=== PATIENT | female | born 1945 | race Caucasian/White ===

== ENCOUNTER → 2020-09-01 15:29 | Outpatient (BNVA) | payer OTHER, MEDICARE, SELFPAY | PROVIDERS: PCP Internal Medicine; Referring Provider Internal Medicine; Visit Provider Student in an Organized Health Care Education/Training Program | DX: M67.911 Unspecified disorder of synovium and tendon, right shoulder (principal); M19.041 Primary osteoarthritis, right hand; G80.1 Spastic diplegic cerebral palsy; Z79.899 Other long term (current) drug therapy; Z79.82 Long term (current) use of aspirin | CPT/HCPCS: 20610; 99212 ==

== ENCOUNTER 2023-07-25 17:14 | Inpatient (IN) | payer OTHER, MEDICARE, SELFPAY ==
--- NOTE | ~2023-07-25 | XR_ITS ---
EXAMINATION: XR CHEST CLINICAL INFORMATION: Fever. Hypoxia. COMPARISON: Previous chest x-ray March 2007 TECHNIQUE: 2 views of the chest were obtained. FINDINGS: The cardiac and mediastinal contours are stable. The lung volumes are low. There is bibasilar atelectasis or small infiltrates, left greater than right. No pleural effusion or pneumo thorax. There is permeative lucent appearance of the left humerus. Follow-up of left humerus or shoulder x-ray recommended. XR/XR chest 2V IMPRESSION: Low lung volumes and atelectasis or small infiltrates at the lung bases, left greater than right. Abnormal appearing left proximal humerus. Follow-up left shoulder or humerus x-ray recommended.
[2023-07-25 17:21] VITALS: BP 114/72; PULSE 96; O2SAT 92
[2023-07-25 17:34] VITALS: BP 155/87; PULSE 122; RESP 20; TEMP 39.4; O2SAT 89; BMI 37.0
--- NOTE | 2023-07-25 17:39 | ECG_ITS ---
Test Reason : DYSPNEA Blood Pressure : / mmHG Vent. Rate : 123 BPM Atrial Rate : 123 BPM P-R Int : 158 ms QRS Dur : 134 ms QT Int : 312 ms P-R-T Axes : 010 098 -34 degrees QTc Int : 446 ms Possible Atrial flutter with 2 to 1 block Right bundle branch block Inferior infarct , age undetermined Anteroseptal infarct , age undetermined T wave abnormality, consider lateral ischemia Abnormal ECG No previous ECGs available Referred By: Jevon Reyes Electronically Signed By:AZUCENA ADAM MD
--- NOTE | 2023-07-25 17:40 | ED_ITS ---
HPI - General Adult General Chief complaint: Upper Respiratory Symptoms Stated complaint: SOB. Cold symptoms. per ems Time Seen by Provider: 07/25/23 17:19 History of Present Illness HPI narrative: The patient is a 77-year-old woman. She normally lives on her own but since March when she hurt her back she has been staying with her daughter. She is a former smoker. She says that she quit smoking a few years ago but then her recently and she resumed smoking until about a month or 2 ago. Patient says she has had respiratory symptoms for about 3 days including cough and runny nose and feeling more and more short of breath. Eventually she called an ambulance and was brought to the hospital. On arrival here she was found to have a temperature of 103 degrees. No chest pain. No pleuritic pain. No abdominal pain. No vomiting. No pain or swelling in her legs. Related Data Home Medications Medication Instructions Recorded Confirmed acetaminophen 650 mg 650 mg PO Q12H 09/01/20 tablet,extended release (Tylenol Arthritis Pain) aspirin 81 mg tablet,delayed 81 mg PO DAILY 09/01/20 release baclofen 20 mg tablet 20 mg PO TID 09/01/20 ezetimibe 10 mg-simvastatin 10 mg 1 tab PO DAILY 09/01/20 tablet (Vytorin) hydrochlorothiazide 25 mg tablet 25 mg PO DAILY 09/01/20 urltfcmb-kwrisdl-qqtw-lutein tablet 1 tab PO DAILY 09/01/20 naproxen 250 mg tablet 250 mg PO BID PRN 09/01/20 oxybutynin chloride 5 mg tablet 5 mg PO DAILY 09/01/20 oxycodone-acetaminophen 5 mg-325 1 tab PO Q8H PRN 09/01/20 mg tablet (Percocet) verapamil 360 mg 24 hr 360 mg PO DAILY 09/01/20 capsule,extended release Allergies Allergy/AdvReac Type Severity Reaction Status Date / Time penicillin V Allergy Intermediate rash Verified 09/01/20 15:43 nitrofurantoin Allergy Rash Verified 07/25/23 19:44 nickel Allergy Intermediate swelling Uncoded 09/01/20 15:43 Review of Systems 2 Review of Systems: Yes all other systems are reviewed and are negative [facility] Past Medical History Medical History Urine incontinence Hyperlipidemia Sleep apnea Depression Cerebral palsy HTN (hypertension) CVA (cerebral vascular accident) Hypothyroid Surgical History Hx of cholecystectomy Hx of hysterectomy Family History Family History Father CVD (cardiovascular disease) Diabetes Mother CVD (cardiovascular disease) Social History Social History Alcohol intake: never Smoked in Last 30 Days: No Use of substances other than those prescribed or required for medical reasons: No Advance Directives: Yes Advance Directives Information Provided: No Advance Directives on File: No Physical Exam ED Vital Signs: Vital Signs - 24 hr 07/25/23 17:34 07/25/23 19:21 07/25/23 19:48 Temperature 103 F H 101.5 F H Pulse Rate 122 H 128 H 128 H Respiratory Rate 20 25 H 18 Blood Pressure 155/87 H 199/81 H Pulse Oximetry 89 L 88 L Oxygen Delivery Method Nasal Cannula Room Air Nasal Cannula Oxygen Flow Rate 5 BMI result Body Mass Index 37.0 Const Other: The patient is a chronically ill-appearing overweight 77-year-old who was awake and alert on nasal oxygen. She is very pleasant. He does not appear in overt distress. She looks quite chronically ill however. HENMT Other: Face is symmetrical, mucous membranes moist Eyes Other: Pupils are round equal, no scleral icterus Neck Other: No obvious JVD Resp Other: The patient has wheezes and rhonchi bilaterally. Cardio Other: The patient is tachycardic. There is a regular rate and rhythm. No definite murmur. GI Other: Abdomen is soft and nontender. Skin Other: Skin is pale and dry. Neuro Other: The patient is awake, alert, oriented, appropriate. She seems generally weak but otherwise has a nonfocal exam. Extrem Other: No obvious calf swelling, asymmetry, or tenderness. Medications Administered Generic Name Dose Route Start Last Admin Trade Name Freq PRN Reason Stop Dose Admin Enoxaparin Sodium 40 mg 07/25/23 23:00 12 00:26 Enoxaparin Sodium 40 Mg/0.4 Ml Syringe SUBCUT Not Given Q24H NEHA Sodium Chloride 3 ml 07/26/23 00:00 07/26/23 00:26 0.9 % Sodium Chloride Flush 3 Ml Syringe IVFLUSH 3 ml QSHIFT NEHA Administration Discontinued Medications Generic Name Dose Route Start Last Admin Trade Name Saroj PRN Reason Stop Dose Admin Acetaminophen 975 mg 07/25/23 19:25 07/25/23 19:35 Acetaminophen 325 Mg Tablet PO 07/25/23 19:26 975 mg ONCE ONE Administration Albuterol/Ipratropium 3 ml 07/25/23 19:21 07/25/23 19:39 Albuterol/Iprat 2.5/0.5mg 3 Ml Ampul.Neb INHALE 07/25/23 19:22 3 ml ONCE ONE Administration Ceftriaxone Sodium 1 gm/ 50 mls @ 100 mls/hr 07/25/23 19:20 07/25/23 20:07 Sodium Chloride IV 07/25/23 19:49 Infused ONCE ONE Infusion Azithromycin 500 mg/ Sodium 250 mls @ 125 mls/hr 07/25/23 19:21 07/25/23 22:33 Chloride IV 07/25/23 21:20 Infused ONCE ONE Infusion Sodium Chloride 1,000 mls @ 999 mls/hr 07/25/23 19:30 07/25/23 21:00 Ns IV 07/25/23 20:30 Infused .Q1H1M NEHA Infusion Methylprednisolone Sodium Succinate 125 mg 07/25/23 19:45 07/25/23 20:07 Methylprednisolone Sod Succ 125 Mg/2 Ml Vial IV 07/25/23 19:46 125 mg ONCE ONE Administration Medical Decision Making Medical Decision Making [facility] Narrative: The patient is very pleasant 77-year-old with history of COPD who presents with fever, cough, and runny nose. She is hypoxic. She has tested positive for RSV. I think that she has a COPD exacerbation secondary to significant RSV infection. Although she is tachycardic and hypoxic I think these abnormal vital signs are secondary to her viral illness under COPD exacerbation rather than sepsis. Nevertheless she was treated with ceftriaxone and azithromycin in addition to IV steroids and bronchodilators. She will be admitted to the hospitalist service. Lab Data 07/25/23 18:21 07/25/23 18:21 Labs: Lab Results 07/25/23 07/25/23 07/25/23 Range/Units 18:21 18:28 18:30 WBC 8.8 (4.8-10.8) X10*3/uL RBC 4.61 (4.20-5.50) X10*6/uL Hgb 13.2 (12.0-16.0) g/dl Hct 42.8 (37.0-47.0) % MCV 92.8 (80.0-98.0) fL MCH 28.6 (27.0-33.0) pg MCHC 30.8 L (31.0-35.0) g/dl RDW 14.4 (11.0-16.0) % Plt Count 117 L (160-400) X10*3/uL MPV 11.1 (9.4-12.3) fL Immature Gran % (Auto) 0.3 (0.0-0.4) % Neut % (Auto) 84.2 H (45-73) % Lymph % (Auto) 7.3 L (20-40) % [place] % (Auto) 7.4 (2-11) % Eos % (Auto) 0.5 (0-4) % Baso % (Auto) 0.3 (0-2) % Lymph # (Auto) 0.6 L (1.2-4.9) X10*3/uL [place] # (Auto) 0.7 (0.1-1.2) X10*3/uL Eos # (Auto) 0.0 (0.0-0.4) X10*3/uL Baso # (Auto) 0.0 (0.0-0.2) X10*3/uL Abs Immat Gran (auto) 0.03 (0.00-0.03) X10*3/uL Absolute Neuts (auto) 7.4 (2.0-8.3) x10*3/uL Absolute Nucleated RBC 0.000 (0.0-0.012) X10*3/uL Nucleated RBC % (auto) 0.0 (0.0-0.2) /100WBC VBG pH 7.40 (7.32-7.43) VBG pCO2 43 mmHg VBG pO2 39 mmHg VBG HCO3 27 H (22-26) mmol/L VBG O2 Saturation 60.0 % VBG Base Excess 2.7 mmol/L Sodium 145 (135-145) mmol/L Potassium 4.0 (3.3-5.1) mmol/L Chloride 106 (96-108) mmol/L Carbon Dioxide 25 (22-29) mmol/L Anion Gap 18 (12-20) BUN 21 H (9-16) mg/dL Creatinine 1.19 (0.5-1.4) mg/dL Estim Creat Clear Calc 39.1 Estimated GFR 44 Random Glucose 87 (60-115) mg/dL Lactic Acid 1.4 (0.5-2.0) mmol/L Calcium 9.7 (8.4-10.2) mg/dL Magnesium 2.0 (1.6-2.6) mg/dL Total Bilirubin 0.4 (0.0-1.0) mg/dL Direct Bilirubin 0.2 (0.0-0.5) mg/dL AST 27 (5-31) U/L ALT 13 (0-31) U/L Alkaline Phosphatase 64 (39-117) U/L C-Reactive Protein 7.98 H (< or = 0.50) mg/dL B-Natriuretic Peptide 19 (<100) pg/mL Total Protein 7.9 (6.5-8.0) g/dL Albumin 4.4 (3.5-5.0) g/dL Influenza Type A (PCR) NEGATIVE (Negative) Influenza Type B (PCR) NEGATIVE (Negative) RSV RNA Qual (PCR) POSITIVE A (Negative) SARS-CoV-2 RNA (RT-PCR) NEGATIVE (Negative) Independent Interpretation I performed an independent interpretation of an: EKG Interpretation: EKG at 17:59 shows sinus tachycardia at 123 beats per minute. There is a right bundle-branch block. There are nonspecific ST and T-wave changes. There are no old EKGs available for comparison Critical Care Time Critical Care Time Total Critical Care Time: 35 Attestation: The patient was critically ill with a high probability of imminent or life- threatening deterioration. She was significantly tachycardic and hypoxic. I spent greater than 30 minutes of discontinuous time evaluating the patient, delivering critical care at the bedside, discussing evaluating data with consultants. Critical care time does not include time spent performing separately billable procedures or teaching. Time spent performing critical care with 35 minutes. Discharge Plan Discharge Clinical Impression: Acute exacerbation of chronic obstructive pulmonary disease, Respiratory syncytial virus (RSV) Patient Disposition: Admitted As Inpatient
[2023-07-25 18:32] LABS: Venous Blood Gas Refer to POC result
[2023-07-25 18:32] LABS: MANUAL DIFF FLAG NO
[2023-07-25 18:34] LABS: VBG Base Excess 2.7 mmol/L; VBG HCO3 27 mmol/L (22-26); VBG pCO2 43 mmHg; VBG pO2 39 mmHg
[2023-07-25 18:46] LABS: Lactic Acid 1.4 mmol/L (0.5-2.0)
[2023-07-25 18:52] LABS: Alanine Aminotransferase 13 U/L (0-31); Albumin Level 4.4 g/dL (3.5-5.0); Alkaline Phosphatase 64 U/L (39-117); Anion Gap 18 (12-20); Aspartate Amino Transferase 27 U/L (5-31); Bilirubin Direct 0.2 mg/dL (0.0-0.5); Bilirubin Total 0.4 mg/dL (0.0-1.0); Blood Urea Nitrogen 21 mg/dL (9-16); C Reactive Protein 7.98 mg/dL (< or = 0.50); Calcium 9.7 mg/dL (8.4-10.2); Carbon Dioxide 25 mmol/L (22-29); Chloride 106 mmol/L (96-108); Creatinine Clr Calc Pharmacy 39.1; Estimated Glomerular Filt Rate 44; Glucose Random 87 mg/dL (60-115); Sodium 145 mmol/L (135-145); Total Protein 7.9 g/dL (6.5-8.0)
[2023-07-25 18:57] LABS: B Type Natriuretic Peptide 19 pg/mL (<100)
[2023-07-25 19:05] LABS: Basophils Percent Auto 0.3 % (0-2); Eosinophils Percent Auto 0.5 % (0-4); Hematocrit 42.8 % (37.0-47.0); Hemoglobin 13.2 g/dl (12.0-16.0); Imm Gran Abs Auto 0.03 X10*3/uL (0.00-0.03); Imm Gran Pct Auto 0.3 % (0.0-0.4); Lymphocytes Absolute Auto 0.6 X10*3/uL (1.2-4.9); Lymphocytes Percent Auto 7.3 % (20-40); Mean Corpuscular HGB Conc 30.8 g/dl (31.0-35.0); Mean Corpuscular Hemoglobin 28.6 pg (27.0-33.0); Mean Corpuscular Volume 92.8 fL (80.0-98.0); Mean Platelet Volume 11.1 fL (9.4-12.3); Monocytes Absolute Auto 0.7 X10*3/uL (0.1-1.2); Monocytes Percent Auto 7.4 % (2-11); Neutrophils Absolute Auto 7.4 x10*3/uL (2.0-8.3); Neutrophils Percent Auto 84.2 % (45-73); Platelet Count 117 X10*3/uL (160-400); Red Blood Count 4.61 X10*6/uL (4.20-5.50); Red Cell Distribution Width 14.4 % (11.0-16.0); White Blood Count 8.8 X10*3/uL (4.8-10.8)
[2023-07-25 19:14] LABS: Influenza A PCR NEGATIVE (Negative); Influenza B PCR NEGATIVE (Negative); Resp Syncy Virus RNA Qual PCR POSITIVE (Negative); SARS COV2 PCR INHOUSE NEGATIVE (Negative)
[2023-07-25 19:21] VITALS: BP 199/81; PULSE 128; RESP 25; TEMP 38.6; O2SAT 88
[2023-07-25] MEDS: Acetaminophen 325 MG TABLET 975 MG PO (19:35)
[2023-07-25] MEDS: cefTRIAXone sodium 1 GM in 0.9 % Sodium Chloride 50 ML IV (19:35)
[2023-07-25] MEDS: Albuterol/Iprat 2.5/0.5MG 3 ML AMPUL.NEB INHALE (19:39)
[2023-07-25] MEDS: 0.9 % Sodium Chloride 1,000 ML 999 ML IV (19:40)
[2023-07-25 19:48] VITALS: PULSE 128; RESP 18; O2SAT 90
--- NOTE | 2023-07-25 19:51 | PC.NURSE ---
this rn assumed care of pt @ 1900. per dr easley not calling sepsis alert on pt due to LA being WNL and not hypotensive. charge entry specialist made aware. pt medicated according to gladys
[2023-07-25] MEDS: Azithromycin 500 MG in 0.9 % Sodium Chloride 250 ML 125 MG IV (20:07)
[2023-07-25] MEDS: methylPREDNISolone Sod Succ 125 MG/2 ML VIAL IV (20:07)
--- NOTE | 2023-07-25 21:40 | P.HPHOSP_ITS ---
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 Pt has been experiencing a wicked bad cough, runny nose, and shortness of breath for the past three days. Pt was seen at her PCP office earlier today where she was found to be satting at 80% O2. Patient does not carry a diagnosis of COPD, and is not on either home inhalers or supplemental O2. She was thus sent to the ED for further evaluation where she tested positive for RSV. Patient states she also had been experiencing episodes of diarrhea the past 2 days. Some cramping with the diarrhea, but otherwise no abdominal pain. Reports not feeling particularly feverish or experiencing chills. Has had an occasional headache. No chest pain/pressure, palpitations. In the ED pt was febrile up to 103, tachycardic up to 128, tachypneic up to 25, hypertensive up to 199/81, satting as low as 88% on RA. Labs were grossly unremarkable except for C-reactive protein of 7.98. No leukocytosis. Stable H&H. Electrolytes WNL. Renal function baseline. Hepatic function WNL. Patient tested positive for RSV. CXR showed low lung volumes and atelectasis or small infiltrate at the left lung basis with left greater than right. Also found abnormal appearing left proximal humerus, though pt notes her rotator cuff is shot and she has [id number] in her shoulder. EKG demonstrated sinus tachycardia of 123 with right bundle branch block. Pt was treated with ceftriaxone, azithromycin, DuoNebs, IVF, and acetaminophen. Pt will be admitted to the hospital for treatment further evaluation of acute hypoxic respiratory failure in the setting of severe RSV infection. Review of Systems 2 Review of Systems: Cough Rhinorrhea Shortness of breath Crampy diarrhea Headache Denies chest pain/pressure, palpitations Denies fever, chills FORMERLY [facility], [facility]1983 Medical History Urine incontinence Hyperlipidemia Sleep apnea Depression Cerebral palsy HTN (hypertension) CVA (cerebral vascular accident) Hypothyroid Family History Father CVD (cardiovascular disease) Diabetes Mother CVD (cardiovascular disease) Surgical History Hx of cholecystectomy Hx of hysterectomy Social History Alcohol intake: never Advance Directives: Yes Advance Directives Information Provided: No Advance Directives on File: No Meds Allergies Allergy/AdvReac Type Severity Reaction Status Date / Time penicillin V Allergy Intermediate rash Verified 09/01/20 15:43 nitrofurantoin Allergy Rash Verified 07/25/23 19:44 nickel Allergy Intermediate swelling Uncoded 09/01/20 15:43 Home Medications Medication Instructions Recorded Confirmed Last Taken Type acetaminophen 650 mg 650 mg PO Q12H 09/01/20 Unknown History tablet,extended release (Tylenol Arthritis Pain) aspirin 81 mg tablet,delayed 81 mg PO DAILY 09/01/20 Unknown History release baclofen 20 mg tablet 20 mg PO TID 09/01/20 Unknown History ezetimibe 10 mg-simvastatin 10 mg 1 tab PO DAILY 09/01/20 Unknown History tablet (Vytorin) hydrochlorothiazide 25 mg tablet 25 mg PO DAILY 09/01/20 Unknown History vlfuuqhh-yuvultv-gfby-lutein tablet 1 tab PO DAILY 09/01/20 Unknown History naproxen 250 mg tablet 250 mg PO BID PRN 09/01/20 Unknown History oxybutynin chloride 5 mg tablet 5 mg PO DAILY 09/01/20 Unknown History oxycodone-acetaminophen 5 mg-325 1 tab PO Q8H PRN 09/01/20 Unknown History mg tablet (Percocet) verapamil 360 mg 24 hr 360 mg PO DAILY 09/01/20 Unknown History capsule,extended release Physical Exam 2 Vital Signs and Narrative: Vital Signs: Last Vital Signs Temp 101.5 F H 07/25/23 19:21 Pulse 128 H 07/25/23 19:48 Resp 18 07/25/23 19:48 BP 199/81 H 07/25/23 19:21 Pulse Ox 88 L 07/25/23 19:21 O2 Del Method Room Air, Nasal C annula 07/25/23 19:21 O2 Flow Rate 5 07/25/23 19:21 Oxygen Flow Rate 5 07/25/23 17:34 BMI result Body Mass Index 37.0 Constitutional: Alert, in no acute distress. Mental Status: Oriented to person, place and time. Eyes: Pupils are equal, round, and reactive to light. Ear, Nose, and Throat: Oropharynx clear, mucous membranes moist. Ears and nose without deformities. Trachea midline. Respiratory: Diffuse bilateral wheezing and rhonchi. Cardiovascular: S1, S2, tachy. No murmurs, rubs, or gallops. Gastrointestinal: Abdomen soft, non-tender, non-distended. Normal bowel sounds. Neurologic: Cranial nerves II-XII are grossly intact bilaterally. Chronic left- sided hemiparesis, though has same movement in left leg. Right hand chronically contracted. Skin: Warm, dry. Extremities: No pitting edema. Psychiatric: Normal mood and affect. Results Labs 07/25/23 18:21 07/25/23 18:21 Labs: Laboratory Results - last 24 hr 07/25/23 07/25/23 07/25/23 18:21 18:28 18:30 MCV 92.8 MCH 28.6 MCHC 30.8 L RDW 14.4 Plt Count 117 L MPV 11.1 Immature Gran % (Auto) 0.3 Neut % (Auto) 84.2 H Lymph % (Auto) 7.3 L [place] % (Auto) 7.4 Eos % (Auto) 0.5 Baso % (Auto) 0.3 Lymph # (Auto) 0.6 L [place] # (Auto) 0.7 Eos # (Auto) 0.0 Baso # (Auto) 0.0 Abs Immat Gran (auto) 0.03 Absolute Neuts (auto) 7.4 Absolute Nucleated RBC 0.000 Nucleated RBC % (auto) 0.0 VBG pH 7.40 VBG pCO2 43 VBG pO2 39 VBG HCO3 27 H VBG O2 Saturation 60.0 VBG Base Excess 2.7 Anion Gap 18 Estim Creat Clear Calc 39.1 Estimated GFR 44 Random Glucose 87 Lactic Acid 1.4 Calcium 9.7 Magnesium 2.0 Total Bilirubin 0.4 Direct Bilirubin 0.2 AST 27 ALT 13 Alkaline Phosphatase 64 C-Reactive Protein 7.98 H B-Natriuretic Peptide 19 Total Protein 7.9 Albumin 4.4 Influenza Type A (PCR) NEGATIVE Influenza Type B (PCR) NEGATIVE RSV RNA Qual (PCR) POSITIVE A SARS-CoV-2 RNA (RT-PCR) NEGATIVE Imaging Radiologist's Impressions: Impressions Chest X-Ray 07/25/23 18:40 IMPRESSION: Low lung volumes and atelectasis or small infiltrates at the lung bases, left greater than right. Abnormal appearing left proximal humerus. Follow-up left shoulder or humerus x-ray recommended. 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 Pt will be admitted to the hospital for treatment further evaluation of acute hypoxic respiratory failure in the setting of severe RSV infection. Acute hypoxic respiratory failure in the setting of RSV infection Patient satting as low as 80% on RA, not on home O2 Pt with significant SOB, cough, rhinorrhea, tested positive for RSV Will treat with DuoNebs, Solu-Medrol Acetaminophen for fever Will be placed on maintenance IVF Titrate supplemental O2 >92, wean as tolerated Viral sepsis Patient tachycardic, tachypneic, and with fever up to 103 secondary to viral RSV infection No indication for bacterial infection, no indication for continuing antibiotics Patient will be treated symptomatically as above Abnormal appearing left proximal humerus Patient with known rotator cuff injury and ?[id number]? in shoulder Patient with left-sided shailesh paresis, unable to move arm or showed There is no indication for further workup or treatment at this time Hx of CVA Continue Vytorin, aspirin HTN Continue verapamil, hydrochlorothiazide Chronic musculoskeletal pain Continue home analgesics Full Code Attending:? DVT Prophylaxis: Lovenox Med rec still pending Pt will require a hospitalization of at least two nights for treatment of?acute hypoxic respiratory failure in the setting of severe RSV infection. Patient be treated breathing treatments, IV steroids, IVF, supplemental oxygen, and close monitoring. Quality Stroke Does the patient have a stroke diagnosis?: No VTE Prior VTE?: No VTE Risk Level:: Medical - moderate - high VTE Device Contraindication: Treatment Not Indicated VTE Drug Contraindication: N/A - Med Ordered
[2023-07-25 22:21] VITALS: BP 128/85; PULSE 103; RESP 22; TEMP 37.1; O2SAT 92
[2023-07-25 22:33] VITALS: O2SAT 92
[2023-07-26] MEDS: 0.9 % Sodium Chloride Flush 3 ML SYRINGE IVFLUSH ×4 (00:26→21:28)
[2023-07-26 03:22] VITALS: BP 141/74; PULSE 82; RESP 22; TEMP 36.5; O2SAT 93
--- NOTE | 2023-07-26 03:24 | MHC.EDTECH ---
This tech assumed care of patient at 0300AM, hourly rounds and vitals completed,patient was incont. of a moderate amount of urine,patient was cleaned and repositioned in bed
--- NOTE | 2023-07-26 03:40 | MHC.EDTECH ---
Patient urinated 300ML on bedpan,This tech placed a Pure Wick for incontinence ,and to keep patient clean and dry.PHILLIP valdivia
--- NOTE | 2023-07-26 05:59 | MHC.EDTECH ---
Hourly rounds completed,patient repositioned to comfort and call toscano within reach
[2023-07-26] MEDS: methylPREDNISolone Sod Succ 40 MG/ML VIAL IVPUSH ×2 (07:16→21:21)
[2023-07-26 07:25] VITALS: BP 166/74; PULSE 79; RESP 18; TEMP 36.5; O2SAT 94
--- NOTE | 2023-07-26 09:14 | PHA.MEDREC ---
Pharmacy Consult ? Medication Reconciliation Pharmacy has completed the medication reconciliation. Spoke to patient to confirm meds.
--- NOTE | 2023-07-26 11:39 | HO.PM.IMPN ---
Subjective Subjective Date of Service: 07/26/23 Interval History: f/u acute hypoxic respiratory failure due to COPD exacerbation caused by a RSV, she is better but still requiring O2 Physical Exam Vital Signs: Vital Signs: Last Vital Signs Temp 97.7 F 07/26/23 07:25 Pulse 79 07/26/23 07:25 Resp 18 07/26/23 07:25 BP 166/74 H 07/26/23 07:25 Pulse Ox 94 07/26/23 07:25 O2 Del Method Nasal Cannula 07/26/23 07:25 O2 Flow Rate 5 07/26/23 07:25 Oxygen Flow Rate 5 07/25/23 22:33 BMI result Body Mass Index 37.0 Const: Other: General: AO X 3, no acute distress Resp: diminished annamaria, wheezing CVS: S1,S2,RRR GI: +BS, NT, no distention Skin: No rash Neuro: motor grossly intact Psych: appropriate affect Objective Data Active Medications Acetaminophen (Acetaminophen 325 Mg Tablet) 650 mg PO Q6H PRN PRN Reason: Fever Albuterol/Ipratropium (Albuterol/Iprat 2.5/0.5mg 3 Ml Ampul.Neb) 3 ml INHALE RQ4H WHILE AWAKE [facility] Last Admin: 07/26/23 07:44 Dose: Not Given Documented By: VINCE Non-Admin Reason: Patient Asleep Docusate Sodium (Docusate Sodium 100 Mg Capsule) 100 mg PO DAILY PRN PRN Reason: Constipation Enoxaparin Sodium (Enoxaparin Sodium 40 Mg/0.4 Ml Syringe) 40 mg SUBCUT Q24H [facility] Last Admin: 07/26/23 00:26 Dose: Not Given Documented By: KAYLIN Non-Admin Reason: Patient Refused Melatonin (Melatonin 3 Mg Tablet) 6 mg PO BEDTIME PRN PRN Reason: Insomnia Methylprednisolone Sodium Succinate (Methylprednisolone Sod Succ 40 Mg/Ml Vial) 40 mg IVPUSH Q12H [facility] Last Admin: 07/26/23 07:16 Dose: 40 mg Documented By: OUMOU Ondansetron HCl (Ondansetron Hcl 4 Mg/2 Ml Vial) 4 mg IVPUSH Q8H PRN PRN Reason: Nausea and Vomiting Sodium Chloride (0.9 % Sodium Chloride Flush 3 Ml Syringe) 3 ml IVFLUSH QSHIFT [facility] Last Admin: 07/26/23 07:17 Dose: 3 ml Documented By: OUMOU Labs 07/25/23 18:21 07/25/23 18:21 Labs: Laboratory Results - last 24 hr 07/25/23 07/25/23 07/25/23 18:21 18:28 18:30 MCV 92.8 MCH 28.6 MCHC 30.8 L RDW 14.4 Plt Count 117 L MPV 11.1 Immature Gran % (Auto) 0.3 Neut % (Auto) 84.2 H Lymph % (Auto) 7.3 L [place] % (Auto) 7.4 Eos % (Auto) 0.5 Baso % (Auto) 0.3 Lymph # (Auto) 0.6 L [place] # (Auto) 0.7 Eos # (Auto) 0.0 Baso # (Auto) 0.0 Abs Immat Gran (auto) 0.03 Absolute Neuts (auto) 7.4 Absolute Nucleated RBC 0.000 Nucleated RBC % (auto) 0.0 VBG pH 7.40 VBG pCO2 43 VBG pO2 39 VBG HCO3 27 H VBG O2 Saturation 60.0 VBG Base Excess 2.7 Anion Gap 18 Estim Creat Clear Calc 39.1 Estimated GFR 44 Random Glucose 87 Lactic Acid 1.4 Calcium 9.7 Magnesium 2.0 Total Bilirubin 0.4 Direct Bilirubin 0.2 AST 27 ALT 13 Alkaline Phosphatase 64 C-Reactive Protein 7.98 H B-Natriuretic Peptide 19 Total Protein 7.9 Albumin 4.4 Influenza Type A (PCR) NEGATIVE Influenza Type B (PCR) NEGATIVE RSV RNA Qual (PCR) POSITIVE A SARS-CoV-2 RNA (RT-PCR) NEGATIVE Assessment and Plan (1) Acute hypoxic respiratory failure: Status: Acute (2) Respiratory syncytial virus (RSV): Status: Acute (3) Acute exacerbation of chronic obstructive pulmonary disease: Status: Acute Plan Pt is a 77-year-old female with a PMH significant for?HTN, HLD, 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 Pt will be admitted to the hospital for treatment further evaluation of acute hypoxic respiratory failure in the setting of severe RSV infection. Acute hypoxic respiratory failure in the setting of RSV infection causing copd exacerbation Patient satting as low as 80% on RA, not on home O2 continue O2 goal of 92, wean as liz DuoNeteetee, Solu-Medrol for copd exacerbaion Viral sepsis, no indication for Abx Abnormal appearing left proximal humerus Patient with known rotator cuff injury and ?[id number]-[id number]? in shoulder Patient with left-sided shailesh paresis, unable to move arm or showed There is no indication for further workup or treatment at this time Hx of CVA Continue Vytorin, aspirin HTN Continue verapamil, hydrochlorothiazide Chronic musculoskeletal pain Continue home analgesics Full Code DVT Prophylaxis: Lovenox Med rec still completed need for inpatient for treatment of?acute hypoxic respiratory failure in the setting of severe RSV infection, need O2 titration Quality Stroke Does the patient have a stroke diagnosis?: No VTE Prior VTE?: No VTE Risk Level:: Medical - moderate - high VTE Device Contraindication: Treatment Not Indicated VTE Drug Contraindication: N/A - Med Ordered
[2023-07-26 11:44] VITALS: BP 154/79; PULSE 84; RESP 20; O2SAT 95
--- NOTE | 2023-07-26 12:22 | PC.NURSE ---
Pt is alert/oriented. No SOB or pain per pt. Breathing is non labored. Transitioned on Oxymask, sat 95% on 4lpm. Skin pwd. Speaking full sentences. LS diminished anteriorly. Purewick in plce. NSR on monitor.
[2023-07-26] MEDS: cloNIDine HCL 0.1 MG TABLET PO ×2 (12:56→21:21)
[2023-07-26] MEDS: Cholecalciferol (Vitamin D3) 25 MCG TABLET PO (12:56)
[2023-07-26] MEDS: Cyanocobalamin (Vitamin B-12) 1,000 MCG TABLET 1000 MCG PO (12:56)
[2023-07-26] MEDS: Aspirin Enteric Coated 81 MG TABLET.DR PO (12:57)
[2023-07-26] MEDS: VerapamiL HCL SR 240 MG TABLET.ER PO (13:46)
--- NOTE | 2023-07-26 14:00 | MHC.CM.PN ---
Patient is unavailable; CM spoke with Daughter/HCP/Valencia @ [phone]. Patient is presently staying with her Daughter/Valencia, who is a DISTRIBUTION TECH. Home/self care is the goal and CM has initiated and will follow for dc planning. PCP is Dr. Charlene Shaw.Patient does not use home O2;she does have a cane to assist with mobility.
[2023-07-26] MEDS: Baclofen 20 MG TABLET PO ×2 (15:44→21:21)
[2023-07-26 16:04] VITALS: PULSE 89; RESP 18; O2SAT 92
[2023-07-26] MEDS: Albuterol/Iprat 2.5/0.5MG 3 ML AMPUL.NEB INHALE ×2 (16:04→20:06)
--- NOTE | 2023-07-26 16:17 | PC.NURSE ---
Home Anoro inhaler brought in by family and to be picked up by pharmacy
[2023-07-26 18:49] VITALS: BP 134/72; PULSE 75; RESP 16; TEMP 36.2; O2SAT 96
[2023-07-26 19:48] VITALS: BMI 35.3
[2023-07-26 20:04] VITALS: PULSE 75; RESP 16; O2SAT 96
[2023-07-26] MEDS: Enoxaparin Sodium 40 MG/0.4 ML SYRINGE SUBCUT (21:21)
[2023-07-26] MEDS: Atorvastatin Calcium 10 MG TABLET PO (21:21)
--- NOTE | 2023-07-26 22:25 | MHC.PIE ---
p; pt arrived from ed, noted with fugal rash areas to annamaria breasts and groin areas i; dr sanders notified e; will cont to monitor
[2023-07-27] VITALS (7 sets, daily range): BP systolic 118–158; BP diastolic 56–79; PULSE 63–103; RESP 17–22; TEMP 36.3–36.6; O2SAT 84–97
[2023-07-27] MEDS: Acetaminophen 325 MG TABLET 650 MG PO (08:16)
[2023-07-27] MEDS: Albuterol/Iprat 2.5/0.5MG 3 ML AMPUL.NEB INHALE ×4 (08:24→19:37)
[2023-07-27] MEDS: Cyanocobalamin (Vitamin B-12) 1,000 MCG TABLET 1000 MCG PO (08:58)
[2023-07-27] MEDS: Multivitamin TABLET 1 TAB PO (08:58)
[2023-07-27] MEDS: Aspirin Enteric Coated 81 MG TABLET.DR PO (08:58)
[2023-07-27] MEDS: methylPREDNISolone Sod Succ 40 MG/ML VIAL IVPUSH ×2 (08:58→21:26)
[2023-07-27] MEDS: Baclofen 20 MG TABLET PO ×3 (08:58→21:27)
[2023-07-27] MEDS: VerapamiL HCL SR 240 MG TABLET.ER PO (08:58)
[2023-07-27] MEDS: Cholecalciferol (Vitamin D3) 25 MCG TABLET PO (08:59)
[2023-07-27] MEDS: cloNIDine HCL 0.1 MG TABLET PO ×2 (08:59→21:27)
[2023-07-27] MEDS: oxyBUTYnin chloride 5 MG TABLET PO (08:59)
[2023-07-27] MEDS: 0.9 % Sodium Chloride Flush 3 ML SYRINGE IVFLUSH ×3 (08:59→23:34)
[2023-07-27 10:43] LABS: Hematocrit 35.4 % (37.0-47.0); Hemoglobin 10.9 g/dl (12.0-16.0); Mean Corpuscular HGB Conc 30.8 g/dl (31.0-35.0); Mean Corpuscular Hemoglobin 28.5 pg (27.0-33.0); Mean Corpuscular Volume 92.7 fL (80.0-98.0); Mean Platelet Volume 11.1 fL (9.4-12.3); Platelet Count 122 X10*3/uL (160-400); Red Blood Count 3.82 X10*6/uL (4.20-5.50); Red Cell Distribution Width 14.4 % (11.0-16.0); White Blood Count 10.4 X10*3/uL (4.8-10.8)
[2023-07-27] MEDS: Nystatin Powder 15 GM BOTTLE 1 APPL TOPICAL ×2 (12:21→21:27)
--- NOTE | 2023-07-27 14:03 | P.PNIM_ITS ---
Subjective Subjective Date of Service: 07/27/23 Interval History: seen and examined this morning follow up for respiratory failure, RSV feels that breathing is starting to improve but still reporting sob and dry cough, still with hypoxia; has not been ambulating Review of Systems Review of Systems: Yes all other systems are reviewed and are negative Constitutional Constitutional: Denies chills and Denies fever(s) Cardiovascular Cardiovascular: Denies chest pain and Reports dyspnea Respiratory Respiratory: Reports cough and Reports dyspnea Physical Exam 2 Vital Signs: Vital Signs: Last Vital Signs Temp 98 F 07/27/23 06:53 Pulse 63 07/27/23 08:24 Resp 18 07/27/23 08:24 BP 158/79 H 07/27/23 06:53 Pulse Ox 84 L 07/27/23 06:53 O2 Del Method High Flow Nasal C annula 07/27/23 06:53 O2 Flow Rate 2 07/27/23 06:53 Oxygen Flow Rate 5 07/25/23 22:33 BMI result Body Mass Index 35.3 Const: General: cooperative, comfortable, alert and awake Nutritional Appearance: overweight Orientation/consciousness: patient oriented x3 Resp: Other: currently getting breathing treatment Effort & Inspection: normal respiratory effort and able to speak in complete sentences Cardio: Rate: regular rate GI: Inspection: No distended Palpation (GI): Soft to palpation and nontender Neuro: General: patient oriented x3 Extrem: Other: chronic LUE hand deformity, 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 Objective Data Active Medications Acetaminophen (Acetaminophen 325 Mg Tablet) 650 mg PO Q6H PRN PRN Reason: Fever Last Admin: 07/27/23 08:16 Dose: 650 mg Documented By: ASIYA Albuterol/Ipratropium (Albuterol/Iprat 2.5/0.5mg 3 Ml Ampul.Neb) 3 ml INHALE RQ4H WHILE AWAKE [facility] Last Admin: 07/27/23 12:27 Dose: 3 ml Documented By: LEIGHANN Aspirin (Aspirin Enteric Coated 81 Mg Tablet.) 81 mg PO DAILY [facility] Last Admin: 07/27/23 08:58 Dose: 81 mg Documented By: ASIYA Atorvastatin Calcium (Atorvastatin Calcium 10 Mg Tablet) 10 mg PO BEDTIME [facility] Last Admin: 07/26/23 21:21 Dose: 10 mg Documented By: BRITTA Baclofen (Baclofen 20 Mg Tablet) 20 mg PO TID [facility] Last Admin: 07/27/23 08:58 Dose: 20 mg Documented By: ASIYA Clonidine HCl (Clonidine Hcl 0.1 Mg Tablet) 0.1 mg PO BID [facility]; Protocol Last Admin: 07/27/23 08:59 Dose: 0.1 mg Documented By: ASIYA Cyanocobalamin (Cyanocobalamin (Vitamin B-12) 1,000 Mcg Tablet) 1,000 mcg PO DAILY [facility] Last Admin: 07/27/23 08:58 Dose: 1,000 mcg Documented By: ASIYA Docusate Sodium (Docusate Sodium 100 Mg Capsule) 100 mg PO DAILY PRN PRN Reason: Constipation Enoxaparin Sodium (Enoxaparin Sodium 40 Mg/0.4 Ml Syringe) 40 mg SUBCUT Q24H [facility] Last Admin: 07/26/23 21:21 Dose: 40 mg Documented By: BRITTA Fluticasone Propionate (Fluticasone Propionate Nasal 16 Gm [place]) 2 spray NOSTRIL-B DAILY PRN PRN Reason: Allergy Symptoms Melatonin (Melatonin 3 Mg Tablet) 6 mg PO BEDTIME PRN PRN Reason: Insomnia Methylprednisolone Sodium Succinate (Methylprednisolone Sod Succ 40 Mg/Ml Vial) 40 mg IVPUSH Q12H [facility] Last Admin: 07/27/23 08:58 Dose: 40 mg Documented By: ASIYA Multivitamins/Vitamin C (Multivitamin Tablet) 1 tab PO DAILY [facility] Last Admin: 07/27/23 08:58 Dose: 1 tab Documented By: ASIYA Pt Own (Umeclidinium -Vilanterol [Anoro Ellipta] 62.5-25 Mcg /Actuation Bl 1 each INHALE RDAILY [facility] Last Admin: 07/27/23 09:58 Dose: Not Given Documented By: ASIYA Non-Admin Reason: Med Not Available Nystatin (Nystatin Powder 15 Gm Bottle) 1 appl TOPICAL BID [facility]; Protocol Last Admin: 07/27/23 12:21 Dose: 1 appl Documented By: ASIYA Ondansetron HCl (Ondansetron Hcl 4 Mg/2 Ml Vial) 4 mg IVPUSH Q8H PRN PRN Reason: Nausea and Vomiting Oxybutynin Chloride (Oxybutynin Chloride 5 Mg Tablet) 5 mg PO DAILY [facility] Last Admin: 07/27/23 08:59 Dose: 5 mg Documented By: ASIYA Sodium Chloride (0.9 % Sodium Chloride Flush 3 Ml Syringe) 3 ml IVFLUSH QSHIFT [facility] Last Admin: 07/27/23 08:59 Dose: 3 ml Documented By: ASIYA Verapamil HCl (Verapamil Hcl Sr 240 Mg Tablet.Er) 240 mg PO DAILY [facility]; Protocol Last Admin: 07/27/23 08:58 Dose: 240 mg Documented By: ASIYA Vitamin D (Cholecalciferol (Vitamin D3) 25 Mcg Tablet) 25 mcg PO DAILY [facility] Last Admin: 07/27/23 08:59 Dose: 25 mcg Documented By: ASIYA Labs 07/27/23 10:36 07/25/23 18:21 Labs: Laboratory Results - last 24 hr 07/27/23 10:36 MCV 92.7 MCH 28.5 MCHC 30.8 L RDW 14.4 Plt Count 122 L MPV 11.1 Absolute Nucleated RBC 0.000 Nucleated RBC % (auto) 0.0 Microbiology Microbiology Results: Microbiology 07/25/23 18:21 Blood Culture - Preliminary Blood - Venous No growth after 24 hours. 07/25/23 18:21 Blood Culture - Preliminary Blood - Venous No growth after 24 hours. 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 Pt will be admitted to the hospital for treatment further evaluation of acute hypoxic respiratory failure in the setting of severe RSV infection. Acute hypoxic respiratory failure in the setting of RSV infection causing acute copd exacerbation still with hypoxia at rest continue O2 goal of 92, wean as liz DuoNebs, Solu-Medrol for copd exacerbation not on oxygen at baseline Viral sepsis, no indication for Abx thrombocytopenia likely due to acute viral illness platelets stable Abnormal appearing left proximal humerus Patient with known rotator cuff injury and ?[id number]? in shoulder Patient with left-sided shailesh paresis, unable to move arm due to CP per patient There is no indication for further workup or treatment at this time continue baclofen Hx of CVA Continue statin, aspirin HTN Continue verapamil, clonidine Full Code DVT Prophylaxis: Lovenox attending: Dr. Aldana need for inpatient for treatment of?acute hypoxic respiratory failure in the setting of severe RSV infection, need O2 titration Quality Stroke Does the patient have a stroke diagnosis?: No VTE Prior VTE?: No VTE Risk Level:: Medical - moderate - high VTE Device Contraindication: Treatment Not Indicated VTE Drug Contraindication: N/A - Med Ordered
--- NOTE | 2023-07-27 14:48 | PC.NURSE ---
Attempted to switch to nasal canula but O2 sats dropped . Maintained in 2L oxymask
[2023-07-27] MEDS: Enoxaparin Sodium 40 MG/0.4 ML SYRINGE SUBCUT (21:26)
[2023-07-27] MEDS: Atorvastatin Calcium 10 MG TABLET PO (21:27)
--- NOTE | 2023-07-27 21:49 | PC.NURSE ---
Resting in bed,comfortable,denies SOB at present
[2023-07-28] VITALS (8 sets, daily range): BP systolic 113–145; BP diastolic 62–69; PULSE 68–86; RESP 18–20; TEMP 36.2–36.6; O2SAT 88–97
[2023-07-28] MEDS: Acetaminophen 325 MG TABLET 650 MG PO ×2 (03:54→20:08)
[2023-07-28] MEDS: Throat Lozenge, Medicated LOZENGE 1 LOZENGE MUCOUS MEM (04:02)
[2023-07-28] MEDS: Albuterol/Iprat 2.5/0.5MG 3 ML AMPUL.NEB INHALE ×4 (07:39→19:39)
[2023-07-28] MEDS: Baclofen 20 MG TABLET PO ×3 (08:34→20:07)
[2023-07-28] MEDS: VerapamiL HCL SR 240 MG TABLET.ER PO (08:34)
[2023-07-28] MEDS: Cyanocobalamin (Vitamin B-12) 1,000 MCG TABLET 1000 MCG PO (08:34)
[2023-07-28] MEDS: cloNIDine HCL 0.1 MG TABLET PO ×2 (08:34→20:07)
[2023-07-28] MEDS: Cholecalciferol (Vitamin D3) 25 MCG TABLET PO (08:34)
[2023-07-28] MEDS: methylPREDNISolone Sod Succ 40 MG/ML VIAL IVPUSH ×2 (08:34→20:08)
[2023-07-28] MEDS: 0.9 % Sodium Chloride Flush 3 ML SYRINGE IVFLUSH ×3 (08:34→20:09)
[2023-07-28] MEDS: Aspirin Enteric Coated 81 MG TABLET.DR PO (08:34)
[2023-07-28] MEDS: oxyBUTYnin chloride 5 MG TABLET PO (08:34)
[2023-07-28] MEDS: Multivitamin TABLET 1 TAB PO (08:35)
[2023-07-28] MEDS: Nystatin Powder 15 GM BOTTLE 1 APPL TOPICAL ×2 (08:41→20:21)
--- NOTE | 2023-07-28 10:15 | MHC.CM.PN ---
EMR REVIEWED. PER MD ROUNDS PATIENT NOT MEDICALLY CLEARED FOR DC AT THIS TIME, POTENTIAL DC TOMORROW. PLAN REMAINS RETURN HOME WITH DAUGHTER WHO IS A FINISHER HAND. CM WILL CONTINUE TO FOLLOW.
--- NOTE | 2023-07-28 12:43 | HO.PM.IMPN ---
Subjective Subjective Date of Service: 07/28/23 Interval History: follow up for respiratory failure, RSV feels that breathing is starting to improve but still reporting sob and dry cough, still with hypoxia; has not been ambulating Review of Systems Review of Systems: Yes all other systems are reviewed and are negative Constitutional Constitutional: Denies chills and Denies fever(s) Cardiovascular Cardiovascular: Denies chest pain and Reports dyspnea Respiratory Respiratory: Reports cough and Reports dyspnea Physical Exam Vital Signs: Vital Signs: Last Vital Signs Temp 97.6 F 07/28/23 07:50 Pulse 72 07/28/23 11:22 Resp 18 07/28/23 11:22 BP 125/62 07/28/23 07:50 Pulse Ox 92 07/28/23 07:50 O2 Del Method Room Air 07/28/23 07:50 O2 Flow Rate 2 07/28/23 03:33 Oxygen Flow Rate 5 07/25/23 22:33 BMI result Body Mass Index 35.3 Appearing in no acute distress lung sounds are clear to auscultation heart regular rate rhythm, clear S1, S2 positive bowel sounds, abdomen is soft, nontender neuro patient is alert x3, no focal deficits Objective Data Active Medications Acetaminophen (Acetaminophen 325 Mg Tablet) 650 mg PO Q6H PRN PRN Reason: Fever Last Admin: 07/28/23 03:54 Dose: 650 mg Documented By: ERIKA Albuterol Sulfate (Albuterol Sulfate (0.083%) 2.5 Mg/3 Ml Vial.Neb) 2.5 mg INHALE Q4H PRN PRN Reason: Shortness of Breath/Wheezing Albuterol/Ipratropium (Albuterol/Iprat 2.5/0.5mg 3 Ml Ampul.Neb) 3 ml INHALE RQ4H WHILE AWAKE [facility] Last Admin: 07/28/23 11:20 Dose: 3 ml Documented By: JIMMY Aspirin (Aspirin Enteric Coated 81 Mg Tablet.) 81 mg PO DAILY [facility] Last Admin: 07/28/23 08:34 Dose: 81 mg Documented By: ANA Atorvastatin Calcium (Atorvastatin Calcium 10 Mg Tablet) 10 mg PO BEDTIME [facility] Last Admin: 07/27/23 21:27 Dose: 10 mg Documented By: OSCAR Baclofen (Baclofen 20 Mg Tablet) 20 mg PO TID [facility] Last Admin: 07/28/23 08:34 Dose: 20 mg Documented By: ANA Benzocaine (Throat Lozenge, Medicated Lozenge) 1 lozenge MUCOUS MEM Q2H PRN PRN Reason: Sore Throat Last Admin: 07/28/23 04:02 Dose: 1 lozenge Documented By: ERIKA Clonidine HCl (Clonidine Hcl 0.1 Mg Tablet) 0.1 mg PO BID [facility]; Protocol Last Admin: 07/28/23 08:34 Dose: 0.1 mg Documented By: AAN Cyanocobalamin (Cyanocobalamin (Vitamin B-12) 1,000 Mcg Tablet) 1,000 mcg PO DAILY [facility] Last Admin: 07/28/23 08:34 Dose: 1,000 mcg Documented By: ANA Docusate Sodium (Docusate Sodium 100 Mg Capsule) 100 mg PO DAILY PRN PRN Reason: Constipation Enoxaparin Sodium (Enoxaparin Sodium 40 Mg/0.4 Ml Syringe) 40 mg SUBCUT Q24H [facility] Last Admin: 07/27/23 21:26 Dose: 40 mg Documented By: OSCAR Fluticasone Propionate (Fluticasone Propionate Nasal 16 Gm [place]) 2 spray NOSTRIL-B DAILY PRN PRN Reason: Allergy Symptoms Melatonin (Melatonin 3 Mg Tablet) 6 mg PO BEDTIME PRN PRN Reason: Insomnia Methylprednisolone Sodium Succinate (Methylprednisolone Sod Succ 40 Mg/Ml Vial) 40 mg IVPUSH Q12H [facility] Last Admin: 07/28/23 08:34 Dose: 40 mg Documented By: ANA Multivitamins/Vitamin C (Multivitamin Tablet) 1 tab PO DAILY [facility] Last Admin: 07/28/23 08:35 Dose: 1 tab Documented By: ANA Pt Own (Umeclidinium -Vilanterol [Anoro Ellipta] 62.5-25 Mcg /Actuation Bl 1 each INHALE RDAILY [facility] Last Admin: 07/27/23 09:58 Dose: Not Given Documented By: ASIYA Non-Admin Reason: Med Not Available Nystatin (Nystatin Powder 15 Gm Bottle) 1 appl TOPICAL BID [facility]; Protocol Last Admin: 07/28/23 08:41 Dose: 1 appl Documented By: ANA Ondansetron HCl (Ondansetron Hcl 4 Mg/2 Ml Vial) 4 mg IVPUSH Q8H PRN PRN Reason: Nausea and Vomiting Oxybutynin Chloride (Oxybutynin Chloride 5 Mg Tablet) 5 mg PO DAILY [facility] Last Admin: 07/28/23 08:34 Dose: 5 mg Documented By: ANA Sodium Chloride (0.9 % Sodium Chloride Flush 3 Ml Syringe) 3 ml IVFLUSH QSHIFT [facility] Last Admin: 07/28/23 08:34 Dose: 3 ml Documented By: ANA Verapamil HCl (Verapamil Hcl Sr 240 Mg Tablet.Er) 240 mg PO DAILY [facility]; Protocol Last Admin: 07/28/23 08:34 Dose: 240 mg Documented By: ANA Vitamin D (Cholecalciferol (Vitamin D3) 25 Mcg Tablet) 25 mcg PO DAILY [facility] Last Admin: 07/28/23 08:34 Dose: 25 mcg Documented By: ANA Labs 07/27/23 10:36 07/25/23 18:21 Microbiology Microbiology Results: Microbiology 07/25/23 18:21 Blood Culture - Preliminary Blood - Venous No growth after 48 hours. 07/25/23 18:21 Blood Culture - Preliminary Blood - Venous No growth after 48 hours. 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 Pt will be admitted to the hospital for treatment further evaluation of acute hypoxic respiratory failure in the setting of severe RSV infection. Acute hypoxic respiratory failure in the setting of RSV infection causing acute copd exacerbation continue O2 goal of 92, wean as liz DuoNebs, Solu-Medrol for copd exacerbation not on oxygen at baseline Viral sepsis no indication for Abx thrombocytopenia likely due to acute viral illness platelets stable Abnormal appearing left proximal humerus Patient with known rotator cuff injury and ?[id number]? in shoulder Patient with left-sided shailesh paresis, unable to move arm due to CP per patient There is no indication for further workup or treatment at this time continue baclofen Hx of CVA Continue statin, aspirin HTN Continue verapamil, clonidine DISPO PT consult pending Full Code DVT Prophylaxis: Lovenox attending: Dr. Grodon need for inpatient for treatment of?acute hypoxic respiratory failure in the setting of severe RSV infection, need O2 titration Quality Stroke Does the patient have a stroke diagnosis?: No VTE Prior VTE?: No VTE Risk Level:: Medical - moderate - high VTE Device Contraindication: Treatment Not Indicated VTE Drug Contraindication: N/A - Med Ordered
--- NOTE | 2023-07-28 15:55 | HO.WOUND ---
Wound Consult: Initial 77yr old female admitted to [facility] [place] [place] on?07/25/23 22:21 - See progress notes and H&P for detailed history.? Wound consult placed for Skin fold assessment? - arrival to bedside patient is agreeable to assessment of skin folds. Bilateral Breast and Abdominal Skin Folds assessed - noted for mirrored red blanchable pigmentation noted along folds and base of fold intact at breasts. Left Abdominal skin fold has open partial thickness tissue loss at base of skin fold and is extremely tender to pt. Powder is currently being applied per provider orders - that will aid in moisture management I recommend Triad to the open skin fold base to the left abdominal fold to protect from friction and allow for moist wound healing. Recommendations: 1. Abdominal Skin fold and Bilateral Breast Folds - Cleanse with PH balance wipes, pat dry with soft cloth.? Apply antifungal power to assist with moisture management.? Be sure to dust of excess powder to prevent caking on skin and in folds. Apply per provider orders. Apply thin layer of Triad cream to base of left Abdominal skin fold. Apply Daily after cleansing. Re-consult wound care Nurse for wound deterioration
--- NOTE | 2023-07-28 19:59 | PC.NURSE ---
Pt seen on bed alert, mildly anxious but redirectible, EMS came to transport pt to [place], report given to EMT, left on a stretcher at 2002
[2023-07-28] MEDS: Atorvastatin Calcium 10 MG TABLET PO (20:07)
[2023-07-28] MEDS: Enoxaparin Sodium 40 MG/0.4 ML SYRINGE SUBCUT (22:43)
[2023-07-29] VITALS (9 sets, daily range): BP systolic 157–167; BP diastolic 77–82; PULSE 68–89; RESP 18–20; TEMP 36.1–36.9; O2SAT 84–97
[2023-07-29] MEDS: Albuterol/Iprat 2.5/0.5MG 3 ML AMPUL.NEB INHALE ×4 (07:54→20:15)
[2023-07-29] MEDS: cloNIDine HCL 0.1 MG TABLET PO ×2 (08:53→20:48)
[2023-07-29] MEDS: methylPREDNISolone Sod Succ 40 MG/ML VIAL IVPUSH (08:53)
[2023-07-29] MEDS: Multivitamin TABLET 1 TAB PO (08:53)
[2023-07-29] MEDS: 0.9 % Sodium Chloride Flush 3 ML SYRINGE IVFLUSH ×3 (08:53→23:50)
[2023-07-29] MEDS: Aspirin Enteric Coated 81 MG TABLET.DR PO (08:54)
[2023-07-29] MEDS: Cyanocobalamin (Vitamin B-12) 1,000 MCG TABLET 1000 MCG PO (08:54)
[2023-07-29] MEDS: Baclofen 20 MG TABLET PO ×3 (08:54→20:48)
[2023-07-29] MEDS: VerapamiL HCL SR 240 MG TABLET.ER PO (08:54)
[2023-07-29] MEDS: oxyBUTYnin chloride 5 MG TABLET PO (08:54)
[2023-07-29] MEDS: Cholecalciferol (Vitamin D3) 25 MCG TABLET PO (08:54)
[2023-07-29] MEDS: Nystatin Powder 15 GM BOTTLE 1 APPL TOPICAL ×2 (08:56→20:48)
--- NOTE | 2023-07-29 11:55 | P.PNIM_ITS ---
Subjective Subjective Date of Service: 07/29/23 Interval History: follow up for respiratory failure, RSV feels that breathing is starting to improve but still reporting sob and dry cough, still with hypoxia; has not been ambulating Review of Systems Review of Systems: Yes all other systems are reviewed and are negative Constitutional Constitutional: Denies chills and Denies fever(s) Cardiovascular Cardiovascular: Denies chest pain and Reports dyspnea Respiratory Respiratory: Reports cough and Reports dyspnea Physical Exam 2 Vital Signs: Vital Signs: Last Vital Signs Temp 97.4 F 07/29/23 07:58 Pulse 85 07/29/23 09:02 Resp 18 07/29/23 07:58 BP 164/77 H 07/29/23 09:02 Pulse Ox 93 07/29/23 09:02 O2 Del Method Oxymask 07/29/23 07:58 O2 Flow Rate 3.0 07/29/23 07:58 Oxygen Flow Rate 5 07/25/23 22:33 BMI result Body Mass Index 35.3 Appearing in no acute distress lung sounds are clear to auscultation heart regular rate rhythm, clear S1, S2 positive bowel sounds, abdomen is soft, nontender neuro patient is alert x3, no focal deficits Objective Data Active Medications Acetaminophen (Acetaminophen 325 Mg Tablet) 650 mg PO Q6H PRN PRN Reason: Fever Last Admin: 07/28/23 20:08 Dose: 650 mg Documented By: JAIRO Albuterol Sulfate (Albuterol Sulfate (0.083%) 2.5 Mg/3 Ml Vial.Neb) 2.5 mg INHALE Q4H PRN PRN Reason: Shortness of Breath/Wheezing Albuterol/Ipratropium (Albuterol/Iprat 2.5/0.5mg 3 Ml Ampul.Neb) 3 ml INHALE RQ4H WHILE AWAKE [facility] Last Admin: 07/29/23 07:54 Dose: 3 ml Documented By: JIMMY Aspirin (Aspirin Enteric Coated 81 Mg Tablet.) 81 mg PO DAILY [facility] Last Admin: 07/29/23 08:54 Dose: 81 mg Documented By: LAMAR Atorvastatin Calcium (Atorvastatin Calcium 10 Mg Tablet) 10 mg PO BEDTIME [facility] Last Admin: 07/28/23 20:07 Dose: 10 mg Documented By: JAIRO Baclofen (Baclofen 20 Mg Tablet) 20 mg PO TID [facility] Last Admin: 07/29/23 08:54 Dose: 20 mg Documented By: LAMAR Benzocaine (Throat Lozenge, Medicated Lozenge) 1 lozenge MUCOUS MEM Q2H PRN PRN Reason: Sore Throat Last Admin: 07/28/23 04:02 Dose: 1 lozenge Documented By: ERIKA Clonidine HCl (Clonidine Hcl 0.1 Mg Tablet) 0.1 mg PO BID [facility]; Protocol Last Admin: 07/29/23 08:53 Dose: 0.1 mg Documented By: LAMAR Cyanocobalamin (Cyanocobalamin (Vitamin B-12) 1,000 Mcg Tablet) 1,000 mcg PO DAILY [facility] Last Admin: 07/29/23 08:54 Dose: 1,000 mcg Documented By: LAMAR Docusate Sodium (Docusate Sodium 100 Mg Capsule) 100 mg PO DAILY PRN PRN Reason: Constipation Enoxaparin Sodium (Enoxaparin Sodium 40 Mg/0.4 Ml Syringe) 40 mg SUBCUT Q24H [facility] Last Admin: 07/28/23 22:43 Dose: 40 mg Documented By: JAIRO Fluticasone Propionate (Fluticasone Propionate Nasal 16 Gm [place]) 2 spray NOSTRIL-B DAILY PRN PRN Reason: Allergy Symptoms Melatonin (Melatonin 3 Mg Tablet) 6 mg PO BEDTIME PRN PRN Reason: Insomnia Methylprednisolone Sodium Succinate (Methylprednisolone Sod Succ 40 Mg/Ml Vial) 40 mg IVPUSH Q12H [facility] Last Admin: 07/29/23 08:53 Dose: 40 mg Documented By: LAMAR Multivitamins/Vitamin C (Multivitamin Tablet) 1 tab PO DAILY [facility] Last Admin: 07/29/23 08:53 Dose: 1 tab Documented By: LAMAR Pt Own (Umeclidinium -Vilanterol [Anoro Ellipta] 62.5-25 Mcg /Actuation Bl 1 each INHALE RDAILY [facility] Last Admin: 07/27/23 09:58 Dose: Not Given Documented By: ASIYA Non-Admin Reason: Med Not Available Nystatin (Nystatin Powder 15 Gm Bottle) 1 appl TOPICAL BID [facility]; Protocol Last Admin: 07/29/23 08:56 Dose: 1 appl Documented By: LAMAR Ondansetron HCl (Ondansetron Hcl 4 Mg/2 Ml Vial) 4 mg IVPUSH Q8H PRN PRN Reason: Nausea and Vomiting Oxybutynin Chloride (Oxybutynin Chloride 5 Mg Tablet) 5 mg PO DAILY [facility] Last Admin: 07/29/23 08:54 Dose: 5 mg Documented By: LAMAR Sodium Chloride (0.9 % Sodium Chloride Flush 3 Ml Syringe) 3 ml IVFLUSH QSHIFT [facility] Last Admin: 07/29/23 08:53 Dose: 3 ml Documented By: LAMAR Verapamil HCl (Verapamil Hcl Sr 240 Mg Tablet.Er) 240 mg PO DAILY [facility]; Protocol Last Admin: 07/29/23 08:54 Dose: 240 mg Documented By: LAMAR Vitamin D (Cholecalciferol (Vitamin D3) 25 Mcg Tablet) 25 mcg PO DAILY [facility] Last Admin: 07/29/23 08:54 Dose: 25 mcg Documented By: LAMAR Labs 07/27/23 10:36 07/25/23 18:21 Assessment and Plan (1) Acute hypoxic respiratory failure: Status: Acute (2) Respiratory syncytial virus (RSV): Status: Acute (3) Acute exacerbation of chronic obstructive pulmonary disease: Status: Acute Plan Pt is a 77-year-old female with a PMH significant for?HTN, HLD, 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 Pt will be admitted to the hospital for treatment further evaluation of acute hypoxic respiratory failure in the setting of severe RSV infection. Acute hypoxic respiratory failure in the setting of RSV infection causing acute copd exacerbation. Resolved continue O2 goal of 92, wean as liz DuoNeteet[place], Solu-Medrol changed to oral prednisone for copd exacerbation not on oxygen at baseline no precautions needed at this time Viral sepsis no indication for Abx thrombocytopenia likely due to acute viral illness platelets stable Abnormal appearing left proximal humerus Patient with known rotator cuff injury and ?[id number]? in shoulder Patient with left-sided shailesh paresis, unable to move arm due to CP per patient There is no indication for further workup or treatment at this time continue baclofen Hx of CVA Continue statin, aspirin HTN Continue verapamil, clonidine DISPO PT consult pending Full Code DVT Prophylaxis: Lovenox attending: Dr. Gordon DISPO PT rec STR, pending safe disposition need for inpatient for treatment of?acute hypoxic respiratory failure in the setting of severe RSV infection, need O2 titration Quality Stroke Does the patient have a stroke diagnosis?: No VTE Prior VTE?: No VTE Risk Level:: Medical - moderate - high VTE Device Contraindication: Treatment Not Indicated VTE Drug Contraindication: N/A - Med Ordered
[2023-07-29] MEDS: Acetaminophen 325 MG TABLET 650 MG PO (15:09)
[2023-07-29 17:14] LABS: COVID-19 Test Negative (Negative); IDNOW Serial# BCCEAD1C
[2023-07-29] MEDS: Atorvastatin Calcium 10 MG TABLET PO (20:48)
[2023-07-29] MEDS: Enoxaparin Sodium 40 MG/0.4 ML SYRINGE SUBCUT (23:51)
[2023-07-30] VITALS (7 sets, daily range): BP systolic 154–192; BP diastolic 72–86; PULSE 63–77; RESP 18–20; TEMP 36–36.8; O2SAT 92–97
[2023-07-30] MEDS: Albuterol/Iprat 2.5/0.5MG 3 ML AMPUL.NEB INHALE ×3 (07:43→14:59)
[2023-07-30] MEDS: Aspirin Enteric Coated 81 MG TABLET.DR PO (08:50)
[2023-07-30] MEDS: oxyBUTYnin chloride 5 MG TABLET PO (08:50)
[2023-07-30] MEDS: predniSONE 20 MG TABLET 40 MG PO (08:50)
[2023-07-30] MEDS: 0.9 % Sodium Chloride Flush 3 ML SYRINGE IVFLUSH (08:51)
[2023-07-30] MEDS: Cyanocobalamin (Vitamin B-12) 1,000 MCG TABLET 1000 MCG PO (08:51)
[2023-07-30] MEDS: Baclofen 20 MG TABLET PO ×2 (08:51→13:48)
[2023-07-30] MEDS: cloNIDine HCL 0.1 MG TABLET PO (08:51)
[2023-07-30] MEDS: Cholecalciferol (Vitamin D3) 25 MCG TABLET PO (08:51)
[2023-07-30] MEDS: VerapamiL HCL SR 240 MG TABLET.ER PO (08:51)
[2023-07-30] MEDS: Multivitamin TABLET 1 TAB PO (08:51)
[2023-07-30] MEDS: Nystatin Powder 15 GM BOTTLE 1 APPL TOPICAL (09:02)
[2023-07-30] MEDS: Throat Lozenge, Medicated LOZENGE 1 LOZENGE MUCOUS MEM (09:02)
--- NOTE | 2023-07-30 11:35 | MHC.CM.PN ---
PT RECOMMENDING STR. REFERRALS PLACED. BED OFFER FROM [facility], PENDING AUTH, WHICH WAS SUBMITTED FOR 07/29. PATIENT AND GRANDDAUGHTER AWARE. CM WILL FOLLOW.
--- NOTE | 2023-07-30 13:22 | MHC.CM.PN ---
PER ROUNDS PATIENT MEDICALLY CLEARED FOR DC TO [facility] HAS RECEIVED AUTH. S TRANSPORT BOOKED FOR 6PM. PATIENT, HCP, RN AND CARE INFORMATION ASSOCIATE AWARE. PATIENT TO BRING KAYLEY INHALER, RN AWARE.
--- NOTE | 2023-07-30 13:36 | PM.DS ---
DS: Providers Provider Date of Service: 07/30/23 Date of admission: 07/25/23 22:21 Primary care physician: Charlene Shaw MD Consults: 07/26/23 19:47 Consult to Wound Care Routine Reason for consultation: fungal breasts, groin DS: Diagnosis Discharge Diagnosis (1) Acute hypoxic respiratory failure: Status: Acute (2) Respiratory syncytial virus (RSV): Status: Acute (3) Acute exacerbation of chronic obstructive pulmonary disease: Status: Acute DS: Summary Hospital Course Hospital Course: history and physical as per admitting provider. 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 Pt has been experiencing a wicked bad cough, runny nose, and shortness of breath for the past three days. Pt was seen at her PCP office earlier today where she was found to be satting at 80% O2. Patient does not carry a diagnosis of COPD, and is not on either home inhalers or supplemental O2. She was thus sent to the ED for further evaluation where she tested positive for RSV. Patient states she also had been experiencing episodes of diarrhea the past 2 days. Some cramping with the diarrhea, but otherwise no abdominal pain. Reports not feeling particularly feverish or experiencing chills. Has had an occasional headache. No chest pain/pressure, palpitations.In the ED pt was febrile up to 103, tachycardic up to 128, tachypneic up to 25, hypertensive up to 199/81, satting as low as 88% on RA. Labs were grossly unremarkable except for C-reactive protein of 7.98. No leukocytosis. Stable H&H. Electrolytes WNL. Renal function baseline. Hepatic function WNL. Patient tested positive for RSV. CXR showed low lung volumes and atelectasis or small infiltrate at the left lung basis with left greater than right. Also found abnormal appearing left proximal humerus, though pt notes her rotator cuff is shot and she has [id number] in her shoulder. EKG demonstrated sinus tachycardia of 123 with right bundle branch block. Pt was treated with ceftriaxone, azithromycin, DuoNebs, IVF, and acetaminophen. Pt will be admitted to the hospital for treatment further evaluation of acute hypoxic respiratory failure in the setting of severe RSV infection. 77-year-old woman treated for acute hypoxic respiratory failure secondary to RSV leading to COPD exacerbation. She was treated with scheduled DuoNebs, IV steroids and subsequently switched to oral prednisone and oxygen. She did have viral sepsis. At this time no precautions are needed patient is not on a CPAP. She is hemodynamically stable at this time. She will continue 4 more days of oral prednisone. Plan is to transfer her to short-term rehab. History of CVA. Continue aspirin and statin Hypertension. Continue verapamil clonidine Time Attestation Discharge coordination time: Greater than 30 minutes Quality: Safe Use of Opioids Does Pt have an Active Cancer Diagnosis on the Problem List?: No Quality: Stroke Does the patient have a stroke diagnosis?: No Physical Exam Vital Signs: Vital Signs: Last Vital Signs Temp 97.4 F 07/30/23 08:00 Pulse 75 07/30/23 11:31 Resp 20 07/30/23 11:31 BP 159/75 H 07/30/23 08:00 Pulse Ox 92 07/30/23 08:00 O2 Del Method Nasal Cannula 07/30/23 08:00 O2 Flow Rate 2 07/30/23 08:00 Oxygen Flow Rate 5 07/25/23 22:33 BMI result Body Mass Index 35.3 Appearing in no acute distress head is normocephalic atraumatic eyes pupils are PERRLA sclera is anicteric mouth throat mucous membranes are intact and moist neck is supple no lymphadenopathy, no JVD noted lung sounds are clear to auscultation heart regular rate rhythm, clear S1, S2 positive bowel sounds, abdomen is soft, nontender neuro patient is alert x3, no focal deficits DS: Data Data Completed and Pending Labs on day of discharge: Laboratory Results - last 24 hr 07/29/23 16:30 COVID-19 (JOSE MANUEL) Negative COVID-19 Clin Com See Note Preliminary micro results at discharge 07/25/23 18:21 Blood Culture - Preliminary Blood - Venous No growth after 48 hours. 07/25/23 18:21 Blood Culture - Preliminary Blood - Venous No growth after 48 hours. Discharge Plan Discharge Anticipated Discharge Date/Time: 07/30/23 13:23 Patient Disposition: Xfer Inpatient Rehab Fac Discharge Diagnosis: Acute hypoxic respiratory failure RSV COPD exacerbation Viral sepsis Thrombocytopenia [facility] ([facility]) Charlene Shaw MD [Primary Care Provider] - 1 Week Discharge Medications: New prednisone 20 mg Tablet 40 mg PO DAILY Qty: 8 0RF Continued clonidine HCl 0.1 mg tablet 0.1 mg PO BID meloxicam 15 mg tablet 15 mg PO DAILY PRN (Reason: Pain) simvastatin 20 mg tablet 20 mg PO BEDTIME fluticasone propionate 50 mcg/actuation spray,suspension 2 spray intranasal DAILY PRN (Reason: Allergy Symptoms) Rx Instructions: 2 sprays in each nostril verapamil 240 mg capsule,ext rel. pellets 24 hr 240 mg PO DAILY Anoro Ellipta 62.5-25 mcg/actuation blister with device 1 ea inhalation DAILY cyanocobalamin (vitamin B-12) 1,000 mcg Tablet 1,000 mcg PO DAILY cholecalciferol (vitamin D3) [Vitamin D3] 25 mcg (1,000 unit) Tablet 25 mcg PO DAILY acetaminophen [Tylenol Arthritis Pain] 650 mg tablet extended release 650 mg PO Q6H PRN (Reason: Pain) ipjkfgtq-iohvwkz-haut-lutein Tablet 1 tab PO DAILY aspirin 81 mg tablet,delayed release (DR/EC) 81 mg PO DAILY oxybutynin chloride 5 mg tablet 5 mg PO DAILY baclofen 20 mg tablet 20 mg PO TID Discharge Orders: Discharge Order (Routine); Ordered 07/30/23 Ordered By: Alina Mendosa Diet: Advance to usual diet Activity on Discharge: As tolerated Stand Alone Forms: Patient Portal Discharge page Care Plan Goals: Short-term rehab for physical therapy Less than 30 day stay no precautions needed Health Concerns: Acute hypoxic respiratory failure RSV COPD exacerbation Viral sepsis Thrombocytopenia Plan of Treatment: Follow-up with primary care provider as needed Take all medications as prescribed Assessment: see discharge summary
[2023-07-30] MEDS: PT OWN (Umeclidinium-Vilanterol [Anoro Ellipta] 62.5-25 mcg/actuation bl 1 EACH INHALE (13:48)
--- NOTE | 2023-07-30 16:12 | PC.NURSE ---
patient is being discharged via Ambulance,discharge prepared by PHILLIP Avila ,patient has no complaints
--- NOTE | 2023-07-30 16:41 | P.CDIM_ITS ---
PROVIDER RESPONSE TEXT: To clarify, the appropriate diagnosis supported by the clinical indicators: Obesity Due to excess calories QUERY TEXT: PHYSICIAN'S DOCUMENTATION REQUEST Date of Query: 07/29/2023 11:46 AM EST Patient Name: DANICA YADAV Admit Date: 07/26/2023 Dear Alina Mendosa, A review of the medical record indicates additional documentation may be needed. Please review below and update the documentation accordingly. Clinical Indicators: Nursing notes Height and Weight: BMI 35.3 Obese Class II 81.9kg 5ft If possible, please provide an associated diagnosis related to the abnormal BMI, such as: Overweight Obesity Due to excess calories Obesity Drug induced Obesity Due to other cause Specify the other cause Other (explain) Clinically unable to determine (explain) Thank you, Shelly Polanco, CCS, CDIS Use of terms such as suspected, likely, concern for, or probable (associated with a specific diagnosi s that is being evaluated, monitored, or treated as if it exists) are acceptable and can be coded in the inpatient se tting, when documented at the time of discharge. Please use your independent medical judgment in providing your response. THIS QUERY IS PART OF THE PERMANENT MEDICAL RECORD
== END 2023-07-30 16:20 | DRG 190 ==
LOC: HO.ED 21:56 → HO.EDOVER 22:37 → HO.S3 07-26 16:42
PROVIDERS: Physician Assistant Medical; Admitting Provider Student in an Organized Health Care Education/Training Program; Emergency Provider Emergency Medicine; PCP Internal Medicine; Visit Provider Nurse Practitioner Acute Care
DX: J44.1 Chronic obstructive pulmonary disease with (acute) exacerbation (principal); J96.01 Acute respiratory failure with hypoxia; I69.354 Hemiplegia and hemiparesis following cerebral infarction affecting left non-dominant side; E66.09 Other obesity due to excess calories; D69.59 Other secondary thrombocytopenia; G89.29 Other chronic pain; B97.4 Respiratory syncytial virus as the cause of diseases classified elsewhere; I10 Essential (primary) hypertension; G80.9 Cerebral palsy, unspecified; E03.9 Hypothyroidism, unspecified; Z20.822 Contact with and (suspected) exposure to COVID-19; Z68.35 Body mass index [BMI] 35.0-35.9, adult; Z87.891 Personal history of nicotine dependence; Z79.82 Long term (current) use of aspirin; Z79.899 Other long term (current) drug therapy
CPT/HCPCS: 0241U; 36415; 71046; 80048; 80076; 82803; 83605; 83735; 83880; 85025; 85027; 86140; 87040; 87635; 93005; 94640; 97161; 99285; J0456; J0696; J1650; J2920; J2930

== ENCOUNTER → 2023-07-25 17:39 | Outpatient (BNV) | payer OTHER, MEDICARE, SELFPAY | PROVIDERS: Admitting Provider Student in an Organized Health Care Education/Training Program; Emergency Provider Emergency Medicine; PCP Internal Medicine; Visit Provider Internal Medicine Cardiovascular Disease | DX: I44.1 Atrioventricular block, second degree (principal); R94.31 Abnormal electrocardiogram [ECG] [EKG] | CPT/HCPCS: 93010 ==

== ENCOUNTER → 2023-07-25 22:21 | Outpatient (BNV) | payer OTHER, MEDICARE, SELFPAY | PROVIDERS: Admitting Provider Student in an Organized Health Care Education/Training Program; Emergency Provider Emergency Medicine; PCP Internal Medicine; Visit Provider Internal Medicine | DX: J96.01 Acute respiratory failure with hypoxia (principal); J44.1 Chronic obstructive pulmonary disease with (acute) exacerbation; B33.8 Other specified viral diseases | CPT/HCPCS: 99223; 99232; 99233; 99239 ==

== ENCOUNTER 2023-11-08 21:52 | Inpatient (IN) | payer OTHER, MEDICARE, SELFPAY ==
--- NOTE | ~2023-11-08 | XR_ITS ---
EXAMINATION: XR CHEST CLINICAL INFORMATION: COPD, questionable pneumonia COMPARISON: Chest x-ray 07/25/2023 TECHNIQUE: Frontal view of the chest was obtained. FINDINGS: Low lung volumes. Streaky retrocardiac opacity likely represents an area of atelectasis. No focal airspace consolidation. No pneumothorax or pleural effusion. Cardiomediastinal silhouette within normal limits. Soft tissue structures are unremarkable. Bilateral shoulder osteoarthritis. XR/XR chest 1V IMPRESSION: Lung volumes. Likely atelectatic changes at the left base.
[2023-11-08 21:58] VITALS: BP 138/85; PULSE 129; RESP 24; TEMP 37.4; O2SAT 81; BMI 40.4
--- NOTE | 2023-11-08 22:13 | ECG_ITS ---
Test Reason : SOB Blood Pressure : / mmHG Vent. Rate : 122 BPM Atrial Rate : 122 BPM P-R Int : 152 ms QRS Dur : 138 ms QT Int : 326 ms P-R-T Axes : 005 032 -03 degrees QTc Int : 464 ms Sinus tachycardia Right bundle branch block Cannot rule out Inferior infarct (cited on or before 25-JUL-2023) Anterior infarct (cited on or before 25-JUL-2023) T wave abnormality, consider lateral ischemia Abnormal ECG When compared with ECG of 25-JUL-2023 17:59, Previous ECG has undetermined rhythm, needs review Questionable change in initial forces of Septal leads Referred By: Miranda Paredes Electronically Signed By:AZUCENA ADAM MD
--- NOTE | 2023-11-08 22:17 | ED_ITS ---
HPI - SOB/Dyspnea General Chief Complaint: Dyspnea Stated Complaint: sob,cough 02 sat 82, ? uti Time Seen by Provider: 11/08/23 22:05 Source: patient and family Mode of arrival: ambulatory Limitations: no limitations History of Present Illness HPI Narrative: To the emergency room accompanied by her granddaughter. Patient states that she is known to have COPD. Patient does not use O2 at home. Patient has been coughing with sputum and feeling more short of breath than usual for less than 24 hours. Patient denies chest pain. Denies lower extremity swelling. Related Data Home Medications Medication Instructions Recorded Confirmed acetaminophen 650 mg 650 mg PO Q6H PRN Pain 09/01/20 07/26/23 tablet,extended release (Tylenol Arthritis Pain) aspirin 81 mg tablet,delayed 81 mg PO DAILY 09/01/20 07/26/23 release baclofen 20 mg tablet 20 mg PO TID 09/01/20 07/26/23 nosotafe-kewuled-pwoz-lutein tablet 1 tab PO DAILY 09/01/20 07/26/23 oxybutynin chloride 5 mg tablet 5 mg PO DAILY 09/01/20 07/26/23 cholecalciferol (vitamin D3) 25 25 mcg PO DAILY 07/26/23 07/26/23 mcg (1,000 unit) tablet (Vitamin D3) clonidine HCl 0.1 mg tablet 0.1 mg PO BID 07/26/23 07/26/23 cyanocobalamin (vitamin B-12) 1,000 mcg PO DAILY 07/26/23 07/26/23 1,000 mcg tablet fluticasone propionate 50 2 spray intranasal DAILY PRN 07/26/23 07/26/23 mcg/actuation nasal Allergy Symptoms spray,suspension meloxicam 15 mg tablet 15 mg PO DAILY PRN Pain 07/26/23 07/26/23 simvastatin 20 mg tablet 20 mg PO BEDTIME 07/26/23 07/26/23 umeclidinium 62.5 mcg-vilanterol 1 ea inhalation DAILY 07/26/23 07/26/23 25 mcg/actuation powdr for inhalation (Anoro Ellipta) verapamil 240 mg 24 hr 240 mg PO DAILY 07/26/23 07/26/23 capsule,extended release Previous Rx's Medication Instructions Recorded prednisone 20 mg tablet 40 mg (2 x 20 mg) PO DAILY #8 tabs 07/30/23 Allergies Allergy/AdvReac Type Severity Reaction Status Date / Time penicillin V Allergy Intermediate rash Verified 11/08/23 21:58 nitrofurantoin Allergy Rash Verified 11/08/23 21:58 nickel Allergy Intermediate swelling Uncoded 09/01/20 15:43 Review of Systems 2 Review of Systems: Constitutional : No Weight loss, No Fever, No Chills, No Night Sweats, No Fatigue, No Malaise ENT/Mouth : No Hearing loss, No Ear Pain, No Nasal Congestion, No Sinus Pain, No Hoarseness, No sore throat, No Rhinorrhea, No Swallowing Difficulty Eyes: No Eye Pain, No Swelling, No Redness, No Foreign Body, No Discharge, No Vision Changes Cardiovascular : No Chest Pain, No SOB, No Dyspnea on Exertion, No Orthopnea, No Edema, No Palpitations Respiratory : Complaining of productive cough, wheezing, shortness of breath Gastrointestinal : No Nausea, No Vomiting, No Diarrhea, No Constipation, No abdominal Pain, No Hematochezia, No Melena Genitourinary : no irregular bleeding, No Dysuria, No Urinary Frequency, No Hematuria, No Urinary Incontinence, No Urgency, No Flank Pain, No Urinary Flow Changes, No Hesitancy Musculoskeletal : No joint pain, No Myalgias, No Joint Swelling Skin : No Skin Lesions, No rash Neuro : No Weakness, No Numbness, No Paresthesias, No Loss of Consciousness, No Dizziness, No Headache Psych : No Anxiety/Panic, No Depression, No SI/HI/AH/VH, No Social Issues, Heme/Lymph: No Bruising, No Bleeding,No Lymphadenopathy Endocrine : No Polyuria, No Polydipsia, No Temperature Intolerance [facility] Past Medical History Medical History COPD (chronic obstructive pulmonary disease) Urine incontinence Hyperlipidemia Sleep apnea Depression Cerebral palsy HTN (hypertension) CVA (cerebral vascular accident) Hypothyroid Surgical History Hx of cholecystectomy Hx of hysterectomy Family History Family History Father CVD (cardiovascular disease) Diabetes Mother CVD (cardiovascular disease) Social History Social History Household Members: Family Housing: House Alcohol intake: never Patient Tobacco Use Status: Never used Tobacco Smoked in Last 30 Days: No Use of substances other than those prescribed or required for medical reasons: No Advance Directives: Yes Advance Directives on File: Yes Advance Directives Date on File: 07/26/23 service: No Physical Exam 2 Vital Signs: Vital Signs: Last Vital Signs Temp 99.2 F 11/08/23 22:26 Pulse 126 H 11/08/23 22:30 Resp 20 11/08/23 22:30 BP 146/91 H 11/08/23 22:26 Pulse Ox 90 L 11/08/23 22:30 O2 Del Method Oxymask 11/08/23 22:30 O2 Flow Rate 4 11/08/23 22:30 BMI result Body Mass Index 40.4 Const: Other: Appearance: Alert. Oriented X3. No acute distress. Eyes: Pupils equal, round and reactive to light. ENT: Pharynx normal. Neck: Normal inspection. Neck supple. No lymph nodes noted. No crepitus CVS: Normal heart rate and rhythm. Pulses normal. Normal S1 and S2 Respiratory: No respiratory distress. Speaking in full sentences, decreased breath sounds, respiratory rate between 25 and 30. Patient's oxygen saturation on room air 76% Abdomen: Soft and nontender. No rigidity. No distention. Skin: Skin warm and dry. Normal skin color. Normal skin turgor. Extremities: No lower extremity edema. No Lacerations. No Rash Neuro: Oriented X 3. No motor deficit. No sensory deficit. Moving all extremities. No slurred speech. CN 2 through 12 grossly intact Psych: calm, cooperative, normal affect Course Course Course Narrative: -patient's oxygen saturation is 76% on room air, patient was put on an OxyMask, patient is found L, saturating 90%. -patient receiving Solu-Medrol, DuoNebs, IV fluids based on ideal weight of 41 kg, patient is obese, also empirically being treated with antibiotics, ceftriaxone and azithromycin. -patient's blood pressure 138/85, no fever. Patient's heart rate secondary to prior nebulization treatments. Sepsis is not suspected. -all of patient's labs and imaging pending Medications Administered Generic Name Dose Route Start Last Admin Trade Name Freq PRN Reason Stop Dose Admin Azithromycin 500 mg/ Sodium 250 mls @ 125 mls/hr 11/08/23 22:14 11/08/23 22:56 Chloride IV 11/09/23 00:13 125 mls/hr ONCE ONE Administration Sodium Chloride 1,500 mls @ 999 mls/hr 11/08/23 22:17 11/08/23 22:56 Ns IVCONT 11/08/23 23:47 999 mls/hr .[id number] ONE Administration Discontinued Medications Generic Name Dose Route Start Last Admin Trade Name Adrielq PRN Reason Stop Dose Admin Albuterol Sulfate 5 mg/ 7.5 mg 11/08/23 22:21 11/08/23 22:29 Albuterol Sulfate 2.5 mg INHALE 11/08/23 22:22 7.5 mg ONCE ONE Administration Ceftriaxone Sodium 1 gm/ 50 mls @ 100 mls/hr 11/08/23 22:14 11/08/23 23:08 Sodium Chloride IV 11/08/23 22:43 Infused ONCE ONE Infusion Methylprednisolone Sodium Succinate 125 mg 11/08/23 22:14 11/08/23 22:37 Methylprednisolone Sod Succ 125 Mg/2 Ml Vial IVPUSH 11/08/23 22:15 125 mg ONCE ONE Administration Medical Decision Making Medical Decision Making [facility] Narrative: -my interpretation of EKG: Normal sinus rhythm, heart rate 22, tachycardic, right bundle-branch block, no ST segment depression or elevation, previously noted T-wave inversions in V1 through V5, QTC 446, no EKG changes -my interpretation of labs: At baseline hematology and chemistry. Patient's troponin and BNP negative. Serology report positive for influenza -patient also given Tamiflu. -I discussed the patient with Dr. Celestin, patient being admitted Differential Diagnosis Differential Diagnoses: The differential diagnosis associated with the presentation includes (Asthma, COPD, influenza, RSV, COVID, pneumonia) Admission/Observation Consideration of admission/observation: Escalation of care including admission/observation considered (Patient's oxygen saturation is too low, patient needs admission, patient agreeable) Consult Healthcare Provider Management of the patient was discussed with: Hospitalist Lab Data [facility] Lab Attestation statement: I reviewed the patient's lab results. 11/08/23 22:20 11/08/23 22:20 Labs: Lab Results 11/08/23 11/08/23 11/08/23 Range/Units 22:20 22:26 22:35 WBC 4.9 (4.8-10.8) X10*3/uL RBC 4.18 L (4.20-5.50) X10*6/uL Hgb 12.0 (12.0-16.0) g/dl Hct 37.9 (37.0-47.0) % MCV 90.7 (80.0-98.0) fL MCH 28.7 (27.0-33.0) pg MCHC 31.7 (31.0-35.0) g/dl RDW 15.4 (11.0-16.0) % Plt Count 98 L (160-400) X10*3/uL MPV 11.2 (9.4-12.3) fL Immature Gran % (Auto) 0.4 (0.0-0.4) % Neut % (Auto) 79.8 H (45-73) % Lymph % (Auto) 9.7 L (20-40) % [place] % (Auto) 9.7 (2-11) % Eos % (Auto) 0.2 (0-4) % Baso % (Auto) 0.2 (0-2) % Lymph # (Auto) 0.5 L (1.2-4.9) X10*3/uL [place] # (Auto) 0.5 (0.1-1.2) X10*3/uL Eos # (Auto) 0.0 (0.0-0.4) X10*3/uL Baso # (Auto) 0.0 (0.0-0.2) X10*3/uL Abs Immat Gran (auto) 0.02 (0.00-0.03) X10*3/uL Absolute Neuts (auto) 3.9 (2.0-8.3) x10*3/uL Absolute Nucleated RBC 0.000 (0.0-0.012) X10*3/uL Nucleated RBC % (auto) 0.0 (0.0-0.2) /100WBC PT 11.8 (11.1-13.3) SEC INR 1.0 (0.9-1.1) VBG pH 7.36 (7.32-7.43) VBG pCO2 34 mmHg VBG pO2 78 mmHg VBG HCO3 19 L (22-26) mmol/L VBG O2 Saturation 94.0 % VBG Base Excess -4.6 mmol/L Sodium 143 (135-145) mmol/L Potassium 4.0 (3.3-5.1) mmol/L Chloride 112 H (96-108) mmol/L Carbon Dioxide 18 L (22-29) mmol/L Anion Gap 17 (12-20) BUN 19 H (9-16) mg/dL Creatinine 1.27 (0.5-1.4) mg/dL Estim Creat Clear Calc 36.4 Estimated GFR 41 Random Glucose 118 H (60-115) mg/dL Lactic Acid 1.7 (0.5-2.0) mmol/L Calcium 9.0 D (8.4-10.2) mg/dL Total Bilirubin 0.3 (0.0-1.0) mg/dL Direct Bilirubin 0.1 (0.0-0.5) mg/dL AST 50 H (5-31) U/L ALT 18 (0-31) U/L Alkaline Phosphatase 62 (39-117) U/L Troponin I High Sens 3.7 (<3.5-17.0) ng/L B-Natriuretic Peptide 27 (<100) pg/mL Total Protein 7.4 (6.5-8.0) g/dL Albumin 3.9 (3.5-5.0) g/dL Influenza Type A (PCR) POSITIVE A (Negative) Influenza Type B (PCR) NEGATIVE (Negative) RSV RNA Qual (PCR) NEGATIVE (Negative) SARS-CoV-2 RNA (RT-PCR) NEGATIVE (Negative) Independent Interpretation I performed an independent interpretation of an: Plain X-Ray (My interpretation of x-ray, possible bilateral pneumonia. Radiology report pending) Independent Historian Clinical information obtained from an independent historian. History obtained from or confirmed by: Other (Granddaughter) Chronic Conditions Patient?s care impacted by: Other (COPD) Critical Care Time Critical Care Time Critical Care Time: Yes Total Critical Care Time: 75 Attestation: I have personally provided critical care time. Time includes review of lab data, radiology results, discussion with consultants, and monitoring for potential decompensation. Intervention performed as documented. Discharge Plan Discharge Clinical Impression: Influenza A, Respiratory failure, Chronic lung disease Patient Disposition: Admitted As Inpatient Prescriptions: No Action clonidine HCl 0.1 mg tablet 0.1 mg PO BID meloxicam 15 mg tablet 15 mg PO DAILY PRN (Reason: Pain) simvastatin 20 mg tablet 20 mg PO BEDTIME fluticasone propionate 50 mcg/actuation spray,suspension 2 spray intranasal DAILY PRN (Reason: Allergy Symptoms) Rx Instructions: 2 sprays in each nostril verapamil 240 mg capsule,ext rel. pellets 24 hr 240 mg PO DAILY Anoro Ellipta 62.5-25 mcg/actuation blister with device 1 ea inhalation DAILY cyanocobalamin (vitamin B-12) 1,000 mcg Tablet 1,000 mcg PO DAILY cholecalciferol (vitamin D3) [Vitamin D3] 25 mcg (1,000 unit) Tablet 25 mcg PO DAILY prednisone 20 mg Tablet 40 mg PO DAILY Qty: 8 0RF acetaminophen [Tylenol Arthritis Pain] 650 mg tablet extended release 650 mg PO Q6H PRN (Reason: Pain) jxvakobl-srheffr-rage-lutein Tablet 1 tab PO DAILY aspirin 81 mg tablet,delayed release (DR/EC) 81 mg PO DAILY oxybutynin chloride 5 mg tablet 5 mg PO DAILY baclofen 20 mg tablet 20 mg PO TID
[2023-11-08 22:26] VITALS: BP 146/91; PULSE 121; RESP 25; TEMP 37.3; O2SAT 90
--- NOTE | 2023-11-08 22:26 | PC.NURSE ---
pt brought back to room 2 from - found to be 75% on room air, increased work of breathing w/ shallow respirations. HR 120s-130 on monitor, pt placed on 4L oxymask, O2 up to 88-90%. MD Paredes happy with 88-92%, advised to not go over 92% as pt has copd, asthma, cerebral palsy Hx. #20g iv placed in RFA, labs/blood cultures/lactic sent to lab, ekg done, respiratory at bedside. pt speaking sentences, answering questions appropriately. pt has cough exacerbating dyspnea.
[2023-11-08 22:27] LABS: MANUAL DIFF FLAG NO
[2023-11-08] MEDS: Albuterol Sulfate 5 MG, Albuterol Sulfate (0.083%) 2.5 MG 7.5 MG INHALE (22:29)
[2023-11-08 22:30] VITALS: PULSE 124; PULSE 126; RESP 18; RESP 20; O2SAT 90
[2023-11-08 22:33] LABS: VBG Base Excess -4.6 mmol/L; VBG HCO3 19 mmol/L (22-26); VBG pCO2 34 mmHg; VBG pH 7.36 (7.32-7.43); VBG pO2 78 mmHg
[2023-11-08 22:35] LABS: Venous Blood Gas Refer to POC result
[2023-11-08] MEDS: cefTRIAXone sodium 1 GM in 0.9 % Sodium Chloride 50 ML IV (22:37)
[2023-11-08] MEDS: methylPREDNISolone Sod Succ 125 MG/2 ML VIAL IVPUSH (22:37)
[2023-11-08 22:42] LABS: Lactic Acid 1.7 mmol/L (0.5-2.0)
[2023-11-08 22:44] LABS: Basophils Percent Auto 0.2 % (0-2); Eosinophils Percent Auto 0.2 % (0-4); Hematocrit 37.9 % (37.0-47.0); Imm Gran Abs Auto 0.02 X10*3/uL (0.00-0.03); Imm Gran Pct Auto 0.4 % (0.0-0.4); Lymphocytes Absolute Auto 0.5 X10*3/uL (1.2-4.9); Lymphocytes Percent Auto 9.7 % (20-40); Mean Corpuscular HGB Conc 31.7 g/dl (31.0-35.0); Mean Corpuscular Hemoglobin 28.7 pg (27.0-33.0); Mean Corpuscular Volume 90.7 fL (80.0-98.0); Mean Platelet Volume 11.2 fL (9.4-12.3); Monocytes Absolute Auto 0.5 X10*3/uL (0.1-1.2); Monocytes Percent Auto 9.7 % (2-11); Neutrophils Absolute Auto 3.9 x10*3/uL (2.0-8.3); Neutrophils Percent Auto 79.8 % (45-73); Red Blood Count 4.18 X10*6/uL (4.20-5.50); Red Cell Distribution Width 15.4 % (11.0-16.0); White Blood Count 4.9 X10*3/uL (4.8-10.8)
[2023-11-08 22:50] LABS: Alanine Aminotransferase 18 U/L (0-31); Albumin Level 3.9 g/dL (3.5-5.0); Alkaline Phosphatase 62 U/L (39-117); Anion Gap 17 (12-20); Aspartate Amino Transferase 50 U/L (5-31); Bilirubin Direct 0.1 mg/dL (0.0-0.5); Bilirubin Total 0.3 mg/dL (0.0-1.0); Blood Urea Nitrogen 19 mg/dL (9-16); Carbon Dioxide 18 mmol/L (22-29); Chloride 112 mmol/L (96-108); Creatinine Clr Calc Pharmacy 36.4; Estimated Glomerular Filt Rate 41; Glucose Random 118 mg/dL (60-115); Sodium 143 mmol/L (135-145); Total Protein 7.4 g/dL (6.5-8.0)
[2023-11-08 22:53] LABS: Prothrombin Time 11.8 SEC (11.1-13.3); Troponin-I High Sensitivity 3.7 ng/L (<3.5-17.0)
[2023-11-08] MEDS: Azithromycin 500 MG in 0.9 % Sodium Chloride 250 ML 125 MG IV (22:56)
[2023-11-08] MEDS: 0.9 % Sodium Chloride 1,500 ML 999 ML IVCONT (22:56)
[2023-11-08 23:08] LABS: B Type Natriuretic Peptide 27 pg/mL (<100)
[2023-11-08 23:11] LABS: Platelet Count 98 X10*3/uL (160-400)
[2023-11-08 23:20] LABS: Influenza A PCR POSITIVE (Negative); Influenza B PCR NEGATIVE (Negative); Resp Syncy Virus RNA Qual PCR NEGATIVE (Negative); SARS COV2 PCR INHOUSE NEGATIVE (Negative)
--- NOTE | 2023-11-08 23:44 | P.HPHOSP_ITS ---
History of Present Illness Date of Service: 11/08/23 Chief Complaint: Dyspnea This is a 78-year-old female with pertinent history of COPD not on home oxygen, history of CVA, essential hypertension, mood disorder, mixed hyperlipidemia who presents to the emergency department for evaluation of dyspnea. Patient states her symptoms started 1 day prior to presentation. She has been feeling unwell and has generalized malaise and fatigability. Also has been having cough with intermittent sputum production and wheezing. No fever or chills. No sick contacts. No chest discomfort, palpitations, abdominal pain, changes in urinary or bowel habits. In the emergency department, patient was saturating 76% on room air. Placed on supplemental oxygen and given multiple rounds of DuoNeb Review of Systems 2 Constitutional: Constitutional: Reports fatigue, Reports lethargy, Reports malaise and Reports poor appetite Cardiovascular: Cardiovascular: Reports dyspnea on exertion Respiratory: Respiratory: Reports cough, Reports dyspnea on exertion and Reports wheezing Gastrointestinal: Gastrointestinal: Reports no additional gastrointestinal complaints Genitourinary: Genitourinary: Reports no additional female genitourinary complaints Endocrine: Endocrine: Reports fatigue Allergic/Immunologic: Allergic/Immunologic: Reports wheezing [facility] Medical History COPD (chronic obstructive pulmonary disease) Urine incontinence Hyperlipidemia Sleep apnea Depression Cerebral palsy HTN (hypertension) CVA (cerebral vascular accident) Hypothyroid Family History Father CVD (cardiovascular disease) Diabetes Mother CVD (cardiovascular disease) Surgical History Hx of cholecystectomy Hx of hysterectomy Social History Household Members: Family Housing: House Alcohol intake: never Patient Tobacco Use Status: Never used Tobacco Smoked in Last 30 Days: No Use of substances other than those prescribed or required for medical reasons: No Advance Directives: Yes Advance Directives on File: Yes Advance Directives Date on File: 07/26/23 Nutrition Risks: No Nutritional Risk service: No Meds Allergies Allergy/AdvReac Type Severity Reaction Status Date / Time penicillin V Allergy Intermediate rash Verified 11/08/23 21:58 nitrofurantoin Allergy Rash Verified 11/08/23 21:58 nickel Allergy Intermediate swelling Uncoded 09/01/20 15:43 Active Medications: Current Medications Azithromycin 500 mg/ Sodium (Chloride) 250 mls @ 125 mls/hr IV ONCE ONE Stop: 11/09/23 00:13 Last Admin: 11/08/23 22:56 Dose: 125 mls/hr Sodium Chloride (Ns) 1,500 mls @ 999 mls/hr IVCONT .[id number] ONE Stop: 11/08/23 23:47 Last Admin: 11/08/23 22:56 Dose: 999 mls/hr Home Medications Medication Instructions Recorded Confirmed Last Taken Type acetaminophen 650 mg 650 mg PO Q6H PRN Pain 09/01/20 07/26/23 Unknown History tablet,extended release (Tylenol Arthritis Pain) aspirin 81 mg tablet,delayed 81 mg PO DAILY 09/01/20 07/26/23 07/24/23 History release baclofen 20 mg tablet 20 mg PO TID 09/01/20 07/26/23 07/24/23 History cwnkazlv-dzhzupf-jwwl-lutein tablet 1 tab PO DAILY 09/01/20 07/26/23 07/24/23 History oxybutynin chloride 5 mg tablet 5 mg PO DAILY 09/01/20 07/26/23 07/24/23 History cholecalciferol (vitamin D3) 25 25 mcg PO DAILY 07/26/23 07/26/23 07/24/23 History mcg (1,000 unit) tablet (Vitamin D3) clonidine HCl 0.1 mg tablet 0.1 mg PO BID 07/26/23 07/26/23 07/24/23 History cyanocobalamin (vitamin B-12) 1,000 mcg PO DAILY 07/26/23 07/26/23 07/24/23 History 1,000 mcg tablet fluticasone propionate 50 2 spray intranasal DAILY PRN 07/26/23 07/26/23 Unknown History mcg/actuation nasal Allergy Symptoms spray,suspension meloxicam 15 mg tablet 15 mg PO DAILY PRN Pain 07/26/23 07/26/23 Unknown History simvastatin 20 mg tablet 20 mg PO BEDTIME 07/26/23 07/26/23 07/24/23 History umeclidinium 62.5 mcg-vilanterol 1 ea inhalation DAILY 07/26/23 07/26/23 07/24/23 History 25 mcg/actuation powdr for inhalation (Anoro Ellipta) verapamil 240 mg 24 hr 240 mg PO DAILY 07/26/23 07/26/23 07/24/23 History capsule,extended release Physical Exam 2 Vital Signs and Narrative: Vital Signs: Last Vital Signs Temp 99.2 F 11/08/23 22:26 Pulse 126 H 11/08/23 22:30 Resp 20 11/08/23 22:30 BP 146/91 H 11/08/23 22:26 Pulse Ox 90 L 11/08/23 22:30 O2 Del Method Oxymask 11/08/23 22:30 O2 Flow Rate 4 11/08/23 22:30 BMI result Body Mass Index 40.4 Elderly female lying in bed in mild distress on supplemental oxygen Neck supple, no JVD Tachycardic with regular rhythm, S1-S2 heard Bilateral wheezing without crackles Abdomen soft nontender, no guarding, no rigidity Patient is awake, alert and oriented to self, place, time and person ; no focal motor deficit Psych: Normal mood No pedal edema Results Labs 11/08/23 22:20 11/08/23 22:20 Labs: Laboratory Results - last 24 hr 11/08/23 11/08/23 11/08/23 22:20 22:26 22:35 MCV 90.7 MCH 28.7 MCHC 31.7 RDW 15.4 Plt Count 98 L MPV 11.2 Immature Gran % (Auto) 0.4 Neut % (Auto) 79.8 H Lymph % (Auto) 9.7 L [place] % (Auto) 9.7 Eos % (Auto) 0.2 Baso % (Auto) 0.2 Lymph # (Auto) 0.5 L [place] # (Auto) 0.5 Eos # (Auto) 0.0 Baso # (Auto) 0.0 Abs Immat Gran (auto) 0.02 Absolute Neuts (auto) 3.9 Absolute Nucleated RBC 0.000 Nucleated RBC % (auto) 0.0 PT 11.8 INR 1.0 VBG pH 7.36 VBG pCO2 34 VBG pO2 78 VBG HCO3 19 L VBG O2 Saturation 94.0 VBG Base Excess -4.6 Anion Gap 17 Estim Creat Clear Calc 36.4 Estimated GFR 41 Random Glucose 118 H Lactic Acid 1.7 Calcium 9.0 D Total Bilirubin 0.3 Direct Bilirubin 0.1 AST 50 H ALT 18 Alkaline Phosphatase 62 Troponin I High Sens 3.7 B-Natriuretic Peptide 27 Total Protein 7.4 Albumin 3.9 Influenza Type A (PCR) POSITIVE A Influenza Type B (PCR) NEGATIVE RSV RNA Qual (PCR) NEGATIVE SARS-CoV-2 RNA (RT-PCR) NEGATIVE Assessment and Plan (1) Influenza A: Status: Acute (2) Respiratory failure: Status: Acute Plan This is a 78-year-old female with pertinent history of COPD not on home oxygen, history of CVA, essential hypertension, mood disorder, mixed hyperlipidemia who presents to the emergency department for evaluation of dyspnea. #. Acute hypoxemic respiratory failure due to acute exacerbation of COPD in the setting of influenza a infection: Will admit patient with supplemental oxygen. Scheduled and p.r.n. DuoNebs. Continue home inhaler. Initiating systemic steroids, Tamiflu. Azithromycin for pleiotropic effect #. History of CVA: On aspirin and Vytorin #. Essential hypertension: Continue home antihypertensives Med rec pending DVT prophylaxis: Lovenox Full code. Discussed with patient at bedside Admit as inpatient and will require two night minimum hospital stay for supplemental oxygen, IV steroids (as above), which is not possible in a lesser acute setting. Quality Stroke Does the patient have a stroke diagnosis?: No VTE Prior VTE?: No VTE Risk Level:: Medical - moderate - high VTE Device Contraindication: Treatment Not Indicated VTE Drug Contraindication: N/A - Med Ordered
[2023-11-08] MEDS: Oseltamivir Phosphate 75 MG CAPSULE PO (23:59)
[2023-11-09] VITALS (10 sets, daily range): BP systolic 141–164; BP diastolic 72–91; PULSE 63–125; RESP 16–24; TEMP 36.3–37.1; O2SAT 89–96; BMI 39.6
[2023-11-09] MEDS: Morphine Sulfate 2 MG/ML CARTRIDGE IVPUSH (01:06)
[2023-11-09] MEDS: Enoxaparin Sodium 40 MG/0.4 ML SYRINGE SUBCUT ×2 (01:07→21:37)
[2023-11-09] MEDS: methylPREDNISolone Sod Succ 40 MG/ML VIAL IVPUSH ×2 (05:46→17:14)
[2023-11-09 06:47] LABS: MANUAL DIFF FLAG NO
[2023-11-09 07:10] LABS: Anion Gap 15 (12-20); Blood Urea Nitrogen 15 mg/dL (9-16); Carbon Dioxide 21 mmol/L (22-29); Chloride 112 mmol/L (96-108); Creatinine Clr Calc Pharmacy 49.1; Estimated Glomerular Filt Rate 58; Glucose Random 149 mg/dL (60-115); Potassium 3.5 mmol/L (3.3-5.1); Sodium 144 mmol/L (135-145)
[2023-11-09 07:19] LABS: Basophils Percent Auto 0.2 % (0-2); Hemoglobin 11.1 g/dl (12.0-16.0); Imm Gran Abs Auto 0.03 X10*3/uL (0.00-0.03); Imm Gran Pct Auto 0.6 % (0.0-0.4); Lymphocytes Absolute Auto 0.3 X10*3/uL (1.2-4.9); Mean Corpuscular HGB Conc 30.8 g/dl (31.0-35.0); Mean Corpuscular Hemoglobin 28.7 pg (27.0-33.0); Mean Platelet Volume 11.1 fL (9.4-12.3); Monocytes Absolute Auto 0.2 X10*3/uL (0.1-1.2); Neutrophils Absolute Auto 4.3 x10*3/uL (2.0-8.3); Neutrophils Percent Auto 88.2 % (45-73); Red Blood Count 3.87 X10*6/uL (4.20-5.50); Red Cell Distribution Width 15.4 % (11.0-16.0); White Blood Count 4.8 X10*3/uL (4.8-10.8)
[2023-11-09 07:27] LABS: Platelet Count 91 X10*3/uL (160-400)
--- NOTE | 2023-11-09 07:57 | P.PNIM_ITS ---
Subjective Subjective Date of Service: 11/09/23 Interval History: f/u on COPD exacerbation d/t influenza interval history:She is feeling better than yesterday, still on signficant amount of oxygen Physical Exam 2 Vital Signs: Vital Signs: Last Vital Signs Temp 97.6 F 11/09/23 07:14 Pulse 107 H 11/09/23 07:14 Resp 20 11/09/23 07:14 BP 141/81 H 11/09/23 07:14 Pulse Ox 93 11/09/23 07:14 O2 Del Method Oxymask 11/09/23 07:14 O2 Flow Rate 4 11/09/23 07:14 BMI result Body Mass Index 39.6 General: AO X 3, no acute distress Resp: CTA bilateral CVS: S1,S2,RRR GI: +BS, NT, no distention Skin: No rash Neuro: motor grossly intact Psych: appropriate affect Objective Data Active Medications Acetaminophen (Acetaminophen 325 Mg Tablet) 650 mg PO Q6H PRN PRN Reason: Pain, Mild (Pain Scale 1-3) Albuterol/Ipratropium (Albuterol/Iprat 2.5/0.5mg 3 Ml Ampul.Neb) 3 ml INHALE RQ4H WHILE AWAKE NEHA Albuterol/Ipratropium (Albuterol/Iprat 2.5/0.5mg 3 Ml Ampul.Neb) 3 ml INHALE Q4H PRN PRN Reason: Wheezing Enoxaparin Sodium (Enoxaparin Sodium 40 Mg/0.4 Ml Syringe) 40 mg SUBCUT BEDTIME [facility] Last Admin: 11/09/23 01:07 Dose: 40 mg Documented By: MICK Azithromycin 500 mg/ Sodium (Chloride) 250 mls @ 125 mls/hr IV Q24H [facility] Melatonin (Melatonin 3 Mg Tablet) 6 mg PO BEDTIME PRN PRN Reason: Insomnia Methylprednisolone Sodium Succinate (Methylprednisolone Sod Succ 40 Mg/Ml Vial) 40 mg IVPUSH Q12H [facility] Last Admin: 11/09/23 05:46 Dose: 40 mg Documented By: KATERYNA Ondansetron HCl (Ondansetron Hcl 4 Mg/2 Ml Vial) 4 mg IVPUSH Q8H PRN PRN Reason: Nausea and Vomiting Oseltamivir Phosphate (Oseltamivir Phosphate 30 Mg Capsule) 30 mg PO Q12H [facility] Stop: 11/13/23 21:01 Sodium Chloride (0.9 % Sodium Chloride Flush 3 Ml Syringe) 3 ml IVFLUSH QSHIFT [facility] Last Admin: 11/09/23 00:01 Dose: Not Given Documented By: MICK Non-Admin Reason: IV Running Labs 11/09/23 06:17 11/09/23 06:17 Labs: Laboratory Results - last 24 hr 11/08/23 11/08/23 11/08/23 22:20 22:26 22:35 MCV 90.7 MCH 28.7 MCHC 31.7 RDW 15.4 Plt Count 98 L MPV 11.2 Immature Gran % (Auto) 0.4 Neut % (Auto) 79.8 H Lymph % (Auto) 9.7 L [place] % (Auto) 9.7 Eos % (Auto) 0.2 Baso % (Auto) 0.2 Lymph # (Auto) 0.5 L [place] # (Auto) 0.5 Eos # (Auto) 0.0 Baso # (Auto) 0.0 Abs Immat Gran (auto) 0.02 Absolute Neuts (auto) 3.9 Absolute Nucleated RBC 0.000 Nucleated RBC % (auto) 0.0 PT 11.8 INR 1.0 VBG pH 7.36 VBG pCO2 34 VBG pO2 78 VBG HCO3 19 L VBG O2 Saturation 94.0 VBG Base Excess -4.6 Anion Gap 17 Estim Creat Clear Calc 36.4 Estimated GFR 41 Random Glucose 118 H Lactic Acid 1.7 Calcium 9.0 D Total Bilirubin 0.3 Direct Bilirubin 0.1 AST 50 H ALT 18 Alkaline Phosphatase 62 Troponin I High Sens 3.7 B-Natriuretic Peptide 27 Total Protein 7.4 Albumin 3.9 Influenza Type A (PCR) POSITIVE A Influenza Type B (PCR) NEGATIVE RSV RNA Qual (PCR) NEGATIVE SARS-CoV-2 RNA (RT-PCR) NEGATIVE 11/09/23 06:17 MCV 93.0 MCH 28.7 MCHC 30.8 L RDW 15.4 Plt Count 91 L MPV 11.1 Immature Gran % (Auto) 0.6 H Neut % (Auto) 88.2 H Lymph % (Auto) 6.0 L [place] % (Auto) 5.0 Eos % (Auto) 0.0 Baso % (Auto) 0.2 Lymph # (Auto) 0.3 L [place] # (Auto) 0.2 Eos # (Auto) 0.0 Baso # (Auto) 0.0 Abs Immat Gran (auto) 0.03 Absolute Neuts (auto) 4.3 Absolute Nucleated RBC 0.000 Nucleated RBC % (auto) 0.0 PT INR VBG pH VBG pCO2 VBG pO2 VBG HCO3 VBG O2 Saturation VBG Base Excess Anion Gap 15 Estim Creat Clear Calc 49.1 Estimated GFR 58 Random Glucose 149 H Lactic Acid Calcium 8.0 L D Total Bilirubin Direct Bilirubin AST ALT Alkaline Phosphatase Troponin I High Sens B-Natriuretic Peptide Total Protein Albumin Influenza Type A (PCR) Influenza Type B (PCR) RSV RNA Qual (PCR) SARS-CoV-2 RNA (RT-PCR) Assessment and Plan (1) Chronic lung disease: Status: Acute (2) Respiratory failure: Status: Acute (3) Influenza A: Status: Acute Plan 78-year-old female with pertinent history of COPD not on home oxygen, history of CVA, essential hypertension, mood disorder, mixed hyperlipidemia who presents to the emergency department for evaluation of dyspnea. Acute hypoxemic respiratory failure due to acute exacerbation of COPD in the setting of influenza a infection: -Tamiflu x 5 days -Bronchodilators by Neb -IV corticosteroid -O2 as needed goal of 88 to 92 -empiric Azithromycin History of CVA: ASA and statin Essential hypertension: BP high, resume verapamil, and clonidine DVT prophylaxis: Lovenox Full code. Discussed with patient at bedside Admit as inpatient and will require two night minimum hospital stay for supplemental oxygen, IV steroids (as above), which is not possible in a lesser acute setting. Quality Stroke Does the patient have a stroke diagnosis?: No VTE Prior VTE?: No VTE Risk Level:: Medical - moderate - high VTE Device Contraindication: Treatment Not Indicated VTE Drug Contraindication: N/A - Med Ordered
--- NOTE | 2023-11-09 08:55 | PHA.MEDREC ---
Pharmacy Consult ? Medication Reconciliation Pharmacy has completed the medication reconciliation. Spoke to patient and confirmed medication list. She is unsure of the prednisone dose (don't see pharmacy claim for it either).
--- NOTE | 2023-11-09 09:27 | MHC.CM.PN ---
IMM 11/09/23 DELIVERED TO BEDSIDE, PT IS A&O REPORTS SHE IS STAYING AT [facility] SHE HASN'T BEEN DOING WELL [address] [facility], PT REPORTS SHE HAS A SHOWER CHAIR AND 4 PRONGED CANE FOR AMBULATING, PT BELIEVES SHE HAS 40 BLIND CLEANER HRS. GOAL IS HOME W/RESUMP OF SERVICES AND PT OPEN TO [facility] SERVICES IF RECOMMENDED. PT VERIFIES PCP IS CHRISTOS VEE, PT EDUCATED ON AND COMPLETED A HCP NAMING HER DTR LAUREN MOSES HER [facility] AND TR JESSIE MOSES [phone] HER HC
--- NOTE | 2023-11-09 09:38 | MHC.CM.PN ---
IMM 11/09/23 DELIVERED TO BEDSIDE, PT IS A&O REPORTS SHE IS STAYING AT [facility] SHE HASN'T BEEN DOING WELL [address] 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 GOAL IS HOME W/RESUMP OF SERVICES AND PT OPEN TO VNA SERVICES IF RECOMMENDED. PT VERIFIES PCP IS CHRISTOS VEE, COPY OF HCP BROUGHT IN LAST ADMIT AND UPLOADED TO [facility] AND PLACED IN PAPER CHART, [facility] IS [facility] JESSIE MOSES [phone]
[2023-11-09] MEDS: Aspirin Enteric Coated 81 MG TABLET.DR PO (09:41)
[2023-11-09] MEDS: oxyBUTYnin chloride ER 5 MG TAB.ER.24 PO (09:41)
[2023-11-09] MEDS: Cyanocobalamin (Vitamin B-12) 1,000 MCG TABLET 1000 MCG PO (09:41)
[2023-11-09] MEDS: Cholecalciferol (Vitamin D3) 25 MCG TABLET PO (09:42)
[2023-11-09] MEDS: Oseltamivir Phosphate 30 MG CAPSULE PO ×2 (09:42→21:36)
[2023-11-09] MEDS: Atorvastatin Calcium 10 MG TABLET PO (09:42)
[2023-11-09] MEDS: 0.9 % Sodium Chloride Flush 3 ML SYRINGE IVFLUSH ×3 (09:42→21:37)
[2023-11-09] MEDS: cloNIDine HCL 0.1 MG TABLET PO ×2 (09:42→21:36)
[2023-11-09] MEDS: Omeprazole 20 MG CAPSULE.DR PO (09:42)
[2023-11-09] MEDS: Albuterol/Iprat 2.5/0.5MG 3 ML AMPUL.NEB INHALE ×3 (11:12→23:10)
[2023-11-09] MEDS: Acetaminophen 325 MG TABLET 650 MG PO ×3 (12:40→23:08)
[2023-11-09] MEDS: Baclofen 20 MG TABLET PO ×2 (15:21→21:36)
[2023-11-09] MEDS: guaiFENesin 100 MG/5 ML LIQUID PO ×2 (17:12→23:08)
[2023-11-09] MEDS: Azithromycin 500 MG in 0.9 % Sodium Chloride 250 ML 125 MG IV (21:37)
[2023-11-09] MEDS: Nystatin Powder 15 GM BOTTLE 1 APPL TOPICAL (23:07)
[2023-11-09] MEDS: Melatonin 3 MG TABLET 6 MG PO (23:08)
[2023-11-10] VITALS (14 sets, daily range): BP systolic 105–169; BP diastolic 55–81; PULSE 72–120; RESP 18–20; TEMP 36.2–37.1; O2SAT 85–98
--- NOTE | 2023-11-10 | ECG_ITS ---
Test Reason : tachycardia Blood Pressure : / mmHG Vent. Rate : 121 BPM Atrial Rate : 121 BPM P-R Int : 152 ms QRS Dur : 134 ms QT Int : 368 ms P-R-T Axes : -01 036 -19 degrees QTc Int : 522 ms Sinus tachycardia Right bundle branch block T wave abnormality, consider inferolateral ischemia Abnormal ECG When compared with ECG of 08-NOV-2023 22:20, No significant change was found Referred By: Riley Figueroa Electronically Signed By:MONI MELGAR
[2023-11-10] MEDS: Acetaminophen 325 MG TABLET 650 MG PO ×3 (06:35→21:40)
[2023-11-10] MEDS: guaiFENesin 100 MG/5 ML LIQUID PO ×3 (06:35→21:40)
[2023-11-10] MEDS: methylPREDNISolone Sod Succ 40 MG/ML VIAL IVPUSH ×2 (06:37→17:47)
[2023-11-10] MEDS: Albuterol/Iprat 2.5/0.5MG 3 ML AMPUL.NEB INHALE ×4 (08:05→19:37)
[2023-11-10] MEDS: Baclofen 20 MG TABLET PO ×3 (08:54→21:40)
[2023-11-10] MEDS: oxyBUTYnin chloride ER 5 MG TAB.ER.24 PO (08:54)
[2023-11-10] MEDS: Omeprazole 20 MG CAPSULE.DR PO (08:54)
[2023-11-10] MEDS: Oseltamivir Phosphate 30 MG CAPSULE PO ×2 (08:54→21:40)
[2023-11-10] MEDS: Aspirin Enteric Coated 81 MG TABLET.DR PO (08:54)
[2023-11-10] MEDS: Atorvastatin Calcium 10 MG TABLET PO (08:54)
[2023-11-10] MEDS: Cholecalciferol (Vitamin D3) 25 MCG TABLET PO (08:54)
[2023-11-10] MEDS: Cyanocobalamin (Vitamin B-12) 1,000 MCG TABLET 1000 MCG PO (08:54)
[2023-11-10] MEDS: VerapamiL HCL SR 240 MG TABLET.ER PO (08:54)
[2023-11-10] MEDS: 0.9 % Sodium Chloride Flush 3 ML SYRINGE IVFLUSH ×3 (08:55→21:45)
[2023-11-10] MEDS: cloNIDine HCL 0.1 MG TABLET PO ×2 (08:55→21:40)
--- NOTE | 2023-11-10 09:36 | MHC.CM.PN ---
IMM 11/09/23 Patient is discharged today to home. [employer] services will resume. She has arranged for transport home.
[2023-11-10] MEDS: Nystatin Powder 15 GM BOTTLE 1 APPL TOPICAL ×3 (10:25→21:45)
--- NOTE | 2023-11-10 10:32 | P.PNIM_ITS ---
Subjective Subjective Date of Service: 11/10/23 Interval History: f/u on COPD exacerbation d/t influenza interval history:She is feeling better than yesterday, still on signficant amount of oxygen Physical Exam 2 Vital Signs: Vital Signs: Last Vital Signs Temp 98.3 F 11/10/23 07:51 Pulse 86 11/10/23 08:05 Resp 18 11/10/23 08:05 BP 169/81 H 11/10/23 07:51 Pulse Ox 91 L 11/10/23 09:03 O2 Del Method Nasal Cannula 11/10/23 09:03 O2 Flow Rate 3 11/10/23 09:03 BMI result Body Mass Index 39.6 Objective Data Active Medications Acetaminophen (Acetaminophen 325 Mg Tablet) 650 mg PO Q6H PRN PRN Reason: Pain, Mild (Pain Scale 1-3) Last Admin: 11/10/23 06:35 Dose: 650 mg Documented By: KATERYNA Albuterol/Ipratropium (Albuterol/Iprat 2.5/0.5mg 3 Ml Ampul.Neb) 3 ml INHALE RQ4H WHILE AWAKE [facility] Last Admin: 11/10/23 08:05 Dose: 3 ml Documented By: LEOBARDO Albuterol/Ipratropium (Albuterol/Iprat 2.5/0.5mg 3 Ml Ampul.Neb) 3 ml INHALE Q4H PRN PRN Reason: Wheezing Aspirin (Aspirin Enteric Coated 81 Mg Tablet.) 81 mg PO DAILY [facility] Last Admin: 11/10/23 08:54 Dose: 81 mg Documented By: ABDULAZIZ Atorvastatin Calcium (Atorvastatin Calcium 10 Mg Tablet) 10 mg PO DAILY [facility] Last Admin: 11/10/23 08:54 Dose: 10 mg Documented By: ABDULAZIZ Baclofen (Baclofen 20 Mg Tablet) 20 mg PO TID [facility] Last Admin: 11/10/23 08:54 Dose: 20 mg Documented By: ABDULAZIZ Clonidine HCl (Clonidine Hcl 0.1 Mg Tablet) 0.1 mg PO BID [facility]; Protocol Last Admin: 11/10/23 08:55 Dose: 0.1 mg Documented By: ABDULAZIZ Cyanocobalamin (Cyanocobalamin (Vitamin B-12) 1,000 Mcg Tablet) 1,000 mcg PO DAILY [facility] Last Admin: 11/10/23 08:54 Dose: 1,000 mcg Documented By: ABDULAZIZ Enoxaparin Sodium (Enoxaparin Sodium 40 Mg/0.4 Ml Syringe) 40 mg SUBCUT BEDTIME [facility] Last Admin: 11/09/23 21:37 Dose: 40 mg Documented By: KATERYNA Fluticasone Propionate (Fluticasone Propionate Nasal 16 Gm [place]) 2 spray NOSTRIL-B DAILY PRN PRN Reason: Allergy Symptoms Guaifenesin (Guaifenesin 100 Mg/5 Ml Liquid) 5 ml PO Q6H PRN PRN Reason: cough Last Admin: 11/10/23 06:35 Dose: 5 ml Documented By: KATERYNA Comments: pt has nonproductive cough Azithromycin 500 mg/ Sodium (Chloride) 250 mls @ 125 mls/hr IV Q24H [facility] Last Infusion: 11/09/23 23:40 Dose: Infused Documented By: KATERYNA Melatonin (Melatonin 3 Mg Tablet) 6 mg PO BEDTIME PRN PRN Reason: Insomnia Last Admin: 11/09/23 23:08 Dose: 6 mg Documented By: KATERYNA Comments: promote sleep Methylprednisolone Sodium Succinate (Methylprednisolone Sod Succ 40 Mg/Ml Vial) 40 mg IVPUSH Q12H [facility] Last Admin: 11/10/23 06:37 Dose: 40 mg Documented By: KATERYNA Non-Formulary Medication (Umeclidinium-Vilanterol [Anoro Ellipta]) 1 each INHALE DAILY [facility] Nystatin (Nystatin Powder 15 Gm Bottle) 1 appl TOPICAL TID [facility]; Protocol Last Admin: 11/10/23 10:25 Dose: 1 appl Documented By: ABDULAZIZ Omeprazole (Omeprazole 20 Mg Capsule.Dr) 20 mg PO DAILY [facility] Last Admin: 11/10/23 08:54 Dose: 20 mg Documented By: ABDULAZIZ Ondansetron HCl (Ondansetron Hcl 4 Mg/2 Ml Vial) 4 mg IVPUSH Q8H PRN PRN Reason: Nausea and Vomiting Oseltamivir Phosphate (Oseltamivir Phosphate 30 Mg Capsule) 30 mg PO Q12H [facility] Stop: 11/13/23 21:01 Last Admin: 11/10/23 08:54 Dose: 30 mg Documented By: ABDULAZIZ Oxybutynin Chloride (Oxybutynin Chloride Er 5 Mg Tab.Er.24) 5 mg PO DAILY [facility] Last Admin: 11/10/23 08:54 Dose: 5 mg Documented By: ABDULAZIZ Sodium Chloride (0.9 % Sodium Chloride Flush 3 Ml Syringe) 3 ml IVFLUSH QSHIFT [facility] Last Admin: 11/10/23 08:55 Dose: 3 ml Documented By: ABDULAZIZ Verapamil HCl (Verapamil Hcl Sr 240 Mg Tablet.Er) 240 mg PO DAILY [facility]; Protocol Last Admin: 11/10/23 08:54 Dose: 240 mg Documented By: ABDULAZIZ Vitamin D (Cholecalciferol (Vitamin D3) 25 Mcg Tablet) 25 mcg PO DAILY [facility] Last Admin: 11/10/23 08:54 Dose: 25 mcg Documented By: ABDULAZIZ Labs 11/09/23 06:17 11/09/23 06:17 Microbiology Microbiology Results: Microbiology 11/08/23 22:35 Blood Culture - Preliminary Blood - Venous No growth after 24 hours. 11/08/23 22:20 Blood Culture - Preliminary Blood - Venous No growth after 24 hours. Assessment and Plan (1) Chronic lung disease: Status: Acute (2) Respiratory failure: Status: Acute (3) Influenza A: Status: Acute Plan 78-year-old female with pertinent history of COPD not on home oxygen, history of CVA, essential hypertension, mood disorder, mixed hyperlipidemia who presents to the emergency department for evaluation of dyspnea. Acute hypoxemic respiratory failure due to acute exacerbation of COPD in the setting of influenza a infection: Still hpoxic, drops to 85 on room air -Tamiflu x 5 days -Bronchodilators by Neb -IV corticosteroid -O2 as needed goal of 88 to 92 -empiric Azithromycin History of CVA: ASA and statin Essential hypertension: continue clonidine and verapamil if persistently high, add Lisinopril 5 DVT prophylaxis: Lovenox Full code. Discussed with patient at bedside Admit as inpatient and will require two night minimum hospital stay for supplemental oxygen, IV steroids (as above), which is not possible in a lesser acute setting. Quality Stroke Does the patient have a stroke diagnosis?: No VTE Prior VTE?: No VTE Risk Level:: Medical - moderate - high VTE Device Contraindication: Treatment Not Indicated VTE Drug Contraindication: N/A - Med Ordered
[2023-11-10] MEDS: lisinopriL 5 MG TABLET PO (11:52)
--- NOTE | 2023-11-10 12:49 | PC.NURSE ---
HR 120s-130s. Patient OOB in chair. Denies any chest discomfort. MD notified. EKG- sinus tach , right BBB. Continue to monitor at this time.
--- NOTE | 2023-11-10 14:07 | HO.WOUND ---
Wound Consult: Initial 78yr old?F admitted [place] [facility] [place] - See progress notes and H&P for detailed history.? Wound consult placed for Buttock wound POA.? Patient agreeable to assessment and photo documentation.? Arrival to bedside patient was sitting in recliner chair with assist from myself and direct care nurse patient was able to stand for assessment. Preventative foam in place to sacrum - no wound noted - tissue remains intact and blanchable - no pigmentation changes noted. 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 Patient reports wears diaper throughout the day and wear large superabsorbant brief so she has to get up and change less often. Education provided to not use briefs in that way and to minimize tissue damage by changing brief once wet. Patient did not seem to demonstrate understanding at this time. Barrier cream to be applied for preventative measures however there is no skin injury noted at this time aside some scattered pigmentation changes noted. Recommendations: 1. Turn and Reposition every 2 hours and as needed for patient comfort.? Use pillows or wedges to support off loading positions. Waffle cushion when up to chair. 2. Off Load all bony prominences with use of pillows and heel boots if needed.? Apply Preventative foams where needed - Sacral foam in place. 3. Monitor for incontinence and moisture control, use barrier creams when needed for prevention and treatment. 4. Provide adequate and supplemental nutrition.? 5. Order low air loss mattress. Re-consult wound care Nurse for wound deterioration or wound changes.
[2023-11-10] MEDS: Enoxaparin Sodium 40 MG/0.4 ML SYRINGE SUBCUT (21:39)
[2023-11-10] MEDS: Melatonin 3 MG TABLET 6 MG PO (21:40)
[2023-11-10] MEDS: Azithromycin 500 MG in 0.9 % Sodium Chloride 250 ML 125 MG IV (21:40)
[2023-11-11] VITALS (10 sets, daily range): BP systolic 120–148; BP diastolic 58–87; PULSE 66–90; RESP 16–22; TEMP 36.1–36.8; O2SAT 91–96
[2023-11-11] MEDS: methylPREDNISolone Sod Succ 40 MG/ML VIAL IVPUSH (06:23)
[2023-11-11] MEDS: Omeprazole 20 MG CAPSULE.DR PO (06:23)
[2023-11-11] MEDS: Albuterol/Iprat 2.5/0.5MG 3 ML AMPUL.NEB INHALE ×4 (07:41→19:29)
--- NOTE | 2023-11-11 07:59 | PC.RT ---
no 02 orders RN aware will let provider aware
[2023-11-11] MEDS: Baclofen 20 MG TABLET PO ×3 (08:58→20:32)
[2023-11-11] MEDS: cloNIDine HCL 0.1 MG TABLET PO ×2 (08:59→20:32)
[2023-11-11] MEDS: Oseltamivir Phosphate 30 MG CAPSULE PO ×2 (08:59→20:32)
[2023-11-11] MEDS: Aspirin Enteric Coated 81 MG TABLET.DR PO (08:59)
[2023-11-11] MEDS: oxyBUTYnin chloride ER 5 MG TAB.ER.24 PO (08:59)
[2023-11-11] MEDS: Cyanocobalamin (Vitamin B-12) 1,000 MCG TABLET 1000 MCG PO (08:59)
[2023-11-11] MEDS: Atorvastatin Calcium 10 MG TABLET PO (08:59)
[2023-11-11] MEDS: VerapamiL HCL SR 240 MG TABLET.ER PO (08:59)
[2023-11-11] MEDS: lisinopriL 5 MG TABLET PO (08:59)
[2023-11-11] MEDS: Cholecalciferol (Vitamin D3) 25 MCG TABLET PO (09:00)
[2023-11-11] MEDS: 0.9 % Sodium Chloride Flush 3 ML SYRINGE IVFLUSH ×3 (09:01→20:38)
[2023-11-11] MEDS: Nystatin Powder 15 GM BOTTLE 1 APPL TOPICAL ×3 (09:02→20:37)
[2023-11-11] MEDS: guaiFENesin 100 MG/5 ML LIQUID PO ×2 (09:04→20:31)
--- NOTE | 2023-11-11 09:53 | P.PNIM_ITS ---
Subjective Subjective Date of Service: 11/11/23 Interval History: f/u on COPD exacerbation d/t influenza interval history:She feels much better, oxyenation is harrison, lungs sound better and using less O2 Physical Exam 2 Vital Signs: Vital Signs: Last Vital Signs Temp 96.9 F 11/11/23 07:36 Pulse 77 11/11/23 07:42 Resp 16 11/11/23 07:42 BP 139/87 11/11/23 07:36 Pulse Ox 96 11/11/23 07:36 O2 Del Method Nasal Cannula 11/11/23 07:36 O2 Flow Rate 4 11/11/23 07:36 BMI result Body Mass Index 39.6 General: AO X 3, no acute distress Resp: CTA bilateral CVS: S1,S2,RRR GI: +BS, NT, no distention Skin: No rash Neuro: motor grossly intact Psych: appropriate affect Objective Data Active Medications Acetaminophen (Acetaminophen 325 Mg Tablet) 650 mg PO Q6H PRN PRN Reason: Pain, Mild (Pain Scale 1-3) Last Admin: 11/10/23 21:40 Dose: 650 mg Documented By: ZULY Albuterol/Ipratropium (Albuterol/Iprat 2.5/0.5mg 3 Ml Ampul.Neb) 3 ml INHALE RQ4H WHILE AWAKE [facility] Last Admin: 11/11/23 07:41 Dose: 3 ml Documented By: LEOBARDO Albuterol/Ipratropium (Albuterol/Iprat 2.5/0.5mg 3 Ml Ampul.Neb) 3 ml INHALE Q4H PRN PRN Reason: Wheezing Aspirin (Aspirin Enteric Coated 81 Mg Tablet.) 81 mg PO DAILY [facility] Last Admin: 11/11/23 08:59 Dose: 81 mg Documented By: JING Atorvastatin Calcium (Atorvastatin Calcium 10 Mg Tablet) 10 mg PO DAILY [facility] Last Admin: 11/11/23 08:59 Dose: 10 mg Documented By: JING Baclofen (Baclofen 20 Mg Tablet) 20 mg PO TID [facility] Last Admin: 11/11/23 08:58 Dose: 20 mg Documented By: JING Clonidine HCl (Clonidine Hcl 0.1 Mg Tablet) 0.1 mg PO BID [facility]; Protocol Last Admin: 11/11/23 08:59 Dose: 0.1 mg Documented By: JING Cyanocobalamin (Cyanocobalamin (Vitamin B-12) 1,000 Mcg Tablet) 1,000 mcg PO DAILY [facility] Last Admin: 11/11/23 08:59 Dose: 1,000 mcg Documented By: JING Enoxaparin Sodium (Enoxaparin Sodium 40 Mg/0.4 Ml Syringe) 40 mg SUBCUT BEDTIME [facility] Last Admin: 11/10/23 21:39 Dose: 40 mg Documented By: ZULY Fluticasone Propionate (Fluticasone Propionate Nasal 16 Gm [place]) 2 spray NOSTRIL-B DAILY PRN PRN Reason: Allergy Symptoms Guaifenesin (Guaifenesin 100 Mg/5 Ml Liquid) 5 ml PO Q6H PRN PRN Reason: cough Last Admin: 11/11/23 09:04 Dose: 5 ml Documented By: JING Azithromycin 500 mg/ Sodium (Chloride) 250 mls @ 125 mls/hr IV Q24H [facility] Last Infusion: 11/10/23 23:45 Dose: Infused Documented By: ZULY Lisinopril (Lisinopril 5 Mg Tablet) 5 mg PO DAILY [facility]; Protocol Last Admin: 11/11/23 08:59 Dose: 5 mg Documented By: JING Melatonin (Melatonin 3 Mg Tablet) 6 mg PO BEDTIME PRN PRN Reason: Insomnia Last Admin: 11/10/23 21:40 Dose: 6 mg Documented By: ZULY Methylprednisolone Sodium Succinate (Methylprednisolone Sod Succ 40 Mg/Ml Vial) 40 mg IVPUSH Q12H [facility] Last Admin: 11/11/23 06:23 Dose: 40 mg Documented By: ZULY Non-Formulary Medication (Umeclidinium-Vilanterol [Anoro Ellipta]) 1 each INHALE DAILY [facility] Nystatin (Nystatin Powder 15 Gm Bottle) 1 appl TOPICAL TID [facility]; Protocol Last Admin: 11/11/23 09:02 Dose: 1 appl Documented By: JING Omeprazole (Omeprazole 20 Mg Capsule.Dr) 20 mg PO DAILY@0630 [facility] Last Admin: 11/11/23 06:23 Dose: 20 mg Documented By: ZULY Ondansetron HCl (Ondansetron Hcl 4 Mg/2 Ml Vial) 4 mg IVPUSH Q8H PRN PRN Reason: Nausea and Vomiting Oseltamivir Phosphate (Oseltamivir Phosphate 30 Mg Capsule) 30 mg PO Q12H [facility] Stop: 11/13/23 21:01 Last Admin: 11/11/23 08:59 Dose: 30 mg Documented By: JING Oxybutynin Chloride (Oxybutynin Chloride Er 5 Mg Tab.Er.24) 5 mg PO DAILY [facility] Last Admin: 11/11/23 08:59 Dose: 5 mg Documented By: JING Sodium Chloride (0.9 % Sodium Chloride Flush 3 Ml Syringe) 3 ml IVFLUSH QSHIFT [facility] Last Admin: 11/11/23 09:01 Dose: 3 ml Documented By: JING Verapamil HCl (Verapamil Hcl Sr 240 Mg Tablet.Er) 240 mg PO DAILY [facility]; Protocol Last Admin: 11/11/23 08:59 Dose: 240 mg Documented By: JING Vitamin D (Cholecalciferol (Vitamin D3) 25 Mcg Tablet) 25 mcg PO DAILY [facility] Last Admin: 11/11/23 09:00 Dose: 25 mcg Documented By: JING Labs 11/09/23 06:17 11/09/23 06:17 Microbiology Microbiology Results: Microbiology 11/08/23 22:35 Blood Culture - Preliminary Blood - Venous No growth after 48 hours. 11/08/23 22:20 Blood Culture - Preliminary Blood - Venous No growth after 48 hours. Assessment and Plan (1) Chronic lung disease: Status: Acute (2) Respiratory failure: Status: Acute (3) Influenza A: Status: Acute Plan 78-year-old female with pertinent history of COPD not on home oxygen, history of CVA, essential hypertension, mood disorder, mixed hyperlipidemia who presents to the emergency department for evaluation of dyspnea. Acute hypoxemic respiratory failure due to acute exacerbation of COPD in the setting of influenza a infection: Hypoxia is much better -Tamiflu x 5 days -Bronchodilators by Neb -Change to PO prednisone for 3 more day -O2 as needed goal of 88 to 92 -empiric Azithromycin for 5 days, stop on 11/12 History of CVA: ASA and statin Essential hypertension: continue clonidine and verapamil if persistently high, add Lisinopril 5 DVT prophylaxis: Lovenox Full code. Discussed with patient at bedside Admit as inpatient and will require two night minimum hospital stay for supplemental oxygen, IV steroids (as above), which is not possible in a lesser acute setting. PT is recommending STR, can discharge today if bed available Quality Stroke Does the patient have a stroke diagnosis?: No VTE Prior VTE?: No VTE Risk Level:: Medical - moderate - high VTE Device Contraindication: Treatment Not Indicated VTE Drug Contraindication: N/A - Med Ordered
--- NOTE | 2023-11-11 11:55 | MHC.CM.PN ---
Addendum entered by Elvira Ross 11/11/23 15:33: Per [facility] Insurance authorization has not been received. The authorization will be obtained tomorrow. Original Note: Met with patient this am. She stated that she would like to go to [facility] closer to [place]. She requested [facility]. The referrals were sent. [facility] appropriate bed available today. [facility] offered a bed. Patient has accepted the bed at [facility]. The facility has started auth. DP STR @ [facility] via BLS once auth received.
[2023-11-11] MEDS: Acetaminophen 325 MG TABLET 650 MG PO (14:39)
[2023-11-11] MEDS: Melatonin 3 MG TABLET 6 MG PO (20:31)
[2023-11-11] MEDS: Enoxaparin Sodium 40 MG/0.4 ML SYRINGE SUBCUT (20:32)
[2023-11-11] MEDS: Azithromycin 500 MG in 0.9 % Sodium Chloride 250 ML 125 MG IV (20:37)
[2023-11-12] VITALS (10 sets, daily range): BP systolic 125–166; BP diastolic 63–75; PULSE 65–98; RESP 16–20; TEMP 36.5–36.9; O2SAT 90–97
[2023-11-12] MEDS: Omeprazole 20 MG CAPSULE.DR PO (05:14)
[2023-11-12] MEDS: Albuterol/Iprat 2.5/0.5MG 3 ML AMPUL.NEB INHALE ×4 (07:51→20:03)
--- NOTE | 2023-11-12 08:17 | MHC.CM.PN ---
Addendum entered by Elvira Ross 11/12/23 12:30: IMM 11/12/23 [facility] has offered a bed for tomorrow. Insurance authorization has been started. [facility]. Original Note: IMM 11/12/23 A message has been received from [facility]. They are out of Network withthe patients insurance. Auth has not been received for [facility]. [facility] and [facility] have been notified that the patient is interested in STR at [facility]. [facility] is 1st choice. The facility is close to the family. DP STR pending bed offer via BLS.
[2023-11-12] MEDS: Aspirin Enteric Coated 81 MG TABLET.DR PO (09:01)
[2023-11-12] MEDS: VerapamiL HCL SR 240 MG TABLET.ER PO (09:01)
[2023-11-12] MEDS: oxyBUTYnin chloride ER 5 MG TAB.ER.24 PO (09:01)
[2023-11-12] MEDS: predniSONE 20 MG TABLET PO (09:01)
[2023-11-12] MEDS: Atorvastatin Calcium 10 MG TABLET PO (09:02)
[2023-11-12] MEDS: cloNIDine HCL 0.1 MG TABLET PO ×2 (09:02→21:29)
[2023-11-12] MEDS: lisinopriL 5 MG TABLET PO (09:02)
[2023-11-12] MEDS: Oseltamivir Phosphate 30 MG CAPSULE PO ×2 (09:02→21:29)
[2023-11-12] MEDS: Baclofen 20 MG TABLET PO ×3 (09:02→21:29)
[2023-11-12] MEDS: Cholecalciferol (Vitamin D3) 25 MCG TABLET PO (09:02)
[2023-11-12] MEDS: 0.9 % Sodium Chloride Flush 3 ML SYRINGE IVFLUSH ×2 (09:02→21:29)
[2023-11-12] MEDS: Cyanocobalamin (Vitamin B-12) 1,000 MCG TABLET 1000 MCG PO (09:02)
[2023-11-12] MEDS: Nystatin Powder 15 GM BOTTLE 1 APPL TOPICAL ×3 (09:06→21:30)
--- NOTE | 2023-11-12 12:26 | HO.PM.IMPN ---
Subjective Subjective Date of Service: 11/12/23 Interval History: Seen and evaluated this morning feels better overall denies any SOB or cough weaning down O2 Review of Systems Review of Systems: Yes all other systems are reviewed and are negative Physical Exam Vital Signs: Vital Signs: Last Vital Signs Temp 98.5 F 11/12/23 11:18 Pulse 90 11/12/23 11:37 Resp 20 11/12/23 11:37 BP 154/74 H 11/12/23 11:18 Pulse Ox 92 11/12/23 11:18 O2 Del Method Nasal Cannula 11/12/23 11:18 O2 Flow Rate 2 11/12/23 11:18 BMI result Body Mass Index 39.6 Const: Other: Constitutional : Awake, interactive, not in distress Neck : Normal inspection, Supple Cardiovascular : RRR, no JVP, no lower extremity edema Respiratory : good bilateral air entry, no crackles, wheezes or rhonchi Gastrointestinal: soft, lax, Normal bowel sounds, Non tender Skin : Warm, Dry Neurological : Alert & oriented x3, No focal deficit Objective Data Active Medications Acetaminophen (Acetaminophen 325 Mg Tablet) 650 mg PO Q6H PRN PRN Reason: Pain, Mild (Pain Scale 1-3) Last Admin: 11/11/23 14:39 Dose: 650 mg Documented By: JAIME Albuterol/Ipratropium (Albuterol/Iprat 2.5/0.5mg 3 Ml Ampul.Neb) 3 ml INHALE RQ4H WHILE AWAKE [facility] Last Admin: 11/12/23 11:37 Dose: 3 ml Documented By: GREGORIO Albuterol/Ipratropium (Albuterol/Iprat 2.5/0.5mg 3 Ml Ampul.Neb) 3 ml INHALE Q4H PRN PRN Reason: Wheezing Aspirin (Aspirin Enteric Coated 81 Mg Tablet.) 81 mg PO DAILY [facility] Last Admin: 11/12/23 09:01 Dose: 81 mg Documented By: DAWN Atorvastatin Calcium (Atorvastatin Calcium 10 Mg Tablet) 10 mg PO DAILY [facility] Last Admin: 11/12/23 09:02 Dose: 10 mg Documented By: DAWN Baclofen (Baclofen 20 Mg Tablet) 20 mg PO TID [facility] Last Admin: 11/12/23 09:02 Dose: 20 mg Documented By: DAWN Clonidine HCl (Clonidine Hcl 0.1 Mg Tablet) 0.1 mg PO BID [facility]; Protocol Last Admin: 11/12/23 09:02 Dose: 0.1 mg Documented By: DAWN Cyanocobalamin (Cyanocobalamin (Vitamin B-12) 1,000 Mcg Tablet) 1,000 mcg PO DAILY [facility] Last Admin: 11/12/23 09:02 Dose: 1,000 mcg Documented By: DAWN Enoxaparin Sodium (Enoxaparin Sodium 40 Mg/0.4 Ml Syringe) 40 mg SUBCUT BEDTIME [facility] Last Admin: 11/11/23 20:32 Dose: 40 mg Documented By: GINA Fluticasone Propionate (Fluticasone Propionate Nasal 16 Gm [place]) 2 spray NOSTRIL-B DAILY PRN PRN Reason: Allergy Symptoms Guaifenesin (Guaifenesin 100 Mg/5 Ml Liquid) 5 ml PO Q6H PRN PRN Reason: cough Last Admin: 11/11/23 20:31 Dose: 5 ml Documented By: GINA Azithromycin 500 mg/ Sodium (Chloride) 250 mls @ 125 mls/hr IV Q24H [facility] Last Infusion: 11/11/23 22:53 Dose: Infused Documented By: GINA Lisinopril (Lisinopril 5 Mg Tablet) 5 mg PO DAILY [facility]; Protocol Last Admin: 11/12/23 09:02 Dose: 5 mg Documented By: DAWN Melatonin (Melatonin 3 Mg Tablet) 6 mg PO BEDTIME PRN PRN Reason: Insomnia Last Admin: 11/11/23 20:31 Dose: 6 mg Documented By: GINA Nystatin (Nystatin Powder 15 Gm Bottle) 1 appl TOPICAL TID [facility]; Protocol Last Admin: 11/12/23 09:06 Dose: 1 appl Documented By: DAWN Omeprazole (Omeprazole 20 Mg Capsule.) 20 mg PO DAILY@0630 [facility] Last Admin: 11/12/23 05:14 Dose: 20 mg Documented By: GINA Ondansetron HCl (Ondansetron Hcl 4 Mg/2 Ml Vial) 4 mg IVPUSH Q8H PRN PRN Reason: Nausea and Vomiting Oseltamivir Phosphate (Oseltamivir Phosphate 30 Mg Capsule) 30 mg PO Q12H [facility] Stop: 11/13/23 21:01 Last Admin: 11/12/23 09:02 Dose: 30 mg Documented By: DAWN Oxybutynin Chloride (Oxybutynin Chloride Er 5 Mg Tab.Er.24) 5 mg PO DAILY [facility] Last Admin: 11/12/23 09:01 Dose: 5 mg Documented By: DAWN Prednisone (Prednisone 20 Mg Tablet) 20 mg PO DAILY [facility] Stop: 11/14/23 09:01 Last Admin: 11/12/23 09:01 Dose: 20 mg Documented By: DAWN Sodium Chloride (0.9 % Sodium Chloride Flush 3 Ml Syringe) 3 ml IVFLUSH QSHIFT [facility] Last Admin: 11/12/23 09:02 Dose: 3 ml Documented By: DAWN Verapamil HCl (Verapamil Hcl Sr 240 Mg Tablet.Er) 240 mg PO DAILY [facility]; Protocol Last Admin: 11/12/23 09:01 Dose: 240 mg Documented By: DAWN Vitamin D (Cholecalciferol (Vitamin D3) 25 Mcg Tablet) 25 mcg PO DAILY [facility] Last Admin: 11/12/23 09:02 Dose: 25 mcg Documented By: DAWN Labs 11/09/23 06:17 11/09/23 06:17 Assessment and Plan (1) Influenza A: Status: Acute (2) Respiratory failure: Status: Acute (3) Physical deconditioning: Status: Acute Plan 78-year-old female with pertinent history of COPD not on home oxygen, history of CVA, essential hypertension, mood disorder, mixed hyperlipidemia who presents to the emergency department for evaluation of dyspnea. Acute hypoxemic respiratory failure due to acute exacerbation of COPD in the setting of influenza a infection: Hypoxia is much better Tamiflu x 5 days Bronchodilators by Neb Change to PO prednisone for 3 more day O2 as needed goal of 88 to 92 empiric Azithromycin for 5 days, stop on 11/12 Physical deconditioning Pending STR facility History of CVA: ASA and statin Essential hypertension: continue clonidine and verapamil if persistently high, add Lisinopril 5 DVT prophylaxis: Lovenox Full code. Discussed with patient at bedside Admit as inpatient and will require two night minimum hospital stay for supplemental oxygen, IV steroids (as above), which is not possible in a lesser acute setting. Quality Stroke Does the patient have a stroke diagnosis?: No VTE Prior VTE?: No VTE Risk Level:: Medical - moderate - high VTE Device Contraindication: Treatment Not Indicated VTE Drug Contraindication: N/A - Med Ordered
[2023-11-12] MEDS: Azithromycin 500 MG in 0.9 % Sodium Chloride 250 ML 125 MG IV (21:28)
[2023-11-12] MEDS: Enoxaparin Sodium 40 MG/0.4 ML SYRINGE SUBCUT (21:30)
[2023-11-13] MEDS: 0.9 % Sodium Chloride Flush 3 ML SYRINGE IVFLUSH ×2 (01:14→08:15)
[2023-11-13 03:18] VITALS: BP 148/76; PULSE 68; RESP 18; TEMP 36.8; O2SAT 96
[2023-11-13] MEDS: Omeprazole 20 MG CAPSULE.DR PO (05:00)
[2023-11-13 07:40] VITALS: BP 190/90; PULSE 69; RESP 17; TEMP 36.4; O2SAT 94
[2023-11-13 08:09] VITALS: PULSE 76; RESP 20; O2SAT 96
[2023-11-13] MEDS: Oseltamivir Phosphate 30 MG CAPSULE PO (08:09)
[2023-11-13] MEDS: Albuterol/Iprat 2.5/0.5MG 3 ML AMPUL.NEB INHALE ×2 (08:09→11:37)
[2023-11-13] MEDS: Aspirin Enteric Coated 81 MG TABLET.DR PO (08:09)
[2023-11-13] MEDS: VerapamiL HCL SR 240 MG TABLET.ER PO (08:09)
[2023-11-13] MEDS: Atorvastatin Calcium 10 MG TABLET PO (08:09)
[2023-11-13] MEDS: Cholecalciferol (Vitamin D3) 25 MCG TABLET PO (08:10)
[2023-11-13] MEDS: cloNIDine HCL 0.1 MG TABLET PO (08:10)
[2023-11-13] MEDS: Baclofen 20 MG TABLET PO (08:10)
[2023-11-13] MEDS: lisinopriL 5 MG TABLET PO (08:10)
[2023-11-13] MEDS: predniSONE 20 MG TABLET PO (08:10)
[2023-11-13] MEDS: oxyBUTYnin chloride ER 5 MG TAB.ER.24 PO (08:10)
[2023-11-13] MEDS: Cyanocobalamin (Vitamin B-12) 1,000 MCG TABLET 1000 MCG PO (08:10)
[2023-11-13] MEDS: Nystatin Powder 15 GM BOTTLE 1 APPL TOPICAL (08:15)
[2023-11-13 09:03] VITALS: BP 145/70
--- NOTE | 2023-11-13 09:30 | MHC.CM.PN ---
IMM 11/12/23 Discharge today to [facility]. She will go to [facility]. Patient will transport via BLS @ 12pm today.
--- NOTE | 2023-11-13 10:31 | PM.DS ---
DS: Providers Provider Date of Service: 11/13/23 Date of admission: 11/08/23 23:42 Primary care physician: Charlene Shaw MD Consults: 11/09/23 08:58 Consult to Wound Care Routine Reason for consultation: Buttocks possible DTI upon admission to hospital Has provider been notified: Yes DS: Diagnosis Discharge Diagnosis (1) Influenza A: Status: Acute (2) Respiratory failure: Status: Acute (3) Physical deconditioning: Status: Acute DS: Summary Hospital Course Hospital Course: Admission note HPI This is a 78-year-old female with pertinent history of COPD not on home oxygen, history of CVA, essential hypertension, mood disorder, mixed hyperlipidemia who presents to the emergency department for evaluation of dyspnea. Patient states her symptoms started 1 day prior to presentation. She has been feeling unwell and has generalized malaise and fatigability. Also has been having cough with intermittent sputum production and wheezing. No fever or chills. No sick contacts. No chest discomfort, palpitations, abdominal pain, changes in urinary or bowel habits. In the emergency department, patient was saturating 76% on room air. Placed on supplemental oxygen and given multiple rounds of [facility] Hospital course The patient was admitted for treatment of acute hypoxemic respiratory failure due to acute exacerbation of COPD in the setting of influenza a infection which was treated with Tamiflu, nebulizers, prednisone and Azithromycin during hospital stay with good response.she was weaned down O2 supplement to 1-2L [place]. She participated with PT who recommended STR for physical deconditioning. use inhalers as directed take Tamiflu as directed Time Attestation Discharge Coordination Time (in mins): 42 Quality: Safe Use of Opioids Does Pt have an Active Cancer Diagnosis on the Problem List?: No Quality: Stroke Does the patient have a stroke diagnosis?: No Physical Exam Vital Signs: Vital Signs: Last Vital Signs Temp 97.6 F 11/13/23 07:40 Pulse 76 11/13/23 08:09 Resp 20 11/13/23 08:09 BP 145/70 H 11/13/23 09:03 Pulse Ox 94 11/13/23 07:40 O2 Del Method Nasal Cannula 11/13/23 07:40 O2 Flow Rate 2 11/13/23 03:18 BMI result Body Mass Index 39.6 Const: Other: Constitutional : Awake, interactive, not in distress Neck : Normal inspection, Supple Cardiovascular : RRR, no JVP, no lower extremity edema Respiratory : good bilateral air entry, no crackles, wheezes or rhonchi, on O2 NC Gastrointestinal: soft, lax, Normal bowel sounds, Non tender Skin : Warm, Dry Neurological : Alert & oriented x3, No focal deficit DS: Data Data Completed and Pending Labs on day of discharge: Preliminary micro results at discharge 11/08/23 22:35 Blood Culture - Preliminary Blood - Venous No growth after 48 hours. 11/08/23 22:20 Blood Culture - Preliminary Blood - Venous No growth after 48 hours. Imaging Chest x-ray: Radiologist's impression: ITS Impressions Chest X-Ray 11/08/23 22:55 IMPRESSION: Lung volumes. Likely atelectatic changes at the left base. Discharge Plan Discharge Anticipated Discharge Date/Time: 11/11/23 11:56 Patient Disposition: [facility] Discharge Diagnosis: Acute respiratory failure due to Influenza Referrals: [facility] [Outside] - 1 Week Charlene Shaw MD [Primary Care Provider] - 1 Week Discharge Medications: New oseltamivir 30 mg Capsule 30 mg PO Q12H Qty: 2 0RF Continued clonidine HCl 0.1 mg tablet 0.1 mg PO BID meloxicam 15 mg tablet 15 mg PO DAILY PRN (Reason: Pain) simvastatin 20 mg tablet 20 mg PO BEDTIME fluticasone propionate 50 mcg/actuation spray,suspension 2 spray intranasal DAILY PRN (Reason: Allergy Symptoms) Rx Instructions: 2 sprays in each nostril verapamil 240 mg capsule,ext rel. pellets 24 hr 240 mg PO DAILY Anoro Ellipta 62.5-25 mcg/actuation blister with device 1 ea inhalation DAILY cyanocobalamin (vitamin B-12) 1,000 mcg Tablet 1,000 mcg PO DAILY cholecalciferol (vitamin D3) [Vitamin D3] 25 mcg (1,000 unit) Tablet 25 mcg PO DAILY oxybutynin chloride 5 mg Tablet Extended Release 24hr 5 mg PO DAILY omeprazole 20 mg capsule,delayed release(DR/EC) 20 mg PO DAILY prednisone 20 mg Tablet 20 mg PO DAILY Qty: 3 0RF acetaminophen [Tylenol Arthritis Pain] 650 mg tablet extended release 650 mg PO Q6H PRN (Reason: Pain) aspirin 81 mg tablet,delayed release (DR/EC) 81 mg PO DAILY baclofen 20 mg tablet 20 mg PO TID Discharge Orders: Discharge Order (Routine); Ordered 11/13/23 Ordered By: Rita Stokes Diet: Advance to usual diet Activity on Discharge: As tolerated Stand Alone Forms: Patient Portal Discharge page Care Plan Goals: Full recovery from copd exacerbation due to influenza Health Concerns: Influenza copd hypoxia Plan of Treatment: use inhalers as directed take Tamiflu as directed Assessment: see above Discharge Date/Time: 11/13/23 11:53
[2023-11-13 11:37] VITALS: PULSE 76; RESP 20; O2SAT 89
== END 2023-11-13 11:53 | disposition skilled nursing facility (03) | DRG 194 ==
LOC: HO.ED 23:38 → HO.EDOVER 11-09 00:10 → HO.S3 11-09 00:41 → HO.IMC 11-09 01:01
PROVIDERS: Admitting Provider Student in an Organized Health Care Education/Training Program; Emergency Provider Emergency Medicine; PCP Internal Medicine; Visit Provider Student in an Organized Health Care Education/Training Program
DX: J10.1 Influenza due to other identified influenza virus with other respiratory manifestations (principal); J44.1 Chronic obstructive pulmonary disease with (acute) exacerbation; G80.9 Cerebral palsy, unspecified; E03.9 Hypothyroidism, unspecified; E78.2 Mixed hyperlipidemia; I10 Essential (primary) hypertension; Z86.73 Personal history of transient ischemic attack (TIA), and cerebral infarction without residual deficits; Z20.822 Contact with and (suspected) exposure to COVID-19; Z79.82 Long term (current) use of aspirin; Z79.899 Other long term (current) drug therapy
CPT/HCPCS: 0241U; 36415; 71045; 80048; 80076; 82803; 83605; 83880; 84484; 85025; 85610; 87040; 93005; 94640; 97162; 99285; J0456; J0696; J1650; J2270; J2920; J2930

== ENCOUNTER → 2023-11-08 22:13 | Outpatient (BNV) | payer OTHER, MEDICARE, SELFPAY | PROVIDERS: Admitting Provider Student in an Organized Health Care Education/Training Program; Emergency Provider Emergency Medicine; PCP Internal Medicine; Visit Provider Internal Medicine Cardiovascular Disease | DX: R00.0 Tachycardia, unspecified (principal); R06.02 Shortness of breath; I45.10 Unspecified right bundle-branch block | CPT/HCPCS: 93010 ==

== ENCOUNTER 2023-11-08 23:42 | Outpatient (BNV) | payer OTHER, MEDICARE, SELFPAY | END 2023-11-10 12:12 | PROVIDERS: Admitting Provider Student in an Organized Health Care Education/Training Program; Emergency Provider Emergency Medicine; PCP Internal Medicine; Visit Provider Internal Medicine | DX: R00.0 Tachycardia, unspecified (principal); I45.10 Unspecified right bundle-branch block | CPT/HCPCS: 93010 ==

== ENCOUNTER → 2023-11-08 23:42 | Outpatient (BNV) | payer OTHER, MEDICARE, SELFPAY | PROVIDERS: Admitting Provider Student in an Organized Health Care Education/Training Program; Emergency Provider Emergency Medicine; PCP Internal Medicine; Visit Provider Student in an Organized Health Care Education/Training Program | DX: J44.9 Chronic obstructive pulmonary disease, unspecified (principal); J96.01 Acute respiratory failure with hypoxia; J10.1 Influenza due to other identified influenza virus with other respiratory manifestations | CPT/HCPCS: 99222; 99232; 99239 ==

== ENCOUNTER 2025-06-04 14:12 | Inpatient (IN) | payer OTHER, MEDICARE, SELFPAY ==
[2025-06-04] VITALS (7 sets, daily range): BP systolic 131–173; BP diastolic 61–88; PULSE 84–109; RESP 16–26; TEMP 36.3–37.4; O2SAT 90–94; BMI 37.2
--- NOTE | ~2025-06-04 | CT_ITS ---
EXAMINATION: CT guided pelvic abscess drainage with catheter placement. Clinical indications: Anterior pelvis diverticular abscess. COMPARISON: CT abdomen and pelvis 06/04/2025. TECHNIQUE: Following explaining CT fluoroscopy guided cyst drainage procedure, benefits and risk, a written consent was obtained. Patient was placed supine on CT fluoroscopy table and preliminary CT imaging was obtained. An axial slice was selected and markers placed along the left anterior abdomen repeat imaging was performed. An optimal lead marker was selected and marked on the skin. The site marked on the skin was cleaned and draped with 2% chlorhexidine solution. 1% lidocaine was administered at the puncture site. Through a small skin incision a 5 [employer] [employer] BVeh catheter was advanced from the anterior wall into the left para midline abscess collection. After observing foul-smelling fluid return, stylet was withdrawn and 0.035 J-wire was administered through the sheath into the pelvic abscess. The sheath was removed and of 8 [place] APD catheter with stiffener was inserted over the guidewire into the pelvic abscess. The stiffener was released after approximately 20 cm length of the catheter. The stiffener and the wire was removed and repeat CT imaging was performed confirming catheter tip within the abscess. A pigtail was formed and catheter connected to drainage bag wire connecting cannula. The catheter was anchored to the skin with 3 0 nonabsorbable nylon sutures. Sterile dressing applied post procedure. Patient tolerated procedure extremely well. Conscious sedation was utilized during exam and patient monitored by IR nurse and IR physician for at least 28 minutes. FINDINGS/ CT/CT guided drainage IMPRESSION: On preliminary CT imaging there is acute diverticulitis with a 6 small abscess collection anterior to the sigmoid colon. An 8 [place] APD drainage catheter was placed under fluoroscopy with the pigtail within the abscess. Approximately 10 mL of pus was removed and sent to lab for Gm stain, culture and sensitivity. Sedation time: 28 minutes. DLP: 304 mGy. Electronically signed by: Nitin Olea MD 06/17/2025 10:17 AM EDT
--- NOTE | ~2025-06-04 | XR_ITS ---
EXAMINATION: XR CHEST CLINICAL INFORMATION: hypoxia COMPARISON: 11/08/2023 TECHNIQUE: AP view of the chest was obtained. FINDINGS: The heart is top normal in size and likely partially magnified by AP technique. Mediastinal and hilar contours appear normal. Aortic mural calcifications. There are low lung volumes with mild prominence of the background bronchovascular interstitium. This may indicate small airway thickening. No discrete pneumonia. Linear atelectasis in the left base. No pneumothorax or effusion. No focal osseous or soft tissue abnormality. There are degenerative changes in both shoulder joints and throughout the spine. XR/XR chest 1V IMPRESSION: 1. Low lung volumes with mild prominence of the background interstitium, similar to the prior examination. No focal pneumonia. Electronically signed by: Hira Ortiz MD 06/08/2025 12:09 PM EDT
--- NOTE | ~2025-06-04 | CT_ITS ---
CLINICAL HISTORY: Left lower quadrant abdominal pain CT abdomen and pelvis with IV contrast. COMPARISON: None provided. FINDINGS: Small hiatal hernia. Coronary artery calcifications present within the LAD, circumflex and RCA. Minimal atelectasis along the lung bases. No focal hepatic lesion. Likely cholecystectomy. Normal spleen. Normal pancreas. Normal adrenal glands. Symmetric renal enhancement. No hydronephrosis. Inflammatory changes surrounding the proximal sigmoid colon with organizing fluid collection adjacent to the sigmoid colon measuring 4.7 x 4.0 x 4.2 cm with small amount of internal gas. No free intraperitoneal air. There are multiple diverticuli present within this region. Appendix is not identified. No bowel obstruction. No mesenteric or retroperitoneal lymphadenopathy. Moderate aortoiliac atherosclerotic vascular calcifications. Urinary bladder is contracted. There is thickening of the mucosa of the urinary bladder. Advanced multilevel spondylosis. Chronic wedge compression fractures of the T10, T11, L1 and L2 vertebral bodies. These do not appear acute. IMPRESSION: 1. Complicated sigmoid colon diverticulitis with a adjacent abscess measuring up to 4.7 cm. No free intraperitoneal air. 2. Small hiatal hernia. 3. Coronary artery atherosclerosis. This document has been electronically signed by: Davion Ballard MD on 06/04/2025 17:51:00
--- NOTE | 2025-06-04 14:35 | ED.ABDPAIN ---
HPI - Abdominal Pain General Chief Complaint: Abdominal Pain Stated Complaint: pain l side Time Seen by Provider: 06/04/25 15:17 Source: patient, family and old records reviewed Mode of arrival: ambulatory Limitations: no limitations History of Present Illness ED Provider: DR. Jackson HPI narrative: 79-year-old female with pertinent history of COPD not on home supplemental oxygen, history of CVA, HTN, mood disorder, HLD, cerebral palsy presented for evaluation of 1 week of left lower quadrant abdominal pain with frequency of urination, no dysuria, +bowel movement this morning, passing flatus normally, +chills, no fever, no nausea, no vomiting, +normal appetite, no loss of weight, past intra-abdominal surgery significant for hysterectomy. No vaginal bleed, no vaginal discharge, no loss of weight. Related Data Home Medications ?Medication ?Instructions ?Recorded ?Confirmed acetaminophen 650 mg 650 mg PO Q6H PRN Pain 09/01/20 11/09/23 tablet,extended release (Tylenol Arthritis Pain) aspirin 81 mg tablet,delayed 81 mg PO DAILY 09/01/20 11/09/23 release baclofen 20 mg tablet 20 mg PO TID 09/01/20 11/09/23 cholecalciferol (vitamin D3) 25 25 mcg PO DAILY 07/26/23 11/09/23 mcg (1,000 unit) tablet (Vitamin D3) clonidine HCl 0.1 mg tablet 0.1 mg PO BID 07/26/23 11/09/23 cyanocobalamin (vitamin B-12) 1,000 mcg PO DAILY 07/26/23 11/09/23 1,000 mcg tablet fluticasone propionate 50 2 spray intranasal DAILY PRN 07/26/23 11/09/23 mcg/actuation nasal Allergy Symptoms spray,suspension meloxicam 15 mg tablet 15 mg PO DAILY PRN Pain 07/26/23 11/09/23 simvastatin 20 mg tablet 20 mg PO BEDTIME 07/26/23 11/09/23 umeclidinium 62.5 mcg-vilanterol 1 ea inhalation DAILY 07/26/23 11/09/23 25 mcg/actuation powdr for inhalation (Anoro Ellipta) verapamil 240 mg 24 hr 240 mg PO DAILY 07/26/23 11/09/23 capsule,extended release omeprazole 20 mg capsule,delayed 20 mg PO DAILY 11/09/23 11/09/23 release oxybutynin chloride 5 mg 5 mg PO DAILY 11/09/23 11/09/23 tablet,extended release 24 hr Previous Rx's ?Medication ?Instructions ?Recorded prednisone 20 mg tablet 20 mg PO DAILY #3 tabs 11/11/23 oseltamivir 30 mg capsule 30 mg PO Q12H #2 caps 11/13/23 Allergies Allergy/AdvReac Type Severity Reaction Status Date / Time penicillin V Allergy Intermediate rash Verified 06/04/25 14:38 nitrofurantoin Allergy Rash Verified 06/04/25 14:38 nickel Allergy Intermediate swelling Uncoded 06/04/25 14:38 Review of Systems Review of Systems All other systems are reviewed and are negative Constitutional: Reports as per HPI and Reports no additional constitutional complaints Eyes: Reports as per HPI and Reports no additional eye complaints Reports system reviewed and no additional complaints, except as documented Cardiovascular: Reports as per HPI and Reports no additional cardiovascular complaints Respiratory: Reports as per HPI and Reports no additional respiratory complaints Gastrointestinal: Reports as per HPI and Reports no additional gastrointestinal complaints Genitourinary: Reports no additional female genitourinary complaints Musculoskeletal: Reports no additional musculoskeletal complaints Skin/Breast: Reports system reviewed and no additional complaints, except as docu Psychiatric: Reports no additional psychiatric complaints Endocrine: Reports no additional endocrine complaints Hematologic/Lymphatic: Reports no additional hematologic/lymphatic complaints Allergic/Immunologic: Reports no additional allergic/immunologic complaints Reports system reviewed and no additional complaints, except as documented and Reports Abnormal speech present [facility] Past Medical History Medical History Chronic lung disease COPD (chronic obstructive pulmonary disease) Urine incontinence Hyperlipidemia Sleep apnea Depression Cerebral palsy HTN (hypertension) CVA (cerebral vascular accident) Hypothyroid Surgical History Hx of cholecystectomy Hx of hysterectomy Family History Family History Father CVD (cardiovascular disease) Diabetes Mother CVD (cardiovascular disease) Social History Social History Household Members: Children Housing: House Do you presently have visiting nurse or other home services: No (Daughter provides assistance with ADL's) Alcohol intake: never Patient Tobacco Use Status: Never used Tobacco Smoked in Last 30 Days: No Use of substances other than those prescribed or required for medical reasons: No Advance Directives: Yes Advance Directives on File: Yes Advance Directives Date on File: 07/26/23 Do you have a plan to hurt others: No Plan service: No Physical Exam ED Vital Signs: Vital Signs - 24 hr 06/04/25 14:35 06/04/25 16:17 06/04/25 17:27 Temperature 97.3 F 97.9 F Pulse Rate 88 89 84 Respiratory Rate 18 18 18 Blood Pressure 133/68 150/85 H 160/88 H Pulse Oximetry 93 94 93 Oxygen Delivery Method Room Air Room Air Room Air 06/04/25 18:14 06/04/25 18:29 Temperature 98.1 F 98.1 F Pulse Rate 99 94 Respiratory Rate 18 16 Blood Pressure 173/86 H 155/69 H Pulse Oximetry 93 93 Oxygen Delivery Method Room Air Room Air BMI result Body Mass Index 37.2 Vital signs have been reviewed and appear to be correct. Blood pressure elevated. Heart rate normal. Respiratory rate normal. Temperature normal. Oxygen saturation normal. Appearance: Alert. Oriented X3. No acute distress. Head: Normal external exam. Normocephalic. Atraumatic. No Acharya signs noted. No raccoon eyes noted Eyes: PERRLA. EOMI. Conjunctiva and sclera normal. Eyelids normal. ENT: TM's Normal. Pharynx normal. Uvula midline. Moist mucous membranes. No trismus noted. No drooling noted. No muffled voice noted. Neck: Normal inspection. Neck supple. FROM. No adenopathy. Thyroid Normal. No meningeal signs. No neck mass noted. CVS: Normal heart rate and rhythm. Heart sound normal. No murmurs noted. Pulses normal throughout. Respiratory: No respiratory distress. Painless inspiration. Breath sounds normal. No wheezes/rales/rhonchi noted. Chest nontender. No accessory muscle usage noted or decreased air movement noted. Abdomen: Soft, left lower quadrant abdominal tenderness, no guarding, no rebound tenderness, Bowel sounds normal in all 4 quadrants. No distention noted. No organomegaly noted. No visible injury noted. Back: No CVA tenderness. Full range of motion noted. Skin: Skin warm and dry. Normal skin color. Normal skin turgor. No rashes/lesions/lacerations noted. Extremities: No lower extremity edema. Extremities exhibit normal range of motion. Extremities nontender. Neuro: Oriented X 3. Cranial nerve exam: II-XII are grossly intact No motor deficit. No sensory deficit. Reflexes normal. Course Course Course Narrative: This is a Rapid Medical Examination (RME) performed by Juana Li PA-C in triage. Full HPI, ROS, assessment and treatment plan per primary provider in the Main ED. Hx: 79 yo F here for eval of left lower quadrant pain x1 week. normal BMs daily, no diarrhea. no N/V. no known hx diverticulosis/diverticulitis. no urinary sx. surgical hx includes hysterectomy. Plan: labs, UA Reevaluation(s) Reevaluation #1: 79-year-old female came in with left-sided abdominal pain CT is revealing acute diverticulitis with 5 cm adjacent abscess, patient meet criteria for sepsis received ceftriaxone for double coverage of diverticulitis and UTI will add Flagyl for anaerobic coverage, patient will need hospitalization. There is no septic shock or severe sepsis. Case discussed with Dr. Alcaraz surgery on-call. Time: 18:39 Medical Decision Making Differential Diagnosis Differential Diagnoses: The differential diagnosis associated with the presentation includes (Diverticulitis, colitis, sepsis, UTI, pyelonephritis, obstructive kidney stone, acute appendicitis, acute pancreatitis, electrolyte derangement, severe anemia.) Admission/Observation Consideration of admission/observation: Escalation of care including admission/observation considered Consult Healthcare Provider Management of the patient was discussed with: Hospitalist (Dr. Zafar) and Sub Master (Dr. Alcraaz) Lab Data MDM Lab Attestation statement: I reviewed the patient's lab results. 06/04/25 15:17 06/04/25 15:17 Labs: Lab Results 06/04/25 06/04/25 06/04/25 Range/Units 15:17 15:51 17:18 WBC 14.9 H (4.8-10.8) X10*3/uL RBC 3.81 L (4.20-5.50) X10*6/uL Hgb 10.4 L (12.0-16.0) g/dl Hct 34.5 L (37.0-47.0) % MCV 90.6 (80.0-98.0) fL MCH 27.3 (27.0-33.0) pg MCHC 30.1 L (31.0-35.0) g/dl RDW 14.8 (11.0-16.0) % Plt Count 285 D (160-400) X10*3/uL MPV 9.6 (9.4-12.3) fL Immature Gran % (Auto) 0.5 H (0.0-0.4) % Neut % (Auto) 75.8 H (45-73) % Lymph % (Auto) 11.7 L (20-40) % Calloway % (Auto) 9.3 (2-11) % Eos % (Auto) 2.2 (0-4) % Baso % (Auto) 0.5 (0-2) % Lymph # (Auto) 1.7 (1.2-4.9) X10*3/uL Calloway # (Auto) 1.4 H (0.1-1.2) X10*3/uL Eos # (Auto) 0.3 (0.0-0.4) X10*3/uL Baso # (Auto) 0.1 (0.0-0.2) X10*3/uL Abs Immat Gran (auto) 0.08 H (0.00-0.03) X10*3/uL Absolute Neuts (auto) 11.3 H (2.0-8.3) x10*3/uL Absolute Nucleated RBC 0.000 (0.0-0.012) X10*3/uL Nucleated RBC % (auto) 0.0 (0.0-0.2) /100WBC Sodium 142 (135-145) mmol/L Potassium 3.8 (3.3-5.1) mmol/L Chloride 106 (96-108) mmol/L Carbon Dioxide 24 (22-29) mmol/L Anion Gap 16 (12-20) BUN 20 H (9-16) mg/dL Creatinine 1.15 (0.5-1.4) mg/dL Estim Creat Clear Calc 39.4 Estimated GFR 46 Random Glucose 110 (60-115) mg/dL Lactic Acid 1.5 (0.5-2.0) mmol/L Calcium 9.1 D (8.4-10.2) mg/dL Magnesium 2.0 (1.6-2.6) mg/dL Total Bilirubin 0.3 (0.0-1.0) mg/dL AST 17 (5-31) U/L ALT < 6 (0-31) U/L Alkaline Phosphatase 52 (39-117) U/L Total Protein 7.3 (6.5-8.0) g/dL Albumin 3.8 (3.5-5.0) g/dL Lipase 14 (8-78) U/L Urine Color Dark Yellow Urine Appearance Cloudy Urine pH 5.0 (5.0-9.0) Ur Specific Plessis >= 1.030 H (1.005-1.025) Urine Protein 30 (1+) H (Neg-Trace) mg/dL Urine Glucose (UA) Negative (Negative) mg/dL Urine Ketones Trace (Negative) mg/dL Urine Blood Large (3+) H (Negative) Urine Nitrite Negative (Negative) Ur Leukocyte Esterase Moderate (2+) H (Negative) Urine RBC >20 H (0-2) /HPF Urine WBC >50 H (0-5) /HPF Ur Squamous Epith Cells 6-10 (0-2) /HPF Ur Transition Epith Cell Present Ur Renal Epithelial Cell Present Urine Bacteria 2+ (None Seen) Hyaline Casts >20 (0-2) /LPF Independent Interpretation I performed an independent interpretation of an: CT Scan (Abdomen pelvis:1. Complicated sigmoid colon diverticulitis with a adjacent abscess measuring up to 4.7 cm. No free intraperitoneal air. 2. Small hiatal hernia. 3. Coronary artery atherosclerosis.) Radiology Impression Discussion of test interpretation with radiology: I have reviewed the radiologist's reading. (Abdomen and pelvis CT:1. Complicated sigmoid colon diverticulitis with a adjacent abscess measuring up to 4.7 cm. No free intraperitoneal air. 2. Small hiatal hernia. 3. Coronary artery atherosclerosis.) Medications Administered Generic Name Dose Route Start Last Admin Trade Name Freq PRN Reason Stop Dose Admin Lactated Ringer's 1,000 mls @ 500 mls/hr 06/04/25 16:51 06/04/25 18:10 Lr IV 06/04/25 18:50 0 mls/hr .Q2H ONE Infusion Discontinued Medications Generic Name Dose Route Start Last Admin Trade Name Freq PRN Reason Stop Dose Admin Ceftriaxone Sodium 1 gm 06/04/25 16:49 06/04/25 17:18 Ceftriaxone Sodium 1 Gm Vial IVPUSH 06/04/25 16:50 1 gm ONCE ONE Administration Iohexol 100 ml 06/04/25 16:41 06/04/25 16:41 Iohexol 350 Mg/Ml 100 Ml Infus..Btl IV 06/04/25 16:42 85 ml ONCE ONE Administration Discharge Plan Discharge Clinical Impression: Diverticulitis, Acute UTI, Sepsis Patient Disposition: Admitted As Inpatient Print Language: Divehi
[2025-06-04 15:27] LABS: MANUAL DIFF FLAG NO
[2025-06-04 15:31] LABS: Hematocrit 34.5 % (37.0-47.0); Hemoglobin 10.4 g/dl (12.0-16.0); Imm Gran Abs Auto 0.08 X10*3/uL (0.00-0.03); Imm Gran Pct Auto 0.5 % (0.0-0.4); Lymphocytes Absolute Auto 1.7 X10*3/uL (1.2-4.9); Mean Corpuscular HGB Conc 30.1 g/dl (31.0-35.0); Mean Corpuscular Hemoglobin 27.3 pg (27.0-33.0); Mean Corpuscular Volume 90.6 fL (80.0-98.0); NRBC Abs Auto 0.000 X10*3/uL (0.0-0.012); NRBC Pct Auto 0.0 /100WBC (0.0-0.2); Platelet Count 285 X10*3/uL (160-400); Red Blood Count 3.81 X10*6/uL (4.20-5.50); White Blood Count 14.9 X10*3/uL (4.8-10.8)
--- OUTSIDE RECORDS SUMMARY | 2025-06-04 15:35 | XMS_ITS | Clinical Summary ---
Author Organization [facility] Address [address] [address] Phone Care Team Providers Care Roofing Apprentice Name Role Phone Charlene Shaw MD Primary Care Provider [phone] Allergies Active Allergy Reactions Criticality Noted Date Comments Nickel Swelling 12/06/2023 Nitrofurantoin 12/06/2023 Penicillin 12/06/2023 Medications aspirin 81 MG EC tablet Take 81 mg by mouth daily. 4 Active baclofen (LIORESAL) 20 MG tablet Take 20 mg by mouth 3 (three) times a day. 4 Active cloNIDine HCL (CATAPRES) 0.1 MG tablet Take 0.1 mg by mouth every 12 (twelve) hours. 4 Active ipratropium-alb uteroL (DUONEB) 0.5-3 mg (2.5 mg base)/3 mL nebulizer solution Take 3 mL by nebulization every 6 (six) hours as needed for shortness of breath/dyspnea or wheezing. 4 Active meloxicam (MOBIC) 15 MG tablet Take 15 mg by mouth daily as needed for pain (specific location in comments). 4 Active omeprazole (PRILOSEC) 20 MG capsule Take 20 mg by mouth daily. 4 Active oxyBUTYnin (DITROPAN) 5 MG tablet Take 5 mg by mouth daily. 4 Active simvastatin (ZOCOR) 20 MG tablet Take 20 mg by mouth nightly at bedtime. 4 Active verapamiL (CALAN-SR) 240 MG CR tablet Take 240 mg by mouth nightly at bedtime. Active cyanocobalamin, vitamin B-12, (VITAMIN B-12) 1000 MCG tablet Take 1,000 mcg by mouth daily. Active cholecalciferol 25 MCG (1,000 unit) tablet Take 1,000 Units by mouth daily. Active fluticasone-ume clidin-vilanter (TRELEGY ELLIPTA) 100-62.5-25 mcg inhalation powder Inhale 1 puff into the lungs daily. Active OXYGEN-AIR DELIVERY SYSTEMS MISC 2 L by Nasal route as needed (shortness of breath and dyspnea). Active Social History Tobacco Use Types Packs/Day Years Used Date Smoking Tobacco: Never Assessed Home Health Assessment: Transportation Answer Date Recorded Lack of Transportation (Medical) No 01/28/2024 Lack of Transportation (Non-Medical) No 01/28/2024 Patient Unable or Declines to Respond No 01/28/2024 Education Answer Date Recorded Are you interested in more education? Not on jose e 11/28/2023 Are you concerned about learning? Not on file 11/28/2023 No 11/28/2023 No 11/28/2023 Digital Access Answer Date Recorded No 11/28/2023 No 11/28/2023 Reliable internet access at home? Not on file 11/28/2023 Device with a working camera? Not on file Comments Unknown Sex and Gender Information Value Date Recorded Sex Assigned at Not on file Legal Sex Female 7:09 PM EST Gender Identity Not on file Sexual Orientation Not on file Last Filed Vital Signs Vital Sign Reading Time Taken Comments Blood Pressure 120/64 01/28/2024 10:57 AM EDT Pulse 80 01/28/2024 10:57 AM EDT Temperature 36.4 C (97.5 F) 01/28/2024 10:57 AM EDT Respiratory Rate 18 01/28/2024 10:57 AM EDT Oxygen Saturation 94% 01/28/2024 10:57 AM EDT Inhaled Oxygen Concentration - - Weight - - Height - - Body Mass Index - - Plan of Treatment Health Maintenance Due Date Last Done Comments LIPID PANEL 1945 DEPRESSION SCREENING 1958 SMOKING Hx and SMOKELESS TOBACCO SCREENING 1959 HEPATITIS C SCREENING 1964 OSTEOPOROSIS SCREENING INITIAL (ONE-TIME) 2011 ZOSTER VACCINES (2 of 3) 01/11/2014 11/16/2013 Adult Td,Tdap Booster 09/14/2017 09/14/2007 RSV VACCINE (1 - 1-dose 75+ series) 2021 INFLUENZA VACCINE (#1) 2025 , 05/22/2019, 06/21/2018, Additional history exists COVID-19 VACCINE (3 - 2024- season) 2025 12/27/2020, 12/06/2020 PNEUMOCOCCAL VACCINES (50+ years) Completed 07/31/2017, 09/06/2015, 07/11/2011 HEPATITIS A VACCINES Aged Out No long er eligible based on patient's age to complete this topic HIB VACCINES Aged Out No longer eligi ble based on patient's age to complete this topic MENINGOCOCCAL VACCINES (ACWY) Aged Out No longer eligible based on patient's age to complete this topic MENINGOCOCCAL VACCINES (B) Aged Out N o longer eligible based on patient's age to complete this topic Medical Devices Not on file Insurance [facility] PLAN [facility] PLAN [facility] PLAN [facility] PLAN [facility]AN [facility] PLAN Care Teams Roofing Apprentice Relationship Specialty Start Date End Date Charlene Shaw MD [address] [place] [address] PCP - General 11/17/23 Additional Source Comments The information contained in this document represents components of the legal health record. It is not the complete legal health record.[facility]
--- OUTSIDE RECORDS SUMMARY | 2025-06-04 15:35 | XMS_ITS ---
Author Organization [facility] on Care Team Providers Care Flue Tile Press Operator Name Role Phone Margarita Collazo Unavailable Unavailable Ladan Almeida Unavailable Unavailable Mary Mckeon Unavailable Unavailable Valencia Maurice Unavailable Unavailable Andrew Wiggins Unavailable Unavailable Allison Tobin Unavailable Unavailable Allergies and adverse reactions Code CodeSystem Substance Reaction Severity StartDate Concern Status PENICILLIN V Unknown 11/13/2023 active 7454 RXNORM Nitrofurantoin Unknown 11/13/2023 active nickel Unknown 11/13/2023 active Care Team Name Role Address Phone Organization Dates Ladan Almeida PCP [address] [place] [address], [phone], [place] (Office): : [facility] 11/13/2023 - 12/02/2023 Margarita Collazo [address] [place] [address], [phone], [place] (Office): [facility] 11/13/2023 - 12/02/2023 Mary Mckeon [address] [place] [address], [phone], [place] (Office): [facility] 11/13/2023 - 12/02/2023 Valencia Josafat [address] [place], [address], [place] (Office): [facility] 11/13/2023 - 12/02/2023 Andrew Wiggins [address] [place], [address], [place] (Office): [facility] 11/13/2023 - 12/02/2023 Allison Tobin [address] [place] [address], [place], [address], [place] (Office): : [facility] 11/13/2023 - 12/02/2023 Immunizations Immunization Status Vaccine Details Vaccine Code CodeSystem Date Notes Influenza completed Influenza, split virus, trivalent, injectable, contains preservative 141 CVX created date: 11/13/2023 administer ed date: 06/04/2023 Verified in MIIS. Tetanus completed tetanus and diphtheria toxoids, adsorbed, preservative free, for adult use (5 Lf of tetanus toxoid and 2 Lf of diphtheria toxoid) 113 CVX created date: 11/13/2023 administer ed date: 09/14/2007 Verified in MIIS. Zostavax(Shingles ) completed zoster vaccine, live 121 CVX created date: 11/13/2023 administer ed date: 11/16/2013 Verified in MIIS. Pneumococcal Conjugate Vaccine (PCV13) completed pneumococcal conjugate vaccine, 13 valent 133 CVX created date: 11/13/2023 administer ed date: 09/06/2015 Verified in MIIS. Pneumococcal Polysaccharide Vaccine (PPSV23) completed pneumococcal polysaccharide vaccine, 23 valent 33 CVX created date: 11/13/2023 administer ed date: 07/31/2017 Verified in MIIS. Pneumococcal Polysaccharide Vaccine (PPSV23) completed pneumococcal polysaccharide vaccine, 23 valent 33 CVX created date: 11/13/2023 administer ed date: 07/11/2011 Verified in MIIS. SARS-COV-2 (COVID-19) completed SARS-COV-2 (COVID-19) vaccine, mRNA, spike protein, LNP, preservative free, 30 mcg/0.3mL dose Mfg: [employer] Step 2 of Multi-step with next step required 208 CVX created date: 11/13/2023 administer ed date: 12/27/2020 Verified in MIIS. SARS-COV-2 (COVID-19) completed SARS-COV-2 (COVID-19) vaccine, mRNA, spike protein, LNP, preservative free, 30 mcg/0.3mL dose Mfg: [employer] Step 1 of Multi-step with next step required 208 CVX created date: 11/13/2023 administer ed date: 12/06/2020 Verified in MIIS. Shingrix completed zoster vaccine recombinant 187 CVX created date: 11/13/2023 administer ed date: 02/14/2022 Verified in MIIS. Prevnar 20 Pneumococcal conjugate (PCV20) cancelled Pneumococcal conjugate vaccine 20-valent (PCV20), polysaccharide [id number] conjugate, adjuvant, preservative free 216 CVX created date: 11/17/2023 consent date: 11/17/2023 SARS-COV-2 (COVID-19 BOOSTER) cancelled SARS-COV-2 (COVID-19) vaccine, mRNA, spike protein, LNP, preservative free, 50 mcg/0.5 mL dose 312 CVX created date: 11/17/2023 consent date: 11/17/2023 SARS-COV-2 (COVID-19 BOOSTER) completed SARS-COV-2 (COVID-19) vaccine, mRNA, spike protein, LNP, preservative free, 30 mcg/0.3mL dose Mfg: [employer] Booster # 1 208 CVX created date: 11/13/2023 administer ed date: 08/16/2021 Verified in MIIS. RSV, bivalent, protein subunit RSVpreF, diluent rec cancelled Respiratory syncytial virus (RSV), vaccine, bivalent, protein subunit RSV prefusion F, diluent reconstituted, 0.5 mL, preservative free 305 CVX created date: 11/17/2023 consent date: 11/17/2023 Mental Status Section Date Assessment Total Score Description 12/02/2023 CAM 0 No delirium ind icated 11/19/2023 BIMS 15 cognitively int act CAM 0 No delirium ind icated PHQ-9 12 moderate depres velvet Insurance Providers Problems Problem # Description Date of onset Resolved Date Code CodeSystem Concern Status 1 OTHER PNEUMONIA, UNSPECIFIED ORGANISM [address] active 2 ACUTE RESPIRATORY FAILURE WITH HYPOXIA [address] active 3 CHRONIC OBSTRUCTIVE PULMONARY DISEASE WITH (ACUTE) EXACERBATION [address] active 4 ESSENTIAL (PRIMARY) HYPERTENSION [address] active 5 HYPERLIPIDEMIA, UNSPECIFIED [address] active 6 [address]KALEMIA [address] active 7 INFLUENZA DUE TO IDENTIFIED NOVEL INFLUENZA A VIRUS WITH OTHER RESPIRATORY MANIFESTATIONS [address] active 8 MOOD DISORDER DUE TO KNOWN PHYSIOLOGICAL CONDITION, UNSPECIFIED [address] active 9 SLEEP APNEA, UNSPECIFIED [address] active 10 SPASTIC HEMIPLEGIC CEREBRAL PALSY [address] active Reason for Referral No Reasons for Referral Entered Social History Social History Observation Description Start Date End Date Code Code System Current Smoking Status Tobacco smoking consumption unknown 287454178 SNOMED CT Sex Assigned At Female 1945 [address]842-9 [facility] Gender Identity Sexual Orientation Vital Signs Code Code System Vitals Name Values and Units Timing Information 8310-5 [facility] Body Temperature Value=97.8 Units= F 12/03/2023 9279-1 INC Respiratory Rate Value=18.0 Units=/m in 12/02/2023 8867-4 INC Heart rate Value=67.0 Units=/min 04/2024 8462-4 LO[facility] Blood Pressure-Diastolic Value=76 Un its=mmHg 12/02/2023 8480-6 LOINC Blood Pressure-Systolic Lhhik=197 Un its=mmHg 12/02/2023 83235-2 INC Pain Level Value=0.0 12/02/2023 41031-1 [facility] O2 % BldC Oximetry Value=98.0 Units= % 12/02/2023 8302-2 LOINC Height Value=61.0 Units=Inches 11/13/2023 08263-5 [facility]INC Weight Jwnrg=624.4 Units=Lbs
--- OUTSIDE RECORDS SUMMARY | 2025-06-04 15:35 | XMS_ITS | Clinical Summary ---
Author Organization [facility] Address [address] [place] [address] Care Team Providers Care Speech And Language Clinician Name Role Phone ClementLenard Anju Primary Care Provid er Allergies Active Allergy Reactions Criticality Noted Date Comments Nickel Angioedema High 06/14/2013 Penicillins Unknown 09/14/2007 unknown Medications aspirin 81 mg EC tablet Take 81 mg by mouth. Active baclofen (LIORESAL) 20 mg tablet 8 Active verapamil ER (VERELAN) 360 mg capsule Take 360 mg by mouth. 8 Active naproxen (NAPROSYN) 250 mg tablet Take 250 mg by mouth. 8 Active FA/MV,CA,IRON,ID N/LYCOPENE/LUT (MULTIVITAL ORAL) Take by mouth. Activ e menthol (BIOFREEZE, MENTHOL,) 4 % gel Apply 1 g topically to the affected area. 5 Active mupirocin (BACTROBAN) 2% cream To affected area TID 6 Active ammonium lactate (AMLACTIN) 12 % cream Apply to bottom of feet daily and cover with socks 5 Active ezetimibe 10 mg tablet 10 mg, simvastatin 20 mg tablet 20 mg 8 Active docusate calcium (SURFAK) 240 mg capsule Take 2 capsules by mouth. Active DULoxetine DR (CYMBALTA) 60 mg capsule Take 60 mg by mouth. 7 Active fluticasone (FLONASE) 50 mcg/actuation nasal spray 2 sprays in each nostril daily 5 Active hydroCHLOROthiaz charlotte (HYDRODIURIL) 25 mg tablet 02/01/201 8 Active GREEN TEA LEAF XT/GREEN TEA LF (GREEN TEA LEAF EXT-GREEN TEA ORAL) Take by mouth. 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 Social History Tobacco Use Types Packs/Day Years Used Date Smoking Tobacco: Former Smokeless Tobacco: Never Comments Unknown Sex and Gender Information Value Date Recorded Sex Assigned at Not on file Legal Sex Female 11:11 AM EST Gender Identity Not on file Sexual Orientation Not on file Last Filed Vital Signs Vital Sign Reading Time Taken Comments Blood Pressure 121/76 10/21/2017 1:55 PM EST Pulse 76 10/21/2017 1:55 PM EST Temperature 37.4 C (99.3 F) 10/21/2017 1:55 PM EST Respiratory Rate - - Oxygen Saturation 94% 10/21/2017 1:55 PM EST RA Inhaled Oxygen Concentration - - Weight 75.5 kg (166 lb 6.4 oz) 10/21/2017 1:55 P M EST Height 149.9 cm (4' 11 ) 10/07/2017 11:01 AM EST Body Mass Index 33.61 10/07/2017 11:01 AM EST Plan of Treatment Health Maintenance Due Date Last Done Comments CT Lung Cancer Screening (Baseline) 1996 DTaP,Tdap,and Td Vaccines (1 - Tdap) 09/15/2007 09/14/2007 RSV Vaccine (60+ years old and patients) (1 - 1-dose 75+ series) 2021 Zoster Vaccines (3 of 3) 04/11/2022 02/14/2022, 10/24 Alcohol/Substance Use Screening 08/25/2024 Health Care Proxy Review 08/25/2024 COVID-19 Vaccine ( season) 2025 08/16/2021, 12/27/2020, 12/06/2020 Influenza Vaccine (#1) 2025 , 04/25/2021, 05/02/2020, Additional history exists Pneumococcal Vaccine: 50+ Years Completed 07/31/2017, 09/06/2015, 07/11/2011 Colon Cancer Screening Discontinued FOBT / Fit Test Discontinued 07/09/2021 Mammogram Discontinued 03/12/2022 Osteoporosis Screening Completed 03/12/2022 Cologuard Discontinued Colonoscopy Discontinued Hepatitis B Vaccines Aged Out No long er eligible based on patient's age to complete this topic Sigmoidoscopy Discontinued Insurance [facility] Care Teams Speech And Language Clinician Relationship Specialty Start Date End Date Anju Sotelo PCP - General Internal Medicine 05/23/20
--- OUTSIDE RECORDS SUMMARY | 2025-06-04 15:35 | XMS_ITS | Clinical Summary ---
Author Organization [facility] Address [address] [place] [address] Phone Care Team Providers Care Insole Reinforcer Name Role Phone Charlene Shaw MD Primary Care Provider [phone] Allergies Active Allergy Reactions Criticality Noted Date Comments Nickel 06/14/2013 Nitrofurantoin Monohyd/M-Cryst 11/21 hives Penicillins 09/14/2007 unknown Medications multivit-min/fo lic acid/lutein (CENTRUM SILVER ORAL) Take by mouth. Active aspirin 81 mg EC tablet Take 81 mg by mouth daily. Active fluticasone propionate (FLONASE) 50 mcg/actuation nasal spray USE 2 SPRAYS IN EACH NOSTRIL TWICE A DAY NEEDED FOR ALLERGIC RHINITS 06/04/2023 Active verapamil ER (VERELAN) 240 mg 24 hr capsule Take 1 capsule (240 mg total) by mouth at bedtime. at bedtime 90 capsule 1 12/07/2024 Active simvastatin (ZOCOR) 20 mg tablet Take 1 tablet (20 mg total) by mouth at bedtime. at bedtime. 90 each 1 12/07/2024 Active oxyBUTYnin XL (DITROPAN-XL) 5 mg 24 hr tablet Take 1 tablet (5 mg total) by mouth 1 (one) time each day. 90 tablet 1 02/28/2025 Active omeprazole (PriLOSEC) [address] capsule Take 1 capsule (20 mg total) by mouth 1 (one) time each day. Do not crush or chew. 90 capsule 1 02/28/2025 Active cloNIDine (CATAPRES) 0.1 mg tablet Take 1 tablet (0.1 mg total) by mouth 2 (two) times a day. 180 tablet 1 02/28/2025 Active baclofen (LIORESAL) 20 mg tablet Take 1 tablet (20 mg total) by mouth 3 (three) times a day. 270 tablet 1 02/28/2025 Active albuterol HFA (PROAIR HFA ; PROVENTIL HFA ; VENTOLIN HFA) 90 mcg/actuation inhaler Inhale 2 puffs by mouth every 6 (six) hours if needed for wheezing. 18 g 1 02/28/2025 Active Active Problems Problem Noted Date Diagnosed Date Microalbuminuria 11/22/2024 Cerebral palsy ([facility] V24, [facility] V28) 2023 Overview (08/12/2024): Left-sided spasticity and weakness Essential hypertension, benign 08/12/2024 High cholesterol 08/12/2024 Prediabetes 11/02/2021 Complete tear of left rotator cuff 08/14/2020 Glenohumeral arthritis, left 08/14/2020 Kidney stones 12/24/2018 Anemia 11/02/2018 Spastic hemiparesis ([facility] V24, [facility] V28) 0 11/09/2014 Overview (08/12/2024): Used to see Dr. Peña, Dr. Gonzalez Urinary incontinence in female 11/09/2014 Depression, major, recurrent , in partial remission ([facility] V24) 08/05/2013 FAHAD (obstructive sleep apnea) 02/14/2011 Overview (08/12/2024): UNTREATED (October 2021) RLS (restless legs syndrome) 01/24/2011 Severe obesity (BMI 35.0-39. 9) with comorbidity ([facility] V24, [facility] V28) 12/10/2010 Lumbar spinal stenosis 08/24/2009 Lumbosacral radiculitis 08/24/2009 Osteoporosis, post-traumatic 11/21/2008 Overview (08/12/2024): history of fragility fractures; normal DEXA 10/31 Subclinical hypothyroidism 10/31/2008 Resolved Problems Problem Noted Date Diagnosed Date Resolved Date Chronic bronchitis ([facility] V24, [facility] V28) 07/25/20 23 12/03/2024 Encounters Date Type Department Care Team Description 03/15/2025 Telephone Adult Medicine [address] [phone] [place] 03/15/2025 Telephone Adult Medicine [address] [phone] Charlene Shaw MD from Last 3 Months Immunizations Immunization Administration Dates Next Due H1N1 Inj Preservative Free 07/27/2009 Influenza trivalent, 0.5mL ( Fluad) 65yo and older 06/04/2023,05/27/2022,06/07/2021,06/21,05/25/2017 Influenza trivalent, 0.5mL, preservative free (Fluarix; FluLaval; Fluzone) ages 6mo and older (Afluria) 3 years and older 04/25/2021,08/04/2015,06/12/2014,05/17,07/01/2012,06/20/2011,05/18/2010 ,05/20/2009,05/09/2008,06/03/2007,11/2004,07/10/2001,07/11/2000, 8 Influenza trivalent, with pr eservative (Fluzone; Afluria) 6mo and older 05/02/2020,05/22/2019,05/07/2016 Pneumococcal conjugate 13 va lent (Prevnar 13, PCV13) 2mo and older 09/06/2015 Pneumococcal polysaccharide 23 valent (Pneumovax 23) 2yo and older 07/31/2017,07/11/2011 Td Tetanus diptheria (Tdvax) 7yo and older 09/14/2007,09/14/2007 Zoster Live 11/16/2013 Zoster recombinant (Shingrix ) 19yo and older 02/14/2022 Surgical History Surgery Date Site/Laterality Comments CHOLECYSTECTOMY 1975 HYSTERECTOMY 1992 APPENDECTOMY 1992 COLONOSCOPY 05/10/2008 diverticulosis; poor bowel prep ESOPHAGOGASTRODUODENOSCOPY 05/10/2008 mild reactive gastropathy without H. pylori. OTHER SURGICAL HISTORY Left TRANSVESICAL URETROLITHOTOMY; COMMENT: 06/2018 and 08/2018 COLONOSCOPY 04/15/2019 diverticulosis UPPER GASTROINTESTINAL ENDOSCOPY 04/15/2019 gastritis with bleeding BACK SURGERY 03/2021 TONSILLECTOMY Medical History Medical History Date Comments Cerebral palsy ([facility] V24, [facility] V28) b[facility] injections [facility] [place] High cholesterol Depression 09/14/2007 Essential hypertension, benign Displacement of lumbar inter vertebral disc without myelopathy 05/02/2010 Osteoporosis, post-traumatic 11/21/2008 DX: Osteoporosis, post-traumatic Subclinical hypothyroidism 10/31/2008 CVA (cerebral infarction) 11/09/2014 follow ed by neurologist FAHAD (obstructive sleep apnea) 02/14/2011 no n compliant on CPAP Kidney stones 12/24/2018 Prediabetes 11/02/2021 RLS (restless legs syndrome) 01/24/2011 Spastic hemiparesis ([facility] V24, [facility] V28) 11/09/[address] Peña, Dr. Gonzalez Family History Medical History Relation Name Comments Diabetes Brother x 2 Heart attack Father diabetes, HTN Diabetes Maternal Grandmother Heart attack Mother diabetes, HTN Heart attack Paternal Grandmother Stroke Sister 1 x 1 diabetes, HTN Breast cancer Neg Hx Relation Name Status Comments Brother x 2 Alive Father Maternal Grandfather Maternal Grandmother Mother Paternal Grandfather Paternal Grandmother Sister 1 x 1 Sister 2 x 1 Alive Social History Tobacco Use Types Packs/Day Years Used Date Smoking Tobacco: Former Cigarettes Q uit: 06/18/2023 Smokeless Tobacco: Never Tobacco Cessation:Counseling Given: Not Answered Alcohol Use Standard Drinks/Week Comments Yes 0 (1 standard drink = 0.6 oz pur e alcohol) Comments Unknown Sex and Gender Information Value Date Recorded Sex Assigned at Not on file Legal Sex Female 1:38 PM EST Gender Identity Not on file Sexual Orientation Not on file Obstetrics History Last Filed Vital Signs Vital Sign Reading Time Taken Comments Blood Pressure 126/80 02/28/2025 3:16 PM EDT Pulse 85 02/28/2025 3:16 PM EDT Temperature 36.1 C (96.9 F) 02/28/2025 3:16 PM EDT Respiratory Rate 16 02/28/2025 3:16 PM EDT Oxygen Saturation 91% 02/28/2025 3:16 PM EDT Inhaled Oxygen Concentration - - Weight 89.9 kg (198 lb 1.6 oz) 12/07/2024 10:05 AM EDT Height 149.9 cm (4' 11 ) 02/28/2025 3:16 PM EDT Body Mass Index 40.01 12/07/2024 10:05 AM EDT Plan of Treatment Upcoming Encounters Date Type Department Care Team (Late st Contact Info) Description 06/09/2025 9:40 AM EDT Appointment Radiology Department - [address] [phone] 07/01/2025 1:00 PM EST Office Visit Adult Medicine [facility] - [address] [phone] Chinyere Shay PA [address] [place] [address] Health Maintenance Due Date Last Done Comments DTaP,Tdap,and Td Vaccines (3 - Td or Tdap) 09/14/2017 09/14/2007, 09/14/2007 RSV Immunization Adult Patients (1 - 1-dose 75+ series) 2021 Zoster Vaccines (3 of 3) 04/11/2022 02/14/2022, 10/24 Social Influencers of Health Screening 08/03/2022 COVID-19 Vaccine ( - season) 2025 08/16/2021, 12/27/2020, 12/06/2020 Influenza Vaccine (#1) 2025 , 05/27/2022, 06/07/2021, Additional history exists Falls Risk Assessment 09/09/2025 09/09/2024 Medicare Annual Wellness Visit 09/09/2025 09/09/2024 Hypertension/CHF/CAD Annual BMP Blood Test 10/22/2025 10/22/2024, 12/01/2023, 11/24/2023, Additional history exists Colorectal Cancer Screening: Colonoscopy 04/15/2029 04/15/2019 Cholesterol Screening (Lipid Panel) 10/22/2029 10/22/2024, 12/13/2022 Osteoporosis Screening (Bone Density Screening) 03/12/2032 03/12/2022, 05/18/2019 Hepatitis C Screening Completed 05/17/2013 Pneumococcal Vaccine: 50+ Years Completed 07/31/2017, 09/06/2015, 07/11/2011 Depression Screening Completed 09/09/2024 HIB Vaccines Aged Out No longer eligi ble based on patient's age to complete this topic HPV Vaccines Aged Out No longer eligi ble based on patient's age to complete this topic Hepatitis A Vaccines Aged Out No long er eligible based on patient's age to complete this topic Hepatitis B Vaccines Aged Out No long er eligible based on patient's age to complete this topic IPV Vaccines Aged Out No longer eligi ble based on patient's age to complete this topic MMR Vaccines Aged Out No longer eligi ble based on patient's age to complete this topic Meningococcal ACWY Vaccine Aged Out N o longer eligible based on patient's age to complete this topic Meningococcal B Vaccine Aged Out No l onger eligible based on patient's age to complete this topic RSV Immunization Patients Under 20 months Aged Out No longer eligible based on patient's age to complete this topic Varicella Vaccines Aged Out No longer eligible based on patient's age to complete this topic Procedures Procedure Name Priority Date/Time Associated Diagnosis Comments COMPREHENSIVE METABOLIC PANEL Routine 10/22/2024 10:22 AM EST Osteoporosis, post-traumatic Essential hypertension, benign Cerebral palsy, unspecified type (CMS/HCC V24, CMS/HCC V28) High cholesterol FAHAD (obstructive sleep apnea) Prediabetes Severe obesity (BMI 35.0-39.9) with comorbidity (CMS/HCC V24, CMS/HCC V28) Subclinical hypothyroidism Urinary incontinence in female LIPID PANEL WITH REFLEX TO DIRECT LDL Routine 10/22/2024 10:22 AM EST High cholesterol DXA BONE DENSITY STUDY 1+ SITS AXIAL SKEL Routine 03/12/2022 2:27 PM EDT Other osteoporosis without current pathological fracture HM HEPATITIS C SCREENING Routine 05/17/2013 from Last 3 Months or Most Recently Relevant to Health Maintenance Results * (ABNORMAL) Lipid panel with reflex to direct LDL (10/22/2024 10:22 AM EST) Cholesterol 170 0 - 200 mg/dL LAB CHEMISTRY METHOD 10/22/2024 1:59 PM EST [facility] Triglycerides 247(H) 0 - 150 mg/dL LAB CHEMISTRY METHOD 10/22/2024 1:59 PM EST [facility] HDL 47 >=40 mg/dL LAB CHEMISTRY METHOD 10/22/2024 1:59 PM EST [facility] LDL Calculated 74 0 - 100 mg/dL LAB CHEMISTRY METHOD 10/22/2024 1:59 PM EST [facility] VLDL Cholesterol Srini 49.4 mg/dL LAB CHEMISTRY METHOD 10/22/2024 1:59 PM EST [facility] Non HDL Chol. (LDL+VLDL) 123 <145 mg/dL LAB CHEMISTRY METHOD 10/22/2024 1:59 PM EST [facility] Chol/HDL Ratio 3.6 0.0 - 4.4 LAB CHEMISTRY METHOD 10/22/2024 1:59 PM EST [facility] Blood Venous blood specimen / Unknown Venipuncture / Unknown 10/22/2024 10:22 AM EST 10/22/2024 10:22 AM EST us Chinyere DOVE LAB BLOOD ORDERABLES Final Re sult [facility] [address] [place] [address], * (ABNORMAL) Comprehensive metabolic panel (10/22/2024 10:22 AM EST) Sodium 142 133 - 145 mmol/L LAB CHEMISTRY METHOD 10/22/2024 1:59 PM EST [facility] Potassium 4.5 3.5 - 5.5 mmol/L LAB CHEMISTRY METHOD 10/22/2024 1:59 PM [facility] Chloride 108 96 - 110 mmol/L LAB CHEMISTRY METHOD 10/22/2024 1:59 PM [facility] CO2 27 21 - 32 mmol/L LAB CHEMISTRY METHOD 10/22/2024 1:59 PM [facility] Anion Gap 7 3 - 11 LAB CHEMISTRY METHOD 10/22/2024 1:59 PM [facility] Glucose 91 70 - 100 mg/dL LAB CHEMISTRY METHOD 10/22/2024 1:59 PM [facility] BUN 17 5 - 25 mg/dL LAB CHEMISTRY METHOD 10/22/2024 1:59 PM [facility] Creatinine 1.15(H) 0.50 - 1.10 mg/dL LAB CHEMISTRY METHOD 10/22/2024 1:59 PM [facility] eGFR 49(L) >=60 mL/min/1. 73m2 LAB CHEMISTRY METHOD 10/22/2024 1:59 PM [facility] Comment:Calculation based on the Chronic Kidney Disease Epidemiology Collaboration (CKD-EPI) equation refit without adjustment for race. BUN/Creatinine Ratio 14.8 LAB CHEMISTRY METHOD 10/22/2024 1:59 PM [facility] Calcium 9.3 8.5 - 10.5 mg/dL LAB CHEMISTRY METHOD 10/22/2024 1:59 PM [facility] AST (SGOT) 19 10 - 42 unit/L LAB CHEMISTRY METHOD 10/22/2024 1:59 PM [facility] ALT (SGPT) 17 10 - 60 unit/L LAB CHEMISTRY METHOD 10/22/2024 1:59 PM [facility] Alkaline Phosphatase 67 42 - 121 unit/L LAB CHEMISTRY METHOD 10/22/2024 1:59 PM [facility] Total Protein 6.8 6.0 - 8.0 g/dL LAB CHEMISTRY METHOD 10/22/2024 1:59 PM EST [facility] Albumin 3.4 3.2 - 5.0 g/dL LAB CHEMISTRY METHOD 10/22/2024 1:59 PM EST [facility] Total Bilirubin 0.4 0.0 - 1.4 mg/dL LAB CHEMISTRY METHOD 10/22/2024 1:59 PM EST [facility] Blood Venous blood specimen / Unknown Venipuncture / Unknown 10/22/2024 10:22 AM EST 10/22/2024 10:22 AM EST us Chinyere DOVE LAB BLOOD ORDERABLES Final Re sult [facility] [address] [place] [address], [place] [phone] * DXA BONE DENSITY STUDY 1+ SITS AXIAL SKEL (03/12/2022 2:27 PM EDT) Anatomical Region Laterality Modality Bone Densitometr y 10/31/2021 9:21 AM EST Narrative 03/13/2022 4:26 PM EDT Clinical history: other osteoporosis Scans of the lumbar spine and hips were performed on a [employer] fan beam bone densitometer. Bone mineral density measurements and associated T and Z scores respectively are as follows: Lumbar Spine: L3-L4 BMD: 1.366 g/cm2 T-Score: 2.4 Z-Score: 5.0 Compared with the prior study dated 05/18/2019, the BMD reading has decreased which is not statistically significant Left Proximal Femur: Neck BMD: 0.658 g/cm2 T-Score: -1.7 Z-Score: 0.4 Total BMD: 0.852 g/cm2 T-Score: -0.7 Z-Score: 1.1 Compared with the prior study the mean BMD reading in the total left hip has decreased which is statistically significant Compared with standards for the young adult, lowest measured bone density places the patient in the W.H.O. osteopenic range. IMPRESSION: IMPRESSION: Osteopenia. The NOF guidelines recommend that FDA approved medical therapies be considered in postmenopausal women and men age >50 years with a: i. Hip or vertebral (clinical or morphometric) fracture ii. T score of < -2.5 at the spine or hip iii. 10 year fracture probability by FRAX of >3% for hip fracture, or >20% for major osteoporotic fracture PLEASE NOTE: W.H.O. classification is based on lowest measured density at the spine, femoral neck, or total hip.This classification has prognostic significance when applied to post menopausal women and older men. 1) The World Health Organization defines low BMD as follows: T-score Normal at or > -1 Osteopenia < -1 and > -2.5 Osteoporosis at or < -2.5 without fractures Established osteoporosis < -2.5 with fractures Procedure Note Franco Lagunas MD - 08/13/2022 Clinical history: other osteoporosis Scans of the lumbar spine and hips were performed on a [employer] beam bone densitometer. Bone mineral density measurements and associated T and Z scoresrespectively are as follows: Lumbar Spine: L3-L4 BMD: 1.366 g/cm2 T-Score: 2.4 Z-Score: 5.0 Compared with the prior study dated 05/18/2019, the BMD reading hasdecreased which is not statistically significant Left Proximal Femur: Neck BMD: 0.658 g/cm2 T-Score: -1.7 Z-Score: 0.4 Total BMD: 0.852 g/cm2 T-Score: -0.7 Z-Score: 1.1 Compared with the prior study the mean BMD reading in the total left hiphas decreased which is statistically significant Compared with standards for the young adult, lowest measured bone densityplaces the patient in the W.H.O. osteopenic range. IMPRESSION: IMPRESSION: Osteopenia. The NOF guidelines recommend that FDA approved medical therapies beconsidered in postmenopausal women and men age >50 years with a: i. Hip or vertebral (clinical or morphometric) fracture ii. T score of < -2.5 at the spine or hip iii. 10 year fracture probability by FRAX of >3% for hip fracture, or >20%for major osteoporotic fracture PLEASE NOTE: W.H.O. classification is based on lowest measured density at the spine,femoral neck, or total hip.This classification has prognostic significance when applied to postmenopausal women and older men. 1) The World Health Organization defines low BMD as follows: T-score Normal at or > -1 Osteopenia < -1 and > -2.5 Osteoporosis at or < -2.5 withoutfractures Established osteoporosis < -2.5 with fractures Chinyere DOVE IMG DXA PROCEDURES Final Resu lt * Hepatitis C Screening (05/17/2013) [facility] Hepatitis C Screening Abstracted Historical Provider HEALTH MAINTENANCE Final Result from Last 3 Months or Most Recently Relevant to Health Maintenance Insurance MED[employer]ILY [employer]AN [facility] [employer] Care Teams Insole Reinforcer Relationship Specialty Start Date End Date Charlene Shaw MD [address] [place] [address] PCP - General Internal Medicine 06/07/21
--- OUTSIDE RECORDS SUMMARY | 2025-06-04 15:35 | XMS_ITS | Patient Health Record ---
Author Organization [facility] Jennif[facility]ell Olmos Address [address] [place] [address] Care Team Providers Care Water Pollution Scientist Name Role Phone Charlene Shaw Primary Care Provider Obed Gerardo Unavailable [phone] Allergies Allergen (clinical drug ingredient) Drug/Non Drug Allergy documented on EMR Reaction Allergy Type Onset Date Status amoxicillin Amoxicillin Unknown Drug Allergy Act jim nitrofurantoin Nitrofurantoin blotches, itchy Drug Allergy Active nickel Nickel Unknown Allergy Active Reason For Referral No Information Medications Medication SIG (Take, Route, Frequency, Duration) Notes Start Date End Date Status Verapamil HCl ER 240 MG 1 tablet Orally Once a day; Duration: 30 day(s) Active Simvastatin 20 MG 1 tablet in the even ing Orally Once a day; Duration: 30 day(s) Active Voltaren 1 % as directed External ly bid to great toe; Duration: 30 days Active tiZANidine HCl 2 MG 1 tablet as needed O rally Three times a day Active Baclofen 20 MG 1 tablet Administer without regards to meals as needed Orally Twice a day Active Mika Aspirin EC Low Dose 81 MG 1 tablet Orally Once a day; Duration: 30 day(s) Active Stool Softener Activ e Vicodin PRN Active vitamin Active Vitamin B 12 500 MCG 1 tablet Orally Onc e a day; Duration: 30 day(s) Active Immunizations Vaccine Route Administration Date Status Comme nts Influenza Unknown 04/25/2021 Administered COVID-19 Pfizer BioNTech Vaccine Unknown 12/07/2020 Adm inistered COVID-19 Pfizer BioNTech Vaccine Unknown 01/04/2021 Adm inistered Social History Tobacco Use: Social History Observation Description Date Details (start date - stop date) Former Smoker NA - NA Tobacco Use/Smoking Question Answer Notes Are you a: former smoker Additional Findings: Tobacco Non-User Current no n-smoker Alcohol Screen Question Answer Notes Did you have a drink containing alcohol in the p ast year? No Points 0 Interpretation Negative Tobacco use other than smoking: Question Answer Notes Are you an other tobacco user? No Problems Problem Type SNOMED Code ICD Code Onset Dates Problem Status W/U Status Risk Notes Problem Acquired hallux valgus (31671715) Hallux valgus (acquired), left foot (M20.12) Active confirmed Problem Spastic hemiplegic cerebral palsy (52860633) 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 Problem Acquired hammer toe of right foot (38058329249029 05) Other hammer toe(s) (acquired), right foot (M20.41) Active confirmed Problem Acquired hammer toe of left foot (17710816907700 03) Other hammer toe(s) (acquired), left foot (M20.42) Active confirmed Plan Of Treatment Pending Test Test Name Order Date X ray : Foot, left 3V 01/16/2021 X ray : Foot, left 3V 04/24/2021 X ray : Foot, right 3V 06/27/2020 Insurance Providers Payer Name Payer Address Payer Phone Subscriber Number Group Number Insured Name Patient Relationship to Insured Coverage Start Date Coverage End Date [facility] [address] [place] [address] [id number] Britta Glover Self - patient is the insured Medical (General) History Medical History History ICD Code Gall bladder problems Headaches/Migraines High blood pressure Stroke Measles Chicken pox Mumps Cerebral palsy Surgical History Surgery Date(Month/Year) hysterectomy 1991 Hospitalization History Reason Date(Month/Year) Pinched Nerve [facility] 04/05/21
[2025-06-04 15:52] LABS: Alanine Aminotransferase < 6 U/L (0-31); Albumin Level 3.8 g/dL (3.5-5.0); Anion Gap 16 (12-20); Aspartate Amino Transferase 17 U/L (5-31); Blood Urea Nitrogen 20 mg/dL (9-16); Calcium 9.1 mg/dL (8.4-10.2); Carbon Dioxide 24 mmol/L (22-29); Chloride 106 mmol/L (96-108); Creatinine Clr Calc Pharmacy 39.4; Estimated Glomerular Filt Rate 46; Lipase 14 U/L (8-78); Magnesium 2.0 mg/dL (1.6-2.6); Potassium 3.8 mmol/L (3.3-5.1); Sodium 142 mmol/L (135-145); Total Protein 7.3 g/dL (6.5-8.0)
[2025-06-04 16:05] LABS: Appearance Urine Cloudy; Glucose Urine UA Negative (Negative); PH 5.0 (5.0-9.0); Specific Gravity - Urine >= 1.030 (1.005-1.025); UMIC TRIGGER UACC YES
[2025-06-04 16:13] LABS: Alkaline Phosphatase 52 U/L (39-117)
[2025-06-04 16:30] LABS: UACC Culture Trigger YES
--- NOTE | 2025-06-04 16:32 | MHC.EDTECH ---
patient is a 1 assist on the bedpan. She has what looks like a fungal infection in the folds of her left side. Protective cream and a abd pad applied
[2025-06-04] MEDS: iohexoL 350 MG/ML 100 ML INFUS..BTL IV (16:41)
[2025-06-04] MEDS: Lactated Ringers 1,000 ML 500 ML IV (16:58)
--- NOTE | 2025-06-04 17:21 | PC.NURSE ---
mult attempts by pct nima then Ana with getting blood draw, pt alert, speech clear, skin wpd, nad, aware of care plan, antibiotic infusing
--- NOTE | 2025-06-04 18:09 | PC.NURSE ---
Dr Jackson intended to order only 500ml of lr, this has been infused, aware
[2025-06-04] MEDS: metroNIDAZOLE/NS 500 MG/100 ML PIGGYBACK 100 MG IV (18:42)
--- NOTE | 2025-06-04 19:38 | PC.NURSE ---
Pt reporting 10/10 abdominal pain, medicated as charted. Pt breathing normally, unlabored. Skin p/w/d. Pt placed in hospital gown. Purewick in place. Family at bedside.
--- NOTE | 2025-06-04 21:16 | PM.IMHP ---
History of Present Illness Date of Service: 06/04/25 Chief Complaint: Abd pain 79-year-old female with a past medical history of history, HLD, FAHAD, CVA, hypothyroidism, COPD, chronic lung disease; presented to the hospital today with a chief complaint of left lower quadrant abdominal pain for 2 weeks. Patient reports having sharp pain in the left lower quadrant nonradiating no associated nausea vomiting and diarrhea for about 2 weeks. Denies any fevers. Denies any chest pain or palpitations. Denies any urinary symptoms. Review of all other systems is negative except mentioned above ER course: Per ER team, patient noted to have left lower quadrant tenderness; no guarding or rigidity; CT abdomen pelvis showed findings concerning for diverticulitis with about 4 cm abscess. Discussed with general surgery Dr. Alcaraz who mentioned no acute surgical intervention needed currently recommended admission to medicine service for IV antibiotics and he will contact the ER in the morning for possible drainage-also mentioned that patient can be admitted to the [facility] even though IR is available on Friday. [facility] Medical History (Updated 06/05/25 @ 12:16 by Riley Figueroa MD) Morbid obesity Colonic diverticular abscess Chronic lung disease COPD (chronic obstructive pulmonary disease) Urine incontinence Hyperlipidemia Sleep apnea Depression Cerebral palsy HTN (hypertension) CVA (cerebral vascular accident) Hypothyroid Family History Father CVD (cardiovascular disease) Diabetes Mother CVD (cardiovascular disease) Surgical History Hx of cholecystectomy Hx of hysterectomy Social History Household Members: Children Housing: Assisted Living Facility Do you presently have visiting nurse or other home services: No Alcohol intake: never Patient Tobacco Use Status: Never used Tobacco Smoked in Last 30 Days: No Use of substances other than those prescribed or required for medical reasons: No Have you been hit, kicked, punched, or otherwise hurt by someone within the past year? If so, by whom?: No Do you feel safe in your current relationship?: No Current Relationship Is there a partner from a previous relationship who is making you feel unsafe now?: No Are you made to feel afraid or neglected: No Advance Directives: Yes Advance Directives on File: Yes Advance Directives Date on File: 07/26/23 Do you have a plan to hurt others: No Plan Recently lost weight without trying: No Eating poorly because of decreased appetite: No Nutrition Risks: No Nutritional Risk Patient : No : No Poor oral hygiene: No service: No Meds Allergies Allergy/AdvReac Type Severity Reaction Status Date / Time penicillin V Allergy Intermediate rash Verified 06/04/25 14:38 nitrofurantoin Allergy Rash Verified 06/04/25 14:38 nickel Allergy Intermediate swelling Uncoded 06/04/25 14:38 Active Medications: Current Medications Acetaminophen (Acetaminophen 325 Mg Tablet) 650 mg PO Q6H PRN PRN Reason: Pain, Mild 1-3,fever,headache Baclofen (Baclofen 20 Mg Tablet) 20 mg PO TID NEHA Calcium Carbonate (Calcium Carbonate 750 Mg Tab.Chew) 750 mg PO Q4H PRN PRN Reason: Heartburn Ceftriaxone Sodium (Ceftriaxone Sodium 1 Gm Vial) 1 gm IVPUSH Q24H [facility] Clonidine HCl (Clonidine Hcl 0.1 Mg Tablet) 0.1 mg PO BID NEHA; Protocol Enoxaparin Sodium (Enoxaparin Sodium 40 Mg/0.4 Ml Syringe) 40 mg SUBCUT Q24H [facility] Hydromorphone HCl (Hydromorphone Hcl 0.5 Mg/0.5 Ml Syringe) 0.5 mg IVPUSH Q4H PRN; Protocol PRN Reason: Pain, Severe (Pain Scale 7-10) Dextrose/Sodium Chloride (D51/2ns) 1,000 mls @ 100 mls/hr IVCONT .Q10H [facility] Metronidazole (Flagyl) 500 mg in 100 mls @ 100 mls/hr IV Q8H [facility] Magnesium Hydroxide (Milk Of Magnesia 30 Ml Oral.Susp) 30 ml PO DAILY PRN PRN Reason: Constipation Melatonin (Melatonin 3 Mg Tablet) 6 mg PO BEDTIME PRN PRN Reason: Insomnia Pantoprazole Sodium (Pantoprazole Sodium 40 Mg/10 Ml Vial) 40 mg IVPUSH DAILY@0630 [facility] Sodium Chloride (0.9 % Sodium Chloride Flush 3 Ml Syringe) 3 ml IVFLUSH QSHIFT [facility] Home Medications ?Medication ?Instructions ?Recorded ?Confirmed ?Last Taken ?Type acetaminophen 650 mg 650 mg PO Q6H PRN Pain 09/01/20 06/05/25 Unknown History tablet,extended release (Tylenol Arthritis Pain) aspirin 81 mg tablet,delayed 81 mg PO DAILY 09/01/20 06/05/25 06/04/25 History release baclofen 20 mg tablet 20 mg PO TID 09/01/20 06/05/25 06/05/25 History clonidine HCl 0.1 mg tablet 0.1 mg PO BID 07/26/23 06/05/25 06/05/25 History fluticasone propionate 50 2 spray intranasal DAILY PRN 07/26/23 06/05/25 Unknown History mcg/actuation nasal Allergy Symptoms spray,suspension simvastatin 20 mg tablet 20 mg PO BEDTIME 07/26/23 06/05/25 06/04/25 History verapamil 240 mg 24 hr 240 mg PO DAILY 07/26/23 06/05/25 06/04/25 History capsule,extended release omeprazole 20 mg capsule,delayed 20 mg PO DAILY 11/09/23 06/05/25 06/04/25 History release oxybutynin chloride 5 mg 5 mg PO DAILY 11/09/23 06/05/25 06/04/25 History tablet,extended release 24 hr albuterol sulfate 90 mcg/actuation 2 puff inhalation Q6H PRN Wheezing 06/05/25 06/05/25 Unknown History aerosol inhaler zfbuyi-jul-BJ-lycopene-lutein 1.25 1 tab PO DAILY 06/05/25 06/05/25 06/04/25 History mg-2.5 mg-7 mg tablet Physical Exam Vital Signs and Narrative: Vital Signs: Last Vital Signs Temp 99.3 F 06/04/25 19:35 Pulse 106 H 06/04/25 19:35 Resp 18 06/04/25 19:35 BP 146/76 H 06/04/25 19:35 Pulse Ox 91 L 06/04/25 19:35 O2 Del Method Room Air 06/04/25 19:35 BMI result Body Mass Index 37.2 Gen: Appears be in no acute distress HEENT: NCAT, Moist mucosa. Pulmonary: Vesicular breath sounds, fair air entry CVS: Normal S1-S2 Abdomen: BS+, Soft, tender in the left lower quadrant Extremities: Warm well perfused Neuro: Alert and awake. Results Labs 06/05/25 05:32 06/05/25 05:32 Labs: Laboratory Results - last 24 hr 06/04/25 06/04/25 06/04/25 15:17 15:51 17:18 MCV 90.6 MCH 27.3 MCHC 30.1 L RDW 14.8 Plt Count 285 D MPV 9.6 Immature Gran % (Auto) 0.5 H Neut % (Auto) 75.8 H Lymph % (Auto) 11.7 L [place] % (Auto) 9.3 Eos % (Auto) 2.2 Baso % (Auto) 0.5 Lymph # (Auto) 1.7 [place] # (Auto) 1.4 H Eos # (Auto) 0.3 Baso # (Auto) 0.1 Abs Immat Gran (auto) 0.08 H Absolute Neuts (auto) 11.3 H Absolute Nucleated RBC 0.000 Nucleated RBC % (auto) 0.0 Anion Gap 16 Estim Creat Clear Calc 39.4 Estimated GFR 46 Random Glucose 110 Lactic Acid 1.5 Calcium 9.1 D Magnesium 2.0 Total Bilirubin 0.3 AST 17 ALT < 6 Alkaline Phosphatase 52 Total Protein 7.3 Albumin 3.8 Lipase 14 Urine Color Dark Yellow Urine Appearance Cloudy Urine pH 5.0 Ur Specific [place] >= 1.030 H Urine Protein 30 (1+) H Urine Glucose (UA) Negative Urine Ketones Trace Urine Blood Large (3+) H Urine Nitrite Negative Ur Leukocyte Esterase Moderate (2+) H Urine RBC >20 H Urine WBC >50 H Ur Squamous Epith Cells 6-10 Ur Transition Epith Cell Present Ur Renal Epithelial Cell Present Urine Bacteria 2+ Hyaline Casts >20 Assessment and Plan (1) Diverticulitis: Status: Acute Plan 79-year-old female with a past medical history of history, HLD, FAHAD, CVA, hypothyroidism, COPD, chronic lung disease; presented to the hospital today with a chief complaint of left lower quadrant abdominal pain for 2 weeks. Admitted for following Acute sigmoid diverticulitis/abscess: CT showed acute sigmoid diverticulitis with an abscess measuring 4.7 X4.0 X4.2 cm No perforation/no free intraperitoneal air on CT scan. General surgery was notified-recommended conservative management for now Continue IV ceftriaxone and Flagyl Pain control NPO Gentle IV fluids Hypertension: Continue home medications pending med rec. COPD: Stable For all other chronic conditions, patient's home medications will be continued including baclofen and clonidine. DVT prophylaxis: Lovenox Code status: Full code Quality Stroke Does the patient have a stroke diagnosis?: No VTE Prior VTE?: No VTE Risk Level:: Medical - moderate - high VTE Device Contraindication: Treatment Not Indicated VTE Drug Contraindication: N/A - Med Ordered
[2025-06-04] MEDS: Dextrose 5 % and 0.45 % NaCl 1,000 ML 100 ML IVCONT (21:22)
--- NOTE | 2025-06-04 23:21 | PC.NURSE ---
Pt spO2 noted to drop to 86-87% on room air while sleeping. Pt placed on 2L oxygen via NC per protocol, spO2 maintaining >94%. pt states her baseline is 90-91%, she has a hx of COPD. She denies shortness of breath. Respirations are even and unlabored.
[2025-06-05] VITALS (7 sets, daily range): BP systolic 110–149; BP diastolic 66–96; PULSE 100–109; RESP 16–18; TEMP 36.6–38.6; O2SAT 89–95; BMI 38.3
[2025-06-05] MEDS: metroNIDAZOLE/NS 500 MG/100 ML PIGGYBACK 100 MG IV ×3 (03:58→20:06)
[2025-06-05 05:51] LABS: MANUAL DIFF FLAG NO
[2025-06-05 05:57] LABS: Hematocrit 33.3 % (37.0-47.0); Hemoglobin 10.2 g/dl (12.0-16.0); Imm Gran Abs Auto 0.06 X10*3/uL (0.00-0.03); Imm Gran Pct Auto 0.5 % (0.0-0.4); Lymphocytes Absolute Auto 1.6 X10*3/uL (1.2-4.9); Mean Corpuscular HGB Conc 30.6 g/dl (31.0-35.0); Mean Corpuscular Hemoglobin 27.6 pg (27.0-33.0); Mean Corpuscular Volume 90.2 fL (80.0-98.0); NRBC Abs Auto 0.000 X10*3/uL (0.0-0.012); NRBC Pct Auto 0.0 /100WBC (0.0-0.2); Platelet Count 268 X10*3/uL (160-400); Red Blood Count 3.69 X10*6/uL (4.20-5.50); White Blood Count 13.1 X10*3/uL (4.8-10.8)
[2025-06-05] MEDS: Dextrose 5 % and 0.45 % NaCl 1,000 ML 100 ML IVCONT ×2 (06:07→15:30)
[2025-06-05 06:24] LABS: Alanine Aminotransferase < 6 U/L (0-31); Albumin Level 3.5 g/dL (3.5-5.0); Alkaline Phosphatase 50 U/L (39-117); Anion Gap 14 (12-20); Aspartate Amino Transferase 19 U/L (5-31); Blood Urea Nitrogen 12 mg/dL (9-16); Calcium 8.6 mg/dL (8.4-10.2); Carbon Dioxide 24 mmol/L (22-29); Chloride 105 mmol/L (96-108); Creatinine Clr Calc Pharmacy 56.8; Estimated Glomerular Filt Rate > 60; Potassium 3.9 mmol/L (3.3-5.1); Sodium 139 mmol/L (135-145); Total Protein 6.7 g/dL (6.5-8.0)
[2025-06-05] MEDS: 0.9 % Sodium Chloride Flush 3 ML SYRINGE IVFLUSH ×2 (08:13→20:07)
--- NOTE | 2025-06-05 09:55 | PM.CNGS ---
History of Present Illness Consult details Consult date: 06/05/25 Narrative: [age] year old female with a history of COPD, osteoarthritis, mild cerebral palsy, hypertension, admitted last night via the ER because of abdominal pain. She says that she has been having lower abdominal pain for about almost 2 weeks now. She denies any nausea or vomiting. She denies any fever or chills She also stated that she has mild cerebral palsy. She used to be able to ambulate with difficulty but now she says she usually gets around on a wheelchair. She also has a remote history of CVA Review of Systems Constitutional: Constitutional: Denies chills and Denies fever(s) Cardiovascular: Cardiovascular: Denies chest pain, Reports chest pain with activity and Reports dyspnea on exertion Respiratory: Respiratory: Reports dyspnea on exertion Gastrointestinal: Gastrointestinal: Reports abdominal pain and Denies vomiting Genitourinary: Genitourinary: Denies difficulty voiding Musculoskeletal: Musculoskeletal: Reports back pain, Reports myalgias and Reports arthralgias PMFSH Past Medical History Medical History Morbid obesity Colonic diverticular abscess Chronic lung disease COPD (chronic obstructive pulmonary disease) Urine incontinence Hyperlipidemia Sleep apnea Depression Cerebral palsy HTN (hypertension) CVA (cerebral vascular accident) Hypothyroid Family History Family History Father CVD (cardiovascular disease) Diabetes Mother CVD (cardiovascular disease) Surgical History Surgical History Hx of cholecystectomy Hx of hysterectomy Social History Social History Household Members: Children Housing: Assisted Living Facility Do you presently have visiting nurse or other home services: No Alcohol intake: never Patient Tobacco Use Status: Never used Tobacco Advance Directives Date on File: 07/26/23 service: No Meds Allergies Allergy/AdvReac Type Severity Reaction Status Date / Time penicillin V Allergy Intermediate rash Verified 06/04/25 14:38 nitrofurantoin Allergy Rash Verified 06/04/25 14:38 nickel Allergy Intermediate swelling Uncoded 06/04/25 14:38 Active Medications: Current Medications Acetaminophen (Acetaminophen 325 Mg Tablet) 650 mg PO Q6H PRN PRN Reason: Pain, Mild 1-3,fever,headache Baclofen (Baclofen 20 Mg Tablet) 20 mg PO TID [facility] Last Admin: 06/05/25 08:13 Dose: 20 mg Calcium Carbonate (Calcium Carbonate 750 Mg Tab.Chew) 750 mg PO Q4H PRN PRN Reason: Heartburn Ceftriaxone Sodium (Ceftriaxone Sodium 1 Gm Vial) 1 gm IVPUSH Q24H [facility] Clonidine HCl (Clonidine Hcl 0.1 Mg Tablet) 0.1 mg PO BID [facility]; Protocol Last Admin: 06/05/25 08:13 Dose: 0.1 mg Enoxaparin Sodium (Enoxaparin Sodium 40 Mg/0.4 Ml Syringe) 40 mg SUBCUT Q24H [facility] Last Admin: 06/04/25 21:21 Dose: 40 mg Hydromorphone HCl (Hydromorphone Hcl 0.5 Mg/0.5 Ml Syringe) 0.5 mg IVPUSH Q4H PRN; Protocol PRN Reason: Pain, Severe (Pain Scale 7-10) Last Admin: 06/05/25 02:34 Dose: 0.5 mg Dextrose/Sodium Chloride (D51/2ns) 1,000 mls @ 100 mls/hr IVCONT .Q10H [facility] Last Admin: 06/05/25 06:07 Dose: 100 mls/hr Metronidazole (Flagyl) 500 mg in 100 mls @ 100 mls/hr IV Q8H [facility] Last Infusion: 06/05/25 05:17 Dose: Infused Magnesium Hydroxide (Milk Of Magnesia 30 Ml Oral.Susp) 30 ml PO DAILY PRN PRN Reason: Constipation Melatonin (Melatonin 3 Mg Tablet) 6 mg PO BEDTIME PRN PRN Reason: Insomnia Pantoprazole Sodium (Pantoprazole Sodium 40 Mg/10 Ml Vial) 40 mg IVPUSH DAILY@0630 [facility] Last Admin: 06/05/25 06:07 Dose: 40 mg Sodium Chloride (0.9 % Sodium Chloride Flush 3 Ml Syringe) 3 ml IVFLUSH QSHIFT [facility] Last Admin: 06/05/25 08:13 Dose: 3 ml Home Medications ?Medication ?Instructions ?Recorded ?Confirmed ?Last Taken ?Type acetaminophen 650 mg 650 mg PO Q6H PRN Pain 09/01/20 06/05/25 Unknown History tablet,extended release (Tylenol Arthritis Pain) aspirin 81 mg tablet,delayed 81 mg PO DAILY 09/01/20 06/05/25 06/04/25 History release baclofen 20 mg tablet 20 mg PO TID 09/01/20 06/05/25 06/05/25 History clonidine HCl 0.1 mg tablet 0.1 mg PO BID 07/26/23 06/05/25 06/05/25 History fluticasone propionate 50 2 spray intranasal DAILY PRN 07/26/23 06/05/25 Unknown History mcg/actuation nasal Allergy Symptoms spray,suspension simvastatin 20 mg tablet 20 mg PO BEDTIME 07/26/23 06/05/25 06/04/25 History verapamil 240 mg 24 hr 240 mg PO DAILY 07/26/23 06/05/25 06/04/25 History capsule,extended release omeprazole 20 mg capsule,delayed 20 mg PO DAILY 11/09/23 06/05/25 06/04/25 History release oxybutynin chloride 5 mg 5 mg PO DAILY 11/09/23 06/05/25 06/04/25 History tablet,extended release 24 hr albuterol sulfate 90 mcg/actuation 2 puff inhalation Q6H PRN Wheezing 06/05/25 06/05/25 Unknown History aerosol inhaler [id number]-rnh-FF-lycopene-lutein 1.25 1 tab PO DAILY 06/05/25 06/05/25 06/04/25 History mg-2.5 mg-7 mg tablet Physical Exam Vital Signs: Vital Signs: Last Vital Signs Temp 98.3 F 06/05/25 07:04 Pulse 102 H 06/05/25 07:04 Resp 18 06/05/25 07:04 BP 135/66 06/05/25 07:04 Pulse Ox 93 06/05/25 07:04 O2 Del Method Nasal Cannula 06/05/25 07:04 O2 Flow Rate 1 06/05/25 07:04 BMI result Body Mass Index 38.3 Const: Other: Frail looking, answers questions well General: comfortable and no acute distress Nutritional Appearance: obese Resp: Effort & Inspection: normal respiratory effort Cardio: Rate: regular rate GI: Other: Some tenderness on lower abdomen Palpation (GI): Soft to palpation, not firm and no guarding Results Labs 06/09/25 06:48 06/09/25 06:48 Labs: Abnormal lab results 06/04/25 06/04/25 06/05/25 Range/Units 15:17 15:51 05:32 WBC 14.9 H 13.1 H (4.8-10.8) X10*3/uL RBC 3.81 L 3.69 L (4.20-5.50) X10*6/uL Hgb 10.4 L 10.2 L (12.0-16.0) g/dl Hct 34.5 L 33.3 L (37.0-47.0) % MCHC 30.1 L 30.6 L (31.0-35.0) g/dl Immature Gran % (Auto) 0.5 H 0.5 H (0.0-0.4) % Neut % (Auto) 75.8 H 75.6 H (45-73) % Lymph % (Auto) 11.7 L 12.1 L (20-40) % [place] # (Auto) 1.4 H (0.1-1.2) X10*3/uL Abs Immat Gran (auto) 0.08 H 0.06 H (0.00-0.03) X10*3/uL Absolute Neuts (auto) 11.3 H 9.9 H (2.0-8.3) x10*3/uL BUN 20 H (9-16) mg/dL Ur Specific [place] >= 1.030 H (1.005-1.025) Urine Protein 30 (1+) H (Neg-Trace) mg/dL Urine Blood Large (3+) H (Negative) Ur Leukocyte Esterase Moderate (2+) H (Negative) Urine RBC >20 H (0-2) /HPF Urine WBC >50 H (0-5) /HPF Short CBC 06/04/25 06/05/25 Range/Units 15:17 05:32 WBC 14.9 H 13.1 H (4.8-10.8) X10*3/uL Hgb 10.4 L 10.2 L (12.0-16.0) g/dl Hct 34.5 L 33.3 L (37.0-47.0) % Plt Count 285 D 268 (160-400) X10*3/uL BMP 06/04/25 06/05/25 15:17 05:32 Sodium 142 139 Potassium 3.8 3.9 Chloride 106 105 Carbon Dioxide 24 24 BUN 20 H 12 Creatinine 1.15 0.81 Calcium 9.1 D 8.6 Liver Function 10/11/25 10/12/25 Range/Units 15:17 05:32 Total Bilirubin 0.3 0.4 (0.0-1.0) mg/dL AST 17 19 (5-31) U/L ALT < 6 < 6 (0-31) U/L Alkaline Phosphatase 52 50 (39-117) U/L Albumin 3.8 3.5 (3.5-5.0) g/dL Urine 06/04/25 Range/Units 15:51 Urine Color Dark Yellow Urine Appearance Cloudy Urine pH 5.0 (5.0-9.0) Ur Specific [place] >= 1.030 H (1.005-1.025) Urine Protein 30 (1+) H (Neg-Trace) mg/dL Urine Glucose (UA) Negative (Negative) mg/dL All other labs normal. Inflammatory changes surrounding the proximal sigmoid colon with organizing fluid collection adjacent to the sigmoid colon measuring 4.7 x 4.0 x 4.2 cm with small amount of internal gas. No free intraperitoneal air. There are multiple diverticuli present within this region. Appendix is not identified. No bowel obstruction. No mesenteric or retroperitoneal lymphadenopathy. Moderate aortoiliac atherosclerotic vascular calcifications. Urinary bladder is contracted. There is thickening of the mucosa of the urinary bladder. Advanced multilevel spondylosis. Chronic wedge compression fractures of the T10, T11, L1 and L2 vertebral bodies. These do not appear acute. IMPRESSION: 1. Complicated sigmoid colon diverticulitis with a adjacent abscess measuring up to 4.7 cm. No free intraperitoneal air. 2. Small hiatal hernia. 3. Coronary artery atherosclerosis. This document has been electronically signed by: Davion Ballard MD on 06/04/2025 17:51:[address] scan report/results: report reviewed and image reviewed CT scan - pelvis: report reviewed and image reviewed Assessment and Plan (1) Colonic diverticular abscess: Status: Acute [age] year old female old through medical problems as described above, admitted for lower abdominal pain. I have reviewed her CAT scan and this does show a diverticular abscess up to 4.7 cm in dimension with changes in the distal sigmoid consistent with the acute diverticulitis. She has a benign exam currently. She actually states that she feels much better compared to yesterday. She apparently was ruled in for sepsis in the ER but looks non septic this morning I will set her up for CT drainage although I am uncertain as to when the radiologist and staff will be available to do this In the meantime, she can continue with IV antibiotics to achieve some control of the infection. We will follow along while she is in the hospital. She can have clear liquids for now. Also, please note that I was informed by the ED last night that the patient was already admitted to internal medicine before I knew about this patient. Procedures Date of Service Date of Service: 06/10/25
--- NOTE | 2025-06-05 10:37 | PHA.MEDREC ---
Addendum entered by Singh Lui, Rell 06/05/25 10:57: MED REC CHECKED BY [facility] Original Note: Pharmacy Consult ? Medication Reconciliation Pharmacy has completed the medication reconciliation. Confirmed medication list with patient and a medication list from another facility. Patient was given Clonidine and Baclofen this morning by nursing staff.
--- NOTE | 2025-06-05 11:52 | HO.PM.IMPN ---
Subjective Subjective Date of Service: 06/05/25 Physical Exam Vital Signs: Vital Signs: Last Vital Signs Temp 98.3 F 06/05/25 07:04 Pulse 102 H 06/05/25 07:04 Resp 18 06/05/25 07:04 BP 135/66 06/05/25 07:04 Pulse Ox 93 06/05/25 07:04 O2 Del Method Nasal Cannula 06/05/25 07:04 O2 Flow Rate 1 06/05/25 07:04 BMI result Body Mass Index 38.3 Const: Other: General: AO X 3, no acute distress Resp: CTA bilateral CVS: S1,S2,RRR GI: +BS, NT, no distention Skin: No rash Neuro: motor grossly intact Psych: appropriate affect Objective Data Active Medications Acetaminophen (Acetaminophen 325 Mg Tablet) 650 mg PO Q6H PRN PRN Reason: Pain, Mild 1-3,fever,headache Baclofen (Baclofen 20 Mg Tablet) 20 mg PO TID [facility] Last Admin: 06/05/25 08:13 Dose: 20 mg Documented By: LUIS Calcium Carbonate (Calcium Carbonate 750 Mg Tab.Chew) 750 mg PO Q4H PRN PRN Reason: Heartburn Ceftriaxone Sodium (Ceftriaxone Sodium 1 Gm Vial) 1 gm IVPUSH Q24H [facility] Clonidine HCl (Clonidine Hcl 0.1 Mg Tablet) 0.1 mg PO BID [facility]; Protocol Last Admin: 06/05/25 08:13 Dose: 0.1 mg Documented By: LUIS Enoxaparin Sodium (Enoxaparin Sodium 40 Mg/0.4 Ml Syringe) 40 mg SUBCUT Q24H [facility] Last Admin: 06/04/25 21:21 Dose: 40 mg Documented By: ION Hydromorphone HCl (Hydromorphone Hcl 0.5 Mg/0.5 Ml Syringe) 0.5 mg IVPUSH Q4H PRN; Protocol PRN Reason: Pain, Severe (Pain Scale 7-10) Last Admin: 06/05/25 02:34 Dose: 0.5 mg Documented By: [place] Dextrose/Sodium Chloride (D51/2ns) 1,000 mls @ 100 mls/hr IVCONT .Q10H [facility] Last Admin: 06/05/25 06:07 Dose: 100 mls/hr Documented By: [place] Metronidazole (Flagyl) 500 mg in 100 mls @ 100 mls/hr IV Q8H [facility] Last Infusion: 06/05/25 05:17 Dose: Infused Documented By: [place] Magnesium Hydroxide (Milk Of Magnesia 30 Ml Oral.Susp) 30 ml PO DAILY PRN PRN Reason: Constipation Melatonin (Melatonin 3 Mg Tablet) 6 mg PO BEDTIME PRN PRN Reason: Insomnia Pantoprazole Sodium (Pantoprazole Sodium 40 Mg/10 Ml Vial) 40 mg IVPUSH DAILY@0630 [facility] Last Admin: 06/05/25 06:07 Dose: 40 mg Documented By: [place] Sodium Chloride (0.9 % Sodium Chloride Flush 3 Ml Syringe) 3 ml IVFLUSH QSHIFT [facility] Last Admin: 06/05/25 08:13 Dose: 3 ml Documented By: LUIS Labs 06/05/25 05:32 06/05/25 05:32 Labs: Laboratory Results - last 24 hr 06/04/25 06/04/25 06/04/25 15:17 15:51 17:18 MCV 90.6 MCH 27.3 MCHC 30.1 L RDW 14.8 Plt Count 285 D MPV 9.6 Immature Gran % (Auto) 0.5 H Neut % (Auto) 75.8 H Lymph % (Auto) 11.7 L [place] % (Auto) 9.3 Eos % (Auto) 2.2 Baso % (Auto) 0.5 Lymph # (Auto) 1.7 [place] # (Auto) 1.4 H Eos # (Auto) 0.3 Baso # (Auto) 0.1 Abs Immat Gran (auto) 0.08 H Absolute Neuts (auto) 11.3 H Absolute Nucleated RBC 0.000 Nucleated RBC % (auto) 0.0 Anion Gap 16 Estim Creat Clear Calc 39.4 Estimated GFR 46 Random Glucose 110 Lactic Acid 1.5 Calcium 9.1 D Magnesium 2.0 Total Bilirubin 0.3 AST 17 ALT < 6 Alkaline Phosphatase 52 Total Protein 7.3 Albumin 3.8 Lipase 14 Urine Color Dark Yellow Urine Appearance Cloudy Urine pH 5.0 Ur Specific [place] >= 1.030 H Urine Protein 30 (1+) H Urine Glucose (UA) Negative Urine Ketones Trace Urine Blood Large (3+) H Urine Nitrite Negative Ur Leukocyte Esterase Moderate (2+) H Urine RBC >20 H Urine WBC >50 H Ur Squamous Epith Cells 6-10 Ur Transition Epith Cell Present Ur Renal Epithelial Cell Present Urine Bacteria 2+ Hyaline Casts >20 06/05/25 05:32 MCV 90.2 MCH 27.6 MCHC 30.6 L RDW 14.7 Plt Count 268 MPV 9.8 Immature Gran % (Auto) 0.5 H Neut % (Auto) 75.6 H Lymph % (Auto) 12.1 L [place] % (Auto) 9.0 Eos % (Auto) 2.1 Baso % (Auto) 0.7 Lymph # (Auto) 1.6 [place] # (Auto) 1.2 Eos # (Auto) 0.3 Baso # (Auto) 0.1 Abs Immat Gran (auto) 0.06 H Absolute Neuts (auto) 9.9 H Absolute Nucleated RBC 0.000 Nucleated RBC % (auto) 0.0 Anion Gap 14 Estim Creat Clear Calc 56.8 Estimated GFR > 60 Random Glucose 107 Lactic Acid Calcium 8.6 Magnesium Total Bilirubin 0.4 AST 19 ALT < 6 Alkaline Phosphatase 50 Total Protein 6.7 Albumin 3.5 Lipase Urine Color Urine Appearance Urine pH Ur Specific [place] Urine Protein Urine Glucose (UA) Urine Ketones Urine Blood Urine Nitrite Ur Leukocyte Esterase Urine RBC Urine WBC Ur Squamous Epith Cells Ur Transition Epith Cell Ur Renal Epithelial Cell Urine Bacteria Hyaline Casts Assessment and Plan (1) Diverticulitis of intestine with abscess: Status: Acute Plan 79-year-old female with a past medical history of history, HLD, FAHAD, CVA, hypothyroidism, COPD, chronic lung disease; presented to the hospital today with a chief complaint of left lower quadrant abdominal pain for 2 weeks and found to have diverticulitis with abscess Acute sigmoid diverticulitis/abscess: CT showed acute sigmoid diverticulitis with an abscess measuring 4.7 X4.0 X4.2 cm No perforation/no free intraperitoneal air on CT scan. Seen by surgery and recommend IR drainage Continue IV ceftriaxone and Flagyl Pain control start liquis diet Gentle IV fluids Hypertension clonidine COPD: Stable For all other chronic conditions, patient's home medications will be continued including baclofen and clonidine. DVT prophylaxis: Lovenox Code status: Full code Quality Stroke Does the patient have a stroke diagnosis?: No VTE Prior VTE?: No VTE Risk Level:: Medical - moderate - high VTE Device Contraindication: Treatment Not Indicated VTE Drug Contraindication: N/A - Med Ordered
[2025-06-06] VITALS (7 sets, daily range): BP systolic 108–160; BP diastolic 55–84; PULSE 64–100; RESP 16–18; TEMP 36.4–37.2; O2SAT 93–95
[2025-06-06] MEDS: Dextrose 5 % and 0.45 % NaCl 1,000 ML 100 ML IVCONT ×2 (03:06→16:16)
[2025-06-06] MEDS: metroNIDAZOLE/NS 500 MG/100 ML PIGGYBACK 100 MG IV ×3 (04:15→20:27)
[2025-06-06 08:06] LABS: INTERNATIONAL NORM RATIO 1.3 (0.9-1.1); Prothrombin Time 14.4 SEC (10.9-12.4)
--- NOTE | 2025-06-06 08:34 | PM.PNGS ---
Subjective Subjective Date of Service: 06/06/25 Interval history: Abdominal pain is improved today, down to 5/10 in severity. She reports passing flatus but no bowel movement. She is tolerating clear liquids without nausea but still does not have much of an appetite. Physical Exam Vital Signs: Vital Signs: Last Vital Signs Temp 98.5 F 06/06/25 07:20 Pulse 87 06/06/25 07:20 Resp 18 06/06/25 07:20 BP 123/59 L 06/06/25 07:20 Pulse Ox 93 06/06/25 07:20 O2 Del Method Room Air 06/06/25 07:20 O2 Flow Rate 1 06/05/25 07:04 BMI result Body Mass Index 38.3 Const: General: no acute distress Nutritional Appearance: obese Orientation/consciousness: patient oriented x3 Resp: Effort & Inspection: normal respiratory effort, no audible wheezes, no cough and no respiratory distress GI: Palpation (GI): Soft to palpation, Tenderness to palpation present (GI) in the LLQ and in the RLQ; with no rebound tenderness, no guarding and not rigid Percussion: Yes normal to percussion Rectal Exam - Female: deferred Skin: Other: Warm, dry, no rash Neuro: General: patient oriented x3 Objective Data Active Medications Acetaminophen (Acetaminophen 325 Mg Tablet) 650 mg PO Q6H PRN PRN Reason: Pain, Mild 1-3,fever,headache Last Admin: 06/06/25 05:55 Dose: 650 mg Documented By: [place] Albuterol Sulfate (Albuterol Sulfate 90 Mcg 8 Gm Inhaler) 2 puff INHALE Q6H PRN PRN Reason: Wheezing Atorvastatin Calcium (Atorvastatin Calcium 10 Mg Tablet) 10 mg PO BEDTIME COUNTS INCLUDE 234 BEDS AT THE [facility] Last Admin: 06/05/25 20:06 Dose: 10 mg Documented By: [place] Baclofen (Baclofen 20 Mg Tablet) 20 mg PO TID COUNTS INCLUDE 234 BEDS AT THE [facility] Last Admin: 06/05/25 20:06 Dose: 20 mg Documented By: [place] Calcium Carbonate (Calcium Carbonate 750 Mg Tab.Chew) 750 mg PO Q4H PRN PRN Reason: Heartburn Ceftriaxone Sodium (Ceftriaxone Sodium 2 Gm Vial) 2 gm IVPUSH Q24H COUNTS INCLUDE 234 BEDS AT THE [facility] Last Admin: 06/05/25 16:23 Dose: 2 gm Documented By: LUIS Clonidine HCl (Clonidine Hcl 0.1 Mg Tablet) 0.1 mg PO BID COUNTS INCLUDE 234 BEDS AT THE [facility]; Protocol Last Admin: 06/05/25 20:06 Dose: 0.1 mg Documented By: [place] Enoxaparin Sodium (Enoxaparin Sodium 40 Mg/0.4 Ml Syringe) 40 mg SUBCUT Q24H COUNTS INCLUDE 234 BEDS AT THE [facility] Last Admin: 06/05/25 20:06 Dose: 40 mg Documented By: [place] Fluticasone Propionate (Fluticasone Propionate Nasal 16 Gm [place]) 2 spray NOSTRIL-B DAILY PRN PRN Reason: Allergy Symptoms Hydromorphone HCl (Hydromorphone Hcl 0.5 Mg/0.5 Ml Syringe) 0.5 mg IVPUSH Q4H PRN; Protocol PRN Reason: Pain, Severe (Pain Scale 7-10) Last Admin: 06/06/25 03:14 Dose: 0.5 mg Documented By: [place] Dextrose/Sodium Chloride (D51/2ns) 1,000 mls @ 100 mls/hr IVCONT .Q10H COUNTS INCLUDE 234 BEDS AT THE [facility] Last Admin: 06/06/25 03:06 Dose: 100 mls/hr Documented By: [place] Metronidazole (Flagyl) 500 mg in 100 mls @ 100 mls/hr IV Q8H COUNTS INCLUDE 234 BEDS AT THE [facility] Last Infusion: 06/06/25 05:34 Dose: Infused Documented By: [place] Magnesium Hydroxide (Milk Of Magnesia 30 Ml Oral.Susp) 30 ml PO DAILY PRN PRN Reason: Constipation Melatonin (Melatonin 3 Mg Tablet) 6 mg PO BEDTIME PRN PRN Reason: Insomnia Multivitamins/Vitamin C (Multivitamin Tablet) 1 tab PO DAILY COUNTS INCLUDE 234 BEDS AT THE [facility] Omeprazole (Omeprazole 20 Mg Capsule.Dr) 20 mg PO DAILY@0630 COUNTS INCLUDE 234 BEDS AT THE [facility] Last Admin: 06/06/25 05:55 Dose: 20 mg Documented By: [place] Oxybutynin Chloride (Oxybutynin Chloride Er 5 Mg Tab.Er.24) 5 mg PO DAILY COUNTS INCLUDE 234 BEDS AT THE [facility] Sodium Chloride (0.9 % Sodium Chloride Flush 3 Ml Syringe) 3 ml IVFLUSH QSHIFT COUNTS INCLUDE 234 BEDS AT THE [facility] Last Admin: 06/05/25 20:07 Dose: 3 ml Documented By: [place] Verapamil HCl (Verapamil Hcl Sr 240 Mg Tablet.Er) 240 mg PO DAILY COUNTS INCLUDE 234 BEDS AT THE [facility]; Protocol Labs 10/12/25 05:32 06/05/25 05:32 Labs: Laboratory Results - last 24 hr 06/06/25 05:56 Hold Purple Top SEE NOTE PT 14.4 H INR 1.3 H Microbiology Microbiology Results: Microbiology 06/04/25 17:18 Blood Culture - Preliminary Blood - Venous No growth after 24 hours. 06/04/25 17:18 Blood Culture - Preliminary Blood - Venous No growth after 24 hours. 06/04/25 16:59 Urine Culture - Preliminary Urine Catheterized - Straight Catheter Culture in progress. Procedures Date of Service Date of Service: 06/06/25 Progress Note: A&P Assessment and plan (1) Colonic diverticular abscess: Status: Acute Plan 79-year-old female patient presenting with complaints of lower abdominal pain found to have sigmoid diverticulitis with adjacent abscess. Patient is admitted to the hospitalist service on IV antibiotics (ceftriaxone and metronidazole). She is awaiting IR drainage of the diverticular abscess. Overall the patient is improved with decreased abdominal pain. We will continue to follow during this hospitalization. Time Spent With Patient Time: Total time managing care of this patient today ____ minutes. Quality Stroke Does the patient have a stroke diagnosis?: No VTE Prior VTE?: No VTE Risk Level:: Medical - moderate - high VTE Device Contraindication: Treatment Not Indicated VTE Drug Contraindication: N/A - Med Ordered
[2025-06-06] MEDS: VerapamiL HCL SR 240 MG TABLET.ER PO (09:14)
[2025-06-06] MEDS: oxyBUTYnin chloride ER 5 MG TAB.ER.24 PO (09:15)
--- NOTE | 2025-06-06 11:59 | P.PNIM_ITS ---
Subjective Subjective Date of Service: 06/06/25 Interval History: Patient is in great spirits today. Abdominal pain settled. No fevers chills or shakes. Pending IR guided drainage of abscess Review of Systems Review of Systems: Yes all other systems are reviewed and are negative Physical Exam 2 Exam: Exam: General: A&O x3, oriented to time place person and situation, comfortable, no pain Cardiac: S1, S2 auscultated with no S3/4, no MRG. Well perfused. Respiratory: Normal breath sounds auscultated throughout all lung zones, without wheezing, rales. Normal rate. GI/ : No abdominal pain on palpation, no masses or distentions. MSK: Normal ambulation without pain at bony prominences or musculature Neurological: Normal neurological examination on overview, without obvious CN II-XII abnormalities. Vital Signs: Vital Signs: Last Vital Signs Temp 98.5 F 06/06/25 07:20 Pulse 100 06/06/25 09:14 Resp 18 06/06/25 07:20 BP 123/59 L 06/06/25 09:15 Pulse Ox 93 06/06/25 07:20 O2 Del Method Room Air 06/06/25 07:20 O2 Flow Rate 1 06/05/25 07:04 BMI result Body Mass Index 38.3 Objective Data Active Medications Acetaminophen (Acetaminophen 325 Mg Tablet) 650 mg PO Q6H PRN PRN Reason: Pain, Mild 1-3,fever,headache Last Admin: 06/06/25 05:55 Dose: 650 mg Documented By: VIRGINIA Albuterol Sulfate (Albuterol Sulfate 90 Mcg 8 Gm Inhaler) 2 puff INHALE Q6H PRN PRN Reason: Wheezing Atorvastatin Calcium (Atorvastatin Calcium 10 Mg Tablet) 10 mg PO BEDTIME [facility] Last Admin: 06/05/25 20:06 Dose: 10 mg Documented By: VIRGINIA Baclofen (Baclofen 20 Mg Tablet) 20 mg PO TID [facility] Last Admin: 06/06/25 09:15 Dose: 20 mg Documented By: ABDULLAHI Calcium Carbonate (Calcium Carbonate 750 Mg Tab.Chew) 750 mg PO Q4H PRN PRN Reason: Heartburn Ceftriaxone Sodium (Ceftriaxone Sodium 2 Gm Vial) 2 gm IVPUSH Q24H [facility] Last Admin: 06/05/25 16:23 Dose: 2 gm Documented By: LUIS Clonidine HCl (Clonidine Hcl 0.1 Mg Tablet) 0.1 mg PO BID [facility]; Protocol Last Admin: 06/06/25 09:15 Dose: 0.1 mg Documented By: ABDULLAHI Enoxaparin Sodium (Enoxaparin Sodium 40 Mg/0.4 Ml Syringe) 40 mg SUBCUT Q24H [facility] Last Admin: 06/05/25 20:06 Dose: 40 mg Documented By: VIRGINIA Fluticasone Propionate (Fluticasone Propionate Nasal 16 Gm [place]) 2 spray NOSTRIL-B DAILY PRN PRN Reason: Allergy Symptoms Hydromorphone HCl (Hydromorphone Hcl 0.5 Mg/0.5 Ml Syringe) 0.5 mg IVPUSH Q4H PRN; Protocol PRN Reason: Pain, Severe (Pain Scale 7-10) Last Admin: 06/06/25 09:50 Dose: 0.5 mg Documented By: ABDULLAHI Dextrose/Sodium Chloride (D51/2ns) 1,000 mls @ 100 mls/hr IVCONT .Q10H [facility] Last Admin: 06/06/25 03:06 Dose: 100 mls/hr Documented By: VIRGINIA Metronidazole (Flagyl) 500 mg in 100 mls @ 100 mls/hr IV Q8H [facility] Last Infusion: 06/06/25 05:34 Dose: Infused Documented By: VIRGINIA Magnesium Hydroxide (Milk Of Magnesia 30 Ml Oral.Susp) 30 ml PO DAILY PRN PRN Reason: Constipation Melatonin (Melatonin 3 Mg Tablet) 6 mg PO BEDTIME PRN PRN Reason: Insomnia Multivitamins/Vitamin C (Multivitamin Tablet) 1 tab PO DAILY [facility] Last Admin: 06/06/25 09:15 Dose: 1 tab Documented By: ABDULLAHI Omeprazole (Omeprazole 20 Mg Capsule.Dr) 20 mg PO DAILY@0630 [facility] Last Admin: 06/06/25 05:55 Dose: 20 mg Documented By: VIRGINIA Oxybutynin Chloride (Oxybutynin Chloride Er 5 Mg Tab.Er.24) 5 mg PO DAILY [facility] Last Admin: 06/06/25 09:15 Dose: 5 mg Documented By: ABDULLAHI Sodium Chloride (0.9 % Sodium Chloride Flush 3 Ml Syringe) 3 ml IVFLUSH QSHIFT [facility] Last Admin: 06/06/25 09:13 Dose: Not Given Documented By: ABDULLAHI Non-Admin Reason: IV Running Verapamil HCl (Verapamil Hcl Sr 240 Mg Tablet.Er) 240 mg PO DAILY [facility]; Protocol Last Admin: 06/06/25 09:14 Dose: 240 mg Documented By: ABDULLAHI Labs 06/05/25 05:32 06/05/25 05:32 Labs: Laboratory Results - last 24 hr 06/06/25 05:56 Hold Purple Top SEE NOTE PT 14.4 H INR 1.3 H Microbiology Microbiology Results: Microbiology 06/04/25 16:59 Urine Culture - Preliminary Urine Catheterized - Straight Catheter Gram negative kajal 06/04/25 17:18 Blood Culture - Preliminary Blood - Venous No growth after 24 hours. 06/04/25 17:18 Blood Culture - Preliminary Blood - Venous No growth after 24 hours. Assessment and Plan (1) Morbid obesity: Status: Acute (2) Diverticulitis: Status: Acute (3) Colonic diverticular abscess: Status: Acute (4) Diverticulitis of intestine with abscess: Status: Acute (5) Acute UTI: Status: Acute (6) Sepsis: Status: Acute Plan 79-year-old female, with a history HTN, CVA, FAHAD, hypothyroidism, COPD/chronic lung disease, presents with left lower quadrant pain, admitted with sepsis 2/2 acute sigmoid diverticulitis with abscess. Sepsis Acute sigmoid diverticulitis/abscess Presents with abdominal pain, pyrexia CT abdomen and pelvis revealed acute sigmoid diverticulitis with abscess measuring 4.7 x 4 x 4.2 cm No evidence of perforation or intraperitoneal air Started on ceftriaxone and Flagyl - tolerating well without complaint PLAN - continue IV ceftriaxone - continue IV Flagyl - analgesia - liquid diet - IR consultation for planned drainage of abscess - monitor VS CHRONIC MEDICAL CONDITION - HTN: Continue clonidine - COPD: No new issues, stable QUAL[employer] - VTE: Enoxaparin - CODE STATUS: Full code - DIET: Clear liquid diet Total time managing care of this patient today: 35 minutes. Quality Stroke Does the patient have a stroke diagnosis?: No VTE Prior VTE?: No VTE Risk Level:: Medical - moderate - high VTE Device Contraindication: Treatment Not Indicated VTE Drug Contraindication: N/A - Med Ordered
--- NOTE | 2025-06-06 16:54 | MHC.CM.PN ---
PT REPORTS SHE NOW LIVES AT [facility] SHE HAS A WALKER AND W/C FOR DME PT STATES SHE USED TO HAVE HOME O2, BUT HAS NOT USED IT AND HAD IT RETURNED WHEN SHE MOVED TO [facility] HCP ON FILE PCP: CHRISTOS VEE IMM DELIVERED DCP: RETURN TO [facility] VIA FAMILY TRANSPORT
[2025-06-07] VITALS (10 sets, daily range): BP systolic 105–152; BP diastolic 55–72; PULSE 69–93; RESP 10–18; TEMP 36.2–37.5; O2SAT 88–93
[2025-06-07] MEDS: metroNIDAZOLE/NS 500 MG/100 ML PIGGYBACK 100 MG IV ×2 (03:58→12:50)
[2025-06-07] MEDS: 0.9 % Sodium Chloride Flush 3 ML SYRINGE IVFLUSH ×4 (04:06→20:02)
--- NOTE | 2025-06-07 08:41 | P.PNGS_ITS ---
Subjective Subjective Date of Service: 06/07/25 <Allen Dinh PA-C - Last Filed: 06/07/25 09:03> 06/07/25 <Dennis Alcaraz MD - Last Filed: 06/07/25 09:38> Interval history: Doing okay today, somewhat improved. Pain now 5/10, remains in the lower left quadrant. Denies nausea or vomiting. Denies recent bowel movement, is passing gas. States that her spasticity from cerebral palsy has been worse over the last day. <Allen Dinh PA-C - Last Filed: 06/07/25 09:03> Physical Exam 2 Vital Signs: Vital Signs: Last Vital Signs Temp 99.5 F 06/07/25 07:45 Pulse 92 06/07/25 07:45 Resp 18 06/07/25 07:45 BP 134/63 06/07/25 07:45 Pulse Ox 92 06/07/25 07:45 O2 Del Method Nasal Cannula 06/07/25 07:45 O2 Flow Rate 2 06/07/25 07:45 BMI result Body Mass Index 38.3 <Allen Dinh PA-C - Last Filed: 06/07/25 09:03> Const: General: comfortable and no acute distress <Allen Dinh PA-C - Last Filed: 06/07/25 09:03> Orientation/consciousness: patient oriented x3 <Allen Dinh PA-C - Last Filed: 06/07/25 09:03> GI: Inspection: No distended <Allen Dinh PA-C - Last Filed: 06/07/25 09:03> Palpation (GI): Soft to palpation, Tenderness to palpation present (GI) in the LLQ and suprapubicly and Guarding due to palpation present (GI) (LLQ voluntary) <Allen Dinh PA-C - Last Filed: 06/07/25 09:03> Neuro: General: patient oriented x3 <ROSE Gill Last Filed: 06/07/25 09:03> Objective Data Active Medications Acetaminophen (Acetaminophen 325 Mg Tablet) 650 mg PO Q6H PRN PRN Reason: Pain, Mild 1-3,fever,headache Last Admin: 06/06/25 14:46 Dose: 650 mg Documented By: ABDULLAHI Albuterol Sulfate (Albuterol Sulfate 90 Mcg 8 Gm Inhaler) 2 puff INHALE Q6H PRN PRN Reason: Wheezing Atorvastatin Calcium (Atorvastatin Calcium 10 Mg Tablet) 10 mg PO BEDTIME [facility] Last Admin: 06/06/25 20:39 Dose: 10 mg Documented By: GLENN Baclofen (Baclofen 20 Mg Tablet) 20 mg PO TID [facility] Last Admin: 06/06/25 20:39 Dose: 20 mg Documented By: GLENN Calcium Carbonate (Calcium Carbonate 750 Mg Tab.Chew) 750 mg PO Q4H PRN PRN Reason: Heartburn Ceftriaxone Sodium (Ceftriaxone Sodium 2 Gm Vial) 2 gm IVPUSH Q24H [facility] Last Admin: 06/06/25 17:00 Dose: 2 gm Documented By: ABDULLAHI Clonidine HCl (Clonidine Hcl 0.1 Mg Tablet) 0.1 mg PO BID [facility]; Protocol Last Admin: 06/06/25 20:39 Dose: 0.1 mg Documented By: GLENN Enoxaparin Sodium (Enoxaparin Sodium 40 Mg/0.4 Ml Syringe) 40 mg SUBCUT Q24H [facility] Last Admin: 06/06/25 20:39 Dose: 40 mg Documented By: GLENN Fluticasone Propionate (Fluticasone Propionate Nasal 16 Gm [place]) 2 spray NOSTRIL-B DAILY PRN PRN Reason: Allergy Symptoms Hydromorphone HCl (Hydromorphone Hcl 0.5 Mg/0.5 Ml Syringe) 0.5 mg IVPUSH Q4H PRN; Protocol PRN Reason: Pain, Severe (Pain Scale 7-10) Last Admin: 06/07/25 03:58 Dose: 0.5 mg Documented By: GLENN Metronidazole (Flagyl) 500 mg in 100 mls @ 100 mls/hr IV Q8H [facility] Last Infusion: 06/07/25 05:05 Dose: Infused Documented By: GLENN Magnesium Hydroxide (Milk Of Magnesia 30 Ml Oral.Susp) 30 ml PO DAILY PRN PRN Reason: Constipation Melatonin (Melatonin 3 Mg Tablet) 6 mg PO BEDTIME PRN PRN Reason: Insomnia Multivitamins/Vitamin C (Multivitamin Tablet) 1 tab PO DAILY [facility] Last Admin: 06/06/25 09:15 Dose: 1 tab Documented By: ABDULLAHI Omeprazole (Omeprazole 20 Mg Capsule.Dr) 20 mg PO DAILY@0630 [facility] Last Admin: 06/07/25 06:03 Dose: 20 mg Documented By: GLENN Oxybutynin Chloride (Oxybutynin Chloride Er 5 Mg Tab.Er.24) 5 mg PO DAILY [facility] Last Admin: 06/06/25 09:15 Dose: 5 mg Documented By: ABDULLAHI Sodium Chloride (0.9 % Sodium Chloride Flush 3 Ml Syringe) 3 ml IVFLUSH QSHIFT [facility] Last Admin: 06/07/25 04:06 Dose: 3 ml Documented By: GLENN Verapamil HCl (Verapamil Hcl Sr 240 Mg Tablet.Er) 240 mg PO DAILY [facility]; Protocol Last Admin: 06/06/25 09:14 Dose: 240 mg Documented By: ABDULLAHI <Allen Dinh PA-C - Last Filed: 06/07/25 09:03> Labs CBC & Chem 7: 06/05/25 05:32 06/05/25 05:32 <Allen Dinh PA-C - Last Filed: 06/07/25 09:03> Microbiology Microbiology Results: Microbiology 06/04/25 16:59 Urine Culture - Final Urine Catheterized - Straight Catheter Escherichia coli 06/04/25 17:18 Blood Culture - Preliminary Blood - Venous No growth after 48 hours. 06/04/25 17:18 Blood Culture - Preliminary Blood - Venous No growth after 48 hours. <Allen Dinh PA-C - Last Filed: 06/07/25 09:03> Procedures Date of Service Date of Service: 06/07/25 <Allen Dinh PA-C - Last Filed: 06/07/25 09:03> 06/07/25 <Dennis Alcaraz MD - Last Filed: 06/07/25 09:38> Progress Note: A&P Assessment and plan (1) Colonic diverticular abscess: Status: Acute <Allen Dinh PA-C - Last Filed: 06/07/25 09:03> Assessment and Plan: No new complaints Some abdominal pain but much improved Appears comfortable Abdomen is soft and benign Mild tenderness on lower abdomen She does complain of spasms from her cerebral palsy For CT drain today We will continue to follow up Seen and examined independently <Dennis Alcaraz MD - Last Filed: 06/07/25 09:38> Assessment and Plan: 79 year old female with history of CP, obesity, admitted for acute diverticulitis with abscess. Patient doing well this morning, pain overall improving, she looks comfortable today. Pain now 5/10 in the LLQ. Denies nausea, vomiting. Passing gas but has not passed bowel movements. Tolerating CLD, now NPO for procedure today. Patient is scheduled for IR drain placement for this abscess, likely will happen today. Okay to resume CLD after drain. continue IV abx IR drain of abscess today CLD after procedure <Allen Dinh PA-C - Last Filed: 06/07/25 09:03> Time Spent With Patient Time: Total time managing care of this patient today ____ minutes. <Allen Dinh PA-C - Last Filed: 06/07/25 09:03> Quality Stroke Does the patient have a stroke diagnosis?: No <Allen Dinh PA-C - Last Filed: 06/07/25 09:03> VTE Prior VTE?: No <Allen Dinh PA-C - Last Filed: 06/07/25 09:03> VTE Risk Level:: Medical - moderate - high <Allen Dinh PA-C - Last Filed: 06/07/25 09:03> VTE Device Contraindication: Treatment Not Indicated <Allen Dinh PA-C - Last Filed: 06/07/25 09:03> VTE Drug Contraindication: N/A - Med Ordered <Allen Dinh PA-C - Last Filed: 06/07/25 09:03>
[2025-06-07] MEDS: oxyBUTYnin chloride ER 5 MG TAB.ER.24 PO (08:45)
[2025-06-07] MEDS: VerapamiL HCL SR 240 MG TABLET.ER PO (08:46)
--- NOTE | 2025-06-07 13:49 | MHC.CM.PN ---
BERRY MCMAHON 06/07 DELIVERED, SIGNED, AND COPY PLACED IN CHART
--- NOTE | 2025-06-07 14:50 | PM.EVENT ---
Event Note Date of Service: 06/07/25 Event Note: Seen on afternoon rounds CT drain was done with 20 cc of purulent fluid aspirated Drain in place Patient says she is ?comfortable? Abdomen is soft and benign Continue IV antibiotics Okay to have clear liquids We will follow up Looks well overall Time Spent With Patient Time: Total time managing care of this patient today ____ minutes.
--- NOTE | 2025-06-07 17:59 | P.PNIM_ITS ---
Subjective Subjective Date of Service: 06/07/25 Interval History: Feels well today. s/p IR guided drainage of abscess. Uncomplicated. No acute issues Review of Systems Review of Systems: Yes all other systems are reviewed and are negative Physical Exam 2 Exam: Exam: General: A&O x3, oriented to time place person and situation, comfortable, no pain Cardiac: S1, S2 auscultated with no S3/4, no MRG. Well perfused. Respiratory: Normal breath sounds auscultated throughout all lung zones, without wheezing, rales. Normal rate. GI/ : No abdominal pain on palpation, no masses or distentions. 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 Vital Signs: Vital Signs: Last Vital Signs Temp 98.8 F 06/07/25 15:45 Pulse 93 06/07/25 15:45 Resp 18 06/07/25 15:45 BP 152/57 H 06/07/25 15:45 Pulse Ox 92 06/07/25 15:45 O2 Del Method Nasal Cannula 06/07/25 15:45 O2 Flow Rate 2 06/07/25 15:45 BMI result Body Mass Index 38.3 Objective Data Active Medications Acetaminophen (Acetaminophen 325 Mg Tablet) 650 mg PO Q6H PRN PRN Reason: Pain, Mild 1-3,fever,headache Last Admin: 06/06/25 14:46 Dose: 650 mg Documented By: ABDULLAHI Albuterol Sulfate (Albuterol Sulfate 90 Mcg 8 Gm Inhaler) 2 puff INHALE Q6H PRN PRN Reason: Wheezing Atorvastatin Calcium (Atorvastatin Calcium 10 Mg Tablet) 10 mg PO BEDTIME [facility] Last Admin: 06/06/25 20:39 Dose: 10 mg Documented By: GLENN Baclofen (Baclofen 20 Mg Tablet) 20 mg PO TID [facility] Last Admin: 06/07/25 14:05 Dose: 20 mg Documented By: DAWN Calcium Carbonate (Calcium Carbonate 750 Mg Tab.Chew) 750 mg PO Q4H PRN PRN Reason: Heartburn Ceftriaxone Sodium (Ceftriaxone Sodium 2 Gm Vial) 2 gm IVPUSH Q24H [facility] Last Admin: 06/07/25 17:24 Dose: 2 gm Documented By: KYLE Clonidine HCl (Clonidine Hcl 0.1 Mg Tablet) 0.1 mg PO BID [facility]; Protocol Last Admin: 06/07/25 08:45 Dose: 0.1 mg Documented By: DAWN Enoxaparin Sodium (Enoxaparin Sodium 40 Mg/0.4 Ml Syringe) 40 mg SUBCUT Q24H [facility] Last Admin: 06/06/25 20:39 Dose: 40 mg Documented By: GLENN Fluticasone Propionate (Fluticasone Propionate Nasal 16 Gm [place]) 2 spray NOSTRIL-B DAILY PRN PRN Reason: Allergy Symptoms Hydromorphone HCl (Hydromorphone Hcl 0.5 Mg/0.5 Ml Syringe) 0.5 mg IVPUSH Q4H PRN; Protocol PRN Reason: Pain, Severe (Pain Scale 7-10) Last Admin: 06/07/25 14:06 Dose: 0.5 mg Documented By: DAWN Metronidazole (Flagyl) 500 mg in 100 mls @ 100 mls/hr IV Q8H [facility] Last Infusion: 06/07/25 14:01 Dose: Infused Documented By: DAWN Magnesium Hydroxide (Milk Of Magnesia 30 Ml Oral.Susp) 30 ml PO DAILY PRN PRN Reason: Constipation Melatonin (Melatonin 3 Mg Tablet) 6 mg PO BEDTIME PRN PRN Reason: Insomnia Multivitamins/Vitamin C (Multivitamin Tablet) 1 tab PO DAILY [facility] Last Admin: 06/07/25 08:45 Dose: 1 tab Documented By: DAWN Omeprazole (Omeprazole 20 Mg Capsule.Dr) 20 mg PO DAILY@0630 [facility] Last Admin: 06/07/25 06:03 Dose: 20 mg Documented By: GLENN Oxybutynin Chloride (Oxybutynin Chloride Er 5 Mg Tab.Er.24) 5 mg PO DAILY [facility] Last Admin: 06/07/25 08:45 Dose: 5 mg Documented By: DAWN Sodium Chloride (0.9 % Sodium Chloride Flush 3 Ml Syringe) 3 ml IVFLUSH QSHIFT [facility] Last Admin: 06/07/25 17:24 Dose: 3 ml Documented By: KYLE Verapamil HCl (Verapamil Hcl Sr 240 Mg Tablet.Er) 240 mg PO DAILY [facility]; Protocol Last Admin: 06/07/25 08:46 Dose: 240 mg Documented By: DAWN Labs 06/05/25 05:32 06/05/25 05:32 Microbiology Microbiology Results: Microbiology 06/07/25 10:15 Gram Stain - Final Abscess Intra-abdominal 06/04/25 16:59 Urine Culture - Final Urine Catheterized - Straight Catheter Escherichia coli 06/04/25 17:18 Blood Culture - Preliminary Blood - Venous No growth after 48 hours. 06/04/25 17:18 Blood Culture - Preliminary Blood - Venous No growth after 48 hours. Assessment and Plan (1) Morbid obesity: Status: Acute (2) Diverticulitis: Status: Acute (3) Colonic diverticular abscess: Status: Acute (4) Diverticulitis of intestine with abscess: Status: Acute (5) Acute UTI: Status: Acute (6) Sepsis: Status: Acute Plan 79-year-old female, with a history HTN, CVA, FAHAD, hypothyroidism, COPD/chronic lung disease, presents with left lower quadrant pain, admitted with sepsis 2/2 acute sigmoid diverticulitis with abscess. Sepsis Acute sigmoid diverticulitis/abscess Presents with abdominal pain, pyrexia CT abdomen and pelvis revealed acute sigmoid diverticulitis with abscess measuring 4.7 x 4 x 4.2 cm No evidence of perforation or intraperitoneal air Started on ceftriaxone and Flagyl - tolerating well without complaint PLAN - continue IV ceftriaxone - continue IV Flagyl - analgesia - liquid diet - IR consultation for planned drainage of abscess - monitor VS CHRONIC MEDICAL CONDITION - HTN: Continue clonidine - COPD: No new issues, stable QU[employer] - VTE: Enoxaparin - CODE STATUS: Full code - DIET: Full liquid diet Total time managing care of this patient today: 35 minutes. Quality Stroke Does the patient have a stroke diagnosis?: No VTE Prior VTE?: No VTE Risk Level:: Medical - moderate - high VTE Device Contraindication: Treatment Not Indicated VTE Drug Contraindication: N/A - Med Ordered
[2025-06-08] MEDS: metroNIDAZOLE/NS 500 MG/100 ML PIGGYBACK 100 MG IV ×3 (01:06→18:15)
[2025-06-08 03:12] VITALS: BP 118/56; PULSE 69; RESP 18; TEMP 36.4; O2SAT 93
--- NOTE | 2025-06-08 06:24 | P.PNGS_ITS ---
Subjective Subjective Date of Service: 06/08/25 <danny [place] - Last Filed: 06/08/25 06:53> 06/08/25 <Allen Dinh PA-C - Last Filed: 06/08/25 07:54> 06/08/25 <Dennis Alcaraz MD - Last Filed: 06/08/25 08:33> Interval history: S/p IR guided abscess drain yesterday. Slept well overnight. Pain is about the same, soreness confined to LLQ, 01/01, though intermittently feels better than previous days. Tolerating clear liquid diet. No BM, has been passing flatus. Has not been OOB yet, at baseline transfers from bed to wheelchair by herself, has not done this yet due to increased cerebral palsy spasms and LLQ soreness. Denies fevers, chills, nausea, vomiting or any other symptoms. <[facility] Last Filed: 06/08/25 06:53> Physical Exam 2 Vital Signs: Vital Signs: Last Vital Signs Temp 97.6 F 06/08/25 03:12 Pulse 69 06/08/25 03:12 Resp 18 06/08/25 03:12 BP 118/56 L 06/08/25 03:12 Pulse Ox 93 06/08/25 03:12 O2 Del Method Nasal Cannula 06/08/25 03:12 O2 Flow Rate 3 06/08/25 03:12 BMI result Body Mass Index 38.3 <[facility] Last Filed: 06/08/25 06:53> Const: General: comfortable and no acute distress <[facility] Last Filed: 06/08/25 06:53> Orientation/consciousness: patient oriented x3 <[facility] Last Filed: 06/08/25 06:53> Resp: Effort & Inspection: normal respiratory effort and able to speak in complete sentences <[facility] Last Filed: 06/08/25 06:53> GI: Other: Drain intact in LLQ with serosanguinous drainage. <[facility] Last Filed: 06/08/25 06:53> Other: Drain intact in LLQ with serosanguinous drainage. some clots in the tubing. <Allen Dinh PA-C - Last Filed: 06/08/25 07:54> Palpation (GI): Soft to palpation, not firm, Tenderness to palpation present (GI) in the LLQ, no guarding and not rigid <Jazz [facility] Last Filed: 06/08/25 06:53> Skin: General skin exam: no rashes or lesions noted <Jazz [facility] Last Filed: 06/08/25 06:53> Neuro: General: patient oriented x3 <danny [facility] Last Filed: 06/08/25 06:53> Objective Data Active Medications Acetaminophen (Acetaminophen 325 Mg Tablet) 650 mg PO Q6H PRN PRN Reason: Pain, Mild 1-3,fever,headache Last Admin: 06/08/25 01:08 Dose: 650 mg Documented By: KYLE Albuterol Sulfate (Albuterol Sulfate 90 Mcg 8 Gm Inhaler) 2 puff INHALE Q6H PRN PRN Reason: Wheezing Atorvastatin Calcium (Atorvastatin Calcium 10 Mg Tablet) 10 mg PO BEDTIME [facility] Last Admin: 06/07/25 20:02 Dose: 10 mg Documented By: KYLE Baclofen (Baclofen 20 Mg Tablet) 20 mg PO TID [facility] Last Admin: 06/07/25 20:02 Dose: 20 mg Documented By: KYLE Calcium Carbonate (Calcium Carbonate 750 Mg Tab.Chew) 750 mg PO Q4H PRN PRN Reason: Heartburn Ceftriaxone Sodium (Ceftriaxone Sodium 2 Gm Vial) 2 gm IVPUSH Q24H [facility] Last Admin: 06/07/25 17:24 Dose: 2 gm Documented By: KYLE Clonidine HCl (Clonidine Hcl 0.1 Mg Tablet) 0.1 mg PO BID [facility]; Protocol Last Admin: 06/07/25 20:02 Dose: 0.1 mg Documented By: KYLE Enoxaparin Sodium (Enoxaparin Sodium 40 Mg/0.4 Ml Syringe) 40 mg SUBCUT Q24H [facility] Last Admin: 06/07/25 20:00 Dose: 40 mg Documented By: KYLE Fluticasone Propionate (Fluticasone Propionate Nasal 16 Gm [place]) 2 spray NOSTRIL-B DAILY PRN PRN Reason: Allergy Symptoms Hydromorphone HCl (Hydromorphone Hcl 0.5 Mg/0.5 Ml Syringe) 0.5 mg IVPUSH Q4H PRN; Protocol PRN Reason: Pain, Severe (Pain Scale 7-10) Last Admin: 06/07/25 20:01 Dose: 0.5 mg Documented By: KYLE Metronidazole (Flagyl) 500 mg in 100 mls @ 100 mls/hr IV Q8H [facility] Last Admin: 06/08/25 01:17 Dose: Not Given Documented By: KYLE Non-Admin Reason: Previously Administered Magnesium Hydroxide (Milk Of Magnesia 30 Ml Oral.Susp) 30 ml PO DAILY PRN PRN Reason: Constipation Melatonin (Melatonin 3 Mg Tablet) 6 mg PO BEDTIME PRN PRN Reason: Insomnia Multivitamins/Vitamin C (Multivitamin Tablet) 1 tab PO DAILY [facility] Last Admin: 06/07/25 08:45 Dose: 1 tab Documented By: DAWN Omeprazole (Omeprazole 20 Mg Capsule.Dr) 20 mg PO DAILY@0630 [facility] Last Admin: 06/07/25 06:03 Dose: 20 mg Documented By: GLENN Oxybutynin Chloride (Oxybutynin Chloride Er 5 Mg Tab.Er.24) 5 mg PO DAILY [facility] Last Admin: 06/07/25 08:45 Dose: 5 mg Documented By: DAWN Sodium Chloride (0.9 % Sodium Chloride Flush 3 Ml Syringe) 3 ml IVFLUSH QSHIFT [facility] Last Admin: 06/07/25 20:02 Dose: 3 ml Documented By: KYLE Verapamil HCl (Verapamil Hcl Sr 240 Mg Tablet.Er) 240 mg PO DAILY [facility]; Protocol Last Admin: 06/07/25 08:46 Dose: 240 mg Documented By: DAWN <Jazz Rendon - Last Filed: 06/08/25 06:53> Labs CBC & Chem 7: 06/05/25 05:32 06/05/25 05:32 <Jazz Rendon - Last Filed: 06/08/25 06:53> Microbiology Microbiology Results: Microbiology 06/07/25 10:15 Gram Stain - Final Abscess Intra-abdominal 06/04/25 16:59 Urine Culture - Final Urine Catheterized - Straight Catheter Escherichia coli <Jazz Rendon - Last Filed: 06/08/25 06:53> Procedures Date of Service Date of Service: 06/08/25 <Jazz Rendon - Last Filed: 06/08/25 06:53> 06/08/25 <Allen Dinh PA-C - Last Filed: 06/08/25 07:54> 06/08/25 <Dennis Alcaraz MD - Last Filed: 06/08/25 08:33> Progress Note: A&P Assessment and plan (1) Diverticulitis of intestine with abscess: Status: Acute <Jazz Rendon - Last Filed: 06/08/25 06:53> Assessment and Plan: Feels well Minimal abdominal pain Drain with scanty bloody output Tolerating clear liquids Abdomen is soft and benign Okay to advance diet Follow up on cultures Drain care Seen and examined independently <Dennis Alcaraz MD - Last Filed: 06/08/25 08:33> Assessment and Plan: 79 year old female with PMHx of mild cerebral palsy, obesity. Patient is s/p IR guided drain placement in LLQ yesterday for diverticulitis with abscess. Drain with serosanguinous output this AM. Abdomen continues to be benign. Tolerating CLD since drain placement without nausea or vomiting. Seems to be doing well clinically. Pain continues to improve. Consider advancing diet today. Encourage OOB as tolerated. <Jazz Urena Last Filed: 06/08/25 06:53> 79 year old female with PMHx of mild cerebral palsy, obesity. Patient is s/p IR guided drain placement in LLQ yesterday for diverticulitis with abscess. Drain with serosanguinous output this AM. Abdomen continues to be benign. Tolerating CLD since drain placement without nausea or vomiting. Seems to be doing well clinically. Pain continues to improve. Consider advancing diet today. Encourage OOB as tolerated. Patient seen and examined independently. I agree with the above assessment and plan. Patient appears to be doing well this morning. Pain improving, denies nausea, vomiting. IR drain placed yesterday, initially purulent drainage 20 cc. Today is serosanguenious some clotting in the tubing, requiring frequent flushing to remain patent. About 30 cc this morning. Will advance diet to regular diet. regular diet drain maintenance continue IV abx <Allen Dinh PA-C - Last Filed: 06/08/25 07:54> Time Spent With Patient Time: Total time managing care of this patient today ____ minutes. <Jazz Rendon - Last Filed: 06/08/25 06:53> Quality Stroke Does the patient have a stroke diagnosis?: No <Jazz Urena Last Filed: 06/08/25 06:53> VTE Prior VTE?: No <Jazz Rendon Filed: 06/08/25 06:53> VTE Risk Level:: Medical - moderate - high <Jazz Rendon Filed: 06/08/25 06:53> VTE Device Contraindication: Treatment Not Indicated <Jazz Rendon Filed: 06/08/25 06:53> VTE Drug Contraindication: N/A - Med Ordered <Jazz Rendon Filed: 06/08/25 06:53>
[2025-06-08 07:29] VITALS: BP 138/83; PULSE 73
[2025-06-08] MEDS: VerapamiL HCL SR 240 MG TABLET.ER PO (07:30)
[2025-06-08] MEDS: oxyBUTYnin chloride ER 5 MG TAB.ER.24 PO (07:30)
[2025-06-08] MEDS: 0.9 % Sodium Chloride Flush 3 ML SYRINGE IVFLUSH ×2 (07:31→19:58)
[2025-06-08 07:44] VITALS: BP 138/83; PULSE 73; RESP 18; TEMP 36.6; O2SAT 90
--- NOTE | 2025-06-08 10:09 | PC.NURSE ---
attempted to ween the pt off 2 L NC. pt's sat dropped to 86% on RA. made aware. pt placed back on 2L NC.
--- NOTE | 2025-06-08 14:21 | MHC.CM.PN ---
PER PULSE ROUNDING, NO PLAN FOR DC TODAY. PATIENT REMAINS HYPOXIC AND THERE IS AN ORDER FOR P.T. PATIENT IS A SELF-TRANSFER TO [facility] AT [facility].
--- NOTE | 2025-06-08 14:38 | MHC.CM.PN ---
CALL TO PATIENT'S SULEMAN, TRACEY DURAN AT [phone]. [facility] DOES NOT SUPPLY VNA SERVICES OR P.T. SO PATIENT CAN CHOOSE HER OWN SERVICES IF NEEDED UPON DC. CM FOLLOWING PLAN IS HOME WITH SERVICES VERSUS STR
[2025-06-08 16:00] VITALS: BP 124/66; PULSE 76; RESP 18; TEMP 36.6; O2SAT 97
--- NOTE | 2025-06-08 19:25 | HO.PM.IMPN ---
Subjective Subjective Date of Service: 06/11/25 Interval History: POD 1 currently post I&D of abscess; abdominal drain in place - clotting blood, with some serosanguinous drainage from it. Plan fo rremoval in 2 weeks with outpatient surgery patient has no new complaints, dyspnea tachypnea, coughing, productive sputum. Patient has been on 1 L of oxygen. trial of removal of oxygen Physical Exam Exam: Exam: General: A&O x3, oriented to time place person and situation, comfortable, no pain Cardiac: S1, S2 auscultated with no S3/4, no MRG. Well perfused. Respiratory: Normal breath sounds auscultated throughout all lung zones, without wheezing, rales. Normal rate. GI/ : No abdominal pain on palpation, no masses or distentions. 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 Vital Signs: Vital Signs: Last Vital Signs Temp 97.8 F 06/08/25 16:00 Pulse 76 06/08/25 16:00 Resp 18 06/08/25 16:00 BP 124/66 06/08/25 16:00 Pulse Ox 97 06/08/25 16:00 O2 Del Method Nasal Cannula 06/08/25 16:00 O2 Flow Rate 3 06/08/25 16:00 BMI result Body Mass Index 38.3 Objective Data Active Medications Acetaminophen (Acetaminophen 325 Mg Tablet) 650 mg PO Q6H PRN PRN Reason: Pain, Mild 1-3,fever,headache Last Admin: 06/08/25 14:09 Dose: 650 mg Documented By: MARIBELL Albuterol Sulfate (Albuterol Sulfate 90 Mcg 8 Gm Inhaler) 2 puff INHALE Q6H PRN PRN Reason: Wheezing Atorvastatin Calcium (Atorvastatin Calcium 10 Mg Tablet) 10 mg PO BEDTIME [facility] Last Admin: 06/07/25 20:02 Dose: 10 mg Documented By: KYLE Baclofen (Baclofen 20 Mg Tablet) 20 mg PO TID [facility] Last Admin: 06/08/25 14:00 Dose: 20 mg Documented By: MARIBELL Calcium Carbonate (Calcium Carbonate 750 Mg Tab.Chew) 750 mg PO Q4H PRN PRN Reason: Heartburn Ceftriaxone Sodium (Ceftriaxone Sodium 2 Gm Vial) 2 gm IVPUSH Q24H [facility] Last Admin: 06/08/25 17:47 Dose: 2 gm Documented By: MARIBELL Clonidine HCl (Clonidine Hcl 0.1 Mg Tablet) 0.1 mg PO BID [facility]; Protocol Last Admin: 06/08/25 07:30 Dose: 0.1 mg Documented By: MARIBELL Enoxaparin Sodium (Enoxaparin Sodium 40 Mg/0.4 Ml Syringe) 40 mg SUBCUT Q24H [facility] Last Admin: 06/07/25 20:00 Dose: 40 mg Documented By: KYLE Fluticasone Propionate (Fluticasone Propionate Nasal 16 Gm [place]) 2 spray NOSTRIL-B DAILY PRN PRN Reason: Allergy Symptoms Hydromorphone HCl (Hydromorphone Hcl 0.5 Mg/0.5 Ml Syringe) 0.5 mg IVPUSH Q4H PRN; Protocol PRN Reason: Pain, Severe (Pain Scale 7-10) Last Admin: 06/07/25 20:01 Dose: 0.5 mg Documented By: KYLE Metronidazole (Flagyl) 500 mg in 100 mls @ 100 mls/hr IV Q8H [facility] Last Infusion: 06/08/25 19:22 Dose: Infused Documented By: VIR[place] Magnesium Hydroxide (Milk Of Magnesia 30 Ml Oral.Susp) 30 ml PO DAILY PRN PRN Reason: Constipation Melatonin (Melatonin 3 Mg Tablet) 6 mg PO BEDTIME PRN PRN Reason: Insomnia Multivitamins/Vitamin C (Multivitamin Tablet) 1 tab PO DAILY [facility] Last Admin: 06/08/25 07:30 Dose: 1 tab Documented By: MARIBELL Omeprazole (Omeprazole 20 Mg Capsule.Dr) 20 mg PO DAILY@0630 [facility] Last Admin: 06/08/25 06:38 Dose: 20 mg Documented By: KYLE Oxybutynin Chloride (Oxybutynin Chloride Er 5 Mg Tab.Er.24) 5 mg PO DAILY [facility] Last Admin: 06/08/25 07:30 Dose: 5 mg Documented By: MARIBELL Sodium Chloride (0.9 % Sodium Chloride Flush 3 Ml Syringe) 3 ml IVFLUSH QSHIFT [facility] Last Admin: 06/08/25 15:36 Dose: Not Given Documented By: MARIBELL Non-Admin Reason: Patient Refused Verapamil HCl (Verapamil Hcl Sr 240 Mg Tablet.Er) 240 mg PO DAILY [facility]; Protocol Last Admin: 06/08/25 07:30 Dose: 240 mg Documented By: MARIBELL Labs 06/09/25 06:48 06/09/25 06:48 Microbiology Microbiology Results: Microbiology 06/07/25 10:15 Gram Stain - Final Abscess Intra-abdominal Routine Culture - Preliminary Culture in progress. Anaerobic Culture - Preliminary Culture in progress. Assessment and Plan (1) Morbid obesity: Status: Acute (2) Diverticulitis: Status: Acute (3) Colonic diverticular abscess: Status: Acute (4) Diverticulitis of intestine with abscess: Status: Acute (5) Sepsis: Status: Acute (6) Tendinopathy of right rotator cuff: Status: Acute Plan 79-year-old female, with a history HTN, CVA, FAHAD, hypothyroidism, COPD/chronic lung disease, presents with left lower quadrant pain, admitted with sepsis 2/2 acute sigmoid diverticulitis with abscess. Sepsis Acute sigmoid diverticulitis/abscess Presents with abdominal pain, pyrexia CT abdomen and pelvis revealed acute sigmoid diverticulitis with abscess measuring 4.7 x 4 x 4.2 cm No evidence of perforation or intraperitoneal air Started on ceftriaxone and Flagyl - tolerating well without complaint S/p IR drainage of abscess No complication Abdominal drain in place PLAN - continue IV ceftriaxone - continue IV Flagyl - analgesia - liquid diet - monitor VS CHRONIC MEDICAL CONDITION - HTN: Continue clonidine - COPD: No new issues, stable QU[employer] - VTE: Enoxaparin - CODE STATUS: Full code - DIET: Full liquid diet Total time managing care of this patient today: 35 minutes. Quality Stroke Does the patient have a stroke diagnosis?: No VTE Prior VTE?: No VTE Risk Level:: Medical - moderate - high VTE Device Contraindication: Treatment Not Indicated VTE Drug Contraindication: N/A - Med Ordered
[2025-06-08 19:57] VITALS: BP 140/75
[2025-06-08 20:00] VITALS: BP 140/75; PULSE 72; RESP 20; TEMP 37.1; O2SAT 92
[2025-06-09] MEDS: metroNIDAZOLE/NS 500 MG/100 ML PIGGYBACK 100 MG IV ×2 (00:55→09:32)
[2025-06-09 03:25] VITALS: BP 125/72; PULSE 65; RESP 18; TEMP 36.1; O2SAT 92
--- NOTE | 2025-06-09 06:35 | P.PNGS_ITS ---
Subjective Subjective Date of Service: 06/09/25 <[facility] - Last Filed: 06/09/25 09:01> 06/09/25 <Allen Dinh PA-C - Last Filed: 06/09/25 08:51> 06/09/25 <Dennis Alcaraz MD - Last Filed: 06/09/25 07:53> Interval history: No acute events overnight. Slept well. Pain has been 3/10 since yesterday which is an improvement, confined to LLQ. Tolerating solid diet without nausea or vomiting. No BM but passing flatus. Has not been OOB. Using incentive spirometry. <[facility] Last Filed: 06/09/25 09:01> Physical Exam 2 Vital Signs: Vital Signs: Last Vital Signs Temp 96.9 F 06/09/25 03:25 Pulse 65 06/09/25 03:25 Resp 18 06/09/25 03:25 BP 125/72 06/09/25 03:25 Pulse Ox 92 06/09/25 03:25 O2 Del Method Nasal Cannula 06/09/25 03:25 O2 Flow Rate 2 06/09/25 03:25 BMI result Body Mass Index 38.3 <[facility] Last Filed: 06/09/25 09:01> Const: General: comfortable and no acute distress <[facility] Last Filed: 06/09/25 09:01> Orientation/consciousness: patient oriented x3 <[facility] Last Filed: 06/09/25 09:01> Resp: Effort & Inspection: normal respiratory effort and able to speak in complete sentences <[facility] Last Filed: 06/09/25 09:01> GI: Other: Drain with serosanguinous drainage, 30 cc overnight, dressing dry and intact in LLQ. <[facility] Last Filed: 06/09/25 09:01> Palpation (GI): Soft to palpation, nontender, no guarding and not rigid <[facility] Last Filed: 06/09/25 09:01> Skin: General skin exam: no rashes or lesions noted <[facility] Last Filed: 06/09/25 09:01> Neuro: General: patient oriented x3 <[facility] [place] [place] Filed: 06/09/25 09:01> Objective Data Active Medications Acetaminophen (Acetaminophen 325 Mg Tablet) 650 mg PO Q6H PRN PRN Reason: Pain, Mild 1-3,fever,headache Last Admin: 06/08/25 23:24 Dose: 650 mg Documented By: VIRGINIA Albuterol Sulfate (Albuterol Sulfate 90 Mcg 8 Gm Inhaler) 2 puff INHALE Q6H PRN PRN Reason: Wheezing Atorvastatin Calcium (Atorvastatin Calcium 10 Mg Tablet) 10 mg PO BEDTIME [facility] Last Admin: 06/08/25 19:57 Dose: 10 mg Documented By: VIRGINIA Baclofen (Baclofen 20 Mg Tablet) 20 mg PO TID [facility] Last Admin: 06/08/25 19:57 Dose: 20 mg Documented By: VIRGINIA Calcium Carbonate (Calcium Carbonate 750 Mg Tab.Chew) 750 mg PO Q4H PRN PRN Reason: Heartburn Ceftriaxone Sodium (Ceftriaxone Sodium 2 Gm Vial) 2 gm IVPUSH Q24H [facility] Last Admin: 06/08/25 17:47 Dose: 2 gm Documented By: MARIBELL Clonidine HCl (Clonidine Hcl 0.1 Mg Tablet) 0.1 mg PO BID [facility]; Protocol Last Admin: 06/08/25 19:57 Dose: 0.1 mg Documented By: VIR[place]IA Enoxaparin Sodium (Enoxaparin Sodium 40 Mg/0.4 Ml Syringe) 40 mg SUBCUT Q24H [facility] Last Admin: 06/08/25 19:57 Dose: 40 mg Documented By: VIRGINIA Fluticasone Propionate (Fluticasone Propionate Nasal 16 Gm [place]) 2 spray NOSTRIL-B DAILY PRN PRN Reason: Allergy Symptoms Hydromorphone HCl (Hydromorphone Hcl 0.5 Mg/0.5 Ml Syringe) 0.5 mg IVPUSH Q4H PRN; Protocol PRN Reason: Pain, Severe (Pain Scale 7-10) Last Admin: 06/09/25 00:55 Dose: 0.5 mg Documented By: VIRGINIA Metronidazole (Flagyl) 500 mg in 100 mls @ 100 mls/hr IV Q8H [facility] Last Infusion: 06/09/25 01:56 Dose: Infused Documented By: VIR[place] Magnesium Hydroxide (Milk Of Magnesia 30 Ml Oral.Susp) 30 ml PO DAILY PRN PRN Reason: Constipation Melatonin (Melatonin 3 Mg Tablet) 6 mg PO BEDTIME PRN PRN Reason: Insomnia Multivitamins/Vitamin C (Multivitamin Tablet) 1 tab PO DAILY [facility] Last Admin: 06/08/25 07:30 Dose: 1 tab Documented By: MARIBELL Omeprazole (Omeprazole 20 Mg Capsule.Dr) 20 mg PO DAILY@0630 [facility] Last Admin: 06/09/25 05:41 Dose: 20 mg Documented By: VIRGINIA Oxybutynin Chloride (Oxybutynin Chloride Er 5 Mg Tab.Er.24) 5 mg PO DAILY [facility] Last Admin: 06/08/25 07:30 Dose: 5 mg Documented By: MARIBELL Sodium Chloride (0.9 % Sodium Chloride Flush 3 Ml Syringe) 3 ml IVFLUSH QSHIFT [facility] Last Admin: 06/08/25 19:58 Dose: 3 ml Documented By: VIRGINIA Verapamil HCl (Verapamil Hcl Sr 240 Mg Tablet.Er) 240 mg PO DAILY [facility]; Protocol Last Admin: 06/08/25 07:30 Dose: 240 mg Documented By: MARIBELL <Jazz Rendon - Last Filed: 06/09/25 09:01> Labs CBC & Chem 7: 06/09/25 06:48 06/09/25 06:48 <Jazz Rendon - Last Filed: 06/09/25 09:01> Microbiology Microbiology Results: Microbiology 06/07/25 10:15 Gram Stain - Final Abscess Intra-abdominal Routine Culture - Preliminary Culture in progress. Anaerobic Culture - Preliminary Culture in progress. <Jazz Rendon - Last Filed: 06/09/25 09:01> Procedures Date of Service Date of Service: 06/09/25 <Jazz Rendon - Last Filed: 06/09/25 09:01> 06/09/25 <Allen Dinh PA-C - Last Filed: 06/09/25 08:51> 06/09/25 <Dennis Alcaraz MD - Last Filed: 06/09/25 07:53> Progress Note: A&P Assessment and plan (1) Diverticulitis of intestine with abscess: Status: Acute <Jazz Rendon - Last Filed: 06/09/25 09:01> Assessment and Plan: Feels well this morning Tolerating diet Minimal pain AMI drain very scanty serosanguineous output Abdomen is soft and benign No fever Continue current care Discharge planning with nurse outreach case manager Plan to remove AMI drain prior to discharge Seen and examined independently Discussed the above with her sister <Dennis Alcaraz MD - Last Filed: 06/09/25 07:53> Assessment and Plan: 79 year old female with PMHx of mild cerebral palsy, obesity. Patient is s/p IR guided drain placement in LLQ on 06/07 for diverticulitis with abscess. AMI drain with serosanguinous output, 30 cc overnight, with some clotting requiring saline flush. Abdomen continues to be benign. Tolerating solid diet without nausea or vomiting. Clinically is improving. Pain is diminished to 3/10. Encourage OOB as tolerated. Continue IV ceftriaxone and metronidazole. <Jazz Rendon - Last Filed: 06/09/25 09:01> 79 year old female with PMHx of mild cerebral palsy, obesity. Patient is s/p IR guided drain placement in LLQ on 06/07 for diverticulitis with abscess. AMI drain with serosanguinous output, 30 cc overnight, with some clotting requiring saline flush. Abdomen continues to be benign. Tolerating solid diet without nausea or vomiting. Clinically is improving. Pain is diminished to 3/10. Encourage OOB as tolerated. Continue IV ceftriaxone and metronidazole. Patient seen and examined independently, I agree with the above assesment and plan. Drain output slowly decreasing output 30 cc in last 24, remains serosanguenious. She is tolerating diet. Clinically improving, she can continue diet as tolerated. Care as per hospitalist team, we will plan to remove the drain prior to DC. <Allen Dinh PA-C - Last Filed: 06/09/25 08:51> Time Spent With Patient Time: Total time managing care of this patient today ____ minutes. <Jazz Rendon - Last Filed: 06/09/25 09:01> Quality Stroke Does the patient have a stroke diagnosis?: No <Jazz Urena Last Filed: 06/09/25 09:01> VTE Prior VTE?: No <Jazz Urena Last Filed: 06/09/25 09:01> VTE Risk Level:: Medical - moderate - high <Jazz Rendon - Last Filed: 06/09/25 09:01> VTE Device Contraindication: Treatment Not Indicated <Jazz Rendon - Last Filed: 06/09/25 09:01> VTE Drug Contraindication: N/A - Med Ordered <Jazz Rendon - Last Filed: 06/09/25 09:01>
[2025-06-09 07:00] VITALS: BP 168/88; PULSE 78; RESP 19; TEMP 36.5; O2SAT 92
[2025-06-09 07:25] LABS: MANUAL DIFF FLAG NO
[2025-06-09 07:27] LABS: Hematocrit 29.3 % (37.0-47.0); Hemoglobin 8.8 g/dl (12.0-16.0); Imm Gran Abs Auto 0.04 X10*3/uL (0.00-0.03); Imm Gran Pct Auto 0.6 % (0.0-0.4); Lymphocytes Absolute Auto 1.3 X10*3/uL (1.2-4.9); Mean Corpuscular HGB Conc 30.0 g/dl (31.0-35.0); Mean Corpuscular Hemoglobin 27.1 pg (27.0-33.0); Mean Corpuscular Volume 90.2 fL (80.0-98.0); NRBC Abs Auto 0.000 X10*3/uL (0.0-0.012); NRBC Pct Auto 0.0 /100WBC (0.0-0.2); Platelet Count 298 X10*3/uL (160-400); Red Blood Count 3.25 X10*6/uL (4.20-5.50); White Blood Count 6.9 X10*3/uL (4.8-10.8)
[2025-06-09 07:42] LABS: Anion Gap 14 (12-20); Blood Urea Nitrogen 13 mg/dL (9-16); Calcium 8.8 mg/dL (8.4-10.2); Carbon Dioxide 28 mmol/L (22-29); Chloride 108 mmol/L (96-108); Creatinine Clr Calc Pharmacy 63.0; Estimated Glomerular Filt Rate > 60; Potassium 3.8 mmol/L (3.3-5.1); Sodium 146 mmol/L (135-145)
[2025-06-09] MEDS: oxyBUTYnin chloride ER 5 MG TAB.ER.24 PO (09:31)
[2025-06-09 09:32] VITALS: BP 168/88; PULSE 78
[2025-06-09] MEDS: 0.9 % Sodium Chloride Flush 3 ML SYRINGE IVFLUSH ×3 (09:32→23:35)
[2025-06-09] MEDS: VerapamiL HCL SR 240 MG TABLET.ER PO (09:32)
--- NOTE | 2025-06-09 09:32 | MHC.CM.PN ---
PT EVALUATED PATIENT AND RECOMMENDS STR. THIS CM MET WITH PATIENT AND HER SISTER CHRISTOS VIA TELEPHONE, TO DISCUSS DISCHARGE PLAN/STR OPTIONS. STR LIST PRINTED FROM [facility] AND GIVEN TO PATIENT TO REVIEW. PATIENT IS IN AGREEMENT WITH GOING TO STR. REFERRALS PLACED IN [place], AWAITING BED OFFERS, WILL THEN REVIEW WITH PATIENT.
[2025-06-09] MEDS: Milk of Magnesia 30 ML ORAL.SUSP PO (12:01)
--- NOTE | 2025-06-09 14:03 | MHC.CM.PN ---
THIS CM MET WITH PATIENT AND HER SISTER CHRISTOS PRESENT AT BEDSIDE TO REVIEW STR BED OPTIONS. CURRENTLY ONLY ONE FACILITY, [facility] [place] IS OFFERING THE PATIENT A BED. THE PATIENT AND HER SISTER DON'T WANT TO GO TO [facility] [place] DUE TO PATIENTS SISTER HAVING VISITED SOMEONE THERE 3 YEARS AGO AND DIDN'T LIKE IT THERE. THE PATIENT AND HER SISTER WANTED TO GO TO [facility], WHO HAVE DECLINED THE PATIENT. PATIENTS SISTER HAS REQUESTED THIS CM EXPAND THE REFERRAL, BUT SAID IT CAN'T BE TOO FAR. PATIENT SISTER CHRISTOS THEN ASKED IF PATIENT CAN GO BACK TO [facility] WITH [facility]/PT SERVICES. THE PATIENT AND HER SISTER ARE UNSURE OF WHAT TO DO, AND UNSURE IF THEY WANT STR OR TO GO HOME WITH VNA. [facility] OFF[facility]. [facility] REFERRAL PLACED, AWAITING AGENCY ACCEPTANCE. HOSPITALIST UPDATED.
--- NOTE | 2025-06-09 15:15 | MHC.CM.PN ---
THIS CM MET WITH PATIENT AND HER SISTER TO REVIEW STR BED OFFERS. PATIENT HAS ACCEPTED A BED OFFER FROM [facility], THIS CM HAS REQUESTED THEY PURSUE INSURANCE AUTH.
[2025-06-09 15:30] VITALS: BP 130/70; PULSE 68; RESP 18; TEMP 36.5; O2SAT 92
[2025-06-09 19:24] VITALS: BP 122/62; PULSE 57; RESP 18; TEMP 37.1; O2SAT 94
[2025-06-09 22:19] VITALS: BP 128/68; PULSE 66; RESP 18; TEMP 36.3; O2SAT 95
[2025-06-10 03:34] VITALS: BP 141/80; PULSE 66; RESP 18; TEMP 36.4; O2SAT 93
[2025-06-10 07:42] VITALS: BP 135/64; PULSE 75; RESP 20; TEMP 36.1; O2SAT 90
[2025-06-10] MEDS: 0.9 % Sodium Chloride Flush 3 ML SYRINGE IVFLUSH ×3 (08:00→20:35)
[2025-06-10] MEDS: VerapamiL HCL SR 240 MG TABLET.ER PO (08:01)
[2025-06-10] MEDS: oxyBUTYnin chloride ER 5 MG TAB.ER.24 PO (08:01)
--- NOTE | 2025-06-10 11:53 | MHC.CM.PN ---
Addendum entered by Elvira Ross 06/10/25 14:21: Patient was given prune juice and hot tea. She accepted the drinks hoping to promote a BM. Original Note: Per MD rounds pending a BM patient is ready to discharge. She has accepted a bed offer from [facility]. They have received authorization to admit. They have been notified DC is contingent on BM. JENNIFER Hart via BLS.
[2025-06-10] MEDS: Milk of Magnesia 30 ML ORAL.SUSP PO (14:11)
[2025-06-10 15:58] VITALS: BP 148/67; PULSE 58; RESP 18; TEMP 36.1; O2SAT 90
[2025-06-10 20:00] VITALS: BP 124/65; PULSE 66; RESP 18; TEMP 36; O2SAT 92
[2025-06-10 21:28] VITALS: RESP 18
[2025-06-11 03:11] VITALS: BP 127/87; PULSE 61; RESP 18; TEMP 36.4; O2SAT 92
[2025-06-11 07:58] VITALS: BP 133/75; PULSE 67; RESP 18; TEMP 36.1; O2SAT 93
[2025-06-11] MEDS: oxyBUTYnin chloride ER 5 MG TAB.ER.24 PO (09:17)
[2025-06-11] MEDS: 0.9 % Sodium Chloride Flush 3 ML SYRINGE IVFLUSH (09:17)
[2025-06-11] MEDS: VerapamiL HCL SR 240 MG TABLET.ER PO (09:17)
--- NOTE | 2025-06-11 12:12 | P.PNIM_ITS ---
Subjective Subjective Date of Service: 06/09/25 Interval History: No new complaints. Abdominal drain 25 cc serosanguineous fluid. Remains on oxygen Remains constipated Review of Systems Review of Systems: Yes all other systems are reviewed and are negative Physical Exam 2 Exam: Exam: General: A&O x3, oriented to time place person and situation, comfortable, no pain Cardiac: S1, S2 auscultated with no S3/4, no MRG. Well perfused. Respiratory: Normal breath sounds auscultated throughout all lung zones, without wheezing, rales. Normal rate. 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 Vital Signs: Vital Signs: Last Vital Signs Temp 96.9 F 06/11/25 07:58 Pulse 67 06/11/25 07:58 Resp 18 06/11/25 07:58 BP 133/75 06/11/25 07:58 Pulse Ox 93 06/11/25 07:58 O2 Del Method Nasal Cannula 06/11/25 07:58 O2 Flow Rate 1 06/11/25 07:58 BMI result Body Mass Index 38.3 Objective Data Active Medications Acetaminophen (Acetaminophen 325 Mg Tablet) 650 mg PO Q6H PRN PRN Reason: Pain, Mild 1-3,fever,headache Last Admin: 06/10/25 20:28 Dose: 650 mg Documented By: RUFINO Albuterol Sulfate (Albuterol Sulfate 90 Mcg 8 Gm Inhaler) 2 puff INHALE Q6H PRN PRN Reason: Wheezing Atorvastatin Calcium (Atorvastatin Calcium 10 Mg Tablet) 10 mg PO BEDTIME [facility] Last Admin: 06/10/25 20:29 Dose: 10 mg Documented By: RUFINO Baclofen (Baclofen 20 Mg Tablet) 20 mg PO TID [facility] Last Admin: 06/11/25 09:17 Dose: 20 mg Documented By: GHULAM Calcium Carbonate (Calcium Carbonate 750 Mg Tab.Chew) 750 mg PO Q4H PRN PRN Reason: Heartburn Cephalexin HCl (Cephalexin 500 Mg Capsule) 500 mg PO Q12H [facility] Last Admin: 06/11/25 11:58 Dose: 500 mg Documented By: GHULAM Clonidine HCl (Clonidine Hcl 0.1 Mg Tablet) 0.1 mg PO BID [facility]; Protocol Last Admin: 06/11/25 09:17 Dose: 0.1 mg Documented By: GHULAM Enoxaparin Sodium (Enoxaparin Sodium 40 Mg/0.4 Ml Syringe) 40 mg SUBCUT Q24H [facility] Last Admin: 06/10/25 20:30 Dose: 40 mg Documented By: RUFINO Fluticasone Propionate (Fluticasone Propionate Nasal 16 Gm [place]) 2 spray NOSTRIL-B DAILY PRN PRN Reason: Allergy Symptoms Ibuprofen (Ibuprofen 200 Mg Tablet) 200 mg PO Q6H PRN PRN Reason: Pain, Mild (Pain Scale 1-3) Last Admin: 06/10/25 14:11 Dose: 200 mg Documented By: VIRGINIE Magnesium Hydroxide (Milk Of Magnesia 30 Ml Oral.Susp) 30 ml PO DAILY PRN PRN Reason: Constipation Last Admin: 06/10/25 14:11 Dose: 30 ml Documented By: VIRGINIE Melatonin (Melatonin 3 Mg Tablet) 6 mg PO BEDTIME PRN PRN Reason: Insomnia Metronidazole (Metronidazole 500 Mg Tablet) 500 mg PO Q12H [facility] Last Admin: 06/11/25 11:58 Dose: 500 mg Documented By: GHULAM Multivitamins/Vitamin C (Multivitamin Tablet) 1 tab PO DAILY [facility] Last Admin: 06/11/25 09:17 Dose: 1 tab Documented By: GHULAM Omeprazole (Omeprazole 20 Mg Capsule.Dr) 20 mg PO DAILY@0630 [facility] Last Admin: 06/11/25 05:45 Dose: 20 mg Documented By: RUFINO Oxybutynin Chloride (Oxybutynin Chloride Er 5 Mg Tab.Er.24) 5 mg PO DAILY [facility] Last Admin: 06/11/25 09:17 Dose: 5 mg Documented By: GHULAM Sodium Chloride (0.9 % Sodium Chloride Flush 3 Ml Syringe) 3 ml IVFLUSH QSHIFT [facility] Last Admin: 06/11/25 09:17 Dose: 3 ml Documented By: GHULAM Verapamil HCl (Verapamil Hcl Sr 240 Mg Tablet.Er) 240 mg PO DAILY [facility]; Protocol Last Admin: 06/11/25 09:17 Dose: 240 mg Documented By: GHULAM Labs 06/09/25 06:48 06/09/25 06:48 Microbiology Microbiology Results: Microbiology 06/07/25 10:15 Gram Stain - Final Abscess Intra-abdominal Routine Culture - Final Gram negative kajal Viridans streptococcus group Anaerobic Culture - Preliminary Bacteroides fragilis group Assessment and Plan (1) Morbid obesity: Status: Acute (2) Diverticulitis: Status: Acute (3) Colonic diverticular abscess: Status: Acute (4) Tendinopathy of right rotator cuff: Status: Acute (5) Functional constipation: Status: Acute Plan 79-year-old female, with a history HTN, CVA, FAHAD, hypothyroidism, COPD/chronic lung disease, presents with left lower quadrant pain, admitted with sepsis 2/2 acute sigmoid diverticulitis with abscess. Sepsis Acute sigmoid diverticulitis/abscess Presents with abdominal pain, pyrexia CT abdomen and pelvis revealed acute sigmoid diverticulitis with abscess measuring 4.7 x 4 x 4.2 cm No evidence of perforation or intraperitoneal air Started on ceftriaxone and Flagyl - tolerating well without complaint S/p IR drainage of abscess 06/08/2025 No complication Abdominal drain in place - to be removed prior to DC PLAN - continue IV ceftriaxone - continue IV Flagyl - analgesia - liquid diet - monitor VS Constipation Patient has constipated Administer medications, encourage hydration CHRONIC MEDICAL CONDITION - HTN: Continue clonidine - COPD: No new issues, stable - on O2 QUALITY [employer]RICS - VTE: Enoxaparin - CODE STATUS: Full code - DIET: Full liquid diet Total time managing care of this patient today: 35 minutes. Quality Stroke Does the patient have a stroke diagnosis?: No VTE Prior VTE?: No VTE Risk Level:: Medical - moderate - high VTE Device Contraindication: Treatment Not Indicated VTE Drug Contraindication: N/A - Med Ordered
--- NOTE | 2025-06-11 12:15 | HO.PM.IMPN ---
Subjective Subjective Date of Service: 06/10/25 Interval History: Removed abdominal drain without complications. Patient yet to have BM. Laxatives adjusted accordingly. PAtient has no new complaints Eager to be discharged to [facility]. Review of Systems Review of Systems: Yes all other systems are reviewed and are negative Physical Exam Exam: Exam: General: A&O x3, oriented to time place person and situation, comfortable, no pain Cardiac: S1, S2 auscultated with no S3/4, no MRG. Well perfused. Respiratory: Normal breath sounds auscultated throughout all lung zones, without wheezing, rales. Normal rate. 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 Vital Signs: Vital Signs: Last Vital Signs Temp 96.9 F 06/11/25 07:58 Pulse 67 06/11/25 07:58 Resp 18 06/11/25 07:58 BP 133/75 06/11/25 07:58 Pulse Ox 93 06/11/25 07:58 O2 Del Method Nasal Cannula 06/11/25 07:58 O2 Flow Rate 1 06/11/25 07:58 BMI result Body Mass Index 38.3 Objective Data Active Medications Acetaminophen (Acetaminophen 325 Mg Tablet) 650 mg PO Q6H PRN PRN Reason: Pain, Mild 1-3,fever,headache Last Admin: 06/10/25 20:28 Dose: 650 mg Documented By: RUFINO Albuterol Sulfate (Albuterol Sulfate 90 Mcg 8 Gm Inhaler) 2 puff INHALE Q6H PRN PRN Reason: Wheezing Atorvastatin Calcium (Atorvastatin Calcium 10 Mg Tablet) 10 mg PO BEDTIME [facility] Last Admin: 06/10/25 20:29 Dose: 10 mg Documented By: RUFINO Baclofen (Baclofen 20 Mg Tablet) 20 mg PO TID [facility] Last Admin: 06/11/25 09:17 Dose: 20 mg Documented By: GHULAM Calcium Carbonate (Calcium Carbonate 750 Mg Tab.Chew) 750 mg PO Q4H PRN PRN Reason: Heartburn Cephalexin HCl (Cephalexin 500 Mg Capsule) 500 mg PO Q12H [facility] Last Admin: 06/11/25 11:58 Dose: 500 mg Documented By: GHULAM Clonidine HCl (Clonidine Hcl 0.1 Mg Tablet) 0.1 mg PO BID [facility]; Protocol Last Admin: 06/11/25 09:17 Dose: 0.1 mg Documented By: GHULAM Enoxaparin Sodium (Enoxaparin Sodium 40 Mg/0.4 Ml Syringe) 40 mg SUBCUT Q24H [facility] Last Admin: 06/10/25 20:30 Dose: 40 mg Documented By: RUFINO Fluticasone Propionate (Fluticasone Propionate Nasal 16 Gm [place]) 2 spray NOSTRIL-B DAILY PRN PRN Reason: Allergy Symptoms Ibuprofen (Ibuprofen 200 Mg Tablet) 200 mg PO Q6H PRN PRN Reason: Pain, Mild (Pain Scale 1-3) Last Admin: 06/10/25 14:11 Dose: 200 mg Documented By: VIRGINIE Magnesium Hydroxide (Milk Of Magnesia 30 Ml Oral.Susp) 30 ml PO DAILY PRN PRN Reason: Constipation Last Admin: 06/10/25 14:11 Dose: 30 ml Documented By: VIRGINIE Melatonin (Melatonin 3 Mg Tablet) 6 mg PO BEDTIME PRN PRN Reason: Insomnia Metronidazole (Metronidazole 500 Mg Tablet) 500 mg PO Q12H [facility] Last Admin: 06/11/25 11:58 Dose: 500 mg Documented By: GHULAM Multivitamins/Vitamin C (Multivitamin Tablet) 1 tab PO DAILY [facility] Last Admin: 06/11/25 09:17 Dose: 1 tab Documented By: GHULAM Omeprazole (Omeprazole 20 Mg Capsule.Dr) 20 mg PO DAILY@0630 [facility] Last Admin: 06/11/25 05:45 Dose: 20 mg Documented By: RUFINO Oxybutynin Chloride (Oxybutynin Chloride Er 5 Mg Tab.Er.24) 5 mg PO DAILY [facility] Last Admin: 06/11/25 09:17 Dose: 5 mg Documented By: GHULAM Sodium Chloride (0.9 % Sodium Chloride Flush 3 Ml Syringe) 3 ml IVFLUSH QSHIFT [facility] Last Admin: 06/11/25 09:17 Dose: 3 ml Documented By: GHULAM Verapamil HCl (Verapamil Hcl Sr 240 Mg Tablet.Er) 240 mg PO DAILY [facility]; Protocol Last Admin: 06/11/25 09:17 Dose: 240 mg Documented By: GHULAM Labs 06/09/25 06:48 06/09/25 06:48 Microbiology Microbiology Results: Microbiology 06/07/25 10:15 Gram Stain - Final Abscess Intra-abdominal Routine Culture - Final Gram negative kajal Viridans streptococcus group Anaerobic Culture - Preliminary Bacteroides fragilis group Assessment and Plan (1) Morbid obesity: Status: Acute (2) Diverticulitis: Status: Acute (3) Colonic diverticular abscess: Status: Acute (4) Diverticulitis of intestine with abscess: Status: Acute (5) Functional constipation: Status: Acute (6) Sepsis: Status: Acute (7) Tendinopathy of right rotator cuff: Status: Acute Plan 79-year-old female, with a history HTN, CVA, FAHAD, hypothyroidism, COPD/chronic lung disease, presents with left lower quadrant pain, admitted with sepsis 2/2 acute sigmoid diverticulitis with abscess. Sepsis Acute sigmoid diverticulitis/abscess Presents with abdominal pain, pyrexia CT abdomen and pelvis revealed acute sigmoid diverticulitis with abscess measuring 4.7 x 4 x 4.2 cm No evidence of perforation or intraperitoneal air Started on ceftriaxone and Flagyl - tolerating well without complaint S/p IR drainage of abscess 06/08/2025 No complication Abdominal drain removed without complications. PLAN - continue IV ceftriaxone - transition to Cephalexin PO - continue IV Flagyl - transition to PO metronidazole 500mg BID PO - analgesia - Regular diet - monitor VS Constipation Patient has constipated Administer medications, encourage hydration CHRONIC MEDICAL CONDITION - HTN: Continue clonidine - COPD: No new issues, stable - on O2 QUALITY [place] - VTE: Enoxaparin - CODE STATUS: Full code - DIET: regular diet Quality Stroke Does the patient have a stroke diagnosis?: No VTE Prior VTE?: No VTE Risk Level:: Medical - moderate - high VTE Device Contraindication: Treatment Not Indicated VTE Drug Contraindication: N/A - Med Ordered
--- NOTE | 2025-06-11 12:20 | MHC.CM.PN ---
maik pts hcp notofed of pts dc today to [facility]
--- NOTE | 2025-06-11 12:40 | P.DS_ITS ---
DS: Providers Provider Date of Service: 06/11/25 Date of admission: 06/04/25 18:46 Date of discharge: 06/11/25 Primary care physician: Charlene Shaw MD Consults: 06/04/25 21:11 Consult to General Surgery Routine Consulting Provider[place] [facility] Reason for consultation: Diverticulitis with abscess DS: Diagnosis Discharge Diagnosis (1) Morbid obesity: Status: Acute (2) Diverticulitis: Status: Acute (3) Colonic diverticular abscess: Status: Acute (4) Diverticulitis of intestine with abscess: Status: Acute (5) Functional constipation: Status: Acute (6) Sepsis: Status: Acute (7) Tendinopathy of right rotator cuff: Status: Acute DS: Summary Hospital Course Hospital Course: Reason for Admission 79-year-old female with a history of morbid obesity, hypertension, CVA, FAHAD, hypothyroidism, COPD/chronic lung disease, and other comorbidities, admitted for evaluation and management of left lower quadrant abdominal pain. Imaging revealed acute sigmoid diverticulitis with a colonic abscess. Hospital Course * Initial Presentation: Presented with 2 weeks of sharp, non-radiating left lower quadrant abdominal pain. No associated nausea, vomiting, or diarrhea. No fevers reported. On exam: LLQ tenderness, no guarding or rigidity. CT abdomen/pelvis: Acute sigmoid diverticulitis with 4.7 x 4.0 x 4.2 cm abscess, no perforation or free air. * Management: * Admitted to medicine service for IV antibiotics (ceftriaxone and metronidazole). * Interventional radiology-guided drainage of abscess performed on ; 20 cc purulent fluid aspirated, drain left in place. * Monitored for sepsis; responded well to therapy. * Transitioned to oral antibiotics (cephalexin and metronidazole) as clinically improved. * Abdominal drain removed without complication prior to discharge. * Constipation managed with laxatives and hydration; no bowel movement prior to discharge, but patient is stable and comfortable. * Chronic conditions (HTN, COPD, hypothyroidism, etc.) managed with home medications. * VTE prophylaxis with enoxaparin during admission. * Clinical Status at Discharge: * Alert and oriented x3, comfortable, no pain. * Vitals stable: afebrile, normotensive, O2 sat 93% on 1L nasal cannula. * Abdominal exam benign, no tenderness or distention. * No new complaints. * Eager for discharge to [facility]. Pertinent Laboratory and Imaging * CT Abdomen/Pelvis:?Sigmoid diverticulitis with 4.7 x 4.0 x 4.2 cm abscess, no perforation. * Microbiology:?Abscess fluid grew gram-negative rods, Viridans streptococcus, and Bacteroides fragilis group. * Labs: * WBC elevated on admission, improved with therapy. * Renal function stable. * No significant electrolyte abnormalities. Procedures * 06/08/2025:?IR-guided percutaneous drainage of colonic abscess (20 cc purulent fluid aspirated, drain placed, later removed without complication). Status at Discharge Cognitive/behavioral status at discharge: A&O to person place time and situation Functional status at discharge: wheelchair bound Overall status at discharge: patient is back to baseline Time Attestation Total time managing care of this patient today: 35 mintues. Discharge Coordination Time (in mins): 30 Quality: Safe Use of Opioids Does Pt have an Active Cancer Diagnosis on the Problem List?: No Quality: Stroke Does the patient have a stroke diagnosis?: No Physical Exam Exam: Exam: * General:?Alert and oriented to person, place, time, and situation. Appears comfortable, in no acute distress. * HEENT:?Normocephalic, atraumatic. Mucous membranes moist. * Cardiac:?Regular rate and rhythm. S1 and S2 present, no murmurs, rubs, or gallops. Well perfused. * Respiratory:?Normal breath sounds throughout all lung martinez. No wheezes, rales, or rhonchi. No increased work of breathing. * Gastrointestinal:?Abdomen soft, non-tender, non-distended. No palpable masses. No pain on palpation. No drain in place. * Genitourinary:?No suprapubic or costovertebral angle tenderness. * Musculoskeletal:?Normal ambulation. No pain at bony prominences or musculature. Chronic contractures of left upper extremity noted. * Neurological:?Alert and oriented x3. Cranial nerves II-XII grossly intact. No focal deficits. * Skin:?No rashes, ulcers, or signs of infection at former drain site. * Extremities:?Warm, well perfused. No edema. Vital Signs: Vital Signs: Last Vital Signs Temp 96.9 F 06/11/25 07:58 Pulse 67 06/11/25 07:58 Resp 18 06/11/25 07:58 BP 133/75 06/11/25 07:58 Pulse Ox 93 06/11/25 07:58 O2 Del Method Nasal Cannula 06/11/25 07:58 O2 Flow Rate 1 06/11/25 07:58 BMI result Body Mass Index 38.3 DS: Data Data Completed and Pending Labs on day of discharge: Preliminary micro results at discharge 06/07/25 10:15 Anaerobic Culture - Preliminary Abscess Intra-abdominal Bacteroides fragilis group Discharge Plan Discharge Anticipated Discharge Date/Time: 06/11/25 12:44 Patient Disposition: Xfer Inpatient Rehab Fac Discharge Diagnosis: Acute sigmoid diverticulitis with colonic abscess, status post percutaneous drainage Referrals: [facility] [Other] - 1 Week Charlene Shaw MD [Primary Care Provider, Internal Medicine] - 1 Week Discharge Medications: New metronidazole 500 mg Tablet 500 mg PO Q12H 7 Days Qty: 14 0RF cephalexin 500 mg Capsule 500 mg PO Q12H 7 Days Qty: 14 0RF Continued clonidine HCl 0.1 mg tablet 0.1 mg PO BID simvastatin 20 mg tablet 20 mg PO BEDTIME fluticasone propionate 50 mcg/actuation spray,suspension 2 spray intranasal DAILY PRN (Reason: Allergy Symptoms) Rx Instructions: 2 sprays in each nostril verapamil 240 mg capsule,ext rel. pellets 24 hr 240 mg PO DAILY oxybutynin chloride 5 mg Tablet Extended Release 24hr 5 mg PO DAILY omeprazole 20 mg capsule,delayed release(DR/EC) 20 mg PO DAILY albuterol sulfate 90 mcg/actuation HFA aerosol inhaler 2 puff inhalation Q6H PRN (Reason: Wheezing) [id number]-lycopene-lutein 1.25-2.5-7 mg Tablet 1 tab PO DAILY acetaminophen [Tylenol Arthritis Pain] 650 mg tablet extended release 650 mg PO Q6H PRN (Reason: Pain) aspirin 81 mg tablet,delayed release (DR/EC) 81 mg PO DAILY baclofen 20 mg tablet 20 mg PO TID Discharge Orders: Discharge Order (Routine); Ordered 06/11/25 Ordered By: Janna Brady Diet: Advance to usual diet Activity on Discharge: As tolerated Stand Alone Forms: Patient Portal Discharge page Print Language: Macedonian Care Plan Goals: * Complete prescribed course of oral antibiotics for diverticulitis/abscess * Monitor for signs and symptoms of infection or recurrence (fever, abdominal pain, drainage site changes) * Maintain adequate bowel function; continue bowel regimen and monitor for bowel movements * Optimize management of chronic conditions (HTN, COPD, hypothyroidism, FAHAD, etc.) * Continue supplemental oxygen as needed for COPD * Promote safe ambulation and prevent falls; physical therapy to address mobility and chronic contractures * Monitor nutritional status and encourage a regular, balanced diet * Provide pain management as needed * Prevent venous thromboembolism (VTE) with appropriate prophylaxis * Monitor for and address any medication side effects or interactions * Support psychosocial well-being and address depression as needed * Coordinate follow-up with primary care and relevant specialists (GI, surgery) * Educate patient and rehabilitation staff on warning signs requiring urgent evaluation Health Concerns: * Recent acute sigmoid diverticulitis with colonic abscess, status post percutaneous drainage * Risk of recurrent intra-abdominal infection or abscess * Functional constipation and risk of bowel obstruction * Morbid obesity (BMI >38) and associated complications * Chronic obstructive pulmonary disease (COPD) and need for supplemental oxygen * Hypertension * Obstructive sleep apnea (FAHAD) * Hypothyroidism * History of cerebrovascular accident (CVA) * Urinary incontinence * Hyperlipidemia * Depression * 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 * Right rotator cuff tendinopathy * Polypharmacy and risk of medication side effects/interactions * Fall risk due to age, comorbidities, and mobility limitations * Nutritional status and risk of malnutrition * Risk of venous thromboembolism (VTE) * Need for ongoing monitoring and follow-up for chronic and acute conditions Plan of Treatment: * Continue oral antibiotics (cephalexin and metronidazole) to complete prescribed course for diverticulitis/abscess * Monitor for signs of infection or recurrence (fever, abdominal pain, changes at former drain site) * Maintain bowel regimen with scheduled and PRN laxatives; monitor for bowel movements * Continue supplemental oxygen as needed for COPD; monitor respiratory status * Continue chronic medications for hypertension, hypothyroidism, FAHAD, depression, and other comorbidities * Provide pain management with acetaminophen and ibuprofen as needed * Encourage ambulation and participation in physical therapy to improve mobility and address contractures * Monitor nutritional intake; provide regular, balanced diet * Monitor vital signs and laboratory parameters as indicated * Prevent VTE with appropriate prophylaxis if still indicated * Monitor for and manage potential medication side effects or interactions * Provide psychosocial support and monitor for depressive symptoms * Educate patient and staff on warning signs that require urgent evaluation * Arrange follow-up with primary care provider and relevant specialists (GI, surgery) as needed Assessment: 79-year-old female with a complex medical history including morbid obesity, COPD, hypertension, FAHAD, hypothyroidism, CVA, and cerebral palsy, admitted with acute sigmoid diverticulitis complicated by a colonic abscess and sepsis. She underwent successful percutaneous drainage of the abscess and completed a transition from IV to oral antibiotics. Her hospital course was notable for functional constipation, which is improving with bowel regimen adjustments. At discharge, she is clinically stable, afebrile, hemodynamically stable, and eager for transfer to short-term rehabilitation for continued recovery, physical therapy, and monitoring of her chronic conditions.
--- NOTE | 2025-06-11 12:40 | PM.DS ---
DS: Providers Provider Date of Service: 06/11/25 Date of admission: 06/04/25 18:46 Date of discharge: 06/11/25 Primary care physician: Charlene Shaw MD Consults: 06/04/25 21:11 Consult to General Surgery Routine Consulting Provider: [facility] Reason for consultation: Diverticulitis with abscess DS: Diagnosis Discharge Diagnosis (1) Morbid obesity: Status: Acute (2) Diverticulitis: Status: Acute (3) Colonic diverticular abscess: Status: Acute (4) Diverticulitis of intestine with abscess: Status: Acute (5) Functional constipation: Status: Acute (6) Sepsis: Status: Acute (7) Tendinopathy of right rotator cuff: Status: Acute DS: Summary Hospital Course Hospital Course: Reason for Admission 79-year-old female with a history of morbid obesity, hypertension, CVA, FAHAD, hypothyroidism, COPD/chronic lung disease, and other comorbidities, admitted for evaluation and management of left lower quadrant abdominal pain. Imaging revealed acute sigmoid diverticulitis with a colonic abscess. Hospital Course Initial Presentation: Presented with 2 weeks of sharp, non-radiating left lower quadrant abdominal pain. No associated nausea, vomiting, or diarrhea. No fevers reported. On exam: LLQ tenderness, no guarding or rigidity. CT abdomen/pelvis: Acute sigmoid diverticulitis with 4.7 x 4.0 x 4.2 cm abscess, no perforation or free air. Management: Admitted to medicine service for IV antibiotics (ceftriaxone and metronidazole). Interventional radiology-guided drainage of abscess performed on 06/08/2025; 20 cc purulent fluid aspirated, drain left in place. Monitored for sepsis; responded well to therapy. Transitioned to oral antibiotics (cephalexin and metronidazole) as clinically improved. Abdominal drain removed without complication prior to discharge. Constipation managed with laxatives and hydration; no bowel movement prior to discharge, but patient is stable and comfortable. Chronic conditions (HTN, COPD, hypothyroidism, etc.) managed with home medications. VTE prophylaxis with enoxaparin during admission. Clinical Status at Discharge: Alert and oriented x3, comfortable, no pain. Vitals stable: afebrile, normotensive, O2 sat 93% on 1L nasal cannula. Abdominal exam benign, no tenderness or distention. No new complaints. [facility]. Pertinent Laboratory and Imaging CT Abdomen/Pelvis:?Sigmoid diverticulitis with 4.7 x 4.0 x 4.2 cm abscess, no perforation. Microbiology:?Abscess fluid grew gram-negative rods, Viridans streptococcus, and Bacteroides fragilis group. Labs: WBC elevated on admission, improved with therapy. Renal function stable. No significant electrolyte abnormalities. Procedures 06/08/2025:?IR-guided percutaneous drainage of colonic abscess (20 cc purulent fluid aspirated, drain placed, later removed without complication). Status at Discharge Cognitive/behavioral status at discharge: A&O to person place time and situation Functional status at discharge: wheelchair bound Overall status at discharge: patient is back to baseline Time Attestation Total time managing care of this patient today: 35 mintues. Discharge Coordination Time (in mins): 30 Quality: Safe Use of Opioids Does Pt have an Active Cancer Diagnosis on the Problem List?: No Quality: Stroke Does the patient have a stroke diagnosis?: No Physical Exam Exam: Exam: General:?Alert and oriented to person, place, time, and situation. Appears comfortable, in no acute distress. HEENT:?Normocephalic, atraumatic. Mucous membranes moist. Cardiac:?Regular rate and rhythm. S1 and S2 present, no murmurs, rubs, or gallops. Well perfused. Respiratory:?Normal breath sounds throughout all lung martinez. No wheezes, rales, or rhonchi. No increased work of breathing. Gastrointestinal:?Abdomen soft, non-tender, non-distended. No palpable masses. No pain on palpation. No drain in place. Genitourinary:?No suprapubic or costovertebral angle tenderness. Musculoskeletal:?Normal ambulation. No pain at bony prominences or musculature. Chronic contractures of left upper extremity noted. Neurological:?Alert and oriented x3. Cranial nerves II-XII grossly intact. No focal deficits. Skin:?No rashes, ulcers, or signs of infection at former drain site. Extremities:?Warm, well perfused. No edema. Vital Signs: Vital Signs: Last Vital Signs Temp 96.9 F 06/11/25 07:58 Pulse 67 06/11/25 07:58 Resp 18 06/11/25 07:58 BP 133/75 06/11/25 07:58 Pulse Ox 93 06/11/25 07:58 O2 Del Method Nasal Cannula 06/11/25 07:58 O2 Flow Rate 1 06/11/25 07:58 BMI result Body Mass Index 38.3 DS: Data Data Completed and Pending Labs on day of discharge: Preliminary micro results at discharge 06/07/25 10:15 Anaerobic Culture - Preliminary Abscess Intra-abdominal Bacteroides fragilis group Discharge Plan Discharge Anticipated Discharge Date/Time: 06/11/25 12:44 Patient Disposition: Xfer Inpatient Rehab Fac Discharge Diagnosis: Acute sigmoid diverticulitis with colonic abscess, status post percutaneous drainage Referrals: [facility] [Other] - 1 Week Charlene Shaw MD [Primary Care Provider, Internal Medicine] - 1 Week Discharge Medications: New metronidazole 500 mg Tablet 500 mg PO Q12H 7 Days Qty: 14 0RF cephalexin 500 mg Capsule 500 mg PO Q12H 7 Days Qty: 14 0RF Continued clonidine HCl 0.1 mg tablet 0.1 mg PO BID simvastatin 20 mg tablet 20 mg PO BEDTIME fluticasone propionate 50 mcg/actuation spray,suspension 2 spray intranasal DAILY PRN (Reason: Allergy Symptoms) Rx Instructions: 2 sprays in each nostril verapamil 240 mg capsule,ext rel. pellets 24 hr 240 mg PO DAILY oxybutynin chloride 5 mg Tablet Extended Release 24hr 5 mg PO DAILY omeprazole 20 mg capsule,delayed release(DR/EC) 20 mg PO DAILY albuterol sulfate 90 mcg/actuation HFA aerosol inhaler 2 puff inhalation Q6H PRN (Reason: Wheezing) vhrcbn-dgf-YL-lycopene-lutein 1.25-2.5-7 mg Tablet 1 tab PO DAILY acetaminophen [Tylenol Arthritis Pain] 650 mg tablet extended release 650 mg PO Q6H PRN (Reason: Pain) aspirin 81 mg tablet,delayed release (DR/EC) 81 mg PO DAILY baclofen 20 mg tablet 20 mg PO TID Discharge Orders: Discharge Order (Routine); Ordered 06/11/25 Ordered By: Janna Brady Diet: Advance to usual diet Activity on Discharge: As tolerated Stand Alone Forms: Patient Portal Discharge page Print Language: Yi Care Plan Goals: Complete prescribed course of oral antibiotics for diverticulitis/abscess Monitor for signs and symptoms of infection or recurrence (fever, abdominal pain, drainage site changes) Maintain adequate bowel function; continue bowel regimen and monitor for bowel movements Optimize management of chronic conditions (HTN, COPD, hypothyroidism, FAHAD, etc.) Continue supplemental oxygen as needed for COPD Promote safe ambulation and prevent falls; physical therapy to address mobility and chronic contractures Monitor nutritional status and encourage a regular, balanced diet Provide pain management as needed Prevent venous thromboembolism (VTE) with appropriate prophylaxis Monitor for and address any medication side effects or interactions Support psychosocial well-being and address depression as needed Coordinate follow-up with primary care and relevant specialists (GI, surgery) Educate patient and rehabilitation staff on warning signs requiring urgent evaluation Health Concerns: Recent acute sigmoid diverticulitis with colonic abscess, status post percutaneous drainage Risk of recurrent intra-abdominal infection or abscess Functional constipation and risk of bowel obstruction Morbid obesity (BMI >38) and associated complications Chronic obstructive pulmonary disease (COPD) and need for supplemental oxygen Hypertension Obstructive sleep apnea (FAHAD) Hypothyroidism History of cerebrovascular accident (CVA) Urinary incontinence Hyperlipidemia Depression 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 Right rotator cuff tendinopathy Polypharmacy and risk of medication side effects/interactions Fall risk due to age, comorbidities, and mobility limitations Nutritional status and risk of malnutrition Risk of venous thromboembolism (VTE) Need for ongoing monitoring and follow-up for chronic and acute conditions Plan of Treatment: Continue oral antibiotics (cephalexin and metronidazole) to complete prescribed course for diverticulitis/abscess Monitor for signs of infection or recurrence (fever, abdominal pain, changes at former drain site) Maintain bowel regimen with scheduled and PRN laxatives; monitor for bowel movements Continue supplemental oxygen as needed for COPD; monitor respiratory status Continue chronic medications for hypertension, hypothyroidism, FAHAD, depression, and other comorbidities Provide pain management with acetaminophen and ibuprofen as needed Encourage ambulation and participation in physical therapy to improve mobility and address contractures Monitor nutritional intake; provide regular, balanced diet Monitor vital signs and laboratory parameters as indicated Prevent VTE with appropriate prophylaxis if still indicated Monitor for and manage potential medication side effects or interactions Provide psychosocial support and monitor for depressive symptoms Educate patient and staff on warning signs that require urgent evaluation Arrange follow-up with primary care provider and relevant specialists (GI, surgery) as needed Assessment: 79-year-old female with a complex medical history including morbid obesity, COPD, hypertension, FAHAD, hypothyroidism, CVA, and cerebral palsy, admitted with acute sigmoid diverticulitis complicated by a colonic abscess and sepsis. She underwent successful percutaneous drainage of the abscess and completed a transition from IV to oral antibiotics. Her hospital course was notable for functional constipation, which is improving with bowel regimen adjustments. At discharge, she is clinically stable, afebrile, hemodynamically stable, and eager for transfer to short-term rehabilitation for continued recovery, physical therapy, and monitoring of her chronic conditions.
== END 2025-06-11 14:00 | DRG 392 ==
LOC: HO.ED 18:38 → HO.EDOVER 18:51 → HO.IMC 06-05 00:55 → HO.S3 06-09 19:46
PROVIDERS: Hospitalist; Physician Assistant Medical; Radiology Diagnostic Radiology; Surgery; Admitting Provider Family Medicine; Emergency Provider Emergency Medicine; PCP Internal Medicine; Visit Provider Hospitalist
PROC: 0W9J30Z Drainage of Pelvic Cavity with Drainage Device, Percutaneous Approach (ICD-10-PCS; principal; 2025-06-07 09:30)
DX: K57.20 Diverticulitis of large intestine with perforation and abscess without bleeding (principal); K59.00 Constipation, unspecified; G80.9 Cerebral palsy, unspecified; I10 Essential (primary) hypertension; J44.9 Chronic obstructive pulmonary disease, unspecified; Z79.82 Long term (current) use of aspirin; Z79.899 Other long term (current) drug therapy
CPT/HCPCS: 36415; 71045; 74177; 75989; 80048; 80053; 81001; 81003; 83605; 83690; 83735; 85025; 85610; 87040; 87070; 87073; 87086; 87088; 87186; 87205; 97110; 97112; 97162; 97530; 99152; 99285; C1729; C1769; J0696; J1171; J1650; J1836; J2250; J2270; J2470; J3010; J7120; Q9967

== ENCOUNTER → 2025-06-04 15:23 | Outpatient (BNV) | payer OTHER, MEDICARE, SELFPAY | PROVIDERS: Emergency Provider Emergency Medicine; PCP Internal Medicine; Visit Provider Radiology Diagnostic Radiology | DX: R91.8 Other nonspecific abnormal finding of lung field (principal) | CPT/HCPCS: 74177 ==

== ENCOUNTER 2025-06-04 18:46 | Outpatient (BNV) | payer OTHER, MEDICARE, SELFPAY | END 2025-06-08 11:39 | PROVIDERS: Admitting Provider Family Medicine; Emergency Provider Emergency Medicine; PCP Internal Medicine; Visit Provider Radiology Diagnostic Radiology | DX: J98.4 Other disorders of lung (principal) | CPT/HCPCS: 71045 ==

== ENCOUNTER 2025-06-04 18:46 | Outpatient (BNV) | payer OTHER, MEDICARE, SELFPAY | END 2025-06-07 09:45 | PROVIDERS: Admitting Provider Family Medicine; Emergency Provider Emergency Medicine; PCP Internal Medicine; Visit Provider Radiology Diagnostic Radiology | DX: K57.20 Diverticulitis of large intestine with perforation and abscess without bleeding (principal) | CPT/HCPCS: 49406; 99152 ==

== ENCOUNTER → 2025-06-04 18:46 | Outpatient (BNV) | payer OTHER, MEDICARE, SELFPAY | PROVIDERS: Admitting Provider Family Medicine; Emergency Provider Emergency Medicine; PCP Internal Medicine; Visit Provider Surgery | DX: K57.20 Diverticulitis of large intestine with perforation and abscess without bleeding (principal) | CPT/HCPCS: 99232; 99499 ==

== ENCOUNTER → 2025-06-04 18:46 | Outpatient (BNV) | payer OTHER, MEDICARE, SELFPAY | PROVIDERS: Admitting Provider Family Medicine; Emergency Provider Emergency Medicine; PCP Internal Medicine; Visit Provider Internal Medicine | DX: K57.80 Diverticulitis of intestine, part unspecified, with perforation and abscess without bleeding (principal); K57.92 Diverticulitis of intestine, part unspecified, without perforation or abscess without bleeding | CPT/HCPCS: 99223; 99232 ==

== ENCOUNTER 2025-07-24 09:57 | Emergency (ER) | payer OTHER, MEDICARE, SELFPAY ==
--- NOTE | ~2025-07-24 | XR_ITS ---
CLINICAL HISTORY: Fall, left shoulder pain R O fracture 3 view left shoulder Comparison: None provided Findings: There are moderately severe degenerative changes present. There is no convincing evidence of fracture or dislocation No erosions. No radiopaque foreign body. IMPRESSION: Moderately severe degenerative changes. No convincing evidence of fracture. This document has been electronically signed by: Florian Khan MD on 07/24/2025 13:41:14
--- NOTE | ~2025-07-24 | XR_ITS ---
CLINICAL HISTORY: Fall, tender from shoulder to elbow R O fracture 3 view left humerus Comparison: None provided Findings: Limited evaluation due to positioning, technique, artifact and soft tissue attenuation. No definite fracture or dislocation. Impression: Significantly limited study. No definite fracture or dislocation. This document has been electronically signed by: Florian Khan MD on 07/24/2025 13:41:33
--- NOTE | ~2025-07-24 | XR_ITS ---
CLINICAL HISTORY: Fall, tender proximal tibia, distal fibula with --- Additional Notes or Special Instructions: Soft tissue swelling rule out fracture 2 view left tibia-fibula Comparison: None provided Findings The distal fibula is not well evaluated due to positioning. No definite tibial fracture. There is demineralization and degenerative change of the left knee and left ankle. Impression: The distal fibula is not well evaluated due to positioning. No definite fracture or dislocation. This document has been electronically signed by: Florian Khan MD on 07/24/2025 13:40:55
[2025-07-24 10:07] VITALS: BP 121/58; PULSE 62; RESP 16; TEMP 36.6; O2SAT 92; BMI 39.8
[2025-07-24 10:17] VITALS: BP 121/58; PULSE 62; RESP 16; TEMP 36.6; O2SAT 92
--- OUTSIDE RECORDS SUMMARY | 2025-07-24 10:35 | XMS_ITS | Encounter Summary ---
Author Organization [facility] Address [address] [place] [address] Care Team Providers Care Room Service Associate Name Role Phone Penelope Lezama MD Primary Care Provider Rubi Weinberg, Anju DO Primary Care Pro vider Unavailable Penelope Lezama MD Primary Care Provider Rubi Castrejono, Anju DO Primary Care Pro vider Unavailable Penelope Lezama MD Primary Care Provider Rubi Weinberg, Anju DO Primary Care Pro vider Unavailable Dariela Ojeda MD Primary Care Provider Unavailab Charlene Cisneros MD Primary Care Provider [phone] Encounter Details Date Type Department Care Team Description 10/11/2016 Release of Information Medical Records [address] [place] [id number] Abstract, Provider Social History Tobacco Use Types Packs/Day Years Used Date Smoking Tobacco: Former Cigarettes Q uit: 02/16/2014 Smokeless Tobacco: Never Comments:5 cigs a week (usua lly only smokes while @ [employer]) Alcohol Use Standard Drinks/Week Comments Yes 0 (1 standard drink = 0.6 oz pur e alcohol) occasional Sex Assigned at Date Recorded Not on file Job Start Date Occupation Industry Not on file Not on file Not on file documented as of this encounter Plan of Treatment Not on file documented as of this encounter Visit Diagnoses Not on filedocumented in this encounter Care Teams Room Service Associate Relationship Specialty Start Date End Date Penelope Lezama MD PCP - General Internal Medicine 1/29/15 2/27/20 Anju Suggs DO PCP - General Internal Medicine 10/22/19 11/17/19 Penelope Lezama MD PCP - General Internal Medicine 11/18/19 04/10/20 Anju Suggs DO PCP - General Internal Medicine 04/11/20 05/09/20 Penelope Lezama MD PCP - General Internal Medicine 05/10/20 05/15/20 Anju Suggs DO PCP - General Internal Medicine 05/16/20 01/16/21 Dariela Ojeda MD PCP - General Internal Medicine 01/17/21 06/06/21 Charlene Shaw MD [address] [place] [id number] PCP - General Internal Medicine 06/07/21 documented as of this encounter
--- OUTSIDE RECORDS SUMMARY | 2025-07-24 10:35 | XMS_ITS | Encounter Summary ---
Author Organization [facility] Address [address] [place] [address] Care Team Providers Care Air Intercept Controller Supervisor Name Role Phone Penelope Lezama MD Primary Care Provider Rubi Weinberg, Anju DO Primary Care Pro vider Unavailable Penelope Lezama MD Primary Care Provider Rubi Castrejono, Anju DO Primary Care Pro vider Unavailable Penelope Lezama MD Primary Care Provider Unarolando Weinberg, Anju DO Primary Care Pro vider Unavailable Dariela Ojeda MD Primary Care Provider Unavailab Charlene Cisneros MD Primary Care Provider [phone] Encounter Details Date Type Department Care Team Description 07/01/2019 Grooming Assistant Report Medical Records [address] [place] [id number] Jolie Suggs Social History Tobacco Use Types Packs/Day Years Used Date Smoking Tobacco: Former Cigarettes 0.3 20 Q uit: 02/16/2014 Smokeless Tobacco: Never Comments:5 [...] on filedocumented in this encounter Care Teams Air Intercept Controller Supervisor Relationship Specialty Start Date End Date Penelope Lezama MD PCP - General Internal Medicine 09/22/14 10/21/19 Anju Suggs DO PCP - General Internal Medicine 10/22/19 11/17/19 Penelope Lezama MD PCP - General Internal Medicine 11/18/19 04/10/20 Anju Suggs DO PCP - General Internal Medicine 04/11/20 05/09/20 Penelope Lezama MD PCP - General Internal Medicine 05/10/20 05/15/20 Anju Suggs DO PCP - General Internal Medicine 05/16/20 01/16/21 Dariela Ojeda MD PCP - General Internal Medicine 01/17/21 06/06/21 Charlene Shaw MD [address] [place] [id number] PCP - General Internal Medicine 06/07/21 documented as of this encounter
--- OUTSIDE RECORDS SUMMARY | 2025-07-24 10:35 | XMS_ITS | Encounter Summary ---
Author Organization [facility] Address [address] [place] [address] Care Team Providers Care Work Order Sorting Clerk Name Role Phone Penelope Lezama MD Primary Care Provider Rubi Weinberg, Anju DO Primary Care Pro vider Unavailable Penelope Lezama MD Primary Care Provider Rubi Weinberg, Anju DO Primary Care Pro vider Unavailable Penelope Lezama MD Primary Care Provider Rubi Weinberg, Anju DO Primary Care Pro vider Unavailable Dariela Ojeda MD Primary Care Provider Unavailab Charlene Cisneros MD Primary Care Provider [phone] Encounter Details Date Type Department Care Team Description 08/07/2015 Release of Information Medical Records [address] [place] [id number] Abstract, Provider Social History Tobacco Use Types Packs/Day Years Used Date Smoking Tobacco: Every Day Cigarettes Last attempted to quit: 02/16/2014 Smokeless Tobacco: Never Comments:5 cigs a [...] on filedocumented in this encounter Care Teams Work Order Sorting Clerk Relationship Specialty Start Date End Date Penelope [...] Internal Medicine 01/17/21 06/06/21 Charlene Shaw MD [address] [place] [id number] PCP - General Internal Medicine 06/07/21 documented as of this encounter
--- OUTSIDE RECORDS SUMMARY | 2025-07-24 10:35 | XMS_ITS | Encounter Summary ---
Author Organization [facility] Address [address] [place] [address] Care Team Providers Care Polisher Sand Name Role Phone Agustín Hudson MD Primary Care Provider Unavail able Penelope Lezama MD Primary Care Provider Unarolando Castrejono, Anju DO Primary Care Pro vider Unavailable Penelope Lezama MD Primary Care Provider Unavamarkus labisabel Youngkochico Colasacco, Anju DO Primary Care Pro vider Unavailable Penelope Lezama MD Primary Care Provider Unavai lable Krakochico Colasacco, Anju DO Primary Care Pro vider Unavailable Dariela Ojeda MD Primary Care Provider Unavailab Chalrene Cisneros MD Primary Care Provider [phone] Encounter Details Date Type Department Care Team Description 03/26/2011 Telephone Adult Medicine [address] [address] Agustín Hudson MD Social History Tobacco Use Types Packs/Day Years Used Date Smoking Tobacco: Some Days Cigarettes Smokeless Tobacco: Never Comments:5 cigs a week (usua lly only smokes while @ [employer]) Alcohol Use Standard Drinks/Week Comments No 0 (1 standard drink = 0.6 oz pur e alcohol) occasional Sex Assigned at Date Recorded Not on file Job Start Date Occupation Industry Not on file Not on file Not on file documented as of this encounter Miscellaneous Notes * Telephone Encounter - Agustín Hudson MD - 03/26/2011 7:18 PM EDT EKG is abnormal, patient will need preoperative clearance. documented in this encounter Plan of Treatment Not on file documented as of this encounter Visit Diagnoses Not on filedocumented in this encounter Care Teams Polisher Sand Relationship Specialty Start Date End Date Agustín Hudson MD PCP - General 08/24/07 09/21/14 Penelope Lezama MD PCP - General Internal [...] Internal Medicine 01/17/21 06/06/21 Charlene Shaw MD [address] [place] [id number] PCP - General Internal Medicine 06/07/21 documented as of this encounter
--- OUTSIDE RECORDS SUMMARY | 2025-07-24 10:35 | XMS_ITS | Encounter Summary ---
Author Organization [facility] Address [address] [place] [address] Care Team Providers Care Health Information Specialist Name Role Phone Anju Suggs DO Primary Care Pro vider Unavailable Dariela Ojeda MD Primary Care Provider Unavailab Charlene Cisneros MD Primary Care Provider [phone] Encounter Details Date Type Department Care Team Description 06/08/2020 Superintendent Overhead Distribution Report Medical Records [address] [place] [id number] Michelle Calvo MD Social History Tobacco Use Types Packs/Day [...] file Not on file Not on file COVID-19 Exposure Response Date Recorded In the last month, have you been in contact with someone who was confirmed or suspected to have Coronavirus / COVID-19? No / Unsure 05/10/2020 11:29 AM EDT documented as of this encounter Plan of Treatment Not on file documented as of this encounter Visit Diagnoses Not on filedocumented in this encounter Care Teams Health Information Specialist Relationship Specialty Start Date End Date Anju Suggs DO PCP - General Internal Medicine 05/16/20 01/16/21 Dariela Ojeda MD PCP - General Internal Medicine 01/17/21 06/06/21 Charlene Shaw MD [address] [place] [id number] PCP - General Internal Medicine 06/07/21 documented as of this encounter
--- OUTSIDE RECORDS SUMMARY | 2025-07-24 10:35 | XMS_ITS | Encounter Summary ---
Author Organization [facility] Address [address] [facility] [address] [place] [id number] Phone Care Team Providers Care Knitting Machine Fixer Name Role Phone Charlene Shaw MD Primary Care Provider [phone] Encounter Details Date Type Department Care Team (Late st Contact Info) Description 06/28/2025 Lab Requisition [facility] Main [address] [place] [address] Ladan Almeida MD [address] [place] [id number] [email or web address] Abscess of intestine; Other specified sepsis; Chronic obstructive pulmonary disease, unspecified Social History Tobacco Use Types Packs/Day Years [...] on file Sexual Orientation Not on file documented as of this encounter Plan of Treatment Not on file documented as of this encounter Procedures Procedure Name Priority Date/Time Associated Diagnosis Comments COMPREHENSIVE METABOLIC PANEL (CMP) Today 06/28/2025 6:50 AM EST Abscess of intestine Other specified sepsis Chronic obstructive pulmonary disease, unspecified CBC Today 06/28/2025 6:50 AM EST Abscess of intestine Other specified sepsis Chronic obstructive pulmonary disease, unspecified documented in this encounter Results * (ABNORMAL) Comprehensive Metabolic Panel (CMP) (06/28/2025 6:50 AM EST) Sodium 145 136 - 145 mmol/L 06/28/2025 12:03 PM [facility] Potassium 4.7 3.4 - 5.1 mmol/L 06/28/2025 12:03 PM [facility] Chloride 108(H) 98 - 107 mmol/L 06/28/2025 12:03 PM [facility] CO2 25 20 - 31 mmol/L 06/28/2025 12:03 PM [facility] Anion Gap 12 3 - 17 mmol/L 06/28/2025 12:03 PM [facility] BUN 18 6 - 23 mg/dL 06/28/2025 12:03 PM [facility] Creatinine 0.80 0.50 - 1.00 mg/dL 06/28/2025 12:03 PM [facility] eGFR 75 >59 mL/min/1.7 3m2 06/28/2025 12:03 PM [facility] Comment:Estimated glomerular filtration rate calculated using the CKD-EPI refit equation. Glucose 85 70 - 99 mg/dL 06/28/2025 12:03 PM [facility] Calcium 8.8 8.5 - 10.5 mg/dL 06/28/2025 12:03 PM [facility] AST 13 <33 U/L 06/28/2025 12:03 PM [facility] ALT 7 <34 U/L 06/28/2025 12:03 PM [facility] Alkaline Phosphatase 48 40 - 130 U/L 06/28/2025 12:03 PM [facility] Bilirubin, Total 0.4 0.0 - 1.2 mg/dL 06/28/2025 12:03 PM [facility] Total Protein 5.9(L) 6.4 - 8.3 g/dL 06/28/2025 12:03 PM [facility] Albumin 3.8 3.5 - 5.2 g/dL 06/28/2025 12:03 PM [facility] Globulin 2.1 1.9 - 4.1 g/dL 06/28/2025 12:03 PM [facility] Blood (Blood) 06/28/2025 6:5 0 AM EST 06/28/2025 11:21 AM EST us Ladan Almeida MD LAB BLOOD BKR ORDERABLES Final Result Performing Organization Address City/State/[facility] Co de Phone Number [facility] [address] [place] [address] * (ABNORMAL) CBC (06/28/2025 6:50 AM EST) WBC 5.00 4.00 - 11.00 K/uL 06/28/2025 11:45 AM [facility] RBC 3.53(L) 4.00 - 5.20 M/uL 06/28/2025 11:45 AM [facility] Hemoglobin 9.7(L) 12.0 - 16.0 g/dL 06/28/2025 11:45 AM [facility] Hematocrit 32.7(L) 36.0 - 46.0 % 06/28/2025 11:45 AM [facility] MCV 92.6 80.0 - 100.0 fL 06/28/2025 11:45 AM [facility] MCH 27.5 27.0 - 31.0 pg 06/28/2025 11:45 AM [facility] MCHC 29.7(L) 32.0 - 36.0 g/dL 06/28/2025 11:45 AM [facility] PLT 132(L) 150 - 450 K/uL 06/28/2025 11:45 AM [facility] MPV 11.6 8.4 - 12.0 fL 06/28/2025 11:45 AM [facility] RDW-CV 17.2(H) 11.5 - 14.5 % 06/28/2025 11:45 AM EST [facility] Absolute NRBC 0.00 <=0.00 K cells/uL 06/28/2025 11:45 AM EST [facility] NRBC 0.0 <=0.0 /100 WBCs 06/28/2025 11:45 AM EST [facility] Blood (Blood) 06/28/2025 6:5 0 AM EST 06/28/2025 11:21 AM EST us Ladan Almeida MD LAB BLOOD BKR ORDERABLES Final Result [address] [address] documented in this encounter Visit Diagnoses Diagnosis Abscess of intestine Other specified sepsis Chronic obstructive pulmonary disease, unspecified documented in this encounter Care Teams Knitting Machine Fixer Relationship Specialty Start Date End Date Charlene Shaw MD [address] [place] [id number] PCP - General 11/17/23 documented as of this encounter Additional Source Comments The information contained in this document represents components of the legal health record. It is not the complete legal health record.[facility]
--- OUTSIDE RECORDS SUMMARY | 2025-07-24 10:35 | XMS_ITS | Encounter Summary ---
Author Organization [facility] Address [address] [place] [address] Care Team Providers Care Sample Steamer Name Role Phone Penelope Lezama MD Primary Care Provider Rubi Weinberg, Anju DO Primary Care Pro vider Unavailable Penelope Lezama MD Primary Care Provider Rubi Weinberg, Anju DO Primary Care Pro vider Unavailable Pneelope Lezama MD Primary Care Provider Ruib Weinberg, Anju DO Primary Care Pro vider Unavailable Dariela Ojeda MD Primary Care Provider Unavailab Charlene Cisneros MD Primary Care Provider [phone] Reason for Visit * Reason Comments E-prescribe Rx Request Encounter Details Date Type Department Care Team Description 08/17/2019 Refill Pulmonology - [place] [address] [facility] [address] [place] [address] Shanice Isbell MD [address] [place] [phone] E-prescribe Rx Request Social History Tobacco Use Types Packs/Day Years [...] encounter Miscellaneous Notes * Telephone Encounter - Rizwana Stephenson - 08/17/2019 12:40 PM EST Patient would like script to be: E-PRESCRIBED/FAXED TO PHARMACY WHEN WAS THE PATIENT'S LAST APPOINTMENT IN ADULT MEDICINE? 07/20/[address] Isbell WHEN WAS THE LAST TIME THE PATIENT SAW THEIR PCP? Unknown Does patient have an upcoming appointment? Yes 11/18/[address] Isbell (THE MEDICATION REQUESTED IS ON THE MED LIST ABOVE) All of the medications requested were on the CURRENT MEDS list Did you check the Pharmacy information above?: YES Patient wants: 90 -day supply Is this a mail order prescription request ? NO If the refill is from a FAXED refill request what is the RX # listed on the fax? N/A Patients current insurance carrier is: Payor: [employer] / [id number] /Product Type: POS [id number] documented in this encounter Plan of Treatment Not on file documented as of this encounter Visit Diagnoses Diagnosis Cough documented in this encounter Care Teams Sample Steamer Relationship Specialty Start Date End Date Penelope [...] Internal Medicine 01/17/21 06/06/21 Charlene Shaw MD [address] [place] [address] PCP - General Internal Medicine 06/07/21 documented as of this encounter
--- OUTSIDE RECORDS SUMMARY | 2025-07-24 10:35 | XMS_ITS | Encounter Summary ---
Author Organization [facility] Address [address] [place] [address] Care Team Providers Care Minister Assistant Name Role Phone Anju Suggs DO Primary Care Pro vider Unavailable Dariela Ojeda MD Primary Care Provider Unavailab Charlene Cisneros MD Primary Care Provider [phone] Reason for Visit * Reason Onset Date Comments refill request 10/30/2020 Encounter Details Date Type Department Care Team Description 10/30/2020 Refill Adult Medicine [address] [id number] Anju Suggs DO refill request Social History Tobacco Use Types Packs/Day Years [...] encounter Miscellaneous Notes * Telephone Encounter - Adelina Greer M.A. - 10/30/2020 2:54 PM EST Lab Results Component Value Date NA 141 05/11/2020 K 4.1 05/11/2020 CO2 26 05/11/2020 CL 106 05/11/2020 BUN 23 05/11/2020 CREAT 1.00 05/11/2020 GLU 86 05/11/2020 CA 9.5 05/11/2020 GFR 54 05/11/2020 Pending appt with pcp 11/06/20 * Telephone Encounter - Jocelinjunior Carlin - 10/30/2020 2:33 PM EST Patient would like script to be: E-PRESCRIBED/FAXED TO PHARMACY WHEN WAS THE PATIENT'S LAST APPOINTMENT IN ADULT MEDICINE? [id number] WHEN WAS THE LAST TIME THE PATIENT SAW THEIR PCP? Same as above Does patient have an upcoming appointment? Yes [id number] (THE MEDICATION REQUESTED IS ON THE MED LIST ABOVE) All of the medications requested were on the CURRENT MEDS list Did you check the Pharmacy information above?: YES Patient wants: 90 -day supply Is this a mail order prescription request ? YES If the refill is from a FAXED refill request what is the RX # listed on the fax? N/A Patients current insurance carrier is: Payor: [facility] [employer] PLAN / Plan: POS $0 [facility] [id number] /Product Type: POS [id number] documented in this encounter Plan of Treatment Not on file documented as of this encounter Visit Diagnoses Not on filedocumented in this encounter Care Teams Minister Assistant Relationship Specialty Start Date End Date Anju Suggs DO PCP - General Internal Medicine 05/16/20 01/16/21 Dariela Ojeda MD PCP - General Internal Medicine 01/17/21 06/06/21 Charlene Shaw MD [address] [place] [address] PCP - General Internal Medicine 06/07/21 documented as of this encounter
--- OUTSIDE RECORDS SUMMARY | 2025-07-24 10:35 | XMS_ITS | Encounter Summary ---
Author Organization [facility] Address [address] [place] [address] Care Team Providers Care Cash Register Repairer Name Role Phone Penelope Lezama MD Primary Care Provider Rubi Weinberg, Anju DO Primary Care Pro vider Unavailable Penelope Lezama MD Primary Care Provider Rubi Weinberg, Anju DO Primary Care Pro vider Unavailable Penelope Lezama MD Primary Care Provider Rubi Weinberg, Anju DO Primary Care Pro vider Unavailable Dariela Ojeda MD Primary Care Provider Unavailab Charlene Cisneros MD Primary Care Provider [phone] Encounter Details Date Type Department Care Team Description 09/09/2016 Logging Equipment Mechanic Report Medical Records [address] [place] [address] Trae Schuler DO Social History Tobacco Use Types Packs/Day Years [...] on filedocumented in this encounter Care Teams Cash Register Repairer Relationship Specialty Start Date End Date Penelope [...] Internal Medicine 01/17/21 06/06/21 Charlene Shaw MD [address] [place] [address] PCP - General Internal Medicine 06/07/21 documented as of this encounter
--- OUTSIDE RECORDS SUMMARY | 2025-07-24 10:35 | XMS_ITS | Encounter Summary ---
Author Organization [facility] Address [address] [place] [address] Care Team Providers Care Zanjero Name Role Phone Charlene Shaw MD Primary Care Provider [phone] Reason for Visit * Reason Onset Date Comments Pre Op Visit 09/17/2023 Encounter Details Date Type Department Care Team Description 09/17/2023 Telephone Adult Medicine [facility] [address] [place] [address] [phone] Charlene Shaw MD [address] [place] [address] [phone] Pre Op Visit Social History Tobacco Use Types Packs/Day Years Used Date Smoking Tobacco: Former Cigarettes 0.5 Q uit: 06/18/2023 Passive Smoke Exposure: Past Smokeless Tobacco: Never Comments:started age 22; max 1/4 PPD; quit age 71 Alcohol Use Standard Drinks/Week Comments Yes 0 (1 standard drink = 0.6 oz pur e alcohol) once per year Education Answer Date Recorded What is the highest level of school you have completed or the highest degree you have received? Some college, no degree 10/31/2021 Sex Assigned at Date Recorded Not on file Job Start Date Occupation Industry Not on file Not on file Not on file documented as of this encounter Miscellaneous Notes * Telephone Encounter - Gabriela Yu - 09/17/2023 2:17 PM EST Date of surgery:12/13/23 and 12/30/23 What surgery is patient having (gall bladder, cataract, appendix, etc...)?: cataracts Surgeon's name: Dr. Sage Office phone number of surgeon: Fax # for surgeons office: (Required) Where is surgery being performed? Diagnosis/problem for surgery: catarcts Is an EKG required for the pre-op workup? YES PCP: Charlene Shaw Did you verify that the insurance below is correct? YES Patients insurance: Payor: [employer] / Plan[facility] POS [id number] / Product Type: POS [id number] documented in this encounter Plan of Treatment Not on file documented as of this encounter Visit Diagnoses Not on filedocumented in this encounter Care Teams Zanjero Relationship Specialty Start Date End Date Charlene Shaw MD [address] [place] [address] PCP - General Internal Medicine 06/07/21 documented as of this encounter
--- OUTSIDE RECORDS SUMMARY | 2025-07-24 10:35 | XMS_ITS | Encounter Summary ---
Author Organization [facility] Address [address] [place] [address] Care Team Providers Care Certified Master Safecracker Name Role Phone Penelope Lezama MD Primary Care Provider Rubi Weinberg, Anju DO Primary Care Pro vider Unavailable Penelope Lezama MD Primary Care Provider Rubi Castrejono, Anju DO Primary Care Pro vider Unavailable Penelope Lezama MD Primary Care Provider Unarolando Weinberg, Anju DO Primary Care Pro vider Unavailable Dariela Ojeda MD Primary Care Provider Unavailab Charlene Cisneros MD Primary Care Provider [phone] Encounter Details Date Type Department Care Team Description 12/05/2015 Track Repair Supervisor Report Medical Records [address] [place] [address] Jose Peña MD Social History Tobacco Use Types Packs/Day [...] on filedocumented in this encounter Care Teams Certified Master Safecracker Relationship Specialty Start Date End Date Penelope [...] Medicine 01/17/21 06/06/21 Charlene Shaw MD [address] [place] [address] PCP - General Internal Medicine 06/07/21 documented as of this encounter
--- OUTSIDE RECORDS SUMMARY | 2025-07-24 10:35 | XMS_ITS | Encounter Summary ---
Author Organization [facility] Address [address] [place] [address] Care Team Providers Care Word Processing Supervisor Name Role Phone Penelope Lezama MD Primary Care Provider Rubi Weinberg, Anju DO Primary Care Pro vider Unavailable Penelope Lezama MD Primary Care Provider Rubi Weinberg, Anju DO Primary Care Pro vider Unavailable Penelope Lezama MD Primary Care Provider Rubi Weinberg, Anju DO Primary Care Pro vider Unavailable Dariela Ojeda MD Primary Care Provider Unavailab Charlene Cisneros MD Primary Care Provider [phone] Encounter Details Date Type Department Care Team Description 07/26/2016 Telegraph Operator Report Medical Records [address] [place] [address] [facility] [address] [place] [address] Social History Tobacco Use Types Packs/Day Years [...] on filedocumented in this encounter Care Teams Word Processing Supervisor Relationship Specialty Start Date End Date [...] Medicine 01/17/21 06/06/21 Charlene Shaw MD [address] [place] [address] PCP - General Internal Medicine 06/07/21 documented as of this encounter
--- OUTSIDE RECORDS SUMMARY | 2025-07-24 10:35 | XMS_ITS | Encounter Summary ---
Author Organization [facility] Address [address] [place] [address] Care Team Providers Care Unix System Administrator Name Role Phone Anju Suggs DO Primary Care Pro vider Unavailable Dariela Ojeda MD Primary Care Provider Unavailab Charlene Cisneros MD Primary Care Provider [phone] Encounter Details Date Type Department Care Team Description 08/31/2020 Quality Assurance Nurse Report Medical Records [address] [place] [address] Michelle Calvo MD Social History Tobacco Use [...] have Coronavirus / COVID-19? No / Unsure 08/09/2020 12:54 PM EST documented as of this encounter Plan of Treatment Not on file documented as of this encounter Visit Diagnoses Not on filedocumented in this encounter Care Teams Unix System Administrator Relationship Specialty Start Date End Date Anju Suggs DO PCP - General Internal Medicine 05/16/20 01/16/21 Dariela Ojeda MD PCP - General Internal Medicine 01/17/21 06/06/21 Charlene Shaw MD [address] [place] [address] PCP - General Internal Medicine 06/07/21 documented as of this encounter
--- OUTSIDE RECORDS SUMMARY | 2025-07-24 10:35 | XMS_ITS | Encounter Summary ---
Author Organization [facility] [place] [address] Care Team Providers Care Optical Laboratory Mechanic Name Role Phone Charlene Shaw MD Primary Care Provider [phone] Reason for Visit * Reason Onset Date Comments faxed order 07/15/2025 [facility] order [id number] Encounter Details Date Type Department Care Team (Late st Contact Info) Description 07/15/2025 Telephone Adult Medicine [address] [phone] Charlene Shaw MD [address] [place] [phone] Social History Tobacco Use Types Packs/Day Years Used Date Smoking Tobacco: Former Cigarettes 0.5 Q uit: 06/18/2023 Smokeless Tobacco: Never Alcohol Use Standard Drinks/Week Comments Yes 0 (1 standard drink = 0.6 oz pur e alcohol) Comments Unknown Sex and Gender Information Value Date Recorded Sex Assigned at Female 07/05/2025 1:58 PM EST Legal Sex Female 1:38 PM EST Gender Identity Not on file Sexual Orientation Not on file documented as of this encounter Progress Notes * Janet Sultana - 07/15/2025 1:44 PM EST [facility] order [id number] received please sign and fax to [phone] documented in this encounter Plan of Treatment Upcoming Encounters Date Type Department Care Team (Late st Contact Info) Description 08/04/2025 9:15 AM EST Appointment [facility] Scan [address] [place] [address] 11/02/2025 12:45 PM EDT Office Visit Adult Medicine [facility] [address] [place], [place] [phone] Charlene Shaw MD [address] [place], [place] documented as of this encounter Visit Diagnoses Not on filedocumented in this encounter Additional Health Concerns Assessment Noted Time PHQ-9 Depression Total Score: 17 025 12:08 PM EST A fall risk assessment has been complete d for the patient 09/09/2024 12:07 PM EST documented as of this encounter Care Teams Optical Laboratory Mechanic Relationship Specialty Start Date End Date Charlene Shaw MD [address] [place], [place] PCP - General Internal Medicine 06/07/21 documented as of this encounter
--- OUTSIDE RECORDS SUMMARY | 2025-07-24 10:35 | XMS_ITS | Encounter Summary ---
Author Organization [facility] Address [address] [place] [address] Care Team Providers Care Au Pair Name Role Phone Penelope Lezama MD Primary Care Provider Rubi Weinberg, Anju DO Primary Care Pro vider Unavailable Penelope Lezama MD Primary Care Provider Rubi Weinberg, Anju DO Primary Care Pro vider Unavailable Penelope Lezama MD Primary Care Provider Rubi Weinberg, Anju DO Primary Care Pro vider Unavailable Dariela Ojeda MD Primary Care Provider Unavailab Charlene Cisneros MD Primary Care Provider [phone] Encounter Details Date Type Department Care Team Description 08/30/2015 LADLE PATCHER/MassPat Report Medical Records [address] [place] [address] Abstract, Provider Social History Tobacco Use Types [...] on filedocumented in this encounter Care Teams Au Pair Relationship Specialty Start Date End Date Penelope [...] Internal Medicine 01/17/21 06/06/21 Charlene Shaw MD [address] [place] [address] PCP - General Internal Medicine 06/07/21 documented as of this encounter
--- OUTSIDE RECORDS SUMMARY | 2025-07-24 10:35 | XMS_ITS | Encounter Summary ---
Author Organization [facility] Address [address] [place] [address] Care Team Providers Care Janitor Name Role Phone Penelope Lezama MD Primary Care Provider Rubi Weinberg, Anju DO Primary Care Pro vider Unavailable Penelope Lezama MD Primary Care Provider Rubi Castrejono, Anju DO Primary Care Pro vider Unavailable Penelope Lezama MD Primary Care Provider Rubi Weinberg, Anju DO Primary Care Pro vider Unavailable Dariela Ojeda MD Primary Care Provider Unavailab Charlene Cisneros MD Primary Care Provider [phone] Encounter Details Date Type Department Care Team Description 07/17/2016 Perennial House Manager Report Medical Records [address] [place] [address] Trae Schuler DO Social History Tobacco Use [...] on filedocumented in this encounter Care Teams Janitor Relationship Specialty Start Date End Date Penelope [...] Internal Medicine 01/17/21 06/06/21 Charlene Shaw MD [address] [place] [address] PCP - General Internal Medicine 06/07/21 documented as of this encounter
--- OUTSIDE RECORDS SUMMARY | 2025-07-24 10:35 | XMS_ITS | Encounter Summary ---
Author Organization [facility] Address [address] [place] [address] Care Team Providers Care Benefits Analyst Name Role Phone Penelope Lezama MD Primary Care Provider Rubi Weinberg, Anju DO Primary Care Pro vider Unavailable Penelope Lezama MD Primary Care Provider Rubi Castrejono, Anju DO Primary Care Pro vider Unavailable Penelope Lezama MD Primary Care Provider Unarolando Weinberg, Anju DO Primary Care Pro vider Unavailable Dariela Ojeda MD Primary Care Provider Unavailab Charlene Cisneros MD Primary Care Provider [phone] Encounter Details Date Type Department Care Team Description 05/14/2016 Freight Router Report Medical Records [address] [place] [address] Jose Peña MD Social History Tobacco Use [...] on filedocumented in this encounter Care Teams Benefits Analyst Relationship Specialty Start Date End Date Penelope [...] Internal Medicine 01/17/21 06/06/21 Charlene Shaw MD [address] [place] [address] PCP - General Internal Medicine 06/07/21 documented as of this encounter
--- OUTSIDE RECORDS SUMMARY | 2025-07-24 10:35 | XMS_ITS | Encounter Summary ---
Author Organization [facility] Address [address] [place] [address] Care Team Providers Care Roustabout Head Name Role Phone Agustín Hudson MD Primary Care Provider Unavail able Penelope Lezama MD Primary Care Provider Unarolando Braxton Colkusho, Anju DO Primary Care Pro vider Unavailable Penelope Lezama MD Primary Care Provider Unavamarkus labisabel [place] Colasacco, Anju DO Primary Care Pro vider Unavailable Penelope Lezama MD Primary Care Provider Unavai labisabel [place] Colasacco, Anju DO Primary Care Pro vider Unavailable Dariela Ojeda MD Primary Care Provider Unavailab Charlene Cisneros MD Primary Care Provider [phone] Reason for Visit * Reason Onset Date Comments preop exam 04/12/2011 Addendum Encounter Details Date Type Department Care Team Description 04/12/2011 Telephone Adult Medicine [address] [address] Cristian Arevalo MD [address] [place] [phone] preop exam (Addendum) Social History Tobacco Use Types Packs/Day Years [...] encounter Miscellaneous Notes * Telephone Encounter - Cristian Arevalo MD - 04/12/2011 6:03 PM EDT Pt to be cleared for surgery addendum has been added * Telephone Encounter - Lulú Kelly - 04/12/2011 10:27 AM EDT Please review stress test report and echo report and determine if patient can be cleared for surgery.If so,please addend previous dictation. Thanks documented in this encounter Plan of Treatment Not on file documented as of this encounter Visit Diagnoses Not on filedocumented in this encounter Care Teams Roustabout Head Relationship Specialty Start Date End Date Agustín [...] Internal Medicine 01/17/21 06/06/21 Charlene Shaw MD [address] [place] [address] PCP - General Internal Medicine 06/07/21 documented as of this encounter
--- OUTSIDE RECORDS SUMMARY | 2025-07-24 10:35 | XMS_ITS | Encounter Summary ---
Author Organization [facility] Address [address] [place] [address] Care Team Providers Care Technical Support Analyst Name Role Phone Anju Suggs DO Primary Care Pro vider Unavailable Dariela Ojeda MD Primary Care Provider Unavailab Charlene Cisneros MD Primary Care Provider [phone] Encounter Details Date Type Department Care Team Description 07/28/2020 [facility] Medical Records [address] [place] [address] Abstract, Provider Social History Tobacco Use Types Packs/Day Years Used Date Smoking Tobacco: Former Cigarettes 0.3 20 Q uit: 02/16/2014 Smokeless Tobacco: Never Comments:5 cigs a week (laurence warren only smokes while @ [employer]) Alcohol Use [...] on filedocumented in this encounter Care Teams Technical Support Analyst Relationship Specialty Start Date End Date Anju Suggs DO PCP - General Internal Medicine 05/16/20 01/16/21 Dariela Ojeda MD PCP - General Internal Medicine 01/17/21 06/06/21 Charlene Shaw MD [address] [place] [address] PCP - General Internal Medicine 06/07/21 documented as of this encounter
--- OUTSIDE RECORDS SUMMARY | 2025-07-24 10:35 | XMS_ITS | Encounter Summary ---
Author Organization [facility] Address [address] [place] [address] Care Team Providers Care Senior Accountant Cpa Name Role Phone Agustín Hudson MD Primary Care Provider Unavail able Penelope Lezama MD Primary Care Provider Rubi Weinberg, Anju DO Primary Care Pro vider Unavailable Penelope Lezama MD Primary Care Provider Unarolando labisabel [place] Colasacco, Anju DO Primary Care Pro vider Unavailable Penelope Lezama MD Primary Care Provider Unavai labisabel [place] Colasaccnora, Anju DO Primary Care Pro vider Unavailable Dariela Ojeda MD Primary Care Provider Unavailab Charlene Cisneros MD Primary Care Provider [phone] Encounter Details Date Type Department Care Team Description 05/13/2012 Sanitation Director Report Medical Records [address] [place] [address] Trae Guzman MD Social History Tobacco Use Types Packs/Day [...] on filedocumented in this encounter Care Teams Senior Accountant Cpa Relationship Specialty Start Date End Date Agustín [...] Internal Medicine 01/17/21 06/06/21 Charlene Shaw MD [address] [place] [address] PCP - General Internal Medicine 06/07/21 documented as of this encounter
--- OUTSIDE RECORDS SUMMARY | 2025-07-24 10:35 | XMS_ITS | Encounter Summary ---
Author Organization [facility] Address [address] [place] [address] Care Team Providers Care Rv Servicer Name Role Phone Penelope Lezama MD Primary Care Provider Rubi Weinberg, Anju DO Primary Care Pro vider Unavailable Penelope Lezama MD Primary Care Provider Rubi Weinberg, Anju DO Primary Care Pro vider Unavailable Penelope Lezama MD Primary Care Provider Rubi Weinberg, Anju DO Primary Care Pro vider Unavailable Dariela Ojeda MD Primary Care Provider Unavailab Charlene Cisneros MD Primary Care Provider [phone] Reason for Visit * Reason Comments E-prescribe Rx Request Encounter Details Date Type Department Care Team Description 08/17/2019 Refill Pulmonology - [place] [address] [facility] [address] [place] [address] Shanice Isbell MD [address] [place] [phone] E-prescribe Rx Request Social History Tobacco Use [...] Telephone Encounter - Rizwana Stephenson - 08/17/2019 9:06 AM EST Patient would like script to be: E-PRESCRIBED/FAXED TO PHARMACY WHEN WAS THE PATIENT'S LAST APPOINTMENT IN ADULT MEDICINE? 07/20/[address] Isbell WHEN WAS THE LAST TIME THE PATIENT SAW THEIR PCP? Unknown Does patient have an upcoming appointment? Yes 11/18/19 with (THE MEDICATION REQUESTED IS ON THE MED [...] N/A Patients current insurance carrier is: Payor: [employer] / [id number] /Product Type: POS [id number] documented in this encounter Plan of Treatment Not on file documented as of this encounter Visit Diagnoses Diagnosis PND (post-nasal drip) Postnasal drip documented in this encounter Care Teams Rv Servicer Relationship Specialty Start Date End Date Penelope [...] Internal Medicine 01/17/21 06/06/21 Charlene Shaw MD [address] [place] [address] PCP - General Internal Medicine 06/07/21 documented as of this encounter
--- OUTSIDE RECORDS SUMMARY | 2025-07-24 10:35 | XMS_ITS | Encounter Summary ---
Author Organization [facility] Address [address] [place] [address] Care Team Providers Care Product Planner Name Role Phone Penelope Lezama MD Primary Care Provider Rubi Weinberg, Anju DO Primary Care Pro vider Unavailable Penelope Lezama MD Primary Care Provider Rubi Castrejono, Anju DO Primary Care Pro vider Unavailable Penelope Lezama MD Primary Care Provider Unarolando Weinberg, Anju DO Primary Care Pro vider Unavailable Dariela Ojeda MD Primary Care Provider Unavailab Charlene Cisneros MD Primary Care Provider [phone] Encounter Details Date Type Department Care Team Description 10/29/2016 Solution Sales Senior Executive Report Medical Records [address] [place] [id number] Archie Scott MD Social History Tobacco Use Types Packs/Day [...] on filedocumented in this encounter Care Teams Product Planner Relationship Specialty Start Date End Date Penelope [...] Internal Medicine 01/17/21 06/06/21 Charlene Shaw MD [address] [place] [id number] PCP - General Internal Medicine 06/07/21 documented as of this encounter
--- OUTSIDE RECORDS SUMMARY | 2025-07-24 10:35 | XMS_ITS | Encounter Summary ---
Author Organization [facility] Address [address] [place] [address] Care Team Providers Care Heel Splitter Name Role Phone Penelope Lezama MD Primary Care Provider Rubi Weinberg, Anju DO Primary Care Pro vider Unavailable Penelope Lezama MD Primary Care Provider Rubi Weinberg, Anju DO Primary Care Pro vider Unavailable Penelope Lezama MD Primary Care Provider Rubi Weinberg, Anju DO Primary Care Pro vider Unavailable Dariela Ojeda MD Primary Care Provider Unavailab Charlene Cisneros MD Primary Care Provider [phone] Reason for Visit * Reason Onset Date Comments refill request 06/16/2015 Encounter Details Date Type Department Care Team Description 06/16/2015 Refill Adult Medicine [address] [address] Penelope Lezama MD refill request Social History Tobacco Use Types [...] encounter Miscellaneous Notes * Telephone Encounter - Nata Crystal M.A. - 06/16/2015 3:56 PM EDT Rx in pod, pt informed to complete uds before p/u * Telephone Encounter - Penelope Lezama - 06/16/2015 1:55 PM EDT She needs uds today * Telephone Encounter - Nata Crystal M.A. - 06/16/2015 1:47 PM EDT Controlled substance contract and last issue date of medication reviewed. Patient is due for medication. Component Value Date URINEOXYCOD NEGATIVE 04/28/2014 URBENZO NEGATIVE 04/28/2014 URAMPHETAMIN NEGATIVE 04/28/2014 URMARIJUANA NEGATIVE 04/28/2014 UROPIATES NEGATIVE 04/28/2014 URBARBITUATE NEGATIVE 04/28/2014 URCOCAINE NEGATIVE 04/28/2014 HYDROCODONE Negative 04/28/2014 Pt on uds list * Telephone Encounter - Elidia Pereira - 06/16/2015 1:30 PM EDT WHEN WAS THE PATIENT'S LAST APPOINTMENT IN ADULT MEDICINE? 06/02/15 WHEN WAS THE LAST TIME THE PATIENT SAW THEIR PCP? Same as above Does patient have an upcoming appointment? Yes 07/17/15 (THE MEDICATION REQUESTED IS ON THE MED LIST ABOVE) All of the medications requested were on the CURRENT MEDS list Did you check the Pharmacy information above?:no Patient wants: 30 -day supply Is this a mail order prescription request ? NO Patients current insurance carrier is: Payor: [employer] / Plan: POS $0 [place] [id number] /Product Type: POS [id number] documented in this encounter Plan of Treatment Not on file documented as of this encounter Results * ASSAY, DIHYDROCODEINONE (06/17/2015 8:48 AM EDT) HYDROCODONE UR GCMS Negative . ng/mL 06/22/2015 3:12 PM EDT [facility] HYDROMORPHONE UR GCMS Negative . ng/mL 06/22/2015 3:12 PM EDT [facility] Comment: Performed at: [facility] [address] [place] [address] [id number] Cosmetic Sales Assistant: Ankit Jones MD, Phone: [phone] 06/17/2015 8:48 AM EDT 06/17/2015 8:49 AM EDT Penelope Lezama MD LAB Performing Organization Address City/[facility]/ZIP Co de Phone Number [email or web address] * OXYCODONE, URINE (06/17/2015 8:48 AM EDT) URINE OXYCODONE LEVEL NEGATIVE NEGATIVE 06/17/2015 11:[address] [facility] 06/17/2015 8:48 AM EDT 06/17/2015 8:49 AM EDT Penelope Lezama MD LAB [facility] * DRUG OF ABUSE SCREEN (06/17/2015 8:48 AM EDT) AMPHETAMINE, URINE NEGATIVE NEGATIVE 06/17/2015 11:[address] [facility] BARBITURATES, URINE NEGATIVE NEGATIVE 06/17/2015 11:[address] [facility] BENZODIAZEPINE , URINE NEGATIVE NEGATIVE 06/17/2015 11:[address] [facility] COCAINE, URINE NEGATIVE NEGATIVE 06/17/2015 11:[address] [facility] OPIATES, URINE NEGATIVE NEGATIVE 06/17/2015 11:[address] [facility] MARIJUANA(THC) , URINE NEGATIVE NEGATIVE 06/17/2015 11:[address] [facility] 06/17/2015 8:48 AM EDT 06/17/2015 8:49 AM EDT Penelope Lezama MD LAB [facility] 4 [facility] documented in this encounter Visit Diagnoses Diagnosis Encounter for long-term (current) use of other high-risk medications- Primary Encounter for long-term (current) use of other medications documented in this encounter Care Teams Heel Splitter Relationship Specialty Start Date End Date Penelope [...] Medicine 01/17/21 06/06/21 Charlene Shaw MD [address] [place] [address] [id number] PCP - General Internal Medicine 06/07/21 documented as of this encounter
--- OUTSIDE RECORDS SUMMARY | 2025-07-24 10:35 | XMS_ITS | Clinical Summary ---
Author Organization [facility] Address [address] [place] [address] Care Team Providers Care Top Polisher Name Role Phone Charlene Shaw MD Primary Care Provider [phone] Allergies Active Allergy Reactions Severity Noted Date Comments Macrobid 11/21/2020 hives Nickel 06/14/2013 Penicillins 09/14/2007 unknown Medications Medication Sig Dispensed Refills Start Date End Date Status aspirin (SB LOW DOSE ASA EC) 81 MG EC tablet Take 81 mg by mouth daily. 0 Active Multiple Vitamins-Minerals (CENTRUM SILVER OR) Take by mouth. 0 A ctive fluticasone 50 MCG/ACT nasal spray USE 2 SPRAYS IN EACH NOSTRIL TWICE A DAY NEEDED FOR ALLERGIC RHINITS 47.4 mL 1 06/04/2023 Active ALBUTEROL SULFATE (ProAir HFA) 108 (90 Base) MCG/ACT Aero SolnIndications:Fabric Lay Out Worker mariam obstructive pulmonary disease, unspecified COPD type (HCC) Inhale 2 Puffs into the lungs every 6 hours as needed for Cough, Wheezing or Shortness of Breath for up to 30 days. 1 g 11 06/17/2023 Active oxybutynin (DITROPAN-XL) 5 MG 24 hr tablet Take 1 Tablet by mouth daily. 90 Tablet 1 12/30/2023 Active omeprazole (PRILOSEC) 20 MG capsule Take 1 Capsule by mouth every morning (before breakfast). 90 Capsule 1 01/27/2024 Active meloxicam (MOBIC) 15 MG tablet Take 1 Tablet by mouth daily. 90 Tablet 1 01/27/2024 Active Sodium Hyaluronate, Viscosup, (Euflexxa) 20 MG/2ML Solution Prefilled Syringe Inject 2 mL into the articular space once a week for 3 doses. Left Knee once a week x 3 weeks. [id number] 6 mL 0 02/03/2024 Active baclofen (LIORESAL) 20 MG tablet Take 1 Tablet by mouth 3 times daily. 270 Tablet 1 03/30/2024 Active verapamil (VERELAN PM) 240 MG 24 hr capsule Take 1 Capsule by mouth at bedtime. 90 Capsule 1 03/30/2024 Active simvastatin (ZOCOR) 20 MG tablet Take 1 Tablet by mouth at bedtime. 90 Tablet 1 03/30/2024 Active clonidine (CATAPRES) 0.1 MG tablet Take 1 Tablet by mouth 2 times daily. 180 Tablet 1 03/30/2024 Active Active Problems Problem Noted Date Chronic bronchitis 07/25/2023 Prediabetes 11/02/2021 History of CVA in adulthood 08/14/2020 Glenohumeral arthritis, left 08/14/2020 Complete tear of left rotator cuff 08/14 Kidney stones 12/24/2018 Anemia 11/02/2018 Spastic hemiparesis 11/09/2014 Overview: Used to see Dr. Peña, Dr. Gonzalez Urinary incontinence in female 5 Depression, major, recurrent, in partial remission 08/05/2013 FAHAD (obstructive sleep apnea) 02/14/2011 Overview: UNTREATED (October 2021) RLS (restless legs syndrome) 01/24/2011 Severe obesity (BMI 35.0-39.9) with daylin rbidity 12/10/2010 Lumbosacral radiculitis 08/24/2009 Lumbar spinal stenosis 08/24/2009 Osteoporosis, post-traumatic 11/21/2008 Overview: history of fragility fractures; normal DEXA 10/31 Subclinical hypothyroidism 10/31/2008 Cerebral palsy Overview: Left-sided spasticity and weakness High cholesterol Essential hypertension, benign Resolved Problems Problem Noted Date Resolved Date Chronic left shoulder pain 08/14/202010/04 Decreased creatinine clearance 11/02/2018 0 10/04/2021 CVA (cerebral infarction) 11/09/20142020 Overview: Per MRI 12/2013. 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 05/02/2010 10/04/2021 Immunizations Name Administration Dates Next Due COVID-19 (Pfizer) 08/16/2021,12/27/2020,12/07/19 21 Flu (Generic) 05/02/2020,,06/21/2018,05/25,05/07/2016 Influenza (> 6 Months) 04/25/2021,2014,06/12/2014,05/17,07/01/2012,06/20/2011,05/18/2010 ,05/20/2009,05/09/2008,06/03/2007,11/2004,07/10/2001,07/11/2000, 8 Influenza H1N1 Pandemic Flu Vaccine 07/27/2009 Influenza vaccine high dose age 65 and over 06/04/2023,05/27/2022,06/07/2021,05/02,05/22/2019,06/21/2018,05/25/2017 ,05/07/2016 Pneumoccoccal(Adult) Polysac charide PPSV23 07/31/2017,07/11/2011 Pneumococcal Conjugate PCV-13 09/06/2015 Shingrix (Recombinant zoster vaccine) 02/14/2022 TD (STATE SUPPLIED FOR ADULT S AND CHILDREN) 09/14/2007,09/14/2007 Zostavax 11/16/2013 Family History Medical History Relation Name Comments Diabetes Brother x 2 HI Father diabetes, HTN Diabetes Maternal Grandmother HI Mother diabetes, HTN HI Paternal Grandmother Stroke Sister 1 x 1 diabetes, HTN CA Breast Negative Hx Relation Name Status Comments Brother x 2 Alive Father Maternal Grandfather Maternal Grandmother Mother Paternal Grandfather Paternal Grandmother Sister 1 x 1 Sister 2 x 1 Alive Social History Tobacco Use Types Packs/Day Years Used Date Smoking Tobacco: Former Cigarettes 0.5 Q uit: 06/18/2023 Passive Smoke Exposure: Past Smokeless Tobacco: Never Tobacco Cessation:Counseling Given: Not Answered Comments:started age 22; max 1/4 PPD; quit [...] file Not on file Not on file Last Filed Vital Signs Vital Sign Reading Time Taken Comments Blood Pressure 166/80 03/17/2024 3:44 PM EDT Pulse 62 03/10/2024 3:18 PM EDT Temperature 36.7 C (98 F) 10/09/2023 9:54 AM EST Respiratory Rate 16 03/24/2024 3:54 PM EDT Oxygen Saturation 95% 09/17/2023 1:53 PM EST Inhaled Oxygen Concentration - - Weight 88 kg (194 lb) 03/24/2024 3:54 PM EDT Height 149.9 cm (4' 11 ) 03/24/2024 3:54 PM EDT Body Mass Index 39.18 03/24/2024 3:54 PM EDT Plan of Treatment Health Maintenance Due Date Last Done Comments SHINGLES VACCINE (3 of 3) 04/11/2022 02/14/2022, BONE DENSITY SCREENING 03/12/2024 , 05/18/2019, 05/17/2013 (Exception), Additional history exists BMI CHECK/ADVISE 08/25/2024 06/04/2023, 05/2023, 11/28/2021, Additional history exists Covid-19 Vaccine (2022-09 4 season) 2025 08/16/2021, 12/27/2020, 12/06/2020 INFLUENZA (#1) 2025 06/04/2023, 1010/2021, 06/07/2021, Additional history exists MAMMOGRAM 05/18/2025 05/18/2024, 02/23, 03/12/2022, Additional history exists DTAP/TDAP/TD (2 - Td or Tdap) 07/23/2025 (External Completion of Vaccination per patient), 09/14/2007, 09/14/2007 CHOLESTEROL SCREENING 12/14/2027 12/13/2022 , 11/02/2021, 11/07/2020, Additional history exists HEPATITIS C SCREENING Completed 05/17/2013 PNEUMOCOCCAL VACCINE Completed 07/31/2017, 09/06/2015, 07/11/2011 Care Teams Top Polisher Relationship Specialty Start Date End Date Charlene Shaw MD [address] [place] [address] [id number] PCP - General Internal Medicine 06/07/21
--- OUTSIDE RECORDS SUMMARY | 2025-07-24 10:35 | XMS_ITS | Clinical Summary ---
Author Organization [facility] Address [address] [address] Phone Care Team Providers Care Senior Officer Name Role Phone Charlene Shaw MD Primary Care Provider Allergies Active Allergy Reactions Criticality Noted Date [...] needed (shortness of breath and dyspnea). Active Encounters Date Type Department Care Team Description 06/28/2025 Lab Requisition [facility] Lab Main [address] [place] [address] Ladan Almeida MD Abscess of intestine; Other specified sepsis; Chronic obstructive pulmonary disease, unspecified 06/20/2025 9:27 AM EDT - 06/20/2025 11:59 PM EDT Hospital Encounter [facility] Laboratory [address] [place] [address] Ladan Almeida MD Discharge Disposition: Home or Self Care 06/20/2025 Transcribe Orders [facility] Specimen Processing [address] [place] [address] Ladan Almeida MD Abscess of intestine (Primary Dx); Diverticulosis of large intestine without diverticulitis; Congenital diplegia 06/13/2025 10:52 AM EDT - 06/13/2025 11:59 PM EDT Hospital Encounter [facility] Laboratory [address] [place] [address] Ladan Almeida MD Discharge Disposition: Home or Self Care 06/13/2025 Transcribe Orders [facility] Specimen Processing [address] [place] [address] Ladan Almeida MD Obstructive chronic bronchitis with exacerbation (Primary Dx) from Last 3 Months Social History Tobacco Use Types Packs/Day Years [...] patient's age to complete this topic IPV VACCINES Aged Out No longer eligi ble based on patient's age to complete this topic MENINGOCOCCAL VACCINES (ACWY) Aged Out No longer eligible based on patient's age to complete this topic MENINGOCOCCAL VACCINES (B) Aged Out N o longer eligible based on patient's age to complete this topic Medical Devices Not on file Procedures Procedure Name Priority Date/Time Associated Diagnosis Comments COMPREHENSIVE METABOLIC PANEL (CMP) Today 06/28/2025 6:50 AM EST Abscess of intestine Other specified sepsis Chronic obstructive pulmonary disease, unspecified CBC Today 06/28/2025 6:50 AM EST Abscess of intestine Other specified sepsis Chronic obstructive pulmonary disease, unspecified COMPREHENSIVE METABOLIC PANEL (CMP) Routine 06/20/2025 5:37 AM EDT Abscess of intestine Diverticulosis of large intestine without diverticulitis Congenital diplegia CBC Routine 06/20/2025 5:37 AM EDT Abscess of intestine Diverticulosis of large intestine without diverticulitis Congenital diplegia COMPREHENSIVE METABOLIC PANEL (CMP) Routine 06/13/2025 9:25 AM EDT Obstructive chronic bronchitis with exacerbation CBC Routine 06/13/2025 9:25 AM EDT Obstructive chronic bronchitis with exacerbation from Last 3 Months Results * (ABNORMAL) Comprehensive Metabolic Panel (CMP) (06/28/2025 6:50 AM EST) Only the most recent of3 resultswithin the time period is included. Sodium 145 136 - 145 mmol/L 06/28/2025 12:03 PM [facility] Potassium 4.7 3.4 - 5.1 mmol/L 06/28/2025 12:03 PM [facility] Chloride 108(H) 98 - 107 mmol/L 06/28/2025 12:03 PM [facility] CO2 25 20 - 31 mmol/L 06/28/2025 12:03 PM [facility] Anion Gap 12 3 - 17 mmol/L 06/28/2025 12:03 PM [facility] BUN 18 6 - 23 mg/dL 06/28/2025 12:03 PM [facility] Creatinine 0.80 0.50 - 1.00 mg/dL 06/28/2025 12:03 PM [facility] eGFR 75 >59 mL/min/1.7 3m2 06/28/2025 12:03 PM [facility] Comment:Estimated glomerular filtration rate calculated using the CKD-EPI refit equation. Glucose 85 70 - 99 mg/dL 06/28/2025 12:03 PM [facility] Calcium 8.8 8.5 - 10.5 mg/dL 06/28/2025 12:03 PM [facility] AST 13 <33 U/L 06/28/2025 12:03 PM [facility] ALT 7 <34 U/L 06/28/2025 12:03 PM [facility] Alkaline Phosphatase 48 40 - 130 U/L 06/28/2025 12:03 PM [facility] Bilirubin, Total 0.4 0.0 - 1.2 mg/dL 06/28/2025 12:03 PM [facility] Total Protein 5.9(L) 6.4 - 8.3 g/dL 06/28/2025 12:03 PM [facility] Albumin 3.8 3.5 - 5.2 g/dL 06/28/2025 12:03 PM [facility] Globulin 2.1 1.9 - 4.1 g/dL 06/28/2025 12:03 PM [facility] Blood (Blood) 06/28/2025 6:5 0 AM EST 06/28/2025 11:21 AM EST us Ladan Almeida MD LAB BLOOD BKR ORDERABLES Final Result [facility] [address] [place], [place] [id number] * (ABNORMAL) CBC (06/28/2025 6:50 AM EST) Only the most recent of3 resultswithin the time period is included. WBC 5.00 4.00 - 11.00 K/uL 06/28/2025 11:45 AM [facility] RBC 3.53(L) 4.00 - 5.20 M/uL 06/28/2025 11:45 AM [facility] Hemoglobin 9.7(L) 12.0 - 16.0 g/dL 06/28/2025 11:45 AM [facility] Hematocrit 32.7(L) 36.0 - 46.0 % 06/28/2025 11:45 AM [facility] MCV 92.6 80.0 - 100.0 fL 06/28/2025 11:45 AM [facility] MCH 27.5 27.0 - 31.0 pg 06/28/2025 11:45 AM [facility] MCHC 29.7(L) 32.0 - 36.0 g/dL 06/28/2025 11:45 AM [facility] PLT 132(L) 150 - 450 K/uL 06/28/2025 11:45 AM [facility] MPV 11.6 8.4 - 12.0 fL 06/28/2025 11:45 AM [facility] RDW-CV 17.2(H) 11.5 - 14.5 % 06/28/2025 11:45 AM [facility] Absolute NRBC 0.00 <=0.00 K cells/uL 06/28/2025 11:45 AM [facility] NRBC 0.0 <=0.0 /100 WBCs 06/28/2025 11:45 AM [facility] Blood (Blood) 06/28/2025 6:5 0 AM EST 06/28/2025 11:21 AM EST us Ladan Almeida MD LAB BLOOD BKR ORDERABLES Final Result Performing Organization Address City/State/[facility] Co de Phone Number [facility] [address] [place] [address] from Last 3 Months Insurance [facility] [employer] [facility] [employer] [facility] [facility] [employer] Care Teams Senior Officer Relationship Specialty Start Date End Date Charlene Shaw MD [address] [place] [address] PCP - General 11/17/23 Additional Source Comments The information contained in this document represents components of the legal health record. It is not the complete legal health record.[facility]
--- OUTSIDE RECORDS SUMMARY | 2025-07-24 10:35 | XMS_ITS | Encounter Summary ---
Author Organization [facility] Address [address] [place] [address] Care Team Providers Care Emergency Vehicle Dispatcher Name Role Phone Penelope Lezama MD Primary Care Provider Rubi Weinberg, Anju DO Primary Care Pro vider Unavailable Penelope Lezama MD Primary Care Provider Rubi Weinberg, Anju DO Primary Care Pro vider Unavailable Penelope Lezama MD Primary Care Provider Rubi Weinberg, Anju DO Primary Care Pro vider Unavailable Dariela Ojeda MD Primary Care Provider Unavailab Charlene Cisneros MD Primary Care Provider [phone] Encounter Details Date Type Department Care Team Description 07/19/2015 Controlled Substance Plan Medical Records [address] [place] [address] Abstract, Provider Social History Tobacco Use Types [...] on filedocumented in this encounter Care Teams Emergency Vehicle Dispatcher Relationship Specialty Start Date End Date Penelope [...] Internal Medicine 01/17/21 06/06/21 Charlene Shaw MD [address] [place] [id number] PCP - General Internal Medicine 06/07/21 documented as of this encounter
--- OUTSIDE RECORDS SUMMARY | 2025-07-24 10:35 | XMS_ITS | Encounter Summary ---
Author Organization [facility] Address [address] [place] [address] Care Team Providers Care Clinical Quality Assurance Specialist Name Role Phone Penelope Lezama MD Primary Care Provider Rubi Weinberg, Anju DO Primary Care Pro vider Unavailable Penelope Lezama MD Primary Care Provider Rubi Weinberg, Anju DO Primary Care Pro vider Unavailable Penelope Lezama MD Primary Care Provider Rubi Weinberg, Anju DO Primary Care Pro vider Unavailable Dariela Ojeda MD Primary Care Provider Unavailab Charlene Cisneros MD Primary Care Provider [phone] Encounter Details Date Type Department Care Team Description 12/10/2018 Page Technician Report Medical Records [address] [place] [id number] Michelle Calvo MD Social History Tobacco Use [...] on filedocumented in this encounter Care Teams Clinical Quality Assurance Specialist Relationship Specialty Start Date End Date Penelope [...] Internal Medicine 01/17/21 06/06/21 Charlene Shaw MD [address] [place] [id number] PCP - General Internal Medicine 06/07/21 documented as of this encounter
--- OUTSIDE RECORDS SUMMARY | 2025-07-24 10:35 | XMS_ITS | Encounter Summary ---
Author Organization [facility] Address [address] [place] [address] Care Team Providers Care Cattle Broker Name Role Phone Agustín Hudson MD Primary Care Provider Unavail able Penelope Lezama MD Primary Care Provider Rubi Weinberg, Anju DO Primary Care Pro vider Unavailable Penelope Lezama MD Primary Care Provider Unarolando Weinberg, Anju DO Primary Care Pro vider Unavailable Penelpoe Lezama MD Primary Care Provider Unavamarkus labisabel Braxton [place], Anju DO Primary Care Pro vider Unavailable Dariela Ojeda MD Primary Care Provider Unavailab Charlene Cisneros MD Primary Care Provider [phone] Reason for Visit * Reason Onset Date Comments Echocardiogram 03/29/2011 Encounter Details Date Type Department Care Team Description 03/29/2011 Telephone Adult Medicine [address] [address] Cristian Arevalo MD [address] [place] [address] Echocardiogram Social History Tobacco Use Types Packs/Day Years [...] encounter Miscellaneous Notes * Telephone Encounter - Beena Nguyen - 03/29/2011 3:39 PM EDT Pt has US Family the echo order was faxed to [facility] on 03/29/11. Shaylee is for 04/10/11 at 8:45 am documented in this encounter Plan of Treatment Not on file documented as of this encounter Visit Diagnoses Not on filedocumented in this encounter Care Teams Cattle Broker Relationship Specialty Start Date End Date Agustín [...] Internal Medicine 01/17/21 06/06/21 Charlene Shaw MD [address] [place] [phone] PCP - General Internal Medicine 06/07/21 documented as of this encounter
--- OUTSIDE RECORDS SUMMARY | 2025-07-24 10:35 | XMS_ITS | Encounter Summary ---
Author Organization [facility] Address [address] [place] [address] Care Team Providers Care Nursing Administrator Name Role Phone Penelope Lezama MD Primary Care Provider Anju Valencia DO Primary Care Pro vider Unavailable Penelope Lezama MD Primary Care Provider Anju Valencia DO Primary Care Pro vider Unavailable Dariela Ojeda MD Primary Care Provider Unavailab Charlene Cisneros MD Primary Care Provider [phone] Encounter Details Date Type Department Care Team Description 01/14/2020 [facility] Medical Records [address] [place] [id number] Abstract, Provider Social History Tobacco Use Types [...] on filedocumented in this encounter Care Teams Nursing Administrator Relationship Specialty Start Date End Date Penelope Lezama MD PCP - General Internal Medicine 11/18/19 04/10/20 Anju Suggs DO PCP - General Internal Medicine 04/11/20 05/09/20 Penelope Lezama MD PCP - General Internal Medicine 05/10/20 05/15/20 Anju Suggs DO PCP - General Internal Medicine 05/16/20 01/16/21 Dariela Ojeda MD PCP - General Internal Medicine 01/17/21 06/06/21 Charlene Shaw MD [address] [place] [id number] PCP - General Internal Medicine 06/07/21 documented as of this encounter
--- OUTSIDE RECORDS SUMMARY | 2025-07-24 10:35 | XMS_ITS | Encounter Summary ---
Author Organization [facility] Address [address] [place] [address] Care Team Providers Care Evp Global Product Leadership Name Role Phone Penelope Lezama MD Primary Care Provider Rubi Weinberg, Anju DO Primary Care Pro vider Unavailable Penelope Lezama MD Primary Care Provider Rubi Weinberg, Anju DO Primary Care Pro vider Unavailable Penelope Lezama MD Primary Care Provider Rubi Weinberg, Naju DO Primary Care Pro vider Unavailable Dariela Ojeda MD Primary Care Provider Unavailab Charlene Cisneros MD Primary Care Provider [phone] Reason for Visit * Reason Onset Date Comments immunizations 09/04/2015 Encounter Details Date Type Department Care Team Description 09/04/2015 Telephone Adult Medicine [address] [address] Penelope Lezama MD immunizations Social History Tobacco Use Types Packs/Day Years [...] encounter Miscellaneous Notes * Telephone Encounter - Maria Mabry M.A. - 09/04/2015 1:14 PM EST Please schedule pt on chronic nurse when she calls back for prevnar Msg left * Telephone Encounter - Penelope Lezama - 09/04/2015 1:13 PM EST Prevnar 13 ordered for future. * Telephone Encounter - Maria Mabry M.A. - 09/04/2015 1:11 PM EST Pt has not received prevnar, do you recommend this? * Telephone Encounter - Jess Ray - 09/04/2015 12:36 PM EST Patient wants to know if she received the prednar pneumonia shot and when documented in this encounter Plan of Treatment Not on file documented as of this encounter Visit Diagnoses Diagnosis Need for prophylactic vaccination against Streptococcus pneumoniae (pneumococcus)- Primary Need for prophylactic vaccination against streptococcus pneumoniae (pneumococcus) documented in this encounter Care Teams Evp Global Product Leadership Relationship Specialty Start Date End Date Penelope [...] Internal Medicine 01/17/21 06/06/21 Charlene Shaw MD [address] [place] [address] PCP - General Internal Medicine 06/07/21 documented as of this encounter
--- OUTSIDE RECORDS SUMMARY | 2025-07-24 10:35 | XMS_ITS | Encounter Summary ---
Author Organization [facility] Address [address] [place] [address] Care Team Providers Care Performance Test Engineer Name Role Phone Anju Suggs DO Primary Care Pro vider Unavailable Dariela Ojeda MD Primary Care Provider Unavailab Charlene Cisneros MD Primary Care Provider [phone] Encounter Details Date Type Department Care Team Description 06/05/2020 Activity Coordinator Report Medical Records [address] [place] [address] Julio C Mcleod Social History Tobacco Use Types Packs/Day Years [...] on filedocumented in this encounter Care Teams Performance Test Engineer Relationship Specialty Start Date End Date Anju Suggs DO PCP - General Internal Medicine 05/16/20 01/16/21 Dariela Ojeda MD PCP - General Internal Medicine 01/17/21 06/06/21 Charlene Shaw MD [address] [place] [address] PCP - General Internal Medicine 06/07/21 documented as of this encounter
--- OUTSIDE RECORDS SUMMARY | 2025-07-24 10:35 | XMS_ITS | Encounter Summary ---
Author Organization [facility] Address [address] [place] [address] Care Team Providers Care Euclid Operator Name Role Phone Penelope Lezama MD Primary Care Provider Rubi Weinberg, Anju DO Primary Care Pro vider Unavailable Penelope Lezama MD Primary Care Provider Rubi Weinberg, Anju DO Primary Care Pro vider Unavailable Penelope Lezama MD Primary Care Provider Rubi Weinberg, Anju DO Primary Care Pro vider Unavailable Dariela Ojeda MD Primary Care Provider Unavailab Charlene Csineros MD Primary Care Provider [phone] Reason for Referral * EXTERNAL (Routine) - Authorized/Booked Specialty Diagnoses / Procedures Referred By Contact Referred To Contact ORTHOPEDICS / Orthopedic Procedures REFERRAL TO ORTHOPEDICS (IN NETWORK) Penelope Lezama MD [address] [place] [address] Center, Occupational Care [address] [place] [address] Referral ID Status Reason Start Date Expiration Date V isits Requested Visits Authorized SEE NOTE Authorized/B ooked 09/15/2019 12/21/2019 1 1 Encounter Details Date Type Department Care Team Description 09/15/2019 Orders Only Adult Medicine [address] [address] Penelope Lezama MD Social History Tobacco Use Types Packs/Day [...] on filedocumented in this encounter Care Teams Euclid Operator Relationship Specialty Start Date End Date Penelope [...] Medicine 01/17/21 06/06/21 Charlene Shaw MD [address] [place] [address] PCP - General Internal Medicine 06/07/21 documented as of this encounter
--- OUTSIDE RECORDS SUMMARY | 2025-07-24 10:35 | XMS_ITS | Encounter Summary ---
Author Organization [facility] Address [address] [place] [address] Care Team Providers Care Medical Claims Assistant Name Role Phone Penelope Lezama MD Primary Care Provider Rubi Weinberg, Anju DO Primary Care Pro vider Unavailable Penelope Lezama MD Primary Care Provider Rubi Castrejono, Anju DO Primary Care Pro vider Unavailable Penelope Lezama MD Primary Care Provider Rubi Weinberg, Anju DO Primary Care Pro vider Unavailable Dariela Ojeda MD Primary Care Provider Unavailab Charlene Cisneros MD Primary Care Provider Encounter Details Date Type Department Care Team Description 11/20/2016 [facility] Medical Records [address] [place] [address] Abstract, Provider Social History Tobacco Use Types [...] on filedocumented in this encounter Care Teams Medical Claims Assistant Relationship Specialty Start Date End Date Penelope Lezama MD PCP - General Internal Medicine 1/29/15 2/27/20 Anju Suggs DO PCP - General Internal Medicine 10/22/19 11/17/19 Penelpoe Lezama MD PCP - General Internal Medicine 11/18/19 04/10/20 Anju Suggs DO PCP - General Internal Medicine 04/11/20 05/09/20 Penelope Lezama MD PCP - General Internal Medicine 05/10/20 05/15/20 Anju Suggs DO PCP - General Internal Medicine 05/16/20 01/16/21 Dariela Ojeda MD PCP - General Internal Medicine 01/17/21 06/06/21 Charlene Shaw MD [address] [place] [address] PCP - General Internal Medicine 06/07/21 documented as of this encounter
--- OUTSIDE RECORDS SUMMARY | 2025-07-24 10:35 | XMS_ITS | Encounter Summary ---
Author Organization [facility] Address [address] [place] [address] Care Team Providers Care Ladle Pourer Name Role Phone Anju Suggs DO Primary Care Pro vider Unavailable Dariela Ojeda MD Primary Care Provider Unavailab Charlene Cisneros MD Primary Care Provider [phone] Encounter Details Date Type Department Care Team Description 06/08/2020 Hospital Medical Records [address] [place] [address] Michelle Calvo MD Social History Tobacco Use [...] on filedocumented in this encounter Care Teams Ladle Pourer Relationship Specialty Start Date End Date Anju Suggs DO PCP - General Internal Medicine 05/16/20 01/16/21 Dariela Ojeda MD PCP - General Internal Medicine 01/17/21 06/06/21 Charlene Shaw MD [address] [place] [address] PCP - General Internal Medicine 06/07/21 documented as of this encounter
--- OUTSIDE RECORDS SUMMARY | 2025-07-24 10:35 | XMS_ITS | Encounter Summary ---
Author Organization [facility] Address [address] [place] [address] Care Team Providers Care Procedure Tech Name Role Phone Penelope Lezama MD Primary Care Provider Rubi Weinberg, Anju DO Primary Care Pro vider Unavailable Penelope Lezama MD Primary Care Provider Rubi Weinberg, Anju DO Primary Care Pro vider Unavailable Penelope Lezama MD Primary Care Provider Rubi Weinberg, Anju DO Primary Care Pro vider Unavailable Dariela Ojeda MD Primary Care Provider Unavailab Charlene Cisneros MD Primary Care Provider [phone] Encounter Details Date Type Department Care Team Description 08/29/2016 Radio Operator Report Medical Records [address] [place] [address] Julio C Mcleod Social History Tobacco Use [...] on filedocumented in this encounter Care Teams Procedure Tech Relationship Specialty Start Date End Date Penelope [...] Internal Medicine 01/17/21 06/06/21 Charlene Shaw MD [address] [place] [address] PCP - General Internal Medicine 06/07/21 documented as of this encounter
--- OUTSIDE RECORDS SUMMARY | 2025-07-24 10:35 | XMS_ITS | Encounter Summary ---
Author Organization [facility] Address [address] [place] [address] Care Team Providers Care Line Service Person Name Role Phone Penelope Lezama MD Primary Care Provider Rubi Weinberg, Anju DO Primary Care Pro vider Unavailable Penelope Lezama MD Primary Care Provider Rubi Weinberg, Anju DO Primary Care Pro vider Unavailable Penelope Lezama MD Primary Care Provider Rubi Weinberg, Anju DO Primary Care Pro vider Unavailable Dariela Ojeda MD Primary Care Provider Unavailab Charlene Cisneros MD Primary Care Provider [phone] Reason for Visit * Reason Onset Date Comments refill request 08/02/2019 Encounter Details Date Type Department Care Team Description 08/02/2019 Refill Adult Medicine [address] [address] Penelope Lezama MD refill request Social History [...] encounter Miscellaneous Notes * Telephone Encounter - Soni Amaro M.A. - 08/02/2019 3:08 PM EST Lab Results Component Value Date CHOL 269 03/06/2019 LDL 161 03/06/2019 HDL 57 03/06/2019 TRIG 259 03/06/2019 SGOT 17 03/06/2019 SGPT 21 03/06/2019 * Telephone Encounter - Lois Pabon - 08/02/2019 1:32 PM EST Patient would like script to be: E-PRESCRIBED/FAXED TO PHARMACY WHEN WAS THE PATIENT'S LAST APPOINTMENT IN ADULT MEDICINE? 06/11/19 WHEN WAS THE LAST TIME THE PATIENT SAW THEIR PCP? Does patient have an upcoming appointment? Yes 09/14/18 (THE MEDICATION REQUESTED IS ON THE MED [...] N/A Patients current insurance carrier is: Payor: [employer] / Plan: POS $0 [facility] 9195 /Product Type: POS [id number] documented in this encounter Plan of Treatment Not on file documented as of this encounter Visit Diagnoses Not on filedocumented in this encounter Care Teams Line Service Person Relationship Specialty Start Date End Date Penelope [...] - General Internal Medicine 01/17/21 06/06/21 Charlene Shwa MD [address] [place] [address] PCP - General Internal Medicine 06/07/21 documented as of this encounter
--- OUTSIDE RECORDS SUMMARY | 2025-07-24 10:35 | XMS_ITS | Patient Health Record ---
Author Organization [facility] Address [address] [place] [address] Care Team Providers Care Car Ferrier Name Role Phone Charlene Shaw Primary Care Provider Obed Gerardo Unavailable [phone] Allergies Allergen (clinical drug ingredient) Drug/Non Drug Allergy documented on EMR Reaction Allergy Type Onset Date Status Information temporarily unavailable Amoxicillin Unknown Drug Allergy Active Information temporarily unavailable Nitrofurantoin blotches, itchy Drug Allergy Active Information temporarily unavailable Nickel Unknown Allergy Active Reason For Referral [...] Problem Status W/U Status Risk Notes Problem Information temporarily unavailable Hallux valgus (acquired), left foot (M20.12) Active confirmed Problem Information temporarily unavailable 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 Problem Information temporarily unavailable Other hammer toe(s) (acquired), right foot (M20.41) Active confirmed Problem Information temporarily unavailable Other hammer toe(s) (acquired), left foot (M20.42) Active confirmed Plan Of Treatment Pending Test Test Name Order Date X ray : Foot, left 3V 01/16/2021 X ray : Foot, left 3V 04/24/2021 X ray : Foot, right 3V 06/27/2020 Insurance Providers Payer Name Payer Address Payer Phone Subscriber Number Group Number Insured Name Patient Relationship to Insured Coverage Start Date Coverage End Date [facility] [address] [place] [address] [id number] Britta Glover Self - patient is the insured Medical (General) History Medical History History ICD Code Gall bladder problems Headaches/Migraines High blood pressure Stroke Measles Chicken pox Mumps Cerebral palsy Surgical History Surgery Date(Month/Year) hysterectomy 1991 Hospitalization History Reason Date(Month/Year) Pinched Nerve [facility] 04/05/21
--- OUTSIDE RECORDS SUMMARY | 2025-07-24 10:36 | XMS_ITS | Encounter Summary ---
Author Organization [facility] Address [address] [place] [address] Care Team Providers Care Stone Engraver Name Role Phone Charlene Shaw MD Primary Care Provider [phone] Encounter Details Date Type Department Care Team Description 11/13/2023 Hospital Medical Records [address] [place] [address] [facility] Social History Tobacco Use Types Packs/Day Years [...] on filedocumented in this encounter Care Teams Stone Engraver Relationship Specialty Start Date End Date Charlene Shaw MD [address] [place] [address] PCP - General Internal Medicine 06/07/21 documented as of this encounter
--- OUTSIDE RECORDS SUMMARY | 2025-07-24 10:36 | XMS_ITS | Encounter Summary ---
Author Organization [facility] Address [address] [place] [address] Care Team Providers Care Baker Chef Name Role Phone Penelope Lezama MD Primary Care Provider Rubi Weinberg, Anju DO Primary Care Pro vider Unavailable Penelope Lezama MD Primary Care Provider Rubi Castrejono, Anju DO Primary Care Pro vider Unavailable Penelope Lezama MD Primary Care Provider Unarolando Weinberg, Anju DO Primary Care Pro vider Unavailable Dariela Ojeda MD Primary Care Provider Unavailab Charlene Cisneros MD Primary Care Provider [phone] Encounter Details Date Type Department Care Team Description 02/20/2018 Ball Sorter Report Medical Records [address] [place] [address] Jolie Suggs Social History Tobacco Use Types [...] on filedocumented in this encounter Care Teams Baker Chef Relationship Specialty Start Date End Date Penelope Lezama MD PCP - General Internal Medicine 09/22/14 10/21/19 Anju Suggs DO PCP - General Internal Medicine 10/22/19 11/17/19 Penelope eLzama MD PCP - General Internal Medicine 11/18/19 04/10/20 Anju Suggs DO PCP - General Internal Medicine 04/11/20 05/09/20 Penelope Lezama MD PCP - General Internal Medicine 05/10/20 05/15/20 Anju Suggs DO PCP - General Internal Medicine 05/16/20 01/16/21 Dariela Ojeda MD PCP - General Internal Medicine 01/17/21 06/06/21 Charlene Shaw MD [address] [place] [address] PCP - General Internal Medicine 06/07/21 documented as of this encounter
--- OUTSIDE RECORDS SUMMARY | 2025-07-24 10:36 | XMS_ITS | Encounter Summary ---
Author Organization [facility] Address [address] [place] [address] Care Team Providers Care Senior Data Modeler Name Role Phone Dariela Ojeda MD Primary Care Provider Unavailab Charlene Cisneros MD Primary Care Provider [phone] Reason for Visit * Reason Onset Date Comments Note, Other 04/04/2021 Encounter Details Date Type Department Care Team Description 04/04/2021 Telephone Pulmonology - [place] [address] [facility] [address] [place] [address] Shanice Isbell MD [address] [place] [address] Note, Other Social History Tobacco Use Types Packs/Day Years Used Date Smoking Tobacco: Former Cigarettes 0.3 20 Q uit: 02/16/2014 Smokeless Tobacco: Never Alcohol Use Standard Drinks/Week Comments Yes 0 (1 standard drink = 0.6 oz pur e alcohol) rare Sex Assigned at Date Recorded Not on file Job Start Date Occupation Industry Not on file Not on file Not on file COVID-19 Exposure Response Date Recorded In the last month, have you been in contact with someone who was confirmed or suspected to have Coronavirus / COVID-19? No / Unsure 03/27/2021 3:29 PM EDT documented as of this encounter Miscellaneous Notes * Telephone Encounter - Ramya Mendosa - 04/04/2021 2:49 PM EDT Notes faxed tp pre op * Telephone Encounter - Vale Mendosa - 04/04/2021 8:53 AM EDT Kathia from [facility] admission calling they need the pre-op notes YENNY. Patient has surgery tomorrow. documented in this encounter Plan of Treatment Not on file documented as of this encounter Visit Diagnoses Not on filedocumented in this encounter Care Teams Senior Data Modeler Relationship Specialty Start Date End Date Dariela Ojeda MD PCP - General Internal Medicine 01/17/21 06/06/21 Charlene Shaw MD [address] [place] [address] PCP - General Internal Medicine 06/07/21 documented as of this encounter
--- OUTSIDE RECORDS SUMMARY | 2025-07-24 10:36 | XMS_ITS | Encounter Summary ---
Author Organization [facility] Address [address] [place] [address] Care Team Providers Care Channeler Insole Name Role Phone Penelope Lezama MD Primary Care Provider Rubi Weinberg, Anju DO Primary Care Pro vider Unavailable Penelope Lezama MD Primary Care Provider Rubi Weinberg, Anju DO Primary Care Pro vider Unavailable Penelope Lezama MD Primary Care Provider Rubi Weinberg, Anju DO Primary Care Pro vider Unavailable Dariela Ojeda MD Primary Care Provider Unavailab Charlene Cisneros MD Primary Care Provider [phone] Encounter Details Date Type Department Care Team Description 08/04/2017 [facility] Controlled Substance Contract Medical Records [address] [place] [address] Abstract, Provider Social History Tobacco Use Types [...] on filedocumented in this encounter Care Teams Channeler Insole Relationship Specialty Start Date End Date Penelope [...] Internal Medicine 01/17/21 06/06/21 Charlene Shaw MD [address] [place] [address] PCP - General Internal Medicine 06/07/21 documented as of this encounter
--- OUTSIDE RECORDS SUMMARY | 2025-07-24 10:36 | XMS_ITS | Encounter Summary ---
Author Organization [facility] Address [address] [place] [address] Care Team Providers Care Power Generation Engineer Name Role Phone Penelope Lezama MD Primary Care Provider Anju Valencia DO Primary Care Pro vider Unavailable Penelope Lezama MD Primary Care Provider Rubi Weinberg, Anju DO Primary Care Pro vider Unavailable Penelope Lezama MD Primary Care Provider Rubi Weinberg, Anju DO Primary Care Pro vider Unavailable Dariela Ojeda MD Primary Care Provider Unavailab Charlene Cisneros MD Primary Care Provider [phone] Encounter Details Date Type Department Care Team Description 09/07/2018 Hospital Medical Records [address] [place] [address] Osei Polanco Social History Tobacco Use Types Packs/Day Years [...] on filedocumented in this encounter Care Teams Power Generation Engineer Relationship Specialty Start Date End Date Penelope [...] Medicine 01/17/21 06/06/21 Charlene Shaw MD [address] [place] [address] PCP - General Internal Medicine 06/07/21 documented as of this encounter
--- OUTSIDE RECORDS SUMMARY | 2025-07-24 10:36 | XMS_ITS | Encounter Summary ---
Author Organization [facility] Address [address] [place] [address] Care Team Providers Care Tractor Trailer Mechanic Name Role Phone Agustín Hudson MD Primary Care Provider Unavail able Penelope Lezama MD Primary Care Provider Rubi Weinberg, Anju DO Primary Care Pro vider Unavailable Penelope Lezama MD Primary Care Provider Unarolando Braxton Colasaccnora, Anju DO Primary Care Pro vider Unavailable Penelope Lezama MD Primary Care Provider Unavai labisabel Krakochico Colasacco, Anju DO Primary Care Pro vider Unavailable Dariela Ojeda MD Primary Care Provider Unavailab Charlene Cisneros MD Primary Care Provider [phone] Encounter Details Date Type Department Care Team Description 01/12/2014 Major Gifts Director Report Medical Records [address] [place] [address] Jose Peña MD Social History Tobacco Use [...] on filedocumented in this encounter Care Teams Tractor Trailer Mechanic Relationship Specialty Start Date End Date Agustín [...] Internal Medicine 01/17/21 06/06/21 Charlene Shaw MD [address] [place] [address] PCP - General Internal Medicine 06/07/21 documented as of this encounter
--- OUTSIDE RECORDS SUMMARY | 2025-07-24 10:36 | XMS_ITS | Encounter Summary ---
Author Organization [facility] Address [address] [place] [address] Care Team Providers Care Automobile Mechanic Assistant Name Role Phone Penelope Lezama MD Primary Care Provider Rubi Weinberg, Anju DO Primary Care Pro vider Unavailable Penelope Lezama MD Primary Care Provider Rubi Weinberg, Anju DO Primary Care Pro vider Unavailable Penelope Lezama MD Primary Care Provider Rubi Weinberg, Anju DO Primary Care Pro vider Unavailable Dariela Ojeda MD Primary Care Provider Unavailab Charlene Cisneros MD Primary Care Provider [phone] Encounter Details Date Type Department Care Team Description 06/10/2019 Community Relations Manager Report Medical Records [address] [place] [address] Michelle Calvo MD Social History Tobacco Use [...] on filedocumented in this encounter Care Teams Automobile Mechanic Assistant Relationship Specialty Start Date End Date [...] Internal Medicine 01/17/21 06/06/21 Charlene Shaw MD [address] [place] [address] PCP - General Internal Medicine 06/07/21 documented as of this encounter
--- OUTSIDE RECORDS SUMMARY | 2025-07-24 10:36 | XMS_ITS | Encounter Summary ---
Author Organization [facility] Address [address] [place] [address] Care Team Providers Care Microbiological Analyst Name Role Phone Charlene Shaw MD Primary Care Provider [phone] Encounter Details Date Type Department Care Team Description 06/25/2023 Boom Stick Worker Report Medical Records [address] [place] [address] Florian Judd PA-C Social History Tobacco Use Types Packs/Day Years Used Date Smoking Tobacco: Every Day Cigarettes 0.5 Passive Smoke Exposure: Past Smokeless Tobacco: Never [...] Exposure Response Date Recorded In the last 10 days, have yo u been in contact with someone who was confirmed or suspected to have Coronavirus/COVID-19? No / Unsure 06/17/2023 10:59 AM EDT documented as of this encounter Plan of Treatment Not on file documented as of this encounter Visit Diagnoses Not on filedocumented in this encounter Care Teams Microbiological Analyst Relationship Specialty Start Date End Date Charlene Shaw MD [address] [place] [address] PCP - General Internal Medicine 10/14/21 documented as of this encounter
--- OUTSIDE RECORDS SUMMARY | 2025-07-24 10:36 | XMS_ITS | Encounter Summary ---
Author Organization [facility] Address [address] [place] [address] Care Team Providers Care Tray Line Supervisor Name Role Phone Penelope Lezama MD Primary Care Provider Rubi Weinberg, Anju DO Primary Care Pro vider Unavailable Penelope Lezama MD Primary Care Provider Rubi Weinberg, Anju DO Primary Care Pro vider Unavailable Penelope Lezama MD Primary Care Provider Rubi Weinberg, Anju DO Primary Care Pro vider Unavailable Dariela Ojeda MD Primary Care Provider Unavailab Charlene Cisneros MD Primary Care Provider [phone] Encounter Details Date Type Department Care Team Description 01/16/2019 Telephone Gastroenterology - [address] [place] [address] Alejandra Stanley MD Social History Tobacco Use Types Packs/Day [...] encounter Miscellaneous Notes * Telephone Encounter - Jannette Goldstein - 01/25/2019 11:09 AM EDT Lm to have pt call back * Telephone Encounter - Bethany Ramon - 01/25/2019 9:56 AM EDT Patient returning your call to schedule her colon with Dr. Stanley, serena Adhikari * Telephone Encounter - Zeynep Pat - 01/16/2019 8:32 AM EDT Called patient back/lvm requesting a call back to schedule procedure documented in this encounter Plan of Treatment Not on file documented as of this encounter Visit Diagnoses Not on filedocumented in this encounter Care Teams Tray Line Supervisor Relationship Specialty Start Date End Date [...] Internal Medicine 01/17/21 06/06/21 Charlene Shaw MD [address] [place] [address] PCP - General Internal Medicine 06/07/21 documented as of this encounter
--- OUTSIDE RECORDS SUMMARY | 2025-07-24 10:36 | XMS_ITS | Encounter Summary ---
Author Organization [facility] Address [address] [place] [address] Care Team Providers Care Integrated Marketing Specialist Name Role Phone Charlene Shaw MD Primary Care Provider [phone] Encounter Details Date Type Department Care Team Description 09/19/2023 Orders Only Medical Records [address] [place] [address] Jevon Reyes Social History Tobacco Use Types Packs/Day Years [...] Procedure Name Priority Date/Time Associated Diagnosis Comments OUTSIDE EKG Routine 07/25/2023 OUTSIDE PLAIN FILM Routine 07/25/2023 documented in this encounter Results * OUTSIDE PLAIN FILM (07/25/2023) Jevon Reyes RADIOLOGY * OUTSIDE EKG (07/25/2023) [facility] CARDIOLOGY documented in this encounter Visit Diagnoses Not on filedocumented in this encounter Care Teams Integrated Marketing Specialist Relationship Specialty Start Date End Date Charlene Shaw MD [address] [place] [phone] PCP - General Internal Medicine 06/07/21 documented as of this encounter
--- OUTSIDE RECORDS SUMMARY | 2025-07-24 10:36 | XMS_ITS | Encounter Summary ---
Author Organization [facility] Address [address] [place] [address] Care Team Providers Care Senior Director Of Global Commercial Technology Solutions Name Role Phone Charlene Shaw MD Primary Care Provider [phone] Encounter Details Date Type Department Care Team Description 03/28/2022 Knife Finisher Report Medical Records [address] [place] [address] [facility] Social History Tobacco Use Types Packs/Day Years Used Date Smoking Tobacco: Former Cigarettes Smokeless Tobacco: Never Comments:started age 22; max [...] suspected to have Coronavirus/COVID-19? No / Unsure 03/12/2022 12:40 PM EDT documented as of this encounter Plan of Treatment Not on file documented as of this encounter Visit Diagnoses Not on filedocumented in this encounter Care Teams Senior Director Of Global Commercial Technology Solutions Relationship Specialty Start Date End Date Charlene Shaw MD [address] [place], [place] [phone] PCP - General Internal Medicine 06/07/21 documented as of this encounter
--- OUTSIDE RECORDS SUMMARY | 2025-07-24 10:36 | XMS_ITS | Encounter Summary ---
Author Organization [facility] Address [address] [place] [address] Care Team Providers Care Commercial Account Manager Name Role Phone Penelope Lezama MD Primary [...] Details Date Type Department Care Team Description 10/26/2014 Cardboard Inserter Report Medical Records [address] [place] [address] Jose Peña MD Social History Tobacco Use [...] on filedocumented in this encounter Care Teams Commercial Account Manager Relationship Specialty Start Date End Date Penelope [...] Medicine 01/17/21 06/06/21 Charlene Shaw MD [address] [place] [phone] PCP - General Internal Medicine 06/07/21 documented as of this encounter
--- OUTSIDE RECORDS SUMMARY | 2025-07-24 10:36 | XMS_ITS | Encounter Summary ---
Author Organization [facility] Address [address] [place] [address] Care Team Providers Care Acid Conditioning Worker Name Role Phone Charlene Shaw MD Primary Care Provider [phone] Encounter Details Date Type Department Care Team Description 09/16/2023 Hardware Installer Report Medical Records [address] [place] [phone] Kirk Tucker MD Social History Tobacco Use Types Packs/Day [...] on filedocumented in this encounter Care Teams Acid Conditioning Worker Relationship Specialty Start Date End Date Charlene Shaw MD [address] [place] [address] [phone] PCP - General Internal Medicine 06/07/21 documented as of this encounter
--- OUTSIDE RECORDS SUMMARY | 2025-07-24 10:36 | XMS_ITS | Encounter Summary ---
Author Organization [facility] Address [address] [place] [address] Care Team Providers Care Phosphorus Processing Supervisor Name Role Phone Charlene Shaw MD Primary Care Provider [phone] Encounter Details Date Type Department Care Team Description 07/30/2023 Hospital Medical Records [address] [place] [address] Alina Mendosa, JUAN CARLOS Social History Tobacco Use Types Packs/Day Years [...] on filedocumented in this encounter Care Teams Phosphorus Processing Supervisor Relationship Specialty Start Date End Date Charlene Shaw MD [address] [place] [address] [phone] PCP - General Internal Medicine 06/07/21 documented as of this encounter
--- OUTSIDE RECORDS SUMMARY | 2025-07-24 10:36 | XMS_ITS | Clinical Summary ---
Author Organization [facility] Address [address] [place] [address] Phone Care Team Providers Care Fellmongery Worker Name Role Phone Charlene Shaw MD Primary Care Provider [phone] Allergies Active Allergy Reactions Criticality Noted Date Comments Nickel 06/14/2013 Nitrofurantoin Monohyd/M-Cryst 11/21 hives Penicillins 09/14/2007 unknown Medications multivit-min/f olic acid/lutein (CENTRUM SILVER ORAL) Take by mouth. Ac tive aspirin 81 mg EC tablet Take 81 mg by mouth daily. Active fluticasone propionate (FLONASE) 50 mcg/actuation nasal spray USE 2 SPRAYS IN EACH NOSTRIL TWICE A DAY NEEDED FOR ALLERGIC RHINITS 06/04/20 23 Active oxyBUTYnin XL (DITROPAN-XL) 5 mg 24 hr tablet Take 1 tablet (5 mg total) by mouth 1 (one) time each day. 90 tablet 1 02/29/20 25 Active omeprazole (PriLOSEC) [address] capsule Take 1 capsule (20 mg total) by mouth 1 (one) time each day. Do not crush or chew. 90 capsule 1 02/29/20 25 Active cloNIDine (CATAPRES) 0.1 mg tablet Take 1 tablet (0.1 mg total) by mouth 2 (two) times a day. 180 tablet 1 02/29/20 25 Active baclofen (LIORESAL) 20 mg tablet Take 1 tablet (20 mg total) by mouth 3 (three) times a day. 270 tablet 1 02/29/20 25 Active albuterol HFA (PROAIR HFA ; PROVENTIL HFA ; VENTOLIN HFA) 90 mcg/actuation inhaler Inhale 2 puffs by mouth every 6 (six) hours if needed for wheezing. 18 g 1 02/29/20 25 Active fluticasone-um eclidinium-ada anterol (TRELEGY ELLIPTA) 100-62.5-25 mcg inhaler Inhale 1 puff (100 mcg total) by mouth 1 (one) time each day. Rinse mouth with water after use to reduce aftertaste and incidence of candidiasis. Do not swallow. 1 each 3 07/01/20 25 026 Active verapamil ER (VERELAN) 240 mg 24 hr capsule Take 1 capsule (240 mg total) by mouth at bedtime. 90 capsule 1 07/22/20 25 Active simvastatin (ZOCOR) 20 mg tablet Take 1 tablet (20 mg total) by mouth at bedtime. 90 each 1 07/22/20 25 Active verapamil ER (VERELAN) 240 mg 24 hr capsule Take 1 capsule (240 mg total) by mouth at bedtime. at bedtime 90 capsule 1 12/08/19 25 025 Discontinued simvastatin (ZOCOR) 20 mg tablet Take 1 tablet (20 mg total) by mouth at bedtime. at bedtime. 90 each 1 12/08/19 25 025 Discontinued Active Problems Problem Noted Date Diagnosed Date Diverticulitis 07/01/2025 Overview (07/01/2025): 07/19 sigmoid diverticulitis with abscess, drained Microalbuminuria 11/22/2024 C[facility]y ([facility]) 2023 Overview (08/12/2024): Left-sided spasticity and weakness Essential hypertension, benign 08/12/2024 High cholesterol 08/12/2024 Prediabetes 11/02/2021 Complete tear of left rotator cuff 08/14/2020 Glenohumeral arthritis, left 08/14/2020 Kidney stones 12/24/2018 Anemia 11/02/2018 Spastic hemiparesis ([facility], [facility]) 0 11/09/2014 Overview (08/12/2024): Used to see Dr. Peña, Dr. Gonzalez Urinary incontinence in female 11/09/2014 Depression, major, recurrent , in partial remission ([facility] V24) 08/05/2013 FAHAD (obstructive sleep apnea) 02/14/2011 Overview (08/12/2024): UNTREATED (October 2021) RLS (restless legs syndrome) 01/24/2011 Severe obesity (BMI 35.0-39. 9) with comorbidity ([facility], [facility]) 12/10/2010 Lumbar spinal stenosis 08/24/2009 Lumbosacral radiculitis 08/24/2009 Osteoporosis, post-traumatic 11/21/2008 Overview (08/12/2024): history of fragility fractures; normal DEXA 10/31 Subclinical hypothyroidism 10/31/2008 Resolved Problems Problem Noted Date Diagnosed Date Resolved Date Chronic bronchitis ([facility] V[facility]) 07/25/20 23 12/03/2024 Encounters Date Type Department Care Team Description 07/15/2025 Telephone Adult Medicine [address] [phone] Charlene Shaw MD 07/05/2025 1:45 PM EST Office Visit Adult Medicine [address] [phone] Charlene Shaw MD Essential hypertension, benign (Primary Dx); Prediabetes; LLQ pain; Foot drop, left foot; Spastic hemiplegic cerebral palsy ([facility], [facility] V[facility]); Diverticulitis 07/05/2025 10:20 AM EST Consult Gastroenterology - [address] [facility] [address] [phone] Fabio Denson MD Diverticulitis large intestine w/o perforation or abscess w/o bleeding (Primary Dx) 07/04/2025 Telephone Adult Medicine [address] [phone] Charlene Shaw MD 07/01/2025 10:30 AM EST Office Visit Adult Medicine [address] [phone] Charlene Shaw MD Diverticulitis (Primary Dx); Prediabetes; Essential hypertension, benign; High cholesterol; Subclinical hypothyroidism 06/30/2025 Telephone Adult Medicine [address] [phone] Charlene Shaw MD 06/29/2025 Telephone Adult Medicine [address] [phone] [place] 06/27/2025 Telephone Adult Medicine [address] [phone] Ernesto Jaramillo LPN 06/23/2025 Telephone Adult Medicine [address] [phone] Charlene Shaw MD from Last 3 Months Immunizations Immunization Administration Dates Next Due H1N1 Inj Preservative Free 07/27/2009 Influenza trivalent, 0.5mL ( Fluad) 65yo and older 06/04/2023,05/27/2022,06/07/2021,06/21,05/25/2017 Influenza trivalent, 0.5mL, preservative free (Fluarix; FluLaval; Fluzone) ages 6mo and older (Afluria) 3 years and older 04/25/2021,08/04/2015,06/12/2014,05/17,07/01/2012,06/20/2011,05/18/2010 ,05/20/2009,05/09/2008,06/03/2007,11/2004,07/10/2001,07/11/2000, 8 Influenza trivalent, with pr eservative (Fluzone; Afluria) 6mo and older 06/29/2025,05/02/2020,05/22/2019,05/07 Pneumococcal conjugate 13 va lent (Prevnar 13, PCV13) 2mo and older 09/06/2015 Pneumococcal polysaccharide 23 valent (Pneumovax 23) 2yo and older 07/31/2017,07/11/2011 Td Tetanus diptheria (Tdvax) 7yo and older 09/14/2007,09/14/2007 Zoster Live 11/16/2013 Zoster recombinant (Shingrix ) 19yo and older 02/14/2022 Surgical History Surgery Date Site/Laterality Comments CHOLECYSTECTOMY 1975 HYSTERECTOMY 1991 APPENDECTOMY 1991 COLONOSCOPY 05/10/2008 diverticulosis; poor bowel prep ESOPHAGOGASTRODUODENOSCOPY 05/10/2008 mild reactive gastropathy without H. pylori. 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 [...] 0.5 Q uit: 06/18/2023 Smokeless Tobacco: Never Tobacco [...] Sign Reading Time Taken Comments Blood Pressure 124/76 07/05/2025 1:03 PM EST Pulse 66 07/05/2025 1:03 PM EST Temperature 36.2 C (97.2 F) 07/05/2025 1:03 PM EST Respiratory Rate 16 07/05/2025 1:03 PM EST Oxygen Saturation 94% 07/05/2025 1:03 PM EST Inhaled Oxygen Concentration - - Weight 87.5 kg (193 lb) 07/05/2025 1:03 PM EST Height 149.9 cm (4' 11 ) 07/05/2025 1:03 PM EST Body Mass Index 38.98 07/05/2025 1:03 PM EST Plan of Treatment Upcoming Encounters Date Type Department Care Team (Late st Contact Info) Description 08/04/2025 9:15 AM EST Appointment [facility] CT Scan [address] [place] [address] 11/02/2025 12:45 PM EDT Office Visit Adult Medicine [address] [phone] Charlene Shaw MD [address] [place], [place] Health Maintenance Due Date Last Done Comments DTaP,Tdap,and Td Vaccines (3 - Td or Tdap) 09/14/2017 09/14/2007, 09/14/2007 RSV Immunization Adult Patients (1 - 1-dose 75+ series) 2021 Zoster Vaccines (3 of 3) 04/11/2022 02/14/2022, 10/24 Social Influencers of Health Screening 08/03/2022 Falls Risk Assessment 09/09/2025 09/09/2024 COVID-19 Vaccine ( season) 2025 06/29/2025, 07/14/2024, 08/16/2021, Additional history exists Hypertension/CHF/CAD Annual BMP Blood Test 06/28/2026 06/28/2025, 06/20/2025, 06/13/2025, Additional history exists Colorectal Cancer Screening: Colonoscopy 04/15/2029 04/15/2019 Cholesterol Screening (Lipid Panel) 10/22/2029 10/22/2024, 12/13/2022 Osteoporosis Screening (Bone Density Screening) 03/12/2032 03/12/2022, 05/18/2019 Hepatitis C Screening Completed 05/17/2013 Pneumococcal Vaccine: 50+ Years Completed 07/31/2017, 09/06/2015, 07/11/2011 Depression Screening Completed 09/09/2024 Medicare Annual Wellness Visit Discontinued 09/09/2024 Influenza Vaccine Completed 06/29/2025, , 05/27/2022, Additional history exists HIB Vaccines Aged Out No longer eligi [...] EDT Other osteoporosis without current pathological fracture HEPATITIS C SCREENING Routine 05/17/2013 from Last 3 Months or Most Recently Relevant to Health Maintenance Results * (ABNORMAL) Lipid panel with reflex to direct LDL (10/22/2024 10:22 AM EST) Cholesterol 170 0 - 200 mg/dL LAB CHEMISTRY METHOD 10/22/2024 1:59 PM [facility] Triglycerides 247(H) 0 - 150 mg/dL LAB CHEMISTRY METHOD 10/22/2024 1:59 PM [facility] HDL 47 >=40 mg/dL LAB CHEMISTRY METHOD 10/22/2024 1:59 PM [facility] LDL Calculated 74 0 - 100 mg/dL LAB CHEMISTRY METHOD 10/22/2024 1:59 PM [facility] VLDL Cholesterol Srini 49.4 mg/dL LAB CHEMISTRY METHOD 10/22/2024 1:59 PM [facility] Non HDL Chol. (LDL+VLDL) 123 <145 mg/dL LAB CHEMISTRY METHOD 10/22/2024 1:59 PM [facility] Chol/HDL Ratio 3.6 0.0 - 4.4 LAB CHEMISTRY METHOD 10/22/2024 1:59 PM [facility] Blood Venous blood specimen / Unknown Venipuncture / Unknown 10/22/2024 10:22 AM EST 10/22/2024 10:22 AM EST us [facility] LAB BLOOD ORDERABLES Final Re sult [facility] [address] [place] [address], * DXA BONE DENSITY STUDY 1+ SITS AXIAL SKEL (03/12/2022 2:27 PM EDT) Anatomical Region Laterality Modality Bone Densitometr y 10/31/2021 9:21 AM EST Narrative 03/13/2022 4:26 PM EDT Clinical history: other osteoporosis Scans of the lumbar spine and hips were performed on a [employer] fan beam bone densitometer. Bone mineral density [...] osteoporosis < -2.5 with fractures Procedure Note Janneth, Malavika B, MD - 08/13/2022 Clinical history: other osteoporosis Scans of the lumbar spine and hips were performed on a [employer] beam bone densitometer. Bone mineral density measurements [...] Resu lt * Hepatitis C Screening (05/17/2013) [facility] Hepatitis C Screening Abstracted Historical Provider HEALTH MAINTENANCE Final Result from Last 3 Months or Most Recently Relevant to Health Maintenance Insurance [employer] Care Teams Fellmongery Worker Relationship Specialty Start Date End Date Charlene Shaw MD [address] [place] [address] PCP - General Internal Medicine 06/07/21
--- OUTSIDE RECORDS SUMMARY | 2025-07-24 10:36 | XMS_ITS | Encounter Summary ---
Author Organization [facility] Address [address] [place] [address] Care Team Providers Care Cotton Candy Maker Name Role Phone Penelope Lezama MD Primary Care Provider Anju Valencia DO Primary Care Pro vider Unavailable Penelope Lezama MD Primary Care Provider Rubi Weinberg, Anju DO Primary Care Pro vider Unavailable Penelope Lezama MD Primary Care Provider Rubi Weinberg, Anju DO Primary Care Pro vider Unavailable Dariela Ojeda MD Primary Care Provider Unavailab Charlene Cisneros MD Primary Care Provider [phone] Encounter Details Date Type Department Care Team Description 05/24/2018 Hospital Medical Records [address] [place] [address] Humberto Noyola Social History Tobacco Use Types Packs/Day Years [...] on filedocumented in this encounter Care Teams Cotton Candy Maker Relationship Specialty Start Date End Date Penelope [...] Medicine 01/17/21 06/06/21 Charlene Shaw MD [address] [place] [phone] PCP - General Internal Medicine 06/07/21 documented as of this encounter
--- OUTSIDE RECORDS SUMMARY | 2025-07-24 10:36 | XMS_ITS | Encounter Summary ---
Author Organization [facility] Address [address] [place] [address] Care Team Providers Care Spring Upholsterer Name Role Phone Charlene Shaw MD Primary Care Provider [phone] Encounter Details Date Type Department Care Team Description 02/02/2024 [facility] [address] [place], [place] [phone] Mao Varghese PA-C [address] [place], [place] [phone] Social History Tobacco Use Types Packs/Day Years [...] on filedocumented in this encounter Care Teams Spring Upholsterer Relationship Specialty Start Date End Date Charlene Shaw MD [address] [place] [address] [phone] PCP - General Internal Medicine 06/07/21 documented as of this encounter
--- OUTSIDE RECORDS SUMMARY | 2025-07-24 10:36 | XMS_ITS | Encounter Summary ---
Author Organization [facility] Address [address] [place] [address] Care Team Providers Care Station Mechanic Helper Name Role Phone Penelope Lezama MD Primary Care Provider Anju Valencia DO Primary Care Pro vider Unavailable Penelope Lezama MD Primary Care Provider Rubi Weinberg, Anju DO Primary Care Pro vider Unavailable Penelope Lezama MD Primary Care Provider Rubi Weinberg, Anju DO Primary Care Pro vider Unavailable Dariela Ojeda MD Primary Care Provider Unavailab Charlene Cisneros MD Primary Care Provider [phone] Encounter Details Date Type Department Care Team Description 06/29/2018 Hospital Medical Records [address] [place] [address] Osei Polanco Social History Tobacco Use Types [...] on filedocumented in this encounter Care Teams Station Mechanic Helper Relationship Specialty Start Date End Date Penelope [...] Internal Medicine 01/17/21 06/06/21 Charlene Shaw MD [address] [place] [phone] PCP - General Internal Medicine 06/07/21 documented as of this encounter
--- OUTSIDE RECORDS SUMMARY | 2025-07-24 10:36 | XMS_ITS | Encounter Summary ---
Author Organization [facility] Address [address] [place] [address] Care Team Providers Care Internet Marketer Name Role Phone Penelope Lezama MD Primary Care Provider Rubi Weinberg, Anju DO Primary Care Pro vider Unavailable Penelope Lezama MD Primary Care Provider Rubi Weinberg, Anju DO Primary Care Pro vider Unavailable Penelope Lezama MD Primary Care Provider Rubi Weinberg, Anju DO Primary Care Pro vider Unavailable Dariela Ojeda MD Primary Care Provider Unavailab Charlene Cisneros MD Primary Care Provider [phone] Encounter Details Date Type Department Care Team Description 04/19/2019 Telephone Gastroenterology - [address] [place] [address] Alejandra Stanley MD Social History [...] encounter Miscellaneous Notes * Telephone Encounter - Alejandra Stanley MD - 04/27/2019 7:17 PM EDT Please try again. * Telephone Encounter - Rossy Singleton - 04/19/2019 2:04 PM EDT Left voicemail to schedule * Telephone Encounter - Alejandra Stanley MD - 04/19/2019 1:12 PM EDT Please schedule routine follow up with me in 4 to 6 weeks for hemorrhagic gastritis documented in this encounter Plan of Treatment Not on file documented as of this encounter Visit Diagnoses Not on filedocumented in this encounter Care Teams Internet Marketer Relationship Specialty Start Date End Date Penelope [...] Internal Medicine 01/17/21 06/06/21 Charlene Shaw MD [address] [place] [address] PCP - General Internal Medicine 06/07/21 documented as of this encounter
--- OUTSIDE RECORDS SUMMARY | 2025-07-24 10:36 | XMS_ITS | Encounter Summary ---
Author Organization [facility] Address [address] [place] [address] Care Team Providers Care Radar Scientist Name Role Phone Dariela Ojeda MD Primary Care Provider Unavailab Charlene Cisneros MD Primary Care Provider [phone] Reason for Visit * Reason Onset Date Comments refill request 01/30/2021 Encounter Details Date Type Department Care Team Description 01/30/2021 Refill Adult Medicine [address] [address] Dariela Ojeda MD refill request Social History Tobacco Use [...] Telephone Encounter - Soni Amaro M.A. - 01/31/2021 1:52 PM EDT Lab Results Component Value Date NA 138 11/07/2020 K 3.7 11/07/2020 CO2 27 11/07/2020 CL 103 11/07/2020 BUN 22 11/07/2020 CREAT 1.19 11/07/2020 GLU 60 11/07/2020 CA 9.0 11/07/2020 GFR 44 11/07/2020 * Telephone Encounter - Yudi Kendalltatiana - 01/30/2021 11:19 AM EDT Patient would like script to be: E-PRESCRIBED/FAXED TO PHARMACY WHEN WAS THE PATIENT'S LAST APPOINTMENT IN ADULT MEDICINE? 11/21/20 WHEN WAS THE LAST TIME THE PATIENT SAW THEIR PCP? Not seen Does patient have an upcoming appointment? Yes 02/07/21 (THE MEDICATION REQUESTED IS ON THE MED [...] N/A Patients current insurance carrier is: Payor: [facility] / Plan: POS $0 HENAGAR [id number] /Product Type: POS [id number] documented in this encounter Plan of Treatment Not on file documented as of this encounter Visit Diagnoses Diagnosis Cough documented in this encounter Care Teams Radar Scientist Relationship Specialty Start Date End Date Dariela Ojeda MD PCP - General Internal Medicine 01/17/21 06/06/21 Charlene Shaw MD [address] [place] [phone] PCP - General Internal Medicine 06/07/21 documented as of this encounter
--- OUTSIDE RECORDS SUMMARY | 2025-07-24 10:36 | XMS_ITS | Encounter Summary ---
Author Organization [facility] Address [address] [place] [address] Care Team Providers Care Automobile Carpets Molder Name Role Phone Penelope Lezama MD Primary Care Provider Rubi Weinberg, Anju DO Primary Care Pro vider Unavailable Penelope Lezama MD Primary Care Provider Rubi Castrejono, Anju DO Primary Care Pro vider Unavailable Penelope Lezama MD Primary Care Provider Unavamarkus Weinberg, Anju DO Primary Care Pro vider Unavailable Dariela Ojeda MD Primary Care Provider Unavailab Charlene Cisneros MD Primary Care Provider [phone] Encounter Details Date Type Department Care Team Description 11/27/2018 Pizza Baker Report Medical Records [address] [place] [address] Ruba Lambert MD Social History Tobacco Use Types Packs/Day [...] filedocumented in this encounter Care Teams Automobile Carpets Molder Relationship Specialty Start Date End Date Penelope [...] Internal Medicine 01/17/21 06/06/21 Charlene Shaw MD [address] [place] [address] PCP - General Internal Medicine 06/07/21 documented as of this encounter
--- OUTSIDE RECORDS SUMMARY | 2025-07-24 10:36 | XMS_ITS | Encounter Summary ---
Author Organization [facility] Address [address] [place] [address] Care Team Providers Care Retail Advertising Account Executive Name Role Phone Penelope Lezama MD Primary Care Provider Rubi Weinberg, Anju DO Primary Care Pro vider Unavailable Penelope Lezama MD Primary Care Provider Rubi Weinberg, Anju DO Primary Care Pro vider Unavailable Penelope Lezama MD Primary Care Provider Rubi Weinberg, Anju DO Primary Care Pro vider Unavailable Dariela Ojeda MD Primary Care Provider Unavailab Charlene Cisneros MD Primary Care Provider [phone] Encounter Details Date Type Department Care Team Description 04/19/2019 Orders Only Medical Records [address] [place] [address] Alejandra Stanley MD Social History Tobacco Use [...] Name Priority Date/Time Associated Diagnosis Comments OUTSIDE PATHOLOGY Routine 04/15/2019 documented in this encounter Results * OUTSIDE PATHOLOGY (04/15/2019) Alejandra Stanley MD OUTSIDE LAB documented in this encounter Visit Diagnoses Not on filedocumented in this encounter Care Teams Retail Advertising Account Executive Relationship Specialty Start Date End Date Penelope [...] Internal Medicine 01/17/21 06/06/21 Charlene Shaw MD [address] [place] [id number] PCP - General Internal Medicine 06/07/21 documented as of this encounter
--- OUTSIDE RECORDS SUMMARY | 2025-07-24 10:36 | XMS_ITS | Encounter Summary ---
Author Organization [facility] Address [address] [place] [address] Care Team Providers Care Barrel Endshaker Adjuster Name Role Phone Charlene Shaw MD Primary Care Provider [phone] Encounter Details Date Type Department Care Team Description 11/28/2022 Veneer Cutter Report Medical Records [address] [place] [address] Roberth Jackson MD Social History Tobacco Use Types Packs/Day Years Used Date Smoking Tobacco: Every Day Cigarettes Smokeless Tobacco: Never Comments:started age 22; [...] on filedocumented in this encounter Care Teams Barrel Endshaker Adjuster Relationship Specialty Start Date End Date Charlene Shaw MD [address] [place] [address] [phone] PCP - General Internal Medicine 06/07/21 documented as of this encounter
--- OUTSIDE RECORDS SUMMARY | 2025-07-24 10:36 | XMS_ITS | Encounter Summary ---
Author Organization [facility] Address [address] [place] [address] Care Team Providers Care Chief Construction Inspector Name Role Phone Agustín Hudson MD Primary Care Provider Unavail able Penelope Lezama MD Primary Care Provider Rubi Weinberg, Anju DO Primary Care Pro vider Unavailable Penelope Lezama MD Primary Care Provider Unarolando labisabel Braxton Colasacco, Anju DO Primary Care Pro vider Unavailable Penelope Lezama MD Primary Care Provider Unavai labisabel [place]ico Colasacco, Anju DO Primary Care Pro vider Unavailable Dariela Ojeda MD Primary Care Provider Unavailab Charlene Cisneros MD Primary Care Provider [phone] Encounter Details Date Type Department Care Team Description 12/08/2013 Marketing Traffic Coordinator Report Medical Records [address] [place] [address] Social History Tobacco Use Types Packs/Day Years [...] on filedocumented in this encounter Care Teams Chief Construction Inspector Relationship Specialty Start Date End Date Agustín [...] Internal Medicine 01/17/21 06/06/21 Charlene Shaw MD [address] [place] [phone] PCP - General Internal Medicine 06/07/21 documented as of this encounter
--- OUTSIDE RECORDS SUMMARY | 2025-07-24 10:36 | XMS_ITS | Encounter Summary ---
Author Organization [facility] Address [address] [place] [address] Care Team Providers Care Telecom Analyst Name Role Phone Agustín Hudson MD Primary [...] Unavailab Charlene Cisneros MD Primary Care Provider [phone] Encounter Details Date Type Department Care Team Description 12/23/2012 Field Support Representative Report Medical Records [address] [place] [address] Trae Guzman MD Social History Tobacco Use [...] on filedocumented in this encounter Care Teams Telecom Analyst Relationship Specialty Start Date End Date Agustín [...] Internal Medicine 01/17/21 06/06/21 Charlene Shaw MD [address] [place] [id number] PCP - General Internal Medicine 06/07/21 documented as of this encounter
--- OUTSIDE RECORDS SUMMARY | 2025-07-24 10:36 | XMS_ITS | Encounter Summary ---
Author Organization [facility] Address [address] [place] [address] Care Team Providers Care Liner Roll Changer Name Role Phone Agustín Hudson MD Primary Care Provider Unavail able Penelope Lezama MD Primary Care Provider Unarolando Braxton Colasaradhao, Anju DO Primary Care Pro vider Unavailable Penelope Lezama MD Primary Care Provider Unavamarkus labisabel [place]ico Colasacco, Anju DO Primary Care Pro vider Unavailable Penelope Lezama MD Primary Care Provider Unavai lable [place] Colasacco, Anju DO Primary Care Pro vider Unavailable Dariela Ojeda MD Primary Care Provider Unavailab Charlene Cisneros MD Primary Care Provider [phone] Encounter Details Date Type Department Care Team Description 03/23/2013 Air Intelligence Specialist Report Medical Records [address] [place] [address] Lucian Graf Social History Tobacco Use Types Packs/Day Years [...] on filedocumented in this encounter Care Teams Liner Roll Changer Relationship Specialty Start Date End Date Agustín [...] Medicine 01/17/21 06/06/21 Charlene Shaw MD [address] [place] [phone] PCP - General Internal Medicine 06/07/21 documented as of this encounter
--- OUTSIDE RECORDS SUMMARY | 2025-07-24 10:36 | XMS_ITS | Encounter Summary ---
Author Organization [facility] Address [address] [place] [address] Care Team Providers Care Turkey Egg Gatherer Name Role Phone Charlene Shaw MD Primary Care Provider [phone] Reason for Visit * Reason Onset Date Comments Quality-fobt 06/07/2021 Patient was hand ed a FIT testing card Encounter Details Date Type Department Care Team Description 06/07/2021 Telephone Adult Medicine [address] [id number] Charlene Shaw MD [address] [place] [address] [phone] Quality-fobt (Patient was handed a FIT testing card ) Social History Tobacco Use Types Packs/Day Years [...] have Coronavirus / COVID-19? No / Unsure 06/07/2021 12:17 PM EDT documented as of this encounter Miscellaneous Notes * Telephone Encounter - Lora Rey M.A. - 06/07/2021 1:32 PM EDT Patient was handed fit card by Wendy Hammer. .fob documented in this encounter Plan of Treatment Not on file documented as of this encounter Visit Diagnoses Not on filedocumented in this encounter Care Teams Turkey Egg Gatherer Relationship Specialty Start Date End Date Charlene Shaw MD [address] [place] [address] PCP - General Internal Medicine 06/07/21 documented as of this encounter
--- OUTSIDE RECORDS SUMMARY | 2025-07-24 10:36 | XMS_ITS | Encounter Summary ---
Author Organization [facility] Address [address] [place] [address] Care Team Providers Care Agriculture Professor Name Role Phone Agustín Hudson MD Primary Care Provider Unavail able Penelope Lzeama MD Primary Care Provider Rubi Weinberg, Anju DO Primary Care Pro vider Unavailable Penelope Lezama MD Primary Care Provider Unarolando Braxton Colasaccnora, Anju DO Primary Care Pro vider Unavailable Penelope Lezama MD Primary Care Provider Unavai labisabel [place] Colasacco, Anju DO Primary Care Pro vider Unavailable Dariela Ojeda MD Primary Care Provider Unavailab Charlene Cisneros MD Primary Care Provider [phone] Encounter Details Date Type Department Care Team Description 02/16/2014 Air Traffic Control Operator Report Medical Records [address] [place] [address] Jose Peña MD Social History Tobacco Use [...] on filedocumented in this encounter Care Teams Agriculture Professor Relationship Specialty Start Date End Date Agustín [...] Internal Medicine 01/17/21 06/06/21 Charlene Shaw MD [address] [place] [address] PCP - General Internal Medicine 06/07/21 documented as of this encounter
--- OUTSIDE RECORDS SUMMARY | 2025-07-24 10:36 | XMS_ITS | Encounter Summary ---
Author Organization [facility] Address [address] [place] [address] Care Team Providers Care Documentation Billing Clerk Name Role Phone Charlene Shaw MD Primary Care Provider [phone] Encounter Details Date Type Department Care Team Description 11/08/2023 Hospital Medical Records [address] [place] [address] [facility] Social History Tobacco Use Types Packs/Day [...] on filedocumented in this encounter Care Teams Documentation Billing Clerk Relationship Specialty Start Date End Date Charlene Shaw MD [address] [place] [address] PCP - General Internal Medicine 06/07/21 documented as of this encounter
--- OUTSIDE RECORDS SUMMARY | 2025-07-24 10:36 | XMS_ITS | Encounter Summary ---
Author Organization [facility] Address [address] [place] [address] Care Team Providers Care Truck Spotter Name Role Phone Charlene Shaw MD Primary Care Provider [phone] Reason for Visit * Reason Onset Date Comments VNA Call 01/02/2024 Encounter Details Date Type Department Care Team Description 01/02/2024 Telephone Adult Medicine [facility] [address] [place] [address] [phone] Charlene Shaw MD [address] [place] [address] VNA Call Social History Tobacco Use Types Packs/Day Years [...] encounter Miscellaneous Notes * Telephone Encounter - Ernesto Jaramillo L.P.N. - 01/05/2024 9:56 AM EDT VO given * Telephone Encounter - Charlene Shaw MD - 01/05/2024 9:50 AM EDT ok * Telephone Encounter - Ernesto Jaramillo L.P.N. - 01/05/2024 9:42 AM EDT VNA requesting V O to add OT once a week for 2 weeks And 2 x's a week for 4 weeks Please review and advise Please send response to the VNA pool P [phone] Thank you Last seen 12/08/23 * Telephone Encounter - Chloe Adhikari - 01/02/2024 4:23 PM EDT VNA CALL Which VNA office is calling? Bart Emanuel Full name of caller: Missy The caller is An Occupational Therapist Is the caller at the patients home?: NO Reason for call: Looking for verbal orders for OT for this week once a week and for next week 2X week for 4 weeks Does caller need an urgent call back? YES Was CONTACT obtained above?: YES Fax #: documented in this encounter Plan of Treatment Not on file documented as of this encounter Visit Diagnoses Not on filedocumented in this encounter Care Teams Truck Spotter Relationship Specialty Start Date End Date Charlene Shaw MD [address] [place] [address] PCP - General Internal Medicine 06/07/21 documented as of this encounter
--- OUTSIDE RECORDS SUMMARY | 2025-07-24 10:36 | XMS_ITS | Encounter Summary ---
Author Organization [facility] Address [address] [place] [address] Care Team Providers Care Waistline Joiner Overlock Name Role Phone Dariela Ojeda MD Primary Care Provider Unavailab Charlene Cisneros MD Primary Care Provider [phone] Reason for Visit * Reason Onset Date Comments Pre-op Needed 03/20/2021 Encounter Details Date Type Department Care Team Description 03/20/2021 Telephone Pulmonology - [place] [address] [facility] [address] [place] [address] Shanice Isbell MD [address] [place] [address] Pre-op Needed Social History Tobacco Use Types Packs/Day Years [...] have Coronavirus / COVID-19? No / Unsure 03/08/2021 9:45 AM EDT documented as of this encounter Miscellaneous Notes * Telephone Encounter - Dariela Ojeda MD - 04/02/2021 12:17 PM EDT I addended my notes, she is being medically cleared for the procedure, she was seen by Dr. Isbell on 03/27/2021, please forward his notes to surgeon/anesthesia team as he has some advise for them. * Telephone Encounter - Shelly Virgen - 04/02/2021 11:59 AM EDT Call from Surgeon's office requesting and addendum to visit of 03/08 for medical clearance. I will fax to them once complete. Thank you for your assistance. Umm Pre Op Scheduling P: [phone] F: [phone] * Telephone Encounter - Ramya Mendosa - 03/22/2021 10:47 AM EDT SCHEDULED PT FOR 03/27/21. SHE WOILL CALL [facility] TO SEE IF THEY CAN BUMP OUT HER PROCEDURE. PENDING CALL BACK FROM PT. * Telephone Encounter - Vale Mendosa - 03/22/2021 10:28 AM EDT Patient its calling again please give her a call back she wants to know where does she stand with the clearance appointment * Telephone Encounter - Ramya Mendosa - 03/20/2021 4:19 PM EDT PLs advise if ok to expedite- you are booking into mid apr * Telephone Encounter - Kary Meier - 03/20/2021 3:45 PM EDT Patient needs bradly if not patient will have to be book out in June. * Telephone Encounter - Valeziggy Mendosa - 03/20/2021 2:58 PM EDT Date of surgery:03/26/21 What surgery is patient having (gall bladder, cataract, appendix, etc...)?: Back surgery Surgeon's name: Dr. Myers Office phone number of surgeon: [phone] Fax # for surgeons office: (Required) Where is surgery being performed? [facility] Diagnosis/problem for surgery: Back surgery Is an EKG required for the pre-op workup? NO PCP: Dariela Ojeda Did you verify that the insurance below is correct? YES Patients insurance: Payor: [employer] HEALTH PLAN / Plan: POS $0 [place] [id number] / Product Type: POS [id number] documented in this encounter Plan of Treatment Not on file documented as of this encounter Visit Diagnoses Not on filedocumented in this encounter Care Teams Waistline Joiner Overlock Relationship Specialty Start Date End Date Dariela Ojeda MD PCP - General Internal Medicine 01/17/21 06/06/21 Charlene Shaw MD [address] [place] [phone] PCP - General Internal Medicine 06/07/21 documented as of this encounter
--- OUTSIDE RECORDS SUMMARY | 2025-07-24 10:36 | XMS_ITS | Encounter Summary ---
Author Organization [facility] Address [address] [place] [address] Care Team Providers Care Gear Technician Name Role Phone Penelope Lezama MD Primary [...] Details Date Type Department Care Team Description 03/12/2018 Professor Of Astronomy Report Medical Records [address] [place] [id number] [place] [address] Social History Tobacco Use Types Packs/Day Years [...] on filedocumented in this encounter Care Teams Gear Technician Relationship Specialty Start Date End Date Penelope [...] - General Internal Medicine 01/17/21 06/06/21 Charlene Sahw MD [address] [place] [address] PCP - General Internal Medicine 06/07/21 documented as of this encounter
--- OUTSIDE RECORDS SUMMARY | 2025-07-24 10:36 | XMS_ITS | Encounter Summary ---
Author Organization [facility] Address [address] [place] [address] Care Team Providers Care Spring Assembler Supervisor Name Role Phone Dariela Ojeda MD Primary Care Provider Unavail Charlene Cisneros MD Primary Care Provider [phone] Reason for Visit * Reason Onset Date Comments refill request 02/28/2021 Encounter Details Date Type Department Care Team Description 02/28/2021 Refill Adult Medicine [address] [address] Dariela Ojeda MD refill request Social History [...] have Coronavirus / COVID-19? No / Unsure 02/07/2021 12:32 PM EDT documented as of this encounter Miscellaneous Notes * Telephone Encounter - Adelina Greer M.A. - 03/09/2021 8:10 AM EDT Pt had UDS done * Telephone Encounter - Soni Amaro M.A. - 03/06/2021 2:33 PM EDT Spoke to patient, she is aware we are unable to give rx until uds is complete, appt on 03/08 with new pcp Rx was previosly placed in ppu 03/01 I have removed from ppu and rx is in pod Ext [id number] * Telephone Encounter - Nata Crystal M.A. - 03/01/2021 12:10 PM EDT Message left for patient to return my call. Pt needs UDS prior to script p/u * Telephone Encounter - Nata Crystal M.A. - 03/01/2021 8:43 AM EDT JG 02/07/2021 F/U appt 03/08/2021 new pcp Please sign for pt while in between pcp's Lab Results Component Value Date URBENZO NONE DETECTED 09/30/2018 UROPIATES NONE DETECTED 09/30/2018 UROXYCODONE NONE DETECTED 09/30/2018 URBARBITUATE NONE DETECTED 09/30/2018 PAINAMPHETAM NONE DETECTED 09/30/2018 PAINCOCAINE NONE DETECTED 09/30/2018 PAINCANNABIN NONE DETECTED 09/30/2018 Pt due for refill Masspat in bin * Telephone Encounter - Yudi Soler - 02/28/2021 2:55 PM EDT Patient would like script to be: E-PRESCRIBED/FAXED TO PHARMACY WHEN WAS THE PATIENT'S LAST APPOINTMENT IN ADULT MEDICINE? 02/07/21 WHEN WAS THE LAST TIME THE PATIENT SAW THEIR PCP? Not seen Does patient have an upcoming appointment? Yes 03/08/21 (THE MEDICATION REQUESTED IS ON THE MED LIST ABOVE) All of the medications requested were on the CURRENT MEDS list Did you check the Pharmacy information above?: YES Patient wants: 30 -day supply Is this a mail order prescription request ? NO If the refill is from a FAXED refill request what is the RX # listed on the fax? N/A Patients current insurance carrier is: Payor: [employer] PLAN / [id number] /Product Type: POS [id number] documented in this encounter Plan of Treatment Scheduled Orders Name Type Priority Associated Diagnoses Orde r Schedule [facility] DRUG SCREENING CANNABINOIDS NATURAL Lab Routine Encounter for long-term (current) use of medications Expected: 03/01/2021, Expires: 03/01/2022 [facility] DRUG SCREENING COCAINE Lab Routine Encounter for long-term (current) use of medications Expected: 03/01/2021, Expires: 03/01/2022 [facility] DRUG SCREEN QUANT AMPHETAMINES 3 OR 4 Lab Routine Encounter for long-term (current) use of medications Expected: 03/01/2021, Expires: 03/01/2022 [facility] DRUG/SUBSTANCE DEFINITIVE QUAL/QUANT NOS 1-3 (BARBITUATES) Lab Routine Encounter for long-term (current) use of medications Expected: 03/01/2021, Expires: 03/01/2022 [facility] DRUG SCREENING BENZODIAZEPINES 1-12 Lab Routine Encounter for long-term (current) use of medications Expected: 03/01/2021, Expires: 03/01/2022 documented as of this encounter Results * OXYCODONE, URINE (03/08/2021 12:09 PM EDT) URINE OXYCODONE NONE DETECTED ND 03/08/2021 3:14 PM EDT [facility] Comment: Assay cutoff 100 ng/mL Semi-quantitative assay for screening purposes only. Unconfirmed screening result should not be used for non-medical purposes. *ALTERNATE METHOD CONFIRMATION DONE UPON REQUEST ONLY* 03/08/2021 12:0 9 PM EDT 03/08/2021 12:09 PM EDT Narrative [facility] - 03/08/2021 3:14 PM EDT Release to patient->Immediate Dariela Ojeda MD LAB [facility] * DRUG OF ABUSE SCREEN (03/08/2021 12:09 PM EDT) Pathologist [facility] BENZODIAZEPINE, URINE NONE DETECTED ND 03/08/2021 3:14 PM EDT [facility] Comment: Assay cutoff 200 ng/mL Semi-quantitative assay for screening purposes only. Unconfirmed screening result should not be used for non-medical purposes. *ALTERNATE METHOD CONFIRMATION DONE UPON REQUEST ONLY* OPIATES, URINE NONE DETECTED ND 03/08/2021 3:14 PM EDT [facility] Comment: Assay cutoff 300 ng/mL Semi-quantitative assay for screening purposes only. Unconfirmed screening result should not be used for non-medical purposes. *ALTERNATE METHOD CONFIRMATION DONE UPON REQUEST ONLY* BARBITURATES, URINE NONE DETECTED ND 03/08/2021 3:14 PM EDT [facility] Comment: Assay cutoff 200 ng/mL Semi-quantitative assay for screening purposes only. Unconfirmed screening result should not be used for non-medical purposes. *ALTERNATE METHOD CONFIRMATION DONE UPON REQUEST ONLY* PAIN AMPHETAMINES NONE DETECTED ND 03/08/2021 3:14 PM EDT [facility] Comment: Assay cutoff 1000 ng/mL Semi-quantitative assay for screening purposes only. Unconfirmed screening result should not be used for non-medical purposes. *POSITIVE RESULTS ARE AUTOMATICALLY SENT FOR ALTERNATE METHOD CONFIRMATION* PAIN COCAINE NONE DETECTED ND 03/08/2021 3:14 PM EDT [facility] Comment: Assay cutoff 300 ng/mL Semi-quantitative assay for screening purposes only. Unconfirmed screening result should not be used for non-medical purposes. *POSITIVE RESULTS ARE AUTOMATICALLY SENT FOR ALTERNATE METHOD CONFIRMATION* PAIN CANNABINOID NONE DETECTED ND 03/08/2021 3:14 PM EDT [facility] Comment: Assay cutoff 50 ng/mL Semi-quantitative assay for screening purposes only. Unconfirmed screening result should not be used for non-medical purposes. *POSITIVE RESULTS ARE AUTOMATICALLY SENT FOR ALTERNATE METHOD CONFIRMATION* 03/08/2021 12:0 9 PM EDT 03/08/2021 12:09 PM EDT Narrative [facility] - 03/08/2021 3:14 PM EDT Release to patient->Immediate Dariela Ojeda MD LAB [facility] * (ABNORMAL) CHG DRUG SCREENING OPIATES 1 OR MORE (03/08/2021 12:09 PM EDT) Codeine GCMS Negative ng/mL 03/13/2021 8:44 AM EDT [facility] Morphine GCMS Negative ng/mL 03/13/2021 8:44 AM EDT [facility] Hydromorphone GCMS Negative ng/mL 2020 8:44 AM EDT [facility] Hydrocodone GCMS Negative ng/mL 03/13/20 8:44 AM EDT [facility] PAIN OPIATE CREAT 12(A) 20 - 250 mg/dL 03/13/2021 8:44 AM EDT [facility] PAIN OPIATE ADULTERANT Negative 03/13/2021 8:44 AM EDT [facility] Comment: Confirmation (LC/MS/MS) Decision Limits Morphine 25 ng/mL Codeine 25 ng/mL Hydrocodone 25 ng/mL Hydromorphone 25 ng/mL Oxycodone 25 ng/mL Oxymorphone 25 ng/mL DECISION LEVEL SPECIFIC GRAVITY 1.005 < 1.003 Interpretation of creatinine and specific gravity data suggest the sample is not dilute and negative results are valid. Typical creatinine and specific gravity values are 20 - 250 mg/dL and 1.003 - 1.020, respectively. Adulterant Decision Limit: General Oxidants 200 ug/mL The adulterant assay tests for General Oxidants, including Chromates and Nitrites. Adulterants are substances either ingested or added directly to a urine specimen to prevent the detection of drug use. If applicable, any drug confirmation testing reported here was developed and the performance characteristics determined by [facility]. This confirmation testing has not been cleared or approved by the FDA. The laboratory is regulated under CLIA as qualified to perform high-complexity testing. This test is used for patient testing purposes. It should not be regarded as investigational or for research. Test performed at [facility], [address] [place] [address] Osei Cantu MD - Ruby On Rails Developer Oxycodone GCMS Negative ng/mL 03/13/2021 8:44 AM EDT [facility] Oxymorphone GCMS Negative ng/mL 03/13/20 8:44 AM EDT [facility] 03/08/2021 12:0 9 PM EDT 03/08/2021 12:09 PM EDT Narrative [facility] - 03/13/2021 8:44 AM EDT Release to patient->Immediate Dariela Ojeda MD LAB [facility] documented in this encounter Visit Diagnoses Diagnosis Encounter for long-term (current) use of medications- Primary Encounter for long-term (current) use of other medications documented in this encounter Care Teams Spring Assembler Supervisor Relationship Specialty Start Date End Date Dariela Ojeda MD PCP - General Internal Medicine 01/17/21 06/06/21 Charlene Shaw MD [address] [place] [phone] PCP - General Internal Medicine 06/07/21 documented as of this encounter
--- OUTSIDE RECORDS SUMMARY | 2025-07-24 10:36 | XMS_ITS | Encounter Summary ---
Author Organization [facility] Address [address] [place] [address] Care Team Providers Care Apple Peeler Operator Name Role Phone Agustín Hudson MD Primary [...] Unavailab Charlene Cisneros MD Primary Care Provider [phone] Encounter Details Date Type Department Care Team Description 02/07/2014 Group Marketing Vp Report Medical Records [address] [place] [address] Social History Tobacco Use Types Packs/Day Years [...] on filedocumented in this encounter Care Teams Apple Peeler Operator Relationship Specialty Start Date End Date Agutsín Hudson MD PCP - General 08/24/07 09/21/14 [...] Internal Medicine 01/17/21 06/06/21 Charlene Shaw MD [address] [place] [address] PCP - General Internal Medicine 06/07/21 documented as of this encounter
--- OUTSIDE RECORDS SUMMARY | 2025-07-24 10:36 | XMS_ITS | Encounter Summary ---
Author Organization [facility] Address [address] [place] [address] Care Team Providers Care Patient Experience Coordinator Name Role Phone Penelope Lezama MD Primary Care Provider Rubi Weinberg, Anju DO Primary Care Pro vider Unavailable Penelope Lezama MD Primary Care Provider Rubi Weinberg, Anju DO Primary Care Pro vider Unavailable Penelope Lezama MD Primary Care Provider Rubi Weinberg, Anju DO Primary Care Pro vider Unavailable Dariela Ojeda MD Primary Care Provider Unavailab Charlene Cisneros MD Primary Care Provider [phone] Encounter Details Date Type Department Care Team Description 10/07/2017 Tobacco Acreage Measurer Report Medical Records [address] [place] [id number] [place] [address] Social History Tobacco Use Types Packs/Day Years [...] on filedocumented in this encounter Care Teams Patient Experience Coordinator Relationship Specialty Start Date End Date Penelope [...] Internal Medicine 01/17/21 06/06/21 Charlene Shaw MD [address] [place] [address] PCP - General Internal Medicine 06/07/21 documented as of this encounter
--- OUTSIDE RECORDS SUMMARY | 2025-07-24 10:36 | XMS_ITS | Encounter Summary ---
Author Organization [facility] Address [address] [place] [address] Care Team Providers Care Psychiatric Aides Teacher Name Role Phone Penelope Lezama MD Primary Care Provider Rubi Weinberg, Anju DO Primary Care Pro vider Unavailable Penelope Lezama MD Primary Care Provider Rubi Weinberg, Anju DO Primary Care Pro vider Unavailable Penelope Lezama MD Primary Care Provider Rubi Weinberg, Anju DO Primary Care Pro vider Unavailable Dariela Ojeda MD Primary Care Provider Unavailab Charlene Cisneros MD Primary Care Provider [phone] Encounter Details Date Type Department Care Team Description 03/11/2019 Head Shipper Report Medical Records [address] [place] [address] Michelle Calvo MD Social History Tobacco Use [...] on filedocumented in this encounter Care Teams Psychiatric Aides Teacher Relationship Specialty Start Date End Date Penelope [...] Internal Medicine 01/17/21 06/06/21 Charlene Shaw MD [address] [place] [address] PCP - General Internal Medicine 06/07/21 documented as of this encounter
--- OUTSIDE RECORDS SUMMARY | 2025-07-24 10:36 | XMS_ITS | Encounter Summary ---
Author Organization [facility] Address [address] [place] [address] Care Team Providers Care Cane Weigher Name Role Phone Penelope Lezama MD Primary Care Provider Rubi Weinberg, Anju DO Primary Care Pro vider Unavailable Penelope Lezama MD Primary Care Provider Rubi Weinberg, Anju DO Primary Care Pro vider Unavailable Penelope Lezama MD Primary Care Provider Unarolando Weinberg, Anju DO Primary Care Pro vider Unavailable Dariela Ojeda MD Primary Care Provider Unavailab Charlene Cisneros MD Primary Care Provider [phone] Reason for Visit * Reason Onset Date Comments VNA Call 06/11/2018 Encounter Details Date Type Department Care Team Description 06/11/2018 Telephone Adult Medicine [address] [address] Penelope Lezama MD VNA Call Social History Tobacco Use Types [...] encounter Miscellaneous Notes * Telephone Encounter - Bonnie Zurita R.N. - 06/11/2018 4:01 PM EDT ALESIAI * Telephone Encounter - Jocelin Carlin - 06/11/2018 3:53 PM EDT VNA CALL Which [facility]NA office is calling? [facility] Full name of caller: Marion The caller is A nurse Is the caller at the patients home?: NO Reason for call: patient was not home for today visit Does caller need an urgent call back? NO Was CONTACT Telephone # obtained above?: YES Fax #: documented in this encounter Plan of Treatment Not on file documented as of this encounter Visit Diagnoses Not on filedocumented in this encounter Care Teams Cane Weigher Relationship Specialty Start Date End Date Penelope [...] Internal Medicine 01/17/21 06/06/21 Charlene Shaw MD [address] [place] [address] PCP - General Internal Medicine 06/07/21 documented as of this encounter
--- OUTSIDE RECORDS SUMMARY | 2025-07-24 10:36 | XMS_ITS | Clinical Summary ---
Author Organization [facility] Address [address] [place] [address] Care Team Providers Care Human Resources Services Specialist Name Role Phone ClementLenard Anju Primary Care [...] Take 250 mg by mouth. 8 Active FA/MV,CA,IRON,KS N/LYCOPENE/LUT (MULTIVITAL ORAL) Take by mouth. Activ [...] Screening 08/25/2024 Health Care Proxy Review 08/25/2024 Influenza Vaccine (#1) 2025 , 04/25/2021, 05/02/2020, Additional history exists COVID-19 Vaccine (2024- season) 2025 08/16/2021, 12/27/2020, 12/06/2020 Pneumococcal Vaccine: 50+ Years Completed 07/31/2017, 09/06/2015, 07/11/2011 Colon Cancer Screening Discontinued FOBT / Fit Test Discontinued 07/09/2021 Mammogram Discontinued 03/12/2022 Osteoporosis Screening Completed 03/12/2022 Cologuard Discontinued Colonoscopy Discontinued Hepatitis B Vaccines Aged Out No long er eligible based on patient's age to complete this topic Sigmoidoscopy Discontinued Insurance [facility] Care Teams Human Resources Services Specialist Relationship Specialty Start Date End Date Anju Sotelo PCP - General Internal Medicine 05/23/20
--- OUTSIDE RECORDS SUMMARY | 2025-07-24 10:36 | XMS_ITS | Encounter Summary ---
Author Organization [facility] Address [address] [place] [address] Care Team Providers Care Fire Department Battalion Chief Name Role Phone Charlene Shaw MD Primary Care Provider [phone] Reason for Visit * Reason Onset Date Comments VNA Call 12/02/2023 Encounter Details Date Type Department Care Team Description 12/02/2023 Telephone Adult Medicine [facility] [address] [place] [address] [phone] Charlene Shaw MD [address] [place] [address] VNA Call Social History Tobacco Use Types [...] Telephone Encounter - Ernesto Jaramillo L.P.N. - 12/03/2023 11:07 AM EDT SANDRO Jeffries * Telephone Encounter - Charlene Shaw MD - 12/02/2023 5:13 PM EDT Ok for verbal orders; needs to keep 12/07 appt for signed orders * Telephone Encounter - Ernesto Jaramillo L.P.N. - 12/02/2023 12:13 PM EDT VNA requesting V O for nursing and PT Please review and advise Please send response to the VNA pool P [phone] Thank you Hospital follow up booked with 12/08/23 Last office visit 10/09/23 * Telephone Encounter - Leslye Mckee - 12/02/2023 12:02 PM EDT VNA CALL Which VNA office is calling? [facility] Full name of caller: Nesha The caller is A nurse Is the caller at the patients home?: NO Reason for call: FYI.. patient has been referred to their office after being discharged from [facility] Does caller need an urgent call back? NO Was CONTACT Telephone # obtained above?: NO Fax #: documented in this encounter Plan of Treatment Not on file documented as of this encounter Visit Diagnoses Not on filedocumented in this encounter Care Teams Fire Department Battalion Chief Relationship Specialty Start Date End Date Charlene Shaw MD [address] [place] [address] PCP - General Internal Medicine 06/07/21 documented as of this encounter
--- OUTSIDE RECORDS SUMMARY | 2025-07-24 10:36 | XMS_ITS | Encounter Summary ---
Author Organization [facility] Address [address] [place] [address] Care Team Providers Care Dispatcher Clerk Name Role Phone Penelope Lezama MD Primary Care Provider Rubi Weinberg, Anju DO Primary Care Pro vider Unavailable Penelope Lezama MD Primary Care Provider Rubi Weinberg, Anju DO Primary Care Pro vider Unavailable Penelope Lezama MD Primary Care Provider Rubi Weinberg, Anju DO Primary Care Pro vider Unavailable Dariela Ojeda MD Primary Care Provider Unavailab Charlene Cisneros MD Primary Care Provider [phone] Encounter Details Date Type Department Care Team Description 07/09/2018 Home Health Certification Medical Records [address] [place] [address] [address] Social History Tobacco Use Types Packs/Day Years [...] on filedocumented in this encounter Care Teams Dispatcher Clerk Relationship Specialty Start Date End Date [...] Medicine 01/17/21 06/06/21 Charlene Shaw MD [address] [place] [address] PCP - General Internal Medicine 06/07/21 documented as of this encounter
--- OUTSIDE RECORDS SUMMARY | 2025-07-24 10:36 | XMS_ITS | Encounter Summary ---
Author Organization [facility] Address [address] [place] [address] Care Team Providers Care Java Developer With Security Clearance Name Role Phone Penelope Lezama MD Primary Care Provider Rubi Weinberg, Anju DO Primary Care Pro vider Unavailable Penelope Lezama MD Primary Care Provider Rubi Weinberg, Anju DO Primary Care Pro vider Unavailable Penelope Lezama MD Primary Care Provider Rubi Weinberg, Anju DO Primary Care Pro vider Unavailable Dariela Ojeda MD Primary Care Provider Unavailab Charlene Cisneros MD Primary Care Provider [phone] Reason for Visit * Reason Onset Date Comments refill request 03/15/2019 Encounter Details Date Type Department Care Team Description 03/15/2019 Refill Adult Medicine [address] [address] Penelope Lezama MD refill request Social History [...] encounter Miscellaneous Notes * Telephone Encounter - Barry Lemus - 03/15/2019 3:19 PM EDT Call placed to the patient- refill request received for Zanaflex--patient states that the medication was given to her by Dr. Suggs--advised then she woud need to get refill from Dr. Suggs as according to chart this medication was discontinued in 2017-- or patient advised she could come in to see Dr. Lezama to discuss- patient became upset and related that the provider does not want to help her atall and she will just go to see someone else-- advised that that is not the case and tried to re-educate patient that provider would not readily refill a medication they discontinued just because it was prescribed by another provider and that they would like to see the patient--patient would not listen and hung up phone * Telephone Encounter - Dahlia Mendosa - 03/15/2019 11:57 AM EDT Patient would like script to be: E-PRESCRIBED/FAXED TO PHARMACY WHEN WAS THE PATIENT'S LAST APPOINTMENT IN ADULT MEDICINE? 03-05-19 WHEN WAS THE LAST TIME THE PATIENT SAW THEIR PCP? 11-02-18 Does patient have an upcoming appointment? No-patient refused appointment, will call back to book appointment (THE MEDICATION REQUESTED IS ON THE MED [...] N/A Patients current insurance carrier is: Payor: [facility] [employer] [facility] / Plan: POS $0 [place] [id number] /Product Type: POS [id number] documented in this encounter Plan of Treatment Not on file documented as of this encounter Visit Diagnoses Not on filedocumented in this encounter Care Teams Java Developer With Security Clearance Relationship Specialty Start Date End Date Penelope [...] Internal Medicine 01/17/21 06/06/21 Charlene Shaw MD [address] [place] [address] PCP - General Internal Medicine 06/07/21 documented as of this encounter
--- OUTSIDE RECORDS SUMMARY | 2025-07-24 10:36 | XMS_ITS | Encounter Summary ---
Author Organization [facility] Address [address] [place] [address] Care Team Providers Care Medical Doctor Md Name Role Phone Penelope Lezama MD Primary [...] Details Date Type Department Care Team Description 06/01/2019 Contact Center Specialist Report Medical Records [address] [place] [address] Ruba Lambert MD Social History Tobacco Use [...] filedocumented in this encounter Care Teams Medical Doctor Md Relationship Specialty Start Date End Date Penelope [...] Internal Medicine 01/17/21 06/06/21 Charlene Shaw MD [address] [place] [address] PCP - General Internal Medicine 06/07/21 documented as of this encounter"
--- OUTSIDE RECORDS SUMMARY | 2025-07-24 10:36 | XMS_ITS | Encounter Summary ---
Author Organization [facility] Address [address] [place] [address] Care Team Providers Care Client Technologies Specialist Name Role Phone Charlene Shaw MD Primary Care Provider [phone] Encounter Details Date Type Department Care Team Description 12/27/2021 Command Center Analyst Report Medical Records [address] [place] [address] [facility] Social History Tobacco Use Types Packs/Day [...] suspected to have Coronavirus/COVID-19? No / Unsure 11/28/2021 9:33 AM EDT documented as of this encounter Plan of Treatment Not on file documented as of this encounter Visit Diagnoses Not on filedocumented in this encounter Care Teams Client Technologies Specialist Relationship Specialty Start Date End Date Charlene Shaw MD [address] [place], [place] [phone] PCP - General Internal Medicine 06/07/21 documented as of this encounter
--- OUTSIDE RECORDS SUMMARY | 2025-07-24 10:36 | XMS_ITS | Encounter Summary ---
Author Organization [facility] Address [address] [place] [address] Care Team Providers Care Spacecraft Systems Engineer Name Role Phone Penelope Lezama MD Primary Care Provider Rubi Weinberg, Anju DO Primary Care Pro vider Unavailable Penelope Lezama MD Primary Care Provider Rubi Weinberg, Anju DO Primary Care Pro vider Unavailable Penelope Lezama MD Primary Care Provider Rubi Weinberg, Anju DO Primary Care Pro vider Unavailable Dariela Ojeda MD Primary Care Provider Unavailab Charlene Cisneros MD Primary Care Provider [phone] Encounter Details Date Type Department Care Team Description 10/05/2014 PATTERN PUNCHER/MassPat Report Medical Records [address] [place] [address] Abstract, Provider Social History Tobacco Use Types [...] on filedocumented in this encounter Care Teams Spacecraft Systems Engineer Relationship Specialty Start Date End Date [...] Internal Medicine 01/17/21 06/06/21 Charlene Shaw MD [address] [place] [address] PCP - General Internal Medicine 06/07/21 documented as of this encounter
--- OUTSIDE RECORDS SUMMARY | 2025-07-24 10:36 | XMS_ITS | Encounter Summary ---
Author Organization [facility] Address [address] [place] [address] Care Team Providers Care Blending Line Attendant Name Role Phone Agustín Hudson MD Primary Care Provider Unavail able Penelope Lezama MD Primary Care Provider Rubi Weinberg, Anju DO Primary Care Pro vider Unavailable Penelope Lezama MD Primary Care Provider Rubi Braxton Colcarmine, Anju DO Primary Care Pro vider Unavailable Penelope Lezama MD Primary Care Provider Unavamarkus labisabel Braxton [place], Anju DO Primary Care Pro vider Unavailable Dariela Ojeda MD Primary Care Provider Unavailab Charlene Cisneros MD Primary Care Provider [phone] Encounter Details Date Type Department Care Team Description 07/11/2010 Hospital Medical Records [address] [place] [address] Mady Nicole MD Social History Tobacco Use Types Packs/Day [...] on filedocumented in this encounter Care Teams Blending Line Attendant Relationship Specialty Start Date End Date Agustín [...] Internal Medicine 01/17/21 06/06/21 Charlene Shaw MD [address] [place] [address] PCP - General Internal Medicine 06/07/21 documented as of this encounter
--- OUTSIDE RECORDS SUMMARY | 2025-07-24 10:36 | XMS_ITS | Encounter Summary ---
Author Organization [facility] Address [address] [place] [address] Care Team Providers Care Microbial Specialist Name Role Phone Dariela Ojeda MD Primary Care Provider Unavailab Charlene Cisneros MD Primary Care Provider [phone] Encounter Details Date Type Department Care Team Description 04/04/2021 Hospital Medical Records [address] [place] [address] Mayo Myers Social History Tobacco Use Types Packs/Day Years [...] on filedocumented in this encounter Care Teams Microbial Specialist Relationship Specialty Start Date End Date Dariela Ojeda MD PCP - General Internal Medicine 01/17/21 06/06/21 Charlene Shaw MD [address] [place] [address] PCP - General Internal Medicine 06/07/21 documented as of this encounter
--- OUTSIDE RECORDS SUMMARY | 2025-07-24 10:37 | XMS_ITS | Encounter Summary ---
Author Organization [facility] Address [address] [place] [address] Care Team Providers Care Channeling Machine Operator Name Role Phone Penelope Lezama MD Primary Care Provider Rubi Weinberg, Anju DO Primary Care Pro vider Unavailable Penelope Lezama MD Primary Care Provider Rubi Castrejono, Anju DO Primary Care Pro vider Unavailable Penelope Lezama MD Primary Care Provider Unarolando Weinberg, Anju DO Primary Care Pro vider Unavailable Dariela Ojeda MD Primary Care Provider Unavailab Charlene Cisneros MD Primary Care Provider [phone] Encounter Details Date Type Department Care Team Description 07/07/2017 Fisher Trawl Line Report Medical Records [address] [place] [address] Jerad Chamberlain MD Social History Tobacco Use Types Packs/Day [...] on filedocumented in this encounter Care Teams Channeling Machine Operator Relationship Specialty Start Date End Date [...] Medicine 01/17/21 06/06/21 Charlene Shaw MD [address] [place] [address] PCP - General Internal Medicine 06/07/21 documented as of this encounter
--- OUTSIDE RECORDS SUMMARY | 2025-07-24 10:37 | XMS_ITS | Encounter Summary ---
Author Organization [facility] Address [address] [place] [address] Care Team Providers Care Anesthesiology Medical Doctor Name Role Phone Anju Suggs DO Primary Care Pro vider Unavailable Dariela Ojeda MD Primary Care Provider Unavailab Charlene Cisneros MD Primary Care Provider [phone] Encounter Details Date Type Department Care Team Description 11/09/2020 Telephone Adult [address] [address] Anju Suggs DO Social History Tobacco Use Types Packs/Day Years Used Date Smoking Tobacco: Former Cigarettes 0.3 20 Q uit: 02/16/2014 Smokeless Tobacco: Never Comments:5 cigs a week (usua lly only smokes while @ bin) Alcohol Use Standard Drinks/Week Comments Yes 0 [...] have Coronavirus / COVID-19? No / Unsure 11/06/2020 12:52 PM EDT documented as of this encounter Plan of Treatment Not on file documented as of this encounter Results * BASIC METABOLIC PANEL (02/08/2021 11:16 AM EDT) [facility] GLUCOSE 84 70 - 100 mg/dL 02/08/2021 3:09 PM EDT [facility] Comment:Reference range appl icable to fasting specimens only Blood Urea Nitrogen 19 5 - 25 mg/dL 02/08/2021 3:09 PM EDT [facility] CREAT 0.86 0.5 - 1.1 mg/dL 02/08/2021 3:09 PM EDT [facility] GLOMERULAR FILTRATION RATE > 60 02/08/2021 3:09 PM EDT [facility] Comment: If patient is -Algerian, multiply result by 1.21 Chronic Kidney Disease: < 60 ml/min/1.73 square meters Kidney Failure: < 15 ml/min/1.73 square meters NA 141 135 - 145 mEq/L 02/08/2021 3:09 PM EDT [facility] K 3.9 3.5 - 5.5 mmol/L 02/08/2021 3:09 PM EDT [facility] CL 106 96 - 110 mmol/L 02/08/2021 3:09 PM EDT [facility] CARBON DIOXIDE (CO2) 29 21 - 32 mmol/L 02/08/2021 3:09 PM EDT [facility] ANION GAP 6 3 - 11 02/08/2021 3:09 PM EDT [facility] CALCIUM 9.6 8.5 - 10.5 mg/dL 02/08/2021 3:09 PM EDT [facility] 02/08/2021 11:1 6 AM EDT 02/08/2021 11:17 AM EDT Anju Weinberg DO [facility] * THYROID PROFILE W/TSH (02/08/2021 11:16 AM EDT) [facility] CASCADE 3.56 0.40 - 4.00 uIU/ml 02/08/2021 3:21 PM EDT [facility] 02/08/2021 11:1 6 AM EDT 02/08/2021 11:17 AM EDT [facility] Weinberg DO [facility] * (ABNORMAL) UA WITH CULTURE IF INDICATED (02/08/2021 11:16 AM EDT) GLUCOSE, URINE (UA) NEGATIVE NEGATIVE mg/dL 02/08/2021 2:58 PM EDT [facility] BILIRUBIN URINE NEGATIVE NEGATIVE 02/08/2021 2:58 PM EDT [facility] KETONE, URINE TRACE(A) NEGATIVE mg/dL 02/08/2021 2:58 PM EDT [facility] SPECIFIC GRAVITY, URINE 1.020 1.003 - 1.030 02/08/2021 2:58 PM EDT [facility] BLOOD, URINE NEGATIVE NEGATIVE 02/08/2021 2:58 PM EDT [facility] PH, URINE 5.5 5.0 - 8.0 02/08/2021 2:58 PM EDT [facility] PROTEIN, URINE NEGATIVE <= TRACE mg/dl 02/08/2021 2:58 PM EDT [facility] UROBILINOGEN, URINE 0.2 0.2 - 1.0 E.U./dL 02/08/2021 2:58 PM EDT [facility] NITRITE,URINE POSITIVE(A) NEGATIVE 02/08/2021 2:58 PM EDT [facility] LEUKOCYTE ESTERASE, URINE MODERATE(A) NEGATIVE 02/08/2021 2:58 PM EDT [facility] RBC-Urine 4 0 - 4 /HPF 02/08/2021 3:01 PM EDT [facility] WBC, URINE 66(H) 0 - 4 /HPF 02/08/2021 3:01 PM EDT [facility] EPITH CELLS, URINE 73(H) 0 - 60 /LPF 02/08/2021 3:01 PM EDT [facility] BACTERIA, URINE HEAVY(A) NEGATIVE 02/08/2021 3:01 PM EDT [facility] HYALINE CAST, URINE 11(H) 0 - 3 /LPF 02/08/2021 3:01 PM EDT [facility] 02/08/2021 11:1 6 AM EDT 02/08/2021 11:16 AM EDT Anju Weinberg DO LAB [facility] [employer] [employer] documented in this encounter Visit Diagnoses Diagnosis Pyuria- Primary Other nonspecific finding on examination of urine Elevated TSH Other abnormal blood chemistry documented in this encounter Care Teams Anesthesiology Medical Doctor Relationship Specialty Start Date End Date Anju Suggs DO PCP - General Internal Medicine 05/16/20 01/16/21 Dariela Ojeda MD PCP - General Internal Medicine 01/17/21 06/06/21 Charlene Shaw MD [address] [place] [address] PCP - General Internal Medicine 06/07/21 documented as of this encounter
--- OUTSIDE RECORDS SUMMARY | 2025-07-24 10:37 | XMS_ITS | Encounter Summary ---
Author Organization [facility] Address [address] [place] [address] Care Team Providers Care Social Sciences Department Chair Name Role Phone Penelope Lezama MD Primary Care Provider Rubi Weinberg, Anju DO Primary Care Pro vider Unavailable Penelope Lezama MD Primary Care Provider Rubi Castrejono, Anju DO Primary Care Pro vider Unavailable Penelope Lezama MD Primary Care Provider Unarolando Weinberg, Anju DO Primary Care Pro vider Unavailable Dariela Ojeda MD Primary Care Provider Unavailab Chalrene Cisneros MD Primary Care Provider [phone] Encounter Details Date Type Department Care Team Description 04/23/2017 Medical Record Assistant Report Medical Records [address] [place] [address] Segun Swift NP Social History Tobacco Use Types Packs/Day Years [...] on filedocumented in this encounter Care Teams Social Sciences Department Chair Relationship Specialty Start Date End Date Penelope [...] Internal Medicine 01/17/21 06/06/21 Charlene Shaw MD [address] [place] [address] PCP - General Internal Medicine 06/07/21 documented as of this encounter
--- OUTSIDE RECORDS SUMMARY | 2025-07-24 10:37 | XMS_ITS | Encounter Summary ---
Author Organization [facility] Address [address] [place] [address] Care Team Providers Care Fabrication Machine Operator Name Role Phone Anju Suggs DO Primary Care Pro vider Unavailable Dariela Ojeda MD Primary Care Provider Unavailab Charlene Cisneros MD Primary Care Provider [phone] Encounter Details Date Type Department Care Team Description 11/09/2020 Orders Only Adult Medicine [address] [id number] Anju Suggs DO Social History Tobacco Use [...] on filedocumented in this encounter Care Teams Fabrication Machine Operator Relationship Specialty Start Date End Date Anju Suggs DO PCP - General Internal Medicine 9/22/20 5/25/21 Dariela Ojeda MD PCP - General Internal Medicine 01/17/21 06/06/21 Charlene Shaw MD [address] [place] [id number] PCP - General Internal Medicine 06/07/21 documented as of this encounter
--- OUTSIDE RECORDS SUMMARY | 2025-07-24 10:37 | XMS_ITS | Encounter Summary ---
Author Organization [facility] Address [address] [place] [address] Care Team Providers Care Silver Miner Name Role Phone Anju Suggs DO Primary Care Pro vider Unavailable Dariela Ojeda MD Primary Care Provider Unavailab Charlene Cisneros MD Primary Care Provider Encounter Details Date Type Department Care Team Description 11/24/2020 Icing Maker Report Medical Records [address] [place] [id number] Ifeanyi Jolie Social History Tobacco Use Types Packs/Day Years [...] have Coronavirus / COVID-19? No / Unsure 11/21/2020 1:54 PM EDT documented as of this encounter Plan of Treatment Not on file documented as of this encounter Visit Diagnoses Not on filedocumented in this encounter Care Teams Silver Miner Relationship Specialty Start Date End Date Anju Suggs DO PCP - General Internal Medicine 05/16/20 01/16/21 Dariela Ojeda MD PCP - General Internal Medicine 01/17/21 06/06/21 Charlene Shaw MD [address] [place] [id number] PCP - General Internal Medicine 06/07/21 documented as of this encounter
--- OUTSIDE RECORDS SUMMARY | 2025-07-24 10:37 | XMS_ITS | Encounter Summary ---
Author Organization [facility] Address [address] [place] [address] Care Team Providers Care Transformer Assembly Supervisor Name Role Phone Dariela Ojeda MD Primary Care Provider Unavail Charlene Cisneros MD Primary Care Provider [phone] Encounter Details Date Type Department Care Team Description 01/23/2021 [facility] Medical Records [address] [place] [id number] Abstract, Provider Social History Tobacco Use Types Packs/Day Years Used Date Smoking Tobacco: Former Cigarettes 0.3 20 Q uit: 02/16/2014 Smokeless Tobacco: Never Comments:5 cigs a week (laurence mitchelly only smokes while @ [employer]) Alcohol Use [...] on filedocumented in this encounter Care Teams Transformer Assembly Supervisor Relationship Specialty Start Date End Date Dariela Ojeda MD PCP - General Internal Medicine 01/17/21 06/06/21 Charlene Shaw MD [address] [place] [id number] PCP - General Internal Medicine 06/07/21 documented as of this encounter
--- OUTSIDE RECORDS SUMMARY | 2025-07-24 10:37 | XMS_ITS | Encounter Summary ---
Author Organization [facility] Address [address] [place] [address] Care Team Providers Care Statement Distribution Clerk Name Role Phone Charlene Shaw MD Primary Care Provider [phone] Encounter Details Date Type Department Care Team Description 10/15/2021 Release of Information Medical Records [address] [place] [id number] Abstract, Provider Social History Tobacco Use Types [...] on filedocumented in this encounter Care Teams Statement Distribution Clerk Relationship Specialty Start Date End Date Charlene Shaw MD [address] [place] [address] [id number] PCP - General Internal Medicine 06/07/21 documented as of this encounter
--- OUTSIDE RECORDS SUMMARY | 2025-07-24 10:37 | XMS_ITS | Encounter Summary ---
Author Organization [facility] Address [address] [place] [address] Care Team Providers Care Production Expert Name Role Phone Anju Suggs DO Primary Care Pro vider Unavailable Dariela Ojeda MD Primary Care Provider Unavailab Charlene Cisneros MD Primary Care Provider [phone] Encounter Details Date Type Department Care Team Description 12/06/2020 Video Game Repair Technician Report Medical Records [address] [place] [id number] Mayo Myers Social History Tobacco Use Types [...] on filedocumented in this encounter Care Teams Production Expert Relationship Specialty Start Date End Date Anju Suggs DO PCP - General Internal Medicine 05/16/20 01/16/21 Dariela Ojeda MD PCP - General Internal Medicine 01/17/21 06/06/21 Charlene Shaw MD [address] [place] [id number] PCP - General Internal Medicine 06/07/21 documented as of this encounter
--- OUTSIDE RECORDS SUMMARY | 2025-07-24 10:37 | XMS_ITS | Encounter Summary ---
Author Organization [facility] Address [address] [place] [address] Care Team Providers Care Strap Sewer Name Role Phone Anju Suggs DO Primary Care Pro vider Unavailable Dariela Ojeda MD Primary Care Provider Unavailab Charlene Cisneros MD Primary Care Provider [phone] Encounter Details Date Type Department Care Team Description 11/15/2020 Supervisor Corduroy Cutting Report Medical Records [address] [place] [id number] Mayo Myers Social History Tobacco Use Types [...] on filedocumented in this encounter Care Teams Strap Sewer Relationship Specialty Start Date End Date Anju Suggs DO PCP - General Internal Medicine 05/16/20 01/16/21 Dariela Ojeda MD PCP - General Internal Medicine 01/17/21 06/06/21 Charlene Shaw MD [address] [place] [id number] PCP - General Internal Medicine 06/07/21 documented as of this encounter
--- NOTE | 2025-07-24 11:08 | ED.FALL ---
HPI - Fall General Chief Complaint: Fall Stated Complaint: FALL OOW/C,L ANKLE PAIN FROM SNF PER EMS Time Seen by Provider: 07/24/25 10:52 Source: patient and family Mode of arrival: ambulatory Limitations: no limitations History of Present Illness ED Provider: Dr. Chadd Balbuena HPI Narrative: 79-year-old female with a history of cerebral palsy to her left upper and lower extremity, osteoarthritis who presents emergency department for evaluation of slip and fall with injury to her left shoulder, humerus and left ankle. Patient states that around 03:00 hours she fell on of her lift chair landing on her left shoulder, left upper arm and left leg. Patient states that since the fall, she has had significant pain in her left shoulder, left upper arm and left ankle. She has also noted swelling over the lateral aspect of her ankle and pain with weight-bearing of her left ankle. She denied head injury. She denied headache, neck pain, nausea, vomiting. Related Data Home Medications ?Medication ?Instructions ?Recorded ?Confirmed acetaminophen 650 mg 650 mg PO Q6H PRN Pain 09/01/20 06/05/25 tablet,extended release (Tylenol Arthritis Pain) aspirin 81 mg tablet,delayed 81 mg PO DAILY 09/01/20 06/05/25 release baclofen 20 mg tablet 20 mg PO TID 09/01/20 06/05/25 clonidine HCl 0.1 mg tablet 0.1 mg PO BID 07/26/23 06/05/25 fluticasone propionate 50 2 spray intranasal DAILY PRN 07/26/23 06/05/25 mcg/actuation nasal Allergy Symptoms spray,suspension simvastatin 20 mg tablet 20 mg PO BEDTIME 07/26/23 06/05/25 verapamil 240 mg 24 hr 240 mg PO DAILY 07/26/23 06/05/25 capsule,extended release omeprazole 20 mg capsule,delayed 20 mg PO DAILY 11/09/23 06/05/25 release oxybutynin chloride 5 mg 5 mg PO DAILY 11/09/23 06/05/25 tablet,extended release 24 hr albuterol sulfate 90 mcg/actuation 2 puff inhalation Q6H PRN Wheezing 06/05/25 06/05/25 aerosol inhaler busksn-uoh-HR-lycopene-lutein 1.25 1 tab PO DAILY 06/05/25 06/05/25 mg-2.5 mg-7 mg tablet Previous Rx's ?Medication ?Instructions ?Recorded cephalexin 500 mg capsule 500 mg PO Q12H 7 days #14 caps 06/11/25 metronidazole 500 mg tablet 500 mg PO Q12H 7 days #14 tabs 06/11/25 Allergies Allergy/AdvReac Type Severity Reaction Status Date / Time penicillin V Allergy Intermediate rash Verified 07/24/25 10:11 nitrofurantoin Allergy Rash Verified 07/24/25 10:11 nickel Allergy Intermediate swelling Uncoded 06/04/25 14:38 Review of Systems Review of Systems: Yes all other systems are reviewed and are negative [facility] Past Medical History Medical History (Updated 07/24/25 @ 14:25 by Chadd Balbuena MD) Morbid obesity Colonic diverticular abscess Chronic lung disease COPD (chronic obstructive pulmonary disease) Urine incontinence Hyperlipidemia Sleep apnea Depression Cerebral palsy HTN (hypertension) CVA (cerebral vascular accident) Hypothyroid Surgical History Hx of cholecystectomy Hx of hysterectomy Family History Family History Father CVD (cardiovascular disease) Diabetes Mother CVD (cardiovascular disease) Social History Social History Household Members: Children Housing: Assisted Living Facility Do you presently have visiting nurse or other home services: No Alcohol intake: never Comment: bedside commode Patient Tobacco Use Status: Never used Tobacco Smoked in Last 30 Days: No Advance Directives: No Advance Directives Information Provided: No Advance Directives Date on File: 07/26/23 service: No Physical Exam Vital Signs: Vital Signs: Last Vital Signs Temp 98 F 07/24/25 10:17 Pulse 62 07/24/25 10:17 Resp 16 07/24/25 10:17 BP 121/58 L 07/24/25 10:17 Pulse Ox 92 07/24/25 10:17 O2 Del Method Room Air 07/24/25 10:17 BMI result Body Mass Index 39.8 Vital signs were normal. Exam: General: Awake, alert in no distress, weight 89.4 kg, elevated BMI 39.8 kilograms/meters squared. Head: Normocephalic, atraumatic EENT: PERRL, sclera and conjunctiva are normal, mouth with no erythema or exudates Neck: Supple, no adenopathy Lung: breath sounds symmetric, no wheezing, no rales and no rhonchi Chest: symmetric movement, nontender Heart: regular rate and rhythm, normal S1, S2 no murmurs or rubs Abdomen: soft, non-tender, nondistended, normal bowel sounds Back: no vertebral tenderness, no CVAT Extremities: Patient does have weakness of her left and upper extremity secondary to her cerebral palsy, there is tenderness palpation of her left shoulder with minimal active/passive movement of the shoulder secondary to pain. Patient also has tenderness palpation over her left humerus from the shoulder to the elbow. There is no ecchymosis or obvious deformity. Patient has tenderness palpation of her proximal tibia and lateral fibula with left lateral malleolar soft tissue swelling with no ecchymosis. Neuro: Awake, alert, oriented, normal speech, cranial nerves 2-12 intact Psych: Pleasant, cooperative Medications Administered Discontinued Medications Generic Name Dose Route Start Last Admin Trade Name Freq PRN Reason Stop Dose Admin Acetaminophen 975 mg 07/24/25 11:01 07/24/25 12:00 Acetaminophen 325 Mg Tablet PO 07/24/25 11:02 975 mg ONCE STA Administration Medical Decision Making Medical Decision Making MDM Narrative: 79-year-old female with a history of cerebral palsy to her left upper and lower extremity, osteoarthritis who presents emergency department for evaluation of slip and fall with injury to her left shoulder, humerus and left ankle. Patient states that around 03:00 hours she fell on of her lift chair landing on her left shoulder, left upper arm and left leg. Patient states that since the fall, she has had significant pain in her left shoulder, left upper arm and left ankle. She has also noted swelling over the lateral aspect of her ankle and pain with weight-bearing of her left ankle. She denied head injury. She denied headache, neck pain, nausea, vomiting. Vital signs were normal. Physical examination did reveal limited ability to move the left shoulder secondary to pain, tenderness palpation of the left humerus and left tib-fib with soft tissue swelling to the left lateral malleolus Differential diagnosis: ?Includes but is not limited to left shoulder fracture, left shoulder dislocation, left shoulder contusion, left arm fracture, left arm contusion, left tib-fib fracture, left tib-fib contusion, left ankle fracture, left ankle contusion Course: 14:37 Patient was treated with Tylenol 975 mg orally with the relief of her pain. X-rays of the patient's left shoulder, humerus, tib-fib and ankle did not reveal any acute fractures. The studies are limited secondary to osteopenia and I did discuss this with the patient. Patient does have soft tissue swelling to the left lateral malleolus suggesting that she has a an ankle sprain. Patient was placed in a tall walking boot. She was also advised to use her cane in her right hand when she walks a support the weight when she steps forward with the your left leg. Patient was advised to take Tylenol for pain. She was advised to apply ice for 10-15 minutes 4 to 6 times a day to her left ankle. Patient was instructed to contact the [facility] to arrange follow-up evaluation. She was given printed and verbal instructions and discharged home. Differential Diagnosis Differential Diagnoses: The differential diagnosis associated with the presentation includes (See above) Admission/Observation Consideration of admission/observation: Escalation of care including admission/observation considered (Yes) Independent Interpretation I performed an independent interpretation of an: Plain X-Ray Interpretation: My independent interpretation of the patient's left shoulder, humerus, tib-fib x-rays were as follows: No acute fracture seen. The patient does have significant osteopenia which makes the x-rays difficult to interpret. Radiology Impression Discussion of test interpretation with radiology: I have reviewed the radiologist's reading. Radiologist Impression: 3 view left humerus Comparison: None provided Findings: Limited evaluation due to positioning, technique, artifact and soft tissue attenuation. No definite fracture or dislocation. Impression: Significantly limited study. No definite fracture or dislocation. This document has been electronically signed by: Florian Khan MD on 07/24/2025 13:41:33 3 view left shoulder Comparison: None provided Findings: There are moderately severe degenerative changes present. There is no convincing evidence of fracture or dislocation No erosions. No radiopaque foreign body. IMPRESSION: Moderately severe degenerative changes. No convincing evidence of fracture. This document has been electronically signed by: Florian Khan MD on 07/24/2025 13:41:14 2 view left tibia-fibula Comparison: None provided Findings The distal fibula is not well evaluated due to positioning. No definite tibial fracture. There is demineralization and degenerative change of the left knee and left ankle. Impression: The distal fibula is not well evaluated due to positioning. No definite fracture or dislocation. This document has been electronically signed by: Florian Khan MD on 07/24/2025 13:40:55 Dictated By: Florian Khan MD Independent Historian Clinical information obtained from an independent historian. History obtained from or confirmed by: Other ([id number] and [id number]) Chronic Conditions Patient?s care impacted by: Other (Cerebral palsy of the left upper and lower extremities) Discharge Plan Discharge Clinical Impression: Fall Qualifiers: Encounter type: initial encounter Qualified Code(s): W19.XXXA - Unspecified fall, initial encounter Left ankle sprain Qualifiers: Encounter type: initial encounter Contusion of left shoulder Qualifiers: Encounter type: initial encounter Qualified Code(s): S40.012A - Contusion of left shoulder, initial encounter Contusion of left upper arm Qualifiers: Encounter type: initial encounter Qualified Code(s): S40.022A - Contusion of left upper arm, initial encounter Patient Disposition: Home, Self-Care Instructions: Ankle Sprain (ED), Contusion in Adults (ED) Additional Instructions: The x-rays of your left shoulder, left upper arm (humerus), left leg (tib-fib) were limited due to osteopenia (low calcium on an x-ray-this has different than osteoporosis) however I did not see any broken bones/fractures in the radiologist also did not see any broken bones/fractures on your x-rays. Given the swelling to the outer aspect of your left ankle (lateral malleolus) I suspect that you twisted your ankle and this has the cause of your pain. It is sometimes takes 4-6 weeks for an ankle to heal. Use your cane in your right hand, place the cane forward and then step forward with your left leg, support your weight with a cane while you bring your right foot head of the of the cane. Repeat this pattern of walking to help decrease the amount of weight that you put on your left ankle. Apply ice for 15 minutes 4 to 6 times a day to help reduce the pain and swelling in your ankle. Do this for at least 1 week. Where the tall/long ankle boot for 4-6 weeks. Take Tylenol (acetaminophen) 500 mg pills, 2 pills every 6 hours as needed for pain. Continue taking your other medications as prescribed by your providers. Call our orthopedic providers for a follow up appointment for your ankle sprain. Please return to the emergency department if your symptoms get worse or if you develop any symptoms that are concerning to you. Prescriptions: No Action clonidine HCl 0.1 mg tablet 0.1 mg PO BID simvastatin 20 mg tablet 20 mg PO BEDTIME fluticasone propionate 50 mcg/actuation spray,suspension 2 spray intranasal DAILY PRN (Reason: Allergy Symptoms) Rx Instructions: 2 sprays in each nostril verapamil 240 mg capsule,ext rel. pellets 24 hr 240 mg PO DAILY oxybutynin chloride 5 mg Tablet Extended Release 24hr 5 mg PO DAILY omeprazole 20 mg capsule,delayed release(DR/EC) 20 mg PO DAILY albuterol sulfate 90 mcg/actuation HFA aerosol inhaler 2 puff inhalation Q6H PRN (Reason: Wheezing) cefdua-oet-OU-lycopene-lutein 1.25-2.5-7 mg Tablet 1 tab PO DAILY metronidazole 500 mg Tablet 500 mg PO Q12H 7 Days Qty: 14 0RF cephalexin 500 mg Capsule 500 mg PO Q12H 7 Days Qty: 14 0RF acetaminophen [Tylenol Arthritis Pain] 650 mg tablet extended release 650 mg PO Q6H PRN (Reason: Pain) aspirin 81 mg tablet,delayed release (DR/EC) 81 mg PO DAILY baclofen 20 mg tablet 20 mg PO TID Referrals: Jozef Alonzo MD [Physician, Orthopedics] Referral Note: Fall, cerebral palsy to left side, left lateral malleolus soft tissue swelling/ankle sprain. Placed in tall walking boot. Print Language: Kosovan
[2025-07-24 14:44] VITALS: BP 121/58; PULSE 62; RESP 16; TEMP 36.6; O2SAT 92
--- NOTE | 2025-07-24 14:46 | PHA.MEDREC ---
Pharmacy Consult ? Medication Reconciliation Pharmacy has completed the medication reconciliation. Utilized list provided by patient from doctor's office.
== END 2025-07-24 14:44 | disposition home or self-care (01) ==
PROVIDERS: Emergency Provider Emergency Medicine Emergency Medical Services; PCP Internal Medicine
DX: S40.012A Contusion of left shoulder, initial encounter (principal); S40.022A Contusion of left upper arm, initial encounter; W07.XXXA Fall from chair, initial encounter; Y93.9 Activity, unspecified; Y92.129 Unspecified place in nursing home as the place of occurrence of the external cause; G80.9 Cerebral palsy, unspecified; I10 Essential (primary) hypertension; E78.5 Hyperlipidemia, unspecified
CPT/HCPCS: 73030; 73060; 73590; 99283; 99285

== ENCOUNTER → 2025-07-24 11:01 | Outpatient (BNV) | payer OTHER, MEDICARE, SELFPAY | PROVIDERS: Emergency Provider Emergency Medicine Emergency Medical Services; PCP Internal Medicine; Visit Provider Radiology Vascular & Interventional Radiology | DX: M19.012 Primary osteoarthritis, left shoulder (principal); S82.302A Unspecified fracture of lower end of left tibia, initial encounter for closed fracture; M25.522 Pain in left elbow; Z04.3 Encounter for examination and observation following other accident | CPT/HCPCS: 73030; 73060; 73590 ==

== ENCOUNTER 2025-08-15 09:46 | Outpatient (AMB) | payer OTHER, MEDICARE, SELFPAY ==
[2025-08-15 09:59] VITALS: BMI 39.0
--- NOTE | 2025-08-15 09:59 | A.OFFVIS_ITS ---
Vital Signs 08/15/25 09:59 Height 4 ft 11 in Weight 193 lb BMI 39.0 Intake Visit Reasons: Left ankle sprain Intake Note: Britta is a 79 year old female who presents today as a new patient for an evaluation of her left ankle sprain. Patient reports she was on her lift chair and while she was getting off she fell and rolled over on her left side. She was seen at the ED on where she was provided with a cam boot and she was advised to take tylenol PRN for pain. She has a previous fracture of her left hallux about 5 years ago. She has no previous ankle sprain or fractures. Patient mentions she has cerebal palsy on the left side of her body. Allergies penicillin V Allergy (Intermediate, Verified 08/15/25 10:00) rash nitrofurantoin Allergy (Verified 08/15/25 10:00) Rash nickel Allergy (Intermediate, Uncoded 06/04/25 14:38) swelling HPI HPI Left ankle sprain: Details: The patient is a 79 year old female presenting for follow-up of a left ankle injury. Left Ankle Injury: The patient sustained an injury on July 24 2025 when she fell from her lift chair while attempting to go to the bathroom. She reports that everything on her left side was affected, and she went to the emergency room the same day. She has been wearing a boot since the injury, which occurred over three weeks ago. She reports her ankle feels good but experiences 8/10 pain when she stands on it. Cerebral Palsy: The patient has a history of cerebral palsy since infancy, affecting her left side, which she describes as weight . Despite this, she was previously independent, able to walk and drive. She has been using a wheelchair for appro ximately three years due to the progression of her cerebral palsy, knee arthritis, and a decline in motivation after her 's . She has trouble standing and primarily pivots for transfers. Left Foot Drop: The patient has a history of left foot drop resulting from a previous fall and had a brace from [facility] that broke. She was measured for a new brace and will be picking it up next week. Medical History: - Cerebral palsy since infancy, affecting the left side - Arthritis in her knees - History of left foot drop from a previous fall Social History: - The patient is . - She resides in an assisted living facility. - Functional Status: The patient has been using a wheelchair for the past 3 years and primarily pivots for transfers. - Functional Status: She previously walked and drove independently. - Rehabilitation: She is currently receiving in-home rehab once a week, which started after her recent injury. [facility] Medical History (Updated 08/15/25 @ 10:47 by Yuriy Sparks DPM) Morbid obesity Colonic diverticular abscess Chronic lung disease COPD (chronic obstructive pulmonary disease) Urine incontinence Hyperlipidemia Sleep apnea Depression Cerebral palsy HTN (hypertension) CVA (cerebral vascular accident) Hypothyroid Surgical History Hx of cholecystectomy Hx of hysterectomy Family History Father CVD (cardiovascular disease) Diabetes Mother CVD (cardiovascular disease) Social History Household Members: Children Housing: Assisted Living Facility Do you presently have visiting nurse or other home services: No Alcohol intake: never Comment: bedside commode Patient Tobacco Use Status: Never used Tobacco Advance Directives Date on File: 07/26/23 service: No Review of Systems Const All systems reviewed & are unremarkable except as noted in HPI and below Physical Exam Vital Signs: BMI result Body Mass Index 39.0 Office Procedures AMB Debridement/Avulsion Podia Details: Procedure: Nail debridement Location: 10 nails, bilateral feet Anesthesia: N/A Description: The affected toenails were cleansed with an antiseptic solution. Using sterile nail nippers and a rotary indra, dystrophic and mycotic nail material was carefully debrided and reduced in thickness. Care was taken to avoid trauma to the surrounding skin and nail bed. All debris was removed as tolerated. The area was inspected for signs of infection or ulceration. Patient tolerated the procedure well without complications. Tolerance: Patient tolerated procedure well, no immediate complications. The patient has a diagnosis of cerebral palsy and is wheel-chair bound. She presents with severely elongated, thickened toenails. Due to being unable to take care of herself, the patient is at increased risk for complications such as ulceration, infection, and difficulty with self-care. Debridement of elongated toenails is medically necessary to prevent development of pressure-related lesions, reduce risk of secondary infection, and maintain foot health in high- risk comorbidities. [id number]-[id number] of Nail 6+ Procedure code (CPT) selection complete Results Reviewed Results Reviewed: X-ray Read: 07/24/2025 X-ray left tib-fib 2 views (AP, Lateral) reviewed which shows no fractures, dislocations, or gross abnormalities. Bone density decreased. Moderate ankle joint space narrowing. I personally reviewed the imaging and my findings are listed above. Assessment & Plan Assessment & Plan (1) Moderate left ankle sprain: Code(s): S93.402A - Sprain of unspecified ligament of left ankle, initial encounter Category: Medical Qualifiers: Encounter type: initial encounter Qualified Code(s): S93.402A - Sprain of unspecified ligament of left ankle, initial encounter Plan: * Reviewed left tib-fib x-ray. No signs of fracture. * Continue CAM boot for transfers for the next 3 weeks. * Recommended at home range of motion exercises. * Referred for physical therapy to extend at home. * F/U in 3 weeks. (2) Left posterior tibial strain: Code(s): S86.112A - Strain of other muscle(s) and tendon(s) of posterior muscle group at lower leg level, left leg, initial encounter Category: Medical Qualifiers: Encounter type: initial encounter Qualified Code(s): S86.112A - Strain of other muscle(s) and tendon(s) of posterior muscle group at lower leg level, left leg, initial encounter Plan: * Ddx includes peroneal strain secondary to her fall. * She will continue to use the walking boot for 3 more weeks, for a total of 6 weeks. * She is to wear the boot any time she is standing up. * She can take the boot off when seated or in bed to perform range of motion exercises, such as tracing the alphabet with her foot, twice daily. * A referral will be placed for a left foot x-ray to ensure no occult injury was missed on the initial ankle films. (3) Osteoarthritis of left ankle and foot: Code(s): M19.072 - Primary osteoarthritis, left ankle and foot Category: Medical Plan: * Reviewed left tib-fib x-rays which shows mild joint space narrowing of the tibiotalar joint, moderate narrowing of the TN and STJ joint. (4) Foot drop, left foot: Code(s): M21.372 - Foot drop, left foot Category: Medical Plan: * The patient will bring her new foot drop brace from [facility] to the next appointment to check its fit and determine if it can be used instead of a lace-up brace once she is out of the boot. * Information was provided for the O&P clinic to obtain appropriate shoes that can accommodate her brace if needed. (5) Onychogryphosis: Code(s): L60.2 - Onychogryphosis Category: Medical Plan: * Debrided elongated nails x10 using a sterile nail nipper (6) CVA (cerebral vascular accident): Code(s): I63.9 - Cerebral infarction, unspecified Category: Medical Qualifiers: CVA mechanism: other Qualified Code(s): I63.89 - Other cerebral infarction Plan: * Patient requires routine foot care due to her disability where she is permanently in a wheel chair. (7) Cerebral palsy: Code(s): G80.9 - Cerebral palsy, unspecified Category: Medical Qualifiers: Cerebral palsy type: other type Qualified Code(s): G80.8 - Other cerebral palsy Plan: * Patient requires routine foot care due to her disability where she is permanently in a wheel chair. Orders: Orders PT Evaluation and Treatment Today S86.312A - Strain of muscle(s) and tendon(s) of peroneal muscle group at lower leg level, left leg, initial encounter, S93.402A - Sprain of unspecified ligament of left ankle, initial encounter XR foot LT min 3V Today M79.672 - Pain in left foot AMB Debridement/Avulsion Podiatry Today L60.2 - Onychogryphosis Coding Level of Care Code New Pt Level 4 (46073) Diagnoses Moderate left ankle sprain, initial encounter S93.402A Encounter type: initial encounter Left posterior tibial strain, initial encounter S86.112A Encounter type: initial encounter Osteoarthritis of left ankle and foot M19.072 Foot drop, left foot M21.372 Onychogryphosis L60.2 Cerebrovascular accident (CVA) due to other mechanism I63.89 CVA mechanism: other Other cerebral palsy G80.8 Cerebral palsy type: other type CPT Codes Skin Debridement - CPT: 01859-Wsiiledygvu of Nail 6+ ([id number]) Time Spent (min) 35
--- OUTSIDE RECORDS SUMMARY | 2025-08-15 11:24 | XMS_ITS | Encounter Summary ---
Author Organization [facility] Prior to 06/25/2024 Address [address] [place] [address] Care Team Providers Care Operations Management Professionals Name Role Phone Penelope Lezama MD Primary Care Provider Rubi Weinberg, Anju DO Primary Care Pro vider Unavailable Penelope Lezama MD Primary Care Provider Rubi Weinberg, Anju DO Primary Care Pro vider Unavailable Penelope Lezama MD Primary Care Provider Unavamarkus Braxton Colasacco, Anju DO Primary Care Pro vider Unavailable Dariela Ojeda MD Primary Care Provider Unavailab Charlene Cisneros MD Primary Care Provider [phone] Encounter Details Date Type Department Care Team Description 01/03/2016 Block Stacker Report Medical Records [address] [place] [address] Jose Peña MD Social History Tobacco Use [...] on filedocumented in this encounter Care Teams Operations Management Professionals Relationship Specialty Start Date End Date Penelope [...] Internal Medicine 01/17/21 06/06/21 Charlene Shaw MD [address] [place] [id number] PCP - General Internal Medicine 06/07/21 documented as of this encounter
--- OUTSIDE RECORDS SUMMARY | 2025-08-15 11:24 | XMS_ITS | Encounter Summary ---
Author Organization [facility] Prior to 06/25/2024 Address [address] [place] [address] Care Team Providers Care Manufacturing Engineering Technologist Name Role Phone Penelope Lezama MD Primary Care Provider Rubi Weinberg, Anju DO Primary Care Pro vider Unavailable Penelope Lezama MD Primary Care Provider Rubi Weinberg, Anju DO Primary Care Pro vider Unavailable Penelope Lezama MD Primary Care Provider Rubi Weinberg, Anju DO Primary Care Pro vider Unavailable aDriela Ojeda MD Primary Care Provider Unavailab Charlene iCsneros MD Primary Care Provider [phone] Encounter Details Date Type Department Care Team Description 11/15/2015 Controlled Substance Contract with Plan Medical Records [address] [place] [id number] Abstract, Provider Social History Tobacco Use Types [...] on filedocumented in this encounter Care Teams Manufacturing Engineering Technologist Relationship Specialty Start Date End Date Penelope [...] Internal Medicine 01/17/21 06/06/21 Charlene Shaw MD [address] [place] [address] PCP - General Internal Medicine 06/07/21 documented as of this encounter
--- OUTSIDE RECORDS SUMMARY | 2025-08-15 11:24 | XMS_ITS | Encounter Summary ---
Author Organization [facility] Prior to 06/25/2024 Address [address] [place] [address] Care Team Providers Care Gasoline Truck Crane Operator Name Role Phone Penelope Lezama MD Primary Care Provider Rubi Weinberg, Anju DO Primary Care Pro vider Unavailable Penelope Lezama MD Primary Care Provider Rubi Weinberg, Anju DO Primary Care Pro vider Unavailable Penelope Lezama MD Primary Care Provider Unavamarkus Braxton Colasacco, Anju DO Primary Care Pro vider Unavailable Dariela Ojeda MD Primary Care Provider Unavailab Charlene Cisneros MD Primary Care Provider [phone] Encounter Details Date Type Department Care Team Description 12/05/2015 Belt Knife Feeder Report Medical Records [address] [place] [address] Jose Peña MD Social History Tobacco Use [...] on filedocumented in this encounter Care Teams Gasoline Truck Crane Operator Relationship Specialty Start Date End Date [...] Internal Medicine 01/17/21 06/06/21 Charlene Shaw MD [address] [place] [address] PCP - General Internal Medicine 06/07/21 documented as of this encounter
--- OUTSIDE RECORDS SUMMARY | 2025-08-15 11:24 | XMS_ITS | Encounter Summary ---
[facility] [place] [address] Care Team Providers Care Histology Assistant Name Role Phone Charlene Shaw MD Primary Care Provider [phone] Reason for Visit * Reason Onset Date Comments [facility] 08/11/2025 Encounter Details Date Type Department Care Team ([facility] Contact Info) Description 08/11/2025 Telephone Adult Medicine [address] [phone] Jaycee Greco MA Social History Tobacco Use Types Packs/Day Years [...] as of this encounter Progress Notes * Ernesto Jaramillo LPN - 08/11/2025 4:47 PM EST See FYI from [facility] * Jaycee Greco MA - 08/11/2025 4:41 PM EST [facility] CALL Which [facility] office is calling? [employer] / Full name of caller: DANIEL The caller is MERCHANDISE CARRIER Is the caller at the patients home?: no Reason for call: OF 08/24/25 PT WILL BE DISCHARGED.[facility] WILL NO LONGER BE CONTRACTED WITH [facility].WILL NEED ANOTHER AGENCY. Does caller need an urgent call back? no Was CONTACT Telephone # obtained above?: yes Fax #: documented in this encounter Plan of Treatment Upcoming Encounters Date Type Department Care Team (Late st Contact Info) Description 11/02/2025 12:45 PM EDT Office Visit Adult Medicine [facility] [address] [place] [address] Charlene Shaw MD [address] [place] [address] documented as of this encounter Visit Diagnoses Not on filedocumented in this encounter Additional Health Concerns Assessment Noted Time PHQ-9 Depression Total Score: 17 025 12:08 PM EST A fall risk assessment has been complete d for the patient 09/09/2024 12:07 PM EST documented as of this encounter Care Teams Histology Assistant Relationship Specialty Start Date End Date Charlene Shaw MD [address] [place] [address] PCP - General Internal Medicine 06/07/21 documented as of this encounter
--- OUTSIDE RECORDS SUMMARY | 2025-08-15 11:24 | XMS_ITS | Clinical Summary ---
Author Organization [facility] Prior to 06/25/2024 Address [address] [place] [address] Care Team Providers Care Chip Bin Conveyor Tender Name Role Phone Charlene Shaw MD Primary Care Provider [phone] Allergies Active Allergy Reactions Severity Noted Date [...] (ProAir HFA) 108 (90 Base) MCG/ACT Aero SolnIndications:Oakes Machine Operator mariam obstructive pulmonary disease, unspecified COPD type [...] Relation Name Comments Diabetes Brother x 2 [place] Father diabetes, HTN Diabetes Maternal Grandmother LA Mother diabetes, HTN [place] Paternal Grandmother Stroke Sister 1 x 1 [...] 06/07/2021, Additional history exists MAMMOGRAM 05/18/2025 05/18/2024, 07/08/2022, 03/12/2022, Additional history exists DTAP/TDAP/TD (2 - Td or Tdap) 07/23/2025 (External Completion of Vaccination per patient), 09/14/2007, 09/14/2007 CHOLESTEROL SCREENING 12/14/2027 12/13/2022 , 11/02/2021, 11/07/2020, Additional history exists HEPATITIS C SCREENING Completed 05/17/2013 PNEUMOCOCCAL VACCINE Completed 07/31/2017, 09/06/2015, 07/11/2011 Care Teams Chip Bin Conveyor Tender Relationship Specialty Start Date End Date Charlene Shaw MD [address] [place], [place] [phone] PCP - General Internal Medicine 06/07/21
--- OUTSIDE RECORDS SUMMARY | 2025-08-15 11:24 | XMS_ITS | Clinical Summary ---
Author Organization [facility] Address [address] [address] Phone Care Team Providers Care Airport Sales Agent Name Role Phone Charlene Shaw MD Primary Care Provider [phone] Allergies Active Allergy Reactions Criticality Noted Date [...] Department Care Team Description 06/28/2025 Lab Requisition [facility] Lab Main [address] [place] [address] Ladan Almeida MD Abscess of intestine; Other specified sepsis; Chronic obstructive pulmonary disease, unspecified 06/20/2025 9:27 AM EDT - 06/20/2025 11:59 PM EDT Hospital Encounter [facility] [address] [place] [address] Ladan Almeida MD Discharge Disposition: Home or Self Care 06/20/2025 Transcribe Orders [facility] Specimen Processing [address] [place] [address] Ladan Almeida MD Abscess of intestine (Primary Dx); Diverticulosis of large intestine without diverticulitis; Congenital diplegia 06/13/2025 10:52 AM EDT - 06/13/2025 11:59 PM EDT Hospital Encounter [facility] [address] [place] [address] Ladan Almeida MD Discharge Disposition: Home or Self Care 06/13/2025 Transcribe Orders [facility] Specimen Processing [address] [place] [address] Ladan Almeida MD Obstructive chronic bronchitis with [...] 136 - 145 mmol/L 06/28/2025 12:03 PM [facility] Potassium 4.7 3.4 - 5.1 mmol/L 06/28/2025 12:03 PM [facility] Chloride 108(H) 98 - 107 mmol/L 06/28/2025 12:03 PM [facility] CO2 25 20 - 31 mmol/L 06/28/2025 12:03 PM [facility] Anion Gap 12 3 - 17 mmol/L 06/28/2025 12:03 PM [facility] BUN 18 6 - 23 mg/dL 06/28/2025 12:03 PM [facility] Creatinine 0.80 0.50 - 1.00 mg/dL 06/28/2025 12:03 PM [facility] eGFR 75 >59 mL/min/1.7 3m2 06/28/2025 12:03 PM [facility] Comment:Estimated glomerular filtration rate calculated using the CKD-EPI refit equation. Glucose 85 70 - 99 mg/dL 06/28/2025 12:03 PM [facility] Calcium 8.8 8.5 - 10.5 mg/dL 06/28/2025 12:03 PM [facility] AST 13 <33 U/L 06/28/2025 12:03 PM [facility] ALT 7 <34 U/L 06/28/2025 12:03 PM [facility] Alkaline Phosphatase 48 40 - 130 U/L 06/28/2025 12:03 PM [facility] Bilirubin, Total 0.4 0.0 - 1.2 mg/dL 06/28/2025 12:03 PM [facility] Total Protein 5.9(L) 6.4 - 8.3 g/dL 06/28/2025 12:03 PM [facility] Albumin 3.8 3.5 - 5.2 g/dL 06/28/2025 12:03 PM [facility] Globulin 2.1 1.9 - 4.1 g/dL 06/28/2025 12:03 PM [facility] Blood (Blood) 06/28/2025 6:5 0 AM EST 06/28/2025 11:21 AM EST us Ladan Almeida MD LAB BLOOD BKR ORDERABLES Final Result [facility] [address] [place], [place] [id number] * (ABNORMAL) CBC (06/28/2025 6:50 AM EST) Only the most recent of3 resultswithin the time period is included. WBC 5.00 4.00 - 11.00 K/uL 06/28/2025 11:45 AM [facility] RBC 3.53(L) 4.00 - 5.20 M/uL 06/28/2025 11:45 AM [facility] Hemoglobin 9.7(L) 12.0 - 16.0 g/dL 06/28/2025 11:45 AM [facility] Hematocrit 32.7(L) 36.0 - 46.0 % 06/28/2025 11:45 AM [facility] MCV 92.6 80.0 - 100.0 fL 06/28/2025 11:45 AM [facility] MCH 27.5 27.0 - 31.0 pg 06/28/2025 11:45 AM [facility] MCHC 29.7(L) 32.0 - 36.0 g/dL 06/28/2025 11:45 AM [facility] PLT 132(L) 150 - 450 K/uL 06/28/2025 11:45 AM [facility] MPV 11.6 8.4 - 12.0 fL 06/28/2025 11:45 AM [facility] RDW-CV 17.2(H) 11.5 - 14.5 % 06/28/2025 11:45 AM [facility] Absolute NRBC 0.00 <=0.00 K cells/uL 06/28/2025 11:45 AM [facility] NRBC 0.0 <=0.0 /100 WBCs 06/28/2025 11:45 AM [facility] Blood (Blood) 06/28/2025 6:5 0 AM EST 06/28/2025 11:21 AM EST us Ladan Almeida MD LAB BLOOD BKR ORDERABLES Final Result [facility] [address] [place], [place] [id number] from Last 3 Months Insurance [employer] HEALTH PLAN [facility] [employer] PLAN Care Teams Airport Sales Agent Relationship Specialty Start Date End Date Charlene Shaw MD [address] [place], [place] PCP - General 11/17/23 Additional Source Comments The information contained in this document represents components of the legal health record. It is not the complete legal health record.[facility]
--- OUTSIDE RECORDS SUMMARY | 2025-08-15 11:24 | XMS_ITS | Encounter Summary ---
[facility] [place] [address] Care Team Providers Care Humanities Department Chair Name Role Phone Charlene Shaw MD Primary Care Provider [phone] Reason for Visit * Reason Onset Date Comments faxed order 07/25/2025 [facility] order [id number] Encounter Details Date Type Department Care Team (Late st Contact Info) Description 07/25/2025 Telephone Adult Medicine [facility] [address] [place] [phone] Charlene Shaw MD [address] [place] [phone] Social History Tobacco Use Types Packs/Day Years [...] as of this encounter Progress Notes * Ira Rae MA - 08/10/2025 10:42 AM EST Signed scanned and e-faxed * Janet Sultana - 07/25/2025 2:15 PM EST [facility] health order [id number] received please sign and fax to [phone] documented in this encounter Plan of Treatment Upcoming Encounters Date Type Department Care Team (Late st Contact Info) Description 11/02/2025 12:45 PM EDT Office Visit Adult Medicine [facility] [address] [place], [place] [phone] Charlene Shaw MD [address] [place], [place] documented as of this encounter Visit Diagnoses Not on filedocumented in this encounter Additional Health Concerns Assessment Noted Time PHQ-9 Depression Total Score: 17 025 12:08 PM EST A fall risk assessment has been complete d for the patient 09/09/2024 12:07 PM EST documented as of this encounter Care Teams Humanities Department Chair Relationship Specialty Start Date End Date Charlene Shaw MD [address] [place] [address] PCP - General Internal Medicine 06/07/21 documented as of this encounter
--- OUTSIDE RECORDS SUMMARY | 2025-08-15 11:24 | XMS_ITS | Encounter Summary ---
Author Organization [facility] Prior to 06/25/2024 Address [address] [place] [address] Care Team Providers Care Wastewater Treatment Engineer Name Role Phone Penelope Lezama MD Primary Care Provider Rubi Weinberg, Anju DO Primary Care Pro vider Unavailable Penelope Lezama MD Primary Care Provider Rubi Weinberg, Anju DO Primary Care Pro vider Unavailable Penelope Lezama MD Primary Care Provider Unavamarkus Braxton Colcarmine, Anju DO Primary Care Pro vider Unavailable Dariela Ojeda MD Primary Care Provider Unavailab Charlene Cisneros MD Primary Care Provider [phone] Encounter Details Date Type Department Care Team Description 07/01/2019 Medical Secretary Report Medical Records [address] [place] [id number] Jolie Suggs Social History Tobacco Use Types [...] on filedocumented in this encounter Care Teams Wastewater Treatment Engineer Relationship Specialty Start Date End Date [...] Medicine 01/17/21 06/06/21 Charlene Shaw MD [address] [place] [address] PCP - General Internal Medicine 06/07/21 documented as of this encounter
--- OUTSIDE RECORDS SUMMARY | 2025-08-15 11:24 | XMS_ITS | Encounter Summary ---
[facility] [place] [address] Care Team Providers Care Tool Or Die Drawing Checker Name Role Phone Charlene Shaw MD Primary Care Provider [phone] Reason for Visit * Reason Onset Date Comments faxed order 07/26/2025 [facility] order [id number] Encounter Details Date Type Department Care Team (Late st Contact Info) Description 07/26/2025 Telephone Adult Medicine [facility] [address] [place] [phone] Charlene Shaw MD [address] [place] [phone] Social History Tobacco Use Types Packs/Day Years [...] Progress Notes * Ira Rae MA - 08/11/2025 2:15 PM EST Signed scanned and e-faxed * Janet Sultana - 07/26/2025 11:37 AM EST [facility] order [id number] received please sign and fax to [phone] documented in this encounter Plan of Treatment Upcoming Encounters Date Type Department Care Team (Late st Contact Info) Description 11/02/2025 12:45 PM EDT Office Visit Adult Medicine [facility] [address] [place], [place] [phone] Charlene Shaw MD [address] [place], [place] documented as of this encounter Visit Diagnoses Not on filedocumented in this encounter Additional Health Concerns Assessment Noted Time PHQ-9 Depression Total Score: 17 025 12:08 PM EST A fall risk assessment has been complete d for the patient 09/09/2024 12:07 PM EST documented as of this encounter Care Teams Tool Or Die Drawing Checker Relationship Specialty Start Date End Date Charlene Shaw MD [address] [place] [address] PCP - General Internal Medicine 06/07/21 documented as of this encounter
--- OUTSIDE RECORDS SUMMARY | 2025-08-15 11:24 | XMS_ITS | Encounter Summary ---
Author Organization [facility] Prior to 06/25/2024 Address [address] [place] [address] Care Team Providers Care Tube Rebuilder Name Role Phone Anju Suggs DO Primary Care Pro vider Unavailable Dariela Ojeda MD Primary Care Provider Unavailab Charlene Cisneros MD Primary Care Provider [phone] Encounter Details Date Type Department Care Team Description 09/01/2020 Track Worker Report Medical Records [address] [place] [address] Ruba Lambert MD Social History Tobacco Use [...] on filedocumented in this encounter Care Teams Tube Rebuilder Relationship Specialty Start Date End Date Anju Suggs DO PCP - General Internal Medicine 05/16/20 01/16/21 Dariela Ojeda MD PCP - General Internal Medicine 01/17/21 06/06/21 Charlene Shaw MD [address] [place] [address] PCP - General Internal Medicine 06/07/21 documented as of this encounter
--- OUTSIDE RECORDS SUMMARY | 2025-08-15 11:24 | XMS_ITS | Encounter Summary ---
Author Organization [facility] Prior to 06/25/2024 Address [address] [place] [address] Care Team Providers Care Chaser Helper Name Role Phone Penelope Lezama MD Primary Care Provider Rubi Weinberg, Anju DO Primary Care Pro vider Unavailable Penelope Lezama MD Primary Care Provider Rubi Weinberg, Anju DO Primary Care Pro vider Unavailable Penelope Lezama MD Primary Care Provider Unavamarkus Braxton Colcarmine, Anju DO Primary Care Pro vider Unavailable Dariela Ojeda MD Primary Care Provider Unavailab Charlene Cisneros MD Primary Care Provider [phone] Encounter Details Date Type Department Care Team Description 03/26/2016 Controlled Substance Contract with Plan Medical Records [address] [place] [address] Penelope Lezama MD Social History Tobacco Use [...] on filedocumented in this encounter Care Teams Chaser Helper Relationship Specialty Start Date End Date [...] Internal Medicine 01/17/21 06/06/21 Charlene Shaw MD [address] [place] [address] PCP - General Internal Medicine 06/07/21 documented as of this encounter
--- OUTSIDE RECORDS SUMMARY | 2025-08-15 11:24 | XMS_ITS | Encounter Summary ---
Author Organization [employer] [facility] Prior to 06/25/2024 Address [address] [place] [address] Care Team Providers Care Vault Manager Name Role Phone Agustín Hudson MD Primary [...] Unavailab Charlene Cisneros MD Primary Care Provider [phone] Reason for Visit * Reason Onset Date Comments refill request 03/27/2011 Encounter Details Date Type Department Care Team Description 03/27/2011 Refill Adult Medicine [address] [address] Agustín Hudson MD refill request Social History Tobacco Use [...] on filedocumented in this encounter Care Teams Vault Manager Relationship Specialty Start Date End Date Agustín [...] Internal Medicine 01/17/21 06/06/21 Charlene Shaw MD [address] [place] [address] PCP - General Internal Medicine 06/07/21 documented as of this encounter
--- OUTSIDE RECORDS SUMMARY | 2025-08-15 11:24 | XMS_ITS | Encounter Summary ---
Author Organization [employer] [facility] Prior to 06/25/2024 Address [address] [place] [address] Care Team Providers Care Repertoire Manager Name Role Phone Anju Suggs DO Primary Care Pro vider Unavailable Dariela Ojeda MD Primary Care Provider Unavailab Charlene Cisneros MD Primary Care Provider [phone] Encounter Details Date Type Department Care Team Description 06/05/2020 Powder Truck Driver Report Medical Records [address] [place] [address] Julio C Mcleod Social History Tobacco Use [...] on filedocumented in this encounter Care Teams Repertoire Manager Relationship Specialty Start Date End Date Anju Suggs DO PCP - General Internal Medicine 05/16/20 01/16/21 Dariela Ojeda MD PCP - General Internal Medicine 01/17/21 06/06/21 Charlene Shaw MD [address] [place] [address] PCP - General Internal Medicine 06/07/21 documented as of this encounter
--- OUTSIDE RECORDS SUMMARY | 2025-08-15 11:24 | XMS_ITS | Encounter Summary ---
Author Organization [facility] [place] [address] Care Team Providers Care Product Handler Name Role Phone Charlene Shaw MD Primary Care Provider [phone] Reason for Visit * Reason Onset Date Comments VNA 07/25/2025 Encounter Details Date Type Department Care Team ([facility] Contact Info) Description 07/25/2025 Telephone Adult Medicine [address] [phone] Jaycee Greco MA Social History Tobacco Use [...] as of this encounter Progress Notes * Nicci Nunez RN - 07/26/2025 1:40 PM EST Called to [facility] and advised per provider * PETTY Sullivan - 07/26/2025 1:22 PM EST Okay for verbal orders. * Ernesto Jaramillo LPN - 07/26/2025 8:40 AM EST Active with [facility] Vo needed to extend OT please review and advise for DR. Shaw Please send response to nurse triage pool south Reported fall now has a walking boot Last OV 07/05/25 Will call patient for a follow up * Jaycee Greco MA - 07/25/2025 4:53 PM EST [facility]NA CALL Which [facility] office is calling? [facility] / Full name of caller: TERESITA Leo The caller is An Occupational Therapist Is the caller at the patients home?: no Reason for call: VERBAL ORDERS TO EXTEND OT,PATIENT HAD A FALL OVER THE WEEKEND AND NOW SHE IS WEARING A WALKING BOOT. Does caller need an urgent call back? no Was CONTACT Telephone # obtained above?: yes Fax #: documented in this encounter Plan of Treatment Upcoming Encounters Date Type Department Care Team (Late st Contact Info) Description 11/02/2025 12:45 PM EDT Office Visit Adult Medicine [address] [phone] Charlene Shaw MD [address] [place] [address] documented as of this encounter Visit Diagnoses Not on filedocumented in this encounter Additional Health Concerns Assessment Noted Time PHQ-9 Depression Total Score: 17 025 12:08 PM EST A fall risk assessment has been complete d for the patient 09/09/2024 12:07 PM EST documented as of this encounter Care Teams Product Handler Relationship Specialty Start Date End Date Charlene Shaw MD [address] [place] [address] PCP - General Internal Medicine 06/07/21 documented as of this encounter
--- OUTSIDE RECORDS SUMMARY | 2025-08-15 11:24 | XMS_ITS | Encounter Summary ---
Author Organization [facility] Prior to 06/25/2024 Address [address] [place] [address] Care Team Providers Care Hand Umbrella Tipper Name Role Phone Penelope Lezama MD Primary Care Provider Rubi Weinberg, Anju DO Primary Care Pro vider Unavailable Penelope Lezama MD Primary Care Provider Rubi Weinberg, Anju DO Primary Care Pro vider Unavailable Penelope Lezama MD Primary Care Provider Unavamarkus Braxton Colasaradhao, Anju DO Primary Care Pro vider Unavailable Dariela Ojeda MD Primary Care Provider Unavailab Charlene Cisneros MD Primary Care Provider [phone] Encounter Details Date Type Department Care Team Description 07/17/2016 Drive Man Report Medical Records [address] [place] [address] Trae Schuler DO Social History Tobacco Use [...] on filedocumented in this encounter Care Teams Hand Umbrella Tipper Relationship Specialty Start Date End Date Penelope [...] Internal Medicine 01/17/21 06/06/21 Charlene Shaw MD [address] [place] [address] PCP - General Internal Medicine 06/07/21 documented as of this encounter
--- OUTSIDE RECORDS SUMMARY | 2025-08-15 11:24 | XMS_ITS | Encounter Summary ---
Author Organization [facility] Prior to 06/25/2024 Address [address] [place] [address] Care Team Providers Care Shank Scourer Name Role Phone Agustín Hudson MD Primary [...] Unavailab Charlene Cisneros MD Primary Care Provider [phone] Encounter Details Date Type Department Care Team Description 03/25/2011 Hospital Medical Records [address] [place] [address] Lamar Houston Social History Tobacco Use Types Packs/Day Years [...] on filedocumented in this encounter Care Teams Shank Scourer Relationship Specialty Start Date End Date Agustín [...] Medicine 01/17/21 06/06/21 Charlene Shaw MD [address] [place] [address] PCP - General Internal Medicine 06/07/21 documented as of this encounter
--- OUTSIDE RECORDS SUMMARY | 2025-08-15 11:24 | XMS_ITS | Encounter Summary ---
Author Organization [facility] Prior to 06/25/2024 Address [address] [place] [address] Care Team Providers Care Marketing Systems Analyst Name Role Phone Penelope Lezama MD Primary Care Provider Rubi Weinberg, Anju DO Primary Care Pro vider Unavailable Penelope Lezama MD Primary Care Provider Rubi Weinberg, Anju DO Primary Care Pro vider Unavailable Penelope Lezama MD Primary Care Provider Unavamarkus Weinberg, Anju DO Primary Care Pro vider Unavailable Dariela Ojeda MD Primary Care Provider Unavailab Charlene Cisneros MD Primary Care Provider [phone] Encounter Details Date Type Department Care Team Description 09/09/2016 Furniture Mover Driver Report Medical Records [address] [place] [address] Trae Schuler DO Social History Tobacco Use [...] on filedocumented in this encounter Care Teams Marketing Systems Analyst Relationship Specialty Start Date End Date [...] Medicine 01/17/21 06/06/21 Charlene Shaw MD [address] [place] [address] PCP - General Internal Medicine 06/07/21 documented as of this encounter
--- OUTSIDE RECORDS SUMMARY | 2025-08-15 11:24 | XMS_ITS | Encounter Summary ---
Author Organization [facility] [employer] [facility] Prior to 06/25/2024 Address [address] [place] [address] Care Team Providers Care Drum Printer Name Role Phone Agustín Hudson MD Primary [...] Unavailab Charlene Cisneros MD Primary Care Provider [phone] Reason for Visit * Reason Onset Date Comments Echocardiogram 03/29/2011 Encounter Details Date Type Department Care Team Description 03/29/2011 Telephone Adult Medicine [address] [address] Cristian Arevalo MD [address] [place] [address] Echocardiogram Social History Tobacco Use Types [...] Family the echo order was faxed to [facility] on 03/29/11. Shaylee is for 04/10/11 at 8:45 am documented in this encounter Plan of Treatment Not on file documented as of this encounter Visit Diagnoses Not on filedocumented in this encounter Care Teams Drum Printer Relationship Specialty Start Date End Date Agustín [...] Medicine 01/17/21 06/06/21 Charlene Shaw MD [address] [place] [address] PCP - General Internal Medicine 06/07/21 documented as of this encounter
--- OUTSIDE RECORDS SUMMARY | 2025-08-15 11:25 | XMS_ITS | Encounter Summary ---
Author Organization [facility] [employer] [facility] Prior to 06/25/2024 Address [address] [place] [address] Care Team Providers Care Material Flow Engineer Name Role Phone Penelope Lezama MD Primary Care Provider Rubi Weinberg, Anju DO Primary Care Pro vider Unavailable Penelope Lezama MD Primary Care Provider Rubi Weinberg, Anju DO Primary Care Pro vider Unavailable Penelope Lezama MD Primary Care Provider Unavamarkus Braxton Colasacco, Anju DO Primary Care Pro vider Unavailable Dariela Ojeda MD Primary Care Provider Unavailab Charlene Cisneros MD Primary Care Provider [phone] Encounter Details Date Type Department Care Team Description 07/03/2015 Athletics Teacher Report Medical Records [address] [place] [address] Jose Peña MD Social History Tobacco Use [...] on filedocumented in this encounter Care Teams Material Flow Engineer Relationship Specialty Start Date End Date [...] Medicine 01/17/21 06/06/21 Charlene Shaw MD [address] [place] [address] PCP - General Internal Medicine 06/07/21 documented as of this encounter
--- OUTSIDE RECORDS SUMMARY | 2025-08-15 11:25 | XMS_ITS | Encounter Summary ---
Author Organization [facility] [facility] Prior to 06/25/2024 Address [address] [place] [address] Care Team Providers Care Physician Recruiter Name Role Phone Anju Suggs DO Primary Care Pro vider Unavailable Penelope Lezama MD Primary Care Provider Anju Valencia DO Primary Care Pro vider Unavailable Penelope Lezama MD Primary Care Provider Anju Valencia DO Primary Care Pro vider Unavailable Dariela Ojeda MD Primary Care Provider Unavailab Charlene Cisneros MD Primary Care Provider [phone] Reason for Visit * Reason Onset Date Comments refill request 11/09/2019 Encounter Details Date Type Department Care Team Description 11/09/2019 Refill Adult Medicine [address] [address] Anju Suggs DO refill request Social History [...] encounter Miscellaneous Notes * Telephone Encounter - Hira Rios M.A. - 11/10/2019 3:47 PM EDT Faxed to pharmacy * Telephone Encounter - Anaya Hay M.A. - 11/09/2019 4:34 PM EDT Last ov 09/14/19 Lab Results Component Value Date CHOL 269 03/06/2019 LDL 161 03/06/2019 HDL 57 03/06/2019 TRIG 259 03/06/2019 SGOT 17 03/06/2019 SGPT 21 03/06/2019 * Telephone Encounter - Kathleen Martinez - 11/09/2019 10:17 AM EDT MAIL ORDER REFILL REQUEST When was the patients last visit with PCP?: 09/14/2019 When was the patients last visit in Medicine: 09/14/2019 Does the patient have a future appointment? Yes 01/31/2020 Is the doctor here today?: YES Is the med requested on the list?:Yes What mail order pharmacy does patient have?: [facility] Let the patient know that if their pharmacy is participating we will automatically route this mail order refill to them via their mail order pharmacy. Is the following the patients current home address: [address] [place] [address] yes If their mail order pharmacy is NOT a participating pharmacy we can:If this refill request was recieved via fax or e-prescribe the request will be faxed back to the pharmacy Is this the patients current medical insurance carrier? Payor: [place] [employer] / Plan: [id number] / Product Type: POS [id number] YES documented in this encounter Plan of Treatment Not on file documented as of this encounter Visit Diagnoses Diagnosis Cough documented in this encounter Care Teams Physician Recruiter Relationship Specialty Start Date End Date Anju [...] Internal Medicine 01/17/21 06/06/21 Charlene Shaw MD [address] [place] [address] PCP - General Internal Medicine 06/07/21 documented as of this encounter
--- OUTSIDE RECORDS SUMMARY | 2025-08-15 11:25 | XMS_ITS | Encounter Summary ---
Author Organization [email or web address] [facility] Prior to 06/25/2024 Address [address] [place] [address] Care Team Providers Care Heating And Ventilating Tender Name Role Phone Essie Perkins MD Primary Care Provider Anju Valencia DO Primary Care Pro vider Unavailable Essie Perkins MD Primary Care Provider Anju Valencia DO Primary Care Pro vider Unavailable Dareila Ojeda MD Primary Care Provider Unavailab Charlene Cisneros MD Primary Care Provider [phone] Reason for Visit * Reason Onset Date Comments Inverted Block Operator Feedback 01/24/2020 [place] Encounter Details Date Type Department Care Team Description 01/24/2020 Telephone Adult [address] [address] Essie Perkins MD Inverted Block Operator Feedback (Rory) Social History Tobacco Use Types Packs/Day Years [...] encounter Miscellaneous Notes * Telephone Encounter - Judith Portillo - 01/24/2020 9:49 AM EDT [facility] Review Request Submission Status [ Save Response to Batch ] Request: [id number] [facility] Trace #: [id number] Subscriber: DANICA LEIF Submitter : ESSIE PERKINS Submitter Type: Provider : 1945 Referral (#[id number]) Specialty Care Review Type: Initial Certification Status : Certified in total Service Type : Medical Care Place Of Service : Other Place of Service Visits : 6 Service Date : 01/24/2020-01/23/2021 Service Providers Provider Name ID Provider Type RUBÉN VALADEZ NPI : [id number] Service Provider * Telephone Encounter - Tiny Dagoberto - 01/24/2020 9:46 AM EDT What insurance does the patient have today? [facility] Effective 05/25/09: BCBS will not retro referral requests over 90 days. If request is for this please instruct patient to call the 800# on their insurance card to appeal. Do not submit a request. Referrals cannot be processed if the insurance is not accurate. If the insurance listed above in red is NO BILLING INFORMATION FOUND FOR THIS ENCOUTNER The patients correct insurance must be obtained and registered in [facility] or their referral can not be processed. Is this a retro request? NO. If yes for what date of service do you need the retro referral? N/A Who is calling to request this referral? The pt If the caller is not the patient, what is their name? N/A Ask the patient WHO referred them to this specialty: Patient saw Dr. Perkins at [facility] for the problem and was told if symptoms did not resolve or worsen they would refer them to this specialty FIRST and LAST NAME of SPECIALIST PATIENT is seeing: Dr. Rubén Valadez What specialty is this? Optho DIAGNOSIS Patient is being seen for (Not a body part or a procedure): Cataract Have you seen this SPECIALIST for this PROBLEM/DX before?NO If YES, when:- Have you checked REVIEW or the APPT DESK to see if this referral has already been done or has visits left? YES Is this visit:Initial Visit Address of Specialist:[address] [place] [address] Phone # of Specialist:[phone] Fax #: (if applicable):- Does patient have an appointment scheduled?: YES Date of appointment- (including a retro-request): 01/24/20 Is this appointment related to: Not MVA, WC or Surgery related documented in this encounter Plan of Treatment Not on file documented as of this encounter Visit Diagnoses Not on filedocumented in this encounter Care Teams Heating And Ventilating Tender Relationship Specialty Start Date End Date Essie Perkins MD PCP - General Internal Medicine 11/18/19 04/10/20 Anju Suggs DO PCP - General Internal Medicine 04/11/20 05/09/20 Essie Perkins MD PCP - General Internal Medicine 05/10/20 05/15/20 Anju Suggs DO PCP - General Internal Medicine 05/16/20 01/16/21 Dariela Ojeda MD PCP - General Internal Medicine 01/17/21 06/06/21 Charlene Shaw MD [address] [place] [address] PCP - General Internal Medicine 06/07/21 documented as of this encounter
--- OUTSIDE RECORDS SUMMARY | 2025-08-15 11:25 | XMS_ITS | Encounter Summary ---
Author Organization [facility] [employer] [facility] Prior to 06/25/2024 Address [address] [place] [address] Care Team Providers Care Academic Support Specialist Name Role Phone Penelope Lezama MD Primary Care Provider Rubi Weinberg, Anju DO Primary Care Pro vider Unavailable Penelope Lezama MD Primary Care Provider Rubi Weinberg, Anju DO Primary Care Pro vider Unavailable Penelope Lezama MD Primary Care Provider Unarolando Castrejono, Anju DO Primary Care Pro vider Unavailable Dariela Ojeda MD Primary Care Provider Unavailab Charlene Cisneros MD Primary Care Provider [phone] Encounter Details Date Type Department Care Team Description 08/07/2015 Release of Information Medical Records [address] [place] [phone] Abstract, Provider Social History Tobacco Use Types [...] on filedocumented in this encounter Care Teams Academic Support Specialist Relationship Specialty Start Date End Date [...] Medicine 01/17/21 06/06/21 Charlene Shaw MD [address] [place] [address] PCP - General Internal Medicine 06/07/21 documented as of this encounter
--- OUTSIDE RECORDS SUMMARY | 2025-08-15 11:25 | XMS_ITS | Encounter Summary ---
Author Organization Yasmeen [facility] [facility] Prior to 06/25/2024 Address [address] [place] [address] Care Team Providers Care Cable Tool Driller Name Role Phone Penelope Lezama MD Primary Care Provider Rubi Weinberg, Anju DO Primary Care Pro vider Unavailable Penelope Lezama MD Primary Care Provider Rubi Weinberg, Anju DO Primary Care Pro vider Unavailable Penelope Lezama MD Primary Care Provider Unavamarkus Braxton Colasaradhao, Anju DO Primary Care Pro vider Unavailable Dariela Ojeda MD Primary Care Provider Unavailab Charlene Cisneros MD Primary Care Provider [phone] Reason for Visit * Reason Onset Date Comments refill request 06/16/2015 Encounter Details Date Type Department Care Team Description 06/16/2015 Refill Adult Medicine [address] [address] Penelope Lezama MD refill request Social History [...] uds list * Telephone Encounter - Elidia Randall - 06/16/2015 1:30 PM EDT WHEN WAS [...] POS $0 [place] 9195 /Product Type: POS Zcz-vyh-Hbjblom documented in this encounter Plan of Treatment Not on file documented as of this encounter Results * ASSAY, DIHYDROCODEINONE (06/17/2015 8:48 AM EDT) HYDROCODONE UR GCMS Negative . ng/mL 06/22/2015 3:12 PM EDT [facility] HYDROMORPHONE UR GCMS Negative . ng/mL 06/22/2015 3:12 PM EDT [facility] Comment: Performed at: [facility] [address] [id number] Steam Trap Worker: Ankit Jones MD, Phone: [phone] 06/17/2015 8:48 AM EDT 06/17/2015 8:49 AM EDT Penelope Lezama MD LAB Performing Organization Address City/[facility]/ZIP Co de Phone Number [facility] * OXYCODONE, URINE (06/17/2015 8:48 AM EDT) URINE OXYCODONE LEVEL NEGATIVE NEGATIVE 06/17/2015 11:58 AM EDT [facility] 06/17/2015 8:48 AM EDT 06/17/2015 8:49 AM EDT Penelope Lezama MD LAB [facility] [address] [place] [address] * DRUG OF ABUSE SCREEN (06/17/2015 8:48 AM EDT) AMPHETAMINE, URINE NEGATIVE NEGATIVE 06/17/2015 11:58 AM EDT [facility] BARBITURATES, URINE NEGATIVE NEGATIVE 06/17/2015 11:58 AM EDT [facility] BENZODIAZEPINE , URINE NEGATIVE NEGATIVE 06/17/2015 11:58 AM EDT [facility] COCAINE, URINE NEGATIVE NEGATIVE 06/17/2015 11:58 AM EDT [facility] OPIATES, URINE NEGATIVE NEGATIVE 06/17/2015 11:58 AM EDT [facility] MARIJUANA(THC) , URINE NEGATIVE NEGATIVE 06/17/2015 11:58 AM EDT [facility] 06/17/2015 8:48 AM EDT 06/17/2015 8:49 AM EDT Penelope Lezama MD LAB Performing Organization Address City/State/[facility] Co de Phone Number [facility] documented in this encounter Visit Diagnoses Diagnosis Encounter for long-term (current) use of other high-risk medications- Primary Encounter for long-term (current) use of other medications documented in this encounter Care Teams Cable Tool Driller Relationship Specialty Start Date End Date Penelope [...] Medicine 01/17/21 06/06/21 Charlene Shaw MD [address] [place] [address] PCP - General Internal Medicine 06/07/21 documented as of this encounter
--- OUTSIDE RECORDS SUMMARY | 2025-08-15 11:25 | XMS_ITS | Encounter Summary ---
Author Organization Yasmeen [employer] [facility] Prior to 06/25/2024 Address [address] [place] [address] Care Team Providers Care Wind Energy Systems Installer Name Role Phone Penelope Lezama MD Primary Care Provider Rubi Weinberg, Anju DO Primary Care Pro vider Unavailable Penelope Lezama MD Primary Care Provider Rubi Weinberg, Anju DO Primary Care Pro vider Unavailable Penelope Lezama MD Primary Care Provider Rubi Weinberg, Anju DO Primary Care Pro vider Unavailable Dariela Ojeda MD Primary Care Provider Unavailab Charlene Cisneros MD Primary Care Provider [phone] Encounter Details Date Type Department Care Team Description 09/08/2015 Business Doc Medical Records [address] [place] [address] Abstract, Provider Social History Tobacco Use Types [...] on filedocumented in this encounter Care Teams Wind Energy Systems Installer Relationship Specialty Start Date End Date Penelope [...] Internal Medicine 01/17/21 06/06/21 Charlene Shaw MD [address] [place] [address] PCP - General Internal Medicine 06/07/21 documented as of this encounter
--- OUTSIDE RECORDS SUMMARY | 2025-08-15 11:25 | XMS_ITS | Encounter Summary ---
Author Organization Yasmeen [employer] [facility] Prior to 06/25/2024 Address [address] [place] [address] Care Team Providers Care Sand Technologist Name Role Phone Penelope Lezama MD Primary Care Provider Rubi Weinberg, Anju DO Primary Care Pro vider Unavailable Penelope Lezama MD Primary Care Provider Rubi Castrejono, Anju DO Primary Care Pro vider Unavailable Penelope Lezama MD Primary Care Provider Unavamarkus Braxton Colasaradhao, Anju DO Primary Care Pro vider Unavailable Dariela Ojeda MD Primary Care Provider Unavailab Charlene Cisneros MD Primary Care Provider [phone] Reason for Visit * Reason Onset Date Comments refill request 08/02/2019 Encounter Details Date Type Department Care Team Description 08/02/2019 Refill Adult Medicine [address] [address] Penelope Lezama MD refill request Social History [...] FAMILY HEALTH PLAN / Plan: POS $0 [facility] 9195 /Product Type: POS [id number]-Mggvqtp documented in this encounter Plan of Treatment Not on file documented as of this encounter Visit Diagnoses Not on filedocumented in this encounter Care Teams Sand Technologist Relationship Specialty Start Date End Date [...] Medicine 01/17/21 06/06/21 Charlene Shaw MD [address] [place] [address] PCP - General Internal Medicine 06/07/21 documented as of this encounter
--- OUTSIDE RECORDS SUMMARY | 2025-08-15 11:25 | XMS_ITS | Encounter Summary ---
Author Organization [facility] Address [address] [facility] [address] [place] [address] Phone Care Team Providers Care Pesticide Chemist Name Role Phone Charlene Shaw MD Primary Care Provider [phone] Encounter Details Date Type Department Care Team (Late st Contact Info) Description 06/28/2025 Lab Requisition [facility] Lab Main [address] [place] [address] Ladan Almeida MD [address] [place] [phone] [email or web address] Abscess of intestine; Other specified sepsis; Chronic [...] 136 - 145 mmol/L 06/28/2025 12:03 PM [facility] Potassium 4.7 3.4 - 5.1 mmol/L 06/28/2025 12:03 PM [facility] Chloride 108(H) 98 - 107 mmol/L 06/28/2025 12:03 PM [facility] CO2 25 20 - 31 mmol/L 06/28/2025 12:03 PM [facility] Anion Gap 12 3 - 17 mmol/L 06/28/2025 12:03 PM [facility] BUN 18 6 - 23 mg/dL 06/28/2025 12:03 PM [facility] Creatinine 0.80 0.50 - 1.00 mg/dL 06/28/2025 12:03 PM [facility] eGFR 75 >59 mL/min/1.7 3m2 06/28/2025 12:03 PM [facility] Comment:Estimated glomerular filtration rate calculated using the CKD-EPI refit equation. Glucose 85 70 - 99 mg/dL 06/28/2025 12:03 PM [facility] Calcium 8.8 8.5 - 10.5 mg/dL 06/28/2025 12:03 PM [facility] AST 13 <33 U/L 06/28/2025 12:03 PM [facility] ALT 7 <34 U/L 06/28/2025 12:03 PM [facility] Alkaline Phosphatase 48 40 - 130 U/L 06/28/2025 12:03 PM [facility] Bilirubin, Total 0.4 0.0 - 1.2 mg/dL 06/28/2025 12:03 PM [facility] Total Protein 5.9(L) 6.4 - 8.3 g/dL 06/28/2025 12:03 PM [facility] Albumin 3.8 3.5 - 5.2 g/dL 06/28/2025 12:03 PM [facility] Globulin 2.1 1.9 - 4.1 g/dL 06/28/2025 12:03 PM [facility] Blood (Blood) 06/28/2025 6:5 0 AM EST 06/28/2025 11:21 AM EST us Ladan Almeida MD LAB BLOOD BKR ORDERABLES Final Result Performing Organization Address City/State/[facility] Co de Phone Number [facility] [address] [place] [address] * (ABNORMAL) CBC (06/28/2025 6:50 AM EST) WBC 5.00 4.00 - 11.00 K/uL 06/28/2025 11:45 AM [facility] RBC 3.53(L) 4.00 - 5.20 M/uL 06/28/2025 11:45 AM [facility] Hemoglobin 9.7(L) 12.0 - 16.0 g/dL 06/28/2025 11:45 AM [facility] Hematocrit 32.7(L) 36.0 - 46.0 % 06/28/2025 11:45 AM [facility] MCV 92.6 80.0 - 100.0 fL 06/28/2025 11:45 AM [facility] MCH 27.5 27.0 - 31.0 pg 06/28/2025 11:45 AM [facility] MCHC 29.7(L) 32.0 - 36.0 g/dL 06/28/2025 11:45 AM [facility] PLT 132(L) 150 - 450 K/uL 06/28/2025 11:45 AM [facility] MPV 11.6 8.4 - 12.0 fL 06/28/2025 11:45 AM [facility] RDW-CV 17.2(H) 11.5 - 14.5 % 06/28/2025 11:45 AM EST [facility] Absolute NRBC 0.00 <=0.00 K cells/uL 06/28/2025 11:45 AM EST [facility] NRBC 0.0 <=0.0 /100 WBCs 06/28/2025 11:45 AM EST [facility] Blood (Blood) 06/28/2025 6:5 0 AM EST 06/28/2025 11:21 AM EST us Ladan Almeida MD LAB BLOOD BKR ORDERABLES Final Result [address] [address] documented in this encounter Visit Diagnoses Diagnosis Abscess of intestine Other specified sepsis Chronic obstructive pulmonary disease, unspecified documented in this encounter Care Teams Pesticide Chemist Relationship Specialty Start Date End Date Charlene Shaw MD [address] [place] [address] PCP - General 11/17/23 documented as of this encounter Additional Source Comments The information contained in this document represents components of the legal health record. It is not the complete legal health record.[facility]
--- OUTSIDE RECORDS SUMMARY | 2025-08-15 11:25 | XMS_ITS | Encounter Summary ---
Author Organization Yasmeen [employer] [facility] Prior to 06/25/2024 Address [address] [place] [address] Care Team Providers Care Vp Cardiovascular Service Line Name Role Phone Penelope Lezama MD Primary Care Provider Rubi Weinberg, Anju DO Primary Care Pro vider Unavailable Penelope Lezama MD Primary Care Provider Rubi Weinberg, Anju DO Primary Care Pro vider Unavailable Penelope Lezama MD Primary Care Provider Unavamarkus Braxton Colasacco, Anju DO Primary Care Pro vider Unavailable Dariela Ojeda MD Primary Care Provider Unavailab Charlene Cisneros MD Primary Care Provider [phone] Encounter Details Date Type Department Care Team Description 12/26/2014 Bindery Machine Tender Report Medical Records [address] [place] [address] Jose Peña MD Social History Tobacco Use [...] on filedocumented in this encounter Care Teams Vp Cardiovascular Service Line Relationship Specialty Start Date End Date Penelope [...] Medicine 01/17/21 06/06/21 Charlene Shaw MD [address] [place] [address] PCP - General Internal Medicine 06/07/21 documented as of this encounter
--- OUTSIDE RECORDS SUMMARY | 2025-08-15 11:28 | XMS_ITS | Encounter Summary ---
Author Organization [employer] [facility] Prior to 06/25/2024 Address [address] [place] [address] Care Team Providers Care Color Depositing Machine Tender Name Role Phone Agustín Hudson MD Primary Care Provider Unavail able Penelope Lezama MD Primary Care Provider Rubi Weinberg, Anuj DO Primary Care Pro vider Unavailable Penelope Lezama MD Primary Care Provider Rubi Weinberg, Anju DO Primary Care Pro vider Unavailable Penelope Lezama MD Primary Care Provider Rubi Weinberg, Anju DO Primary Care Pro vider Unavailable Dariela Ojeda MD Primary Care Provider Unavailab Charlene Cisneros MD Primary Care Provider [phone] Encounter Details Date Type Department Care Team Description 11/13/2011 Director Private Music Therapy Agency Report Medical Records [address] [place] [address] Trae Guzman MD Social History Tobacco Use [...] on filedocumented in this encounter Care Teams Color Depositing Machine Tender Relationship Specialty Start Date End Date Agustín [...] Medicine 01/17/21 06/06/21 Charlene Shaw MD [address] [place] [address] PCP - General Internal Medicine 06/07/21 documented as of this encounter
--- OUTSIDE RECORDS SUMMARY | 2025-08-15 11:28 | XMS_ITS | Encounter Summary ---
Author Organization [facility] Prior to 06/25/2024 Address [address] [place] [address] Care Team Providers Care Hoop Coiling Machine Operator Name Role Phone Penelope Lezama MD Primary Care Provider Rubi Weinberg, Anju DO Primary Care Pro vider Unavailable Penelope Lezama MD Primary Care Provider Rubi Weinberg, Anju DO Primary Care Pro vider Unavailable Penelope Lezama MD Primary Care Provider Unavamarkus Braxton [place]as[place]apo, Anju DO Primary Care Pro vider Unavailable Dariela Ojeda MD Primary Care Provider Unavailab Charlene Cisneros MD Primary Care Provider [phone] Reason for Referral * EXTERNAL (Routine) - Authorized/Booked Specialty Diagnoses / Procedures Referred By Patricia sarabia Referred To Contact Neurology Procedures REFERRAL TO NEUROLOGY Penelope Lezama MD [address] [place] [address] Roxana Mckeon NP [address] [place] [address] Referral ID Status Reason Start Date Expiration Date V isits Requested Visits Authorized SEE NOTE Authorized/B ooked 12/17/2016 03/25/2017 1 1 Reason for Visit * Reason Onset Date Comments REFERRAL 12/12/2016 Encounter Details Date Type Department Care Team Description 12/12/2016 Telephone Adult Medicine [address] [place] [address] Penelope Lezama MD REFERRAL Social History Tobacco Use Types Packs/Day Years [...] Telephone Encounter - Nata Crystal M.A. - 12/18/2016 9:51 AM EDT Message left for patient to return my call. Re:your referral has been placed * Telephone Encounter - Penelope Lezama - 12/17/2016 5:07 PM EDT Referral done * Telephone Encounter - Vanesa Harris M.A. - 12/17/2016 5:05 PM EDT Cerebral palsy was her recent dx from neurology who referred her to dr roxana mckeon * Telephone Encounter - Penelope Lezama - 12/17/2016 4:[address] Steve is a neurologist I do not understand the request * Telephone Encounter - Nicole Villatoro M.A. - 12/17/2016 1:37 PM EDT Please review and advise, pt needs diagnossis for referral to neurology * Telephone Encounter - Virginia Hernandez - 12/17/2016 8:45 AM EDT Patient could not give info. Please supply a diagnosis for the referral to neurology * Telephone Encounter - Ira Regan - 12/12/2016 11:51 AM EDT What kind of chronic pain is he having? Headaches? I cant think of any other reason why you would go to a neurologist for chronic pain. Dx needs to be more specific. Thank you * Telephone Encounter - Virginia Hernandez - 12/12/2016 11:04 AM EDT What insurance does the patient have today? [employer] Effective 05/25/09: BCBS will not retro referral [...] insurance must be obtained and registered in [facility] or their referral can not be processed. Is this a retro request? NO. If yes for what date of service do you need the retro referral? Who is calling to request this referral? patient If the caller is not the patient, what is their name? Ask the patient WHO referred them to this specialty: Patient was seen by external specialst Dr Archie Scott who has now referred them to this specialty FIRST and LAST NAME of SPECIALIST PATIENT is seeing: Dr Roxana Mckeon npi [phone] What specialty is this? neurology DIAGNOSIS Patient is being seen for (Not a body part or a procedure): chronic pain Have you seen this SPECIALIST for this PROBLEM/DX before?NO If YES, when: Have you checked REVIEW or the APPT DESK to see if this referral has already been done or has visits left? NO Is this visit:Initial Visit Address of Specialist:[address] [place] [address] [place] [address] Phone # of Specialist:[phone] option 2 and 1 [facility] Fax #: (if applicable): Does patient have an appointment scheduled?: YES Date of appointment- (including a retro-request): February 04 Is this appointment related to: Not MVA, WC or Surgery related documented in this encounter Plan of Treatment Not on file documented as of this encounter Visit Diagnoses Not on filedocumented in this encounter Care Teams Hoop Coiling Machine Operator Relationship Specialty Start Date End [...] Medicine 01/17/21 06/06/21 Charlene Shaw MD [address] [place] [address] PCP - General Internal Medicine 06/07/21 documented as of this encounter
--- OUTSIDE RECORDS SUMMARY | 2025-08-15 11:28 | XMS_ITS | Encounter Summary ---
Author Organization Yasmeen [employer] [facility] Prior to 06/25/2024 Address [address] [place] [address] Care Team Providers Care Bible Reader Name Role Phone Penelope Lezama MD Primary Care Provider Rubi Weinberg, Anju DO Primary Care Pro vider Unavailable Penelope Lezama MD Primary Care Provider Rubi Weinberg, Anju DO Primary Care Pro vider Unavailable Penelope Lezama MD Primary Care Provider Unavamarkus Braxton Colasaradhao, Anju DO Primary Care Pro vider Unavailable Dariela Ojeda MD Primary Care Provider Unavailab Charlene Cisneros MD Primary Care Provider [phone] Reason for Visit * Reason Onset Date Comments refill request 03/15/2019 Encounter Details Date Type Department Care Team Description 03/15/2019 Refill Adult Medicine [address] [address] Penelope Lezama MD refill request Social History [...] N/A Patients current insurance carrier is: Payor: [place] FAMILY HE[employer]AN / Plan: POS $0 [place] 9195 /Product Type: POS [id number]-ryp-Gdmmvmi documented in this encounter Plan of Treatment Not on file documented as of this encounter Visit Diagnoses Not on filedocumented in this encounter Care Teams Bible Reader Relationship Specialty Start Date End Date Penelope [...] Internal Medicine 01/17/21 06/06/21 Charlene Shaw MD [address] [place] [address] PCP - General Internal Medicine 06/07/21 documented as of this encounter
--- OUTSIDE RECORDS SUMMARY | 2025-08-15 11:28 | XMS_ITS | Encounter Summary ---
Author Organization Yasmeen [employer] [facility] Prior to 06/25/2024 Address [address] [place] [address] Care Team Providers Care Servicing Rep Name Role Phone Charlene Shaw MD Primary Care Provider [phone] Reason for Visit * Reason Onset Date Comments Faxed Order 01/02/2024 Encounter Details Date Type Department Care Team Description 01/02/2024 Telephone Adult Medicine [address] [id number] Charlene Shaw MD [address] [place] [phone] Faxed Order Social History Tobacco Use Types Packs/Day Years [...] encounter Miscellaneous Notes * Telephone Encounter - Lu Rodríguez - 01/02/2024 9:19 AM EDT Faxed order received from [facility] and placed in providers box. documented in this encounter Plan of Treatment Not on file documented as of this encounter Visit Diagnoses Not on filedocumented in this encounter Care Teams Servicing Rep Relationship Specialty Start Date End Date Charlene Shaw MD [address] [place] [address] PCP - General Internal Medicine 06/07/21 documented as of this encounter
--- OUTSIDE RECORDS SUMMARY | 2025-08-15 11:28 | XMS_ITS | Encounter Summary ---
Author Organization [employer] [facility] Prior to 06/25/2024 Address [address] [place] [address] Care Team Providers Care Dinkey Motor Operator Name Role Phone Charlene Prince MD Primary Care Provider [phone] Reason for Visit * Reason Onset Date Comments [facility] Call 01/14/2024 Encounter Details Date Type Department Care Team Description 01/14/2024 Telephone Triage [address] [place], [place] [phone] Charlene Prince MD [address] [place] [address] [facility] Call Social History Tobacco Use Types [...] encounter Miscellaneous Notes * Telephone Encounter - Saundra Cuevas RN - 01/14/2024 2:05 PM EDT Called and spoke to Valencia, pt's granddaughter. She was informed per Dr. Prince pt is already taking Meloxicam for pain. She can try topical marijuana product (OTC) or she can add Tylenol up to 3,000 mg daily in divided doses. Pt is not interested in a cortisone injection at this time as it exacerbated her symptoms last time. * Telephone Encounter - Charlene Prince MD - 01/14/2024 2:01 PM EDT She is already taking meloxicam for pain. Would not add voltaren gel. She can try topical marijuanaproduct (over the counter) or can add tylenol up to 3000 mg daily in divided doses. If she would like to see orthopedics for potential cortisone injection, please let me know and will place referral * Telephone Encounter - Douglas Horner R.N - 01/14/2024 12:44 PM EDT Called and spoke with missy is OT working with pt with chronic knee pain. Looking for something for pain manage and orders if can apply ice or heat. Called and spoke with grand daughter with pt. No falls from knees buckling constant pain taking meloxicam sometimes but sts doesn't work. Looking for something topical to apply for pain management. Asked about o2 o2 was 90-93 today couldn't tell me what normally is but not that low. Sts pt is not c/o sob no wheezing completing full complete sentences wihtout diff advised to call pulmonary for this Will forward to dr prince for knee pain * Telephone Encounter - Judith Osorio - 01/14/2024 12:21 PM EDT [facility] CALL Which [facility] office is calling? [facility] Full name of caller: Missy The caller is A nurse Is the caller at the patients home?: NO Reason for call: Patient is having a lot of pain in both her knees - states difficulty walk and sometimes the knees buckle - would like to know what patient can do for the pain - heat or ice or any other suggestions - states she will need orders for heat or ice - also mentioned information about patient's o2, I couldn't make out what she was saying , the phone kept skipping out - I told her that when nurse calls back she could go over that part with her then Does caller need an urgent call back? NO Was CONTACT Telephone # obtained above?: YES Fax #: n/a documented in this encounter Plan of Treatment Not on file documented as of this encounter Visit Diagnoses Not on filedocumented in this encounter Care Teams Dinkey Motor Operator Relationship Specialty Start Date End Date Charlene Prince MD [address] [place] [address] PCP - General Internal Medicine 06/07/21 documented as of this encounter
--- OUTSIDE RECORDS SUMMARY | 2025-08-15 11:28 | XMS_ITS | Encounter Summary ---
Author Organization Yasmeen [employer] [facility] Prior to 06/25/2024 Address [address] [place] [address] Care Team Providers Care Supervisor Underwriting Clerks Name Role Phone Penelope Lezama MD Primary Care Provider Rubi Weinberg, Anju DO Primary Care Pro vider Unavailable Penelope Lezama MD Primary Care Provider Rubi Castrejono, Anju DO Primary Care Pro vider Unavailable Penelope Lezama MD Primary Care Provider Unavamarkus Braxton Colasaradhao, Anju DO Primary Care Pro vider Unavailable Dariela Ojeda MD Primary Care Provider Unavailab Charlene Cisneros MD Primary Care Provider [phone] Encounter Details Date Type Department Care Team Description 12/10/2018 Automobile Relocation Engineer Report Medical Records [address] [place] [address] Michelle Calvo MD Social History Tobacco Use [...] on filedocumented in this encounter Care Teams Supervisor Underwriting Clerks Relationship Specialty Start Date End Date Penelope [...] Medicine 01/17/21 06/06/21 Charlene Shaw MD [address] [place] [address] PCP - General Internal Medicine 06/07/21 documented as of this encounter
--- OUTSIDE RECORDS SUMMARY | 2025-08-15 11:28 | XMS_ITS | Encounter Summary ---
Author Organization [facility] Prior to 06/25/2024 Address [address] [place] [address] Care Team Providers Care Clinical Psychology Professor Name Role Phone Penelope Lezama MD Primary Care Provider Rubi Weinberg, Anju DO Primary Care Pro vider Unavailable Penelope Lezama MD Primary Care Provider Rubi Weinberg, Anju DO Primary Care Pro vider Unavailable Penelope Lezama MD Primary Care Provider Unarolando Braxton Colcarmine, Anju DO Primary Care Pro vider Unavailable Dariela Ojeda MD Primary Care Provider Unavailab Charlene Cisneros MD Primary Care Provider [phone] Encounter Details Date Type Department Care Team Description 03/11/2019 Technology Instructor Report Medical Records [address] [place] [id number] Michelle Calvo MD Social History Tobacco Use [...] filedocumented in this encounter Care Teams Clinical Psychology Professor Relationship Specialty Start Date End Date Penelope [...] Medicine 01/17/21 06/06/21 Charlene Shaw MD [address] [place] [phone] PCP - General Internal Medicine 06/07/21 documented as of this encounter
--- OUTSIDE RECORDS SUMMARY | 2025-08-15 11:28 | XMS_ITS | Encounter Summary ---
[facility] [place] [address] Care Team Providers Care Respiratory Medicine Physician Name Role Phone Charlene Shaw MD Primary Care Provider Reason for Visit * Reason Onset Date Comments faxed order 07/15/2025 [facility] order [id number] Encounter Details Date Type Department Care Team (Late st Contact Info) Description 07/15/2025 Telephone Adult Medicine [facility] [address] [place] [phone] Charlene Shaw MD [address] [place] [phone] Social History Tobacco Use Types Packs/Day Years [...] Janet Sultana - 07/15/2025 1:44 PM EST [email or web address] order [id number] received please sign and fax to [phone] documented in this encounter Plan of Treatment Upcoming Encounters Date Type Department Care Team (Late st Contact Info) Description 11/02/2025 12:45 PM EDT Office Visit Adult Medicine [facility] [address] [place], [place] [phone] Charlene Shaw MD [address] [place], [place] documented as of this encounter Visit Diagnoses Not on filedocumented in this encounter Additional Health Concerns Assessment Noted Time PHQ-9 Depression Total Score: 17 025 12:08 PM EST A fall risk assessment has been complete d for the patient 09/09/2024 12:07 PM EST documented as of this encounter Care Teams Respiratory Medicine Physician Relationship Specialty Start Date End Date Charlene Shaw MD [address] [place], [place] PCP - General Internal Medicine 06/07/21 documented as of this encounter
--- OUTSIDE RECORDS SUMMARY | 2025-08-15 11:28 | XMS_ITS | Encounter Summary ---
Author Organization [facility] Prior to 06/25/2024 Address [address] [place] [address] Care Team Providers Care Public Relations Coordinator Name Role Phone Charlene Shaw MD Primary Care Provider [phone] Encounter Details Date Type Department Care Team Description 10/16/2023 Telephone Pulmonology - [place] [address] [address] Gayla Rogers MD [address] [phone] Social History Tobacco Use Types Packs/Day Years [...] encounter Miscellaneous Notes * Telephone Encounter - Radha Orr - 10/16/2023 4:29 PM EST Patient called to cancel, no transportation. Patient daughter days to bring her are the days Dr Rogers is out, so she would like to see a Different provider that would be able to see patient on the days she will be able to have transportation. * Telephone Encounter - Teresita Rivera M.A. - 10/16/2023 4:08 PM EST Lvm for pt to call back to schedule pft prior to office visit on 10/22/23 documented in this encounter Plan of Treatment Not on file documented as of this encounter Visit Diagnoses Not on filedocumented in this encounter Care Teams Public Relations Coordinator Relationship Specialty Start Date End Date Charlene Shaw MD [address] [place] [phone] PCP - General Internal Medicine 06/07/21 documented as of this encounter
--- OUTSIDE RECORDS SUMMARY | 2025-08-15 11:28 | XMS_ITS | Encounter Summary ---
Author Organization [facility] Prior to 06/25/2024 Address [address] [place] [address] Care Team Providers Care Chief Vendor Quality Name Role Phone Agustín Hudson MD Primary Care Provider Unavail able Penelope Lezama MD Primary Care Provider Rubi Weinberg, Anju DO Primary Care Pro vider Unavailable Penelope Lezama MD Primary Care Provider Rubi Weinberg, Anju DO Primary Care Pro vider Unavailable Penelope Lezama MD Primary Care Provider Rubi Weinberg, Anju DO Primary Care Pro vider Unavailable Draiela Ojeda MD Primary Care Provider Unavailab Charlene Cisneros MD Primary Care Provider [phone] Encounter Details Date Type Department Care Team Description 05/13/2012 Combination Operator Report Medical Records [address] [place] [address] Trae Guzman MD Social History Tobacco Use [...] filedocumented in this encounter Care Teams Chief Vendor Quality Relationship Specialty Start Date End Date Agustín [...] Internal Medicine 01/17/21 06/06/21 Charlene Shaw MD [address] [place] [id number] PCP - General Internal Medicine 06/07/21 documented as of this encounter
--- OUTSIDE RECORDS SUMMARY | 2025-08-15 11:28 | XMS_ITS | Encounter Summary ---
Author Organization [employer] [facility] Prior to 06/25/2024 Address [address] [place] [address] Care Team Providers Care Barrel Filler Head Name Role Phone Penelope Lezama MD Primary Care Provider Anju Valencia DO Primary Care Pro vider Unavailable Penelope Lezama MD Primary Care Provider Rubi Weinberg, Anju DO Primary Care Pro vider Unavailable Penelope Lezama MD Primary Care Provider Rubi Weinberg, Anju DO Primary Care Pro vider Unavailable Dariela Ojeda MD Primary Care Provider Unavailab Charlene Cisneros MD Primary Care Provider [phone] Encounter Details Date Type Department Care Team Description 01/16/2019 Telephone Gastroenterology [address] [place] [address] Alejandra Stanley MD Social History [...] your call to schedule her colon with serena Downing * Telephone Encounter - Zeynep Pat - 01/16/2019 8:32 AM EDT Called patient back/lvm requesting a call back to schedule procedure documented in this encounter Plan of Treatment Not on file documented as of this encounter Visit Diagnoses Not on filedocumented in this encounter Care Teams Barrel Filler Head Relationship Specialty Start Date End Date Penelope [...] Medicine 01/17/21 06/06/21 Charlene Shaw MD [address] [place] [id number] PCP - General Internal Medicine 06/07/21 documented as of this encounter
--- OUTSIDE RECORDS SUMMARY | 2025-08-15 11:28 | XMS_ITS | Encounter Summary ---
Author Organization [facility] Prior to 06/25/2024 Address [address] [place] [address] Care Team Providers Care Picture Frame Maker Name Role Phone Charlene Shaw MD Primary Care Provider [phone] Encounter Details Date Type Department Care Team Description 09/16/2023 Air Support Control Officer Report Medical Records [address] [place] [phone] Kirk Tucker MD Social History Tobacco Use [...] on filedocumented in this encounter Care Teams Picture Frame Maker Relationship Specialty Start Date End Date Charlene Shaw MD [address] [place] [address] [phone] PCP - General Internal Medicine 06/07/21 documented as of this encounter
--- OUTSIDE RECORDS SUMMARY | 2025-08-15 11:28 | XMS_ITS | Encounter Summary ---
Author Organization [facility] [employer] [facility] Prior to 06/25/2024 Address [address] [place] [address] Care Team Providers Care Project Management Professional Name Role Phone Charlene Shaw MD Primary Care Provider [phone] Reason for Visit * Reason Onset Date Comments hospital follow up 08/11/2023 Encounter Details Date Type Department Care Team Description 08/11/2023 Telephone Adult Medicine [address] [phone] Charlene Shaw MD [address] [place] [address] [phone] hospital follow up Social History Tobacco Use Types Packs/Day Years [...] encounter Miscellaneous Notes * Telephone Encounter - Jael Strauss - 08/11/2023 10:57 AM EST Called and left to return my call. * Telephone Encounter - Jannetteaakash Pearl Chow - 08/11/2023 9:50 AM EST Hospital follow up appointment needed Hospital patient was treated at: [facility] Was this only an ER visit or was the patient admitted to the hospital? Admitted to hospital Date of visit if ER visit only: N/A If patient was admitted what was the date of discharge? Discharge from [facility] on 07/30/23 and is now being dischaged from [facility] 08/11/23 Reason/diagnosis for visit or stay: raspatory syncytial virus and also acute raspatory failure withhypoxia When was the patient told to follow up? 14 days Was visit or stay related to an injury? NO If yes, what was the date of injury (DOI)? N/A If yes, was the injury due to N/A documented in this encounter Plan of Treatment Not on file documented as of this encounter Visit Diagnoses Not on filedocumented in this encounter Care Teams Project Management Professional Relationship Specialty Start Date End Date Charlene Shaw MD [address] [place] [phone] PCP - General Internal Medicine 06/07/21 documented as of this encounter
--- OUTSIDE RECORDS SUMMARY | 2025-08-15 11:29 | XMS_ITS | Encounter Summary ---
Author Organization [facility] Prior to 06/25/2024 Address [address] [place] [address] Care Team Providers Care Corporate Events Director Name Role Phone Penelope Lezama MD Primary Care Provider Rubi Weinberg, Anju DO Primary Care Pro vider Unavailable Penelope Lezama MD Primary Care Provider Rubi Weinberg, Anju DO Primary Care Pro vider Unavailable Penelope Lezama MD Primary Care Provider Unavamarkus Braxton Colasaradhao, Anju DO Primary Care Pro vider Unavailable Dariela Ojeda MD Primary Care Provider Unavailab Charlene Cisneros MD Primary Care Provider [phone] Encounter Details Date Type Department Care Team Description 02/20/2018 Chief Scientist Report Medical Records [address] [place] [phone] Jolie Suggs Social History Tobacco Use Types [...] on filedocumented in this encounter Care Teams Corporate Events Director Relationship Specialty Start Date End Date Penelope [...] Internal Medicine 01/17/21 06/06/21 Charlene Shaw MD [address] [place] [phone] PCP - General Internal Medicine 06/07/21 documented as of this encounter
--- OUTSIDE RECORDS SUMMARY | 2025-08-15 11:29 | XMS_ITS | Encounter Summary ---
Author Organization [facility] [employer] [facility] Prior to 06/25/2024 Address [address] [place] [address] Care Team Providers Care Tobacco Wrapping Machine Tender Name Role Phone Charlene Shaw MD Primary Care Provider Encounter Details Date Type Department Care Team Description 03/15/2024 [facility] [address] [place] [address] Mao Varghese, ROSE [address] [place] [address] [phone] Social History Tobacco Use Types Packs/Day Years [...] on filedocumented in this encounter Care Teams Tobacco Wrapping Machine Tender Relationship Specialty Start Date End Date Charlene Shaw MD [address] [place] [address] [phone] PCP - General Internal Medicine 06/07/21 documented as of this encounter
--- OUTSIDE RECORDS SUMMARY | 2025-08-15 11:29 | XMS_ITS | Encounter Summary ---
Author Organization [facility] [employer] [facility] Prior to 06/25/2024 Address [address] [place] [address] Care Team Providers Care Career Development Director Name Role Phone Penelope Lezama MD Primary Care Provider Rubi Weinberg, Anju DO Primary Care Pro vider Unavailable Penelope Lezama MD Primary Care Provider Rubi Weinberg, Anju DO Primary Care Pro vider Unavailable Penelope Lezama MD Primary Care Provider Unavamarkus Braxton [place], Anju DO Primary Care Pro vider Unavailable Dariela Ojeda MD Primary Care Provider Unavailab Charlene Cisneros MD Primary Care Provider [phone] Reason for Visit * Reason Onset Date Comments REFERRAL 06/24/2018 Osei Polanco- General Surgery Encounter Details Date Type Department Care Team Description 06/24/2018 Telephone Adult Medicine [address] [address] Penelope Lezama MD REFERRAL (Osei Polanco-General Surgery) Social History Tobacco Use Types Packs/Day Years [...] encounter Miscellaneous Notes * Telephone Encounter - Ira Regan - 06/24/2018 2:36 PM EDT Im not sure what this request is for. Dr. Polanco is an urologist at [facility], [address] [place] [address]. If patient is having surgery, the office would obtain the auth. We only do referralf for office visits and there is one on file already. Thank you * Telephone Encounter - Ruth Grant - 06/24/2018 1:31 PM EDT What insurance does the patient have today? Payor: [employer] HEALTH PLAN / Plan: POS $0 [place] [id number] / Product Type: POS Iop-cso-Usfriul Effective 05/25/09: BCBS will not retro referral [...] insurance must be obtained and registered in [facility] or their referral can not be processed. Is this a retro request? NO. If yes for what date of service do you need the retro referral? N/A Who is calling to request this referral? [facility] If the caller is not the patient, what is their name? Viridiana Ask the patient WHO referred them to this specialty: Patient spoke to Dr. Lezama and was told they would order a referral to this specialty FIRST and LAST NAME of SPECIALIST PATIENT is seeing: Dr. Osei Polanco What specialty is this? General surgery DIAGNOSIS Patient is being seen for (Not a body part or a procedure): rajwinder rosales Have you seen this SPECIALIST for this PROBLEM/DX before?NO If YES, when: Have you checked REVIEW or the APPT DESK to see if this referral has already been done or has visits left? YES Is this visit:Initial Visit Address of Specialist:[address] [place] [address] Phone # of Specialist:[phone] Fax #: (if applicable):[phone] Does patient have an appointment scheduled?: YES Date of appointment- (including a retro-request): 06/29/18 Is this appointment related to: Surgery documented in this encounter Plan of Treatment Not on file documented as of this encounter Visit Diagnoses Not on filedocumented in this encounter Care Teams Career Development Director Relationship Specialty Start Date End Date [...] Medicine 01/17/21 06/06/21 Charlene Shaw MD [address] [place] [phone] PCP - General Internal Medicine 06/07/21 documented as of this encounter
--- OUTSIDE RECORDS SUMMARY | 2025-08-15 11:29 | XMS_ITS | Encounter Summary ---
Author Organization [facility] [employer] [facility] Prior to 06/25/2024 Address [address] [place] [address] Care Team Providers Care Construction Stonemason Name Role Phone Penelope Lezama MD Primary Care Provider Rubi Weinberg, Anju DO Primary Care Pro vider Unavailable Penelope Lezama MD Primary Care Provider Rubi Weinberg, Anju DO Primary Care Pro vider Unavailable Penelope Lezama MD Primary Care Provider Unavamarkus Castrejono, Anju DO Primary Care Pro vider Unavailable Dariela Ojeda MD Primary Care Provider Unavailab Charlene Cisneros MD Primary Care Provider [phone] Encounter Details Date Type Department Care Team Description 03/12/2018 Neon Technician Report Medical Records [address] [place] [phone] [place] [address] Social History Tobacco Use Types Packs/Day Years [...] on filedocumented in this encounter Care Teams Construction Stonemason Relationship Specialty Start Date End Date Penelope [...] Medicine 01/17/21 06/06/21 Charlene Shaw MD [address] [place] [phone] PCP - General Internal Medicine 06/07/21 documented as of this encounter
--- OUTSIDE RECORDS SUMMARY | 2025-08-15 11:29 | XMS_ITS | Encounter Summary ---
Author Organization [employer] [facility] Prior to 06/25/2024 Address [address] [place] [address] Care Team Providers Care Refinery Operator Coking Name Role Phone Charlene Shaw MD Primary Care Provider [phone] Encounter Details Date Type Department Care Team Description 06/25/2023 Tile Mason Report Medical Records [address] [place] [phone] Florian Judd PA-C Social History Tobacco Use [...] on filedocumented in this encounter Care Teams Refinery Operator Coking Relationship Specialty Start Date End Date Charlene Shaw MD [address] [place] [address] [phone] PCP - General Internal Medicine 06/07/21 documented as of this encounter
--- OUTSIDE RECORDS SUMMARY | 2025-08-15 11:29 | XMS_ITS | Clinical Summary ---
Author Organization [facility] Address [address] [place] [address] Phone Care Team Providers Care Customer Logistics Manager Name Role Phone Charlene Shaw MD Primary Care Provider [phone] Allergies Active Allergy Reactions Criticality Noted Date [...] times a day. 270 tablet 1 02/29/20 Active albuterol HFA (PROAIR HFA ; PROVENTIL [...] with abscess, drained Microalbuminuria 11/22/2024 Cerebral palsy 08/12/2024 Overview (08/12/2024): Left-sided spasticity and weakness Essential hypertension, benign 08/12/2024 High cholesterol 08/12/2024 Prediabetes 11/02/2021 Complete tear of left rotator cuff 08/14/2020 Glenohumeral arthritis, left 08/14/2020 Kidney stones 12/24/2018 Anemia 11/02/2018 Spastic hemiparesis 11/09/2014 Overview (08/12/2024): Used to see Dr. Peña, Dr. Gonzalez Urinary incontinence in female 11/09/2014 Depression, major, recurrent, in partial remissi on 08/05/2013 FAHAD (obstructive sleep apnea) 02/14/2011 Overview (08/12/2024): UNTREATED (October 2021) RLS (restless legs syndrome) 01/24/2011 Severe obesity (BMI 35.0-39.9) with comorbidity 12/10/2010 Lumbar spinal stenosis 08/24/2009 Lumbosacral radiculitis 08/24/2009 Osteoporosis, post-traumatic 11/21/2008 Overview (08/12/2024): history of fragility fractures; normal DEXA 10/31 Subclinical hypothyroidism 10/31/2008 Resolved Problems Problem Noted Date Diagnosed Date Resolved Date Chronic bronchitis 07/25/2023 Encounters Date Type Department Care Team Description 08/11/2025 Telephone Adult Medicine [address] [phone] Jaycee Greco [place] 08/04/2025 8:39 AM EST - 08/04/2025 11:59 PM EST Hospital Encounter [facility] Scan [address] [place] [address] Diverticulitis large intestine w/o perforation or abscess w/o bleeding Discharge Disposition: Home or Self Care 07/26/2025 Telephone Adult Medicine [address] [phone] Charlene Shaw MD 07/25/2025 Telephone Adult Medicine [address] [phone] Jaycee Greco [place] 07/25/2025 Telephone Adult Medicine [address] [phone] Charlene Shaw MD 07/25/2025 Telephone Adult Medicine [address] [phone] Charlene Shaw MD 07/15/2025 Telephone Adult Medicine [address] [phone] Charlene Shaw MD 07/05/2025 1:45 PM EST Office Visit Adult [address] [phone] Charlene Shaw MD Essential hypertension, benign (Primary Dx); Prediabetes; LLQ pain; Foot drop, left foot; Spastic hemiplegic cerebral palsy (CMS/HCC V24, CMS/HCC V28); Diverticulitis 07/05/2025 10:20 AM EST Consult Gastroenterology - [address] [facility] [address] [address] Fabio Denson MD Diverticulitis large intestine w/o perforation or abscess w/o bleeding (Primary Dx) 07/04/2025 Telephone Adult [address] [phone] Charlene Shaw MD 07/01/2025 10:30 AM EST Office Visit [address] [phone] Charlene Shaw MD Diverticulitis (Primary Dx); Prediabetes; Essential hypertension, benign; High cholesterol; Subclinical hypothyroidism 06/30/2025 [place] Adult [address] [phone] Charlene Shaw MD 06/29/2025 Telephone Adult Medicine [address] [phone] Jaycee Greco [place] 06/27/2025 Telephone Adult Medicine [address] [phone] Ernesto Jaramillo LPN 06/23/2025 Telephone Adult Medicine [address] [phone] Charlene Shaw MD from Last 3 Months [...] History Medical History Date Comments Cerebral palsy (CMS/HCC V24, CMS/HCC V28) botox injections at [facility] [place] High cholesterol Depression 09/14/2007 Essential hypertension, benign Displacement of lumbar inter vertebral disc without myelopathy 05/02/2010 Osteoporosis, post-traumatic 11/21/2008 DX: Osteoporosis, post-traumatic Subclinical hypothyroidism 10/31/2008 CVA (cerebral infarction) 11/09/2014 follow ed by neurologist FAHAD (obstructive sleep apnea) 02/14/2011 no n compliant on CPAP Kidney stones 12/24/2018 Prediabetes 11/02/2021 RLS (restless legs syndrome) 01/24/2011 Spastic hemiparesis ([facility] V24, [facility] V28) 11/09/[address] Peña, [...] 12:45 PM EDT Office Visit Adult Medicine [facility] [address], [place] [phone] Charlene Shaw MD [address] [place], [place] Health Maintenance Due Date Last Done [...] Discontinued 09/09/2024 Influenza Vaccine Completed 06/29/2025, , 06/04/2023, Additional history exists HIB Vaccines Aged Out [...] Procedure Name Priority Date/Time Associated Diagnosis Comments CT ABDOMEN PELVIS W CONTRAST Routine 08/04/2025 8:55 AM EST Diverticulitis large intestine w/o perforation or abscess w/o bleeding COMPREHENSIVE METABOLIC PANEL Routine 10/22/2024 10:22 AM EST Osteoporosis, post-traumatic Essential hypertension, benign Cerebral palsy, unspecified type (CMS/HCC V24, CMS/HCC V28) High cholesterol FHAAD (obstructive sleep apnea) Prediabetes Severe obesity (BMI [...] Recently Relevant to Health Maintenance Results * CT Abdomen Pelvis w Contrast (08/04/2025 8:55 AM EST) Anatomical Region Laterality Modality Body Computed Tomogra phy 08/04/2025 11:4 3 AM EST Impressions 08/04/2025 11:53 AM EST There is extensive sigmoid diverticulosis with sequelae of chronic diverticulitis. There is appears to be a fistula to the left vaginal cuff (in this patient who is status post hysterectomy). -------- FINAL REPORT -------- Dictated By: Marla Aldana Dictated Date: 08/04/2025 11:43 ET Assigned Physician: Marla Aldana Reviewed and Electronically Signed By: Marla Aldana Signed Date: 08/04/2025 11:53 ET Workstation ID: [id number] Transcribed By: Self Edit Transcribed Date: 08/04/2025 11:43 ET Narrative 08/04/2025 11:53 AM EST PROCEDURE: CT ABDOMEN/PELVIS WITH CONTRAST INDICATION: recent sigmoid diverticulitis with abscess; recurrent LLQ pain TECHNIQUE: CT of the abdomen and pelvis following the intravenous administration of 90cc Isovue 370. Multiplanar reformats. The examination was performed utilizing dose reduction techniques. Total DLP 1226 COMPARISON: No priors available. FINDINGS: LOWER THORAX: Atelectasis at lung bases. Coronary artery calcifications. Hiatal hernia. HEPATOBILIARY: No focal liver lesions. Cholecystectomy. SPLEEN: No focal lesion. PANCREAS: No focal mass or ductal dilatation. ADRENALS: No nodules. KIDNEYS/URETERS: No hydronephrosis, stones, or solid mass. PELVIC ORGANS/BLADDER: Hysterectomy. PERITONEUM / RETROPERITONEUM: No ascites or free air. No retroperitoneal lymphadenopathy. VESSELS: Scattered atherosclerotic calcifications throughout the aorta and its major branches. No aneurysm. GI TRACT: There is oral contrast through the transverse colon. There is extensive sigmoid diverticulosis with sequelae of chronic ileus with superimposed acute diverticulitis is not entirely excluded. There is appears to be a developing fistula to the left vaginal cuff. BONES AND SOFT TISSUES: Scattered degenerative changes seen throughout the bones. There are chronic vertebral body compression deformities. Scoliosis with multilevel spinal stenosis and neural foraminal narrowing. Kyphoplasty changes at L2. Soft tissues are unremarkable. Procedure Note Marla Aldana MD - 08/04/2025 PROCEDURE: CT ABDOMEN/PELVIS WITH CONTRAST INDICATION: recent sigmoid diverticulitis with abscess; recurrent LLQ pain TECHNIQUE: CT of the abdomen and pelvis following the intravenousadministration of 90cc Isovue 370. Multiplanar reformats. The examinationwas performed utilizing dose reduction techniques. Total DLP 1226 COMPARISON: No priors available. FINDINGS: LOWER THORAX: Atelectasis at lung bases. Coronary artery calcifications.Hiatal hernia. HEPATOBILIARY: No focal liver lesions. Cholecystectomy. SPLEEN: No focal lesion. PANCREAS: No focal mass or ductal dilatation. ADRENALS: No nodules. KIDNEYS/URETERS: No hydronephrosis, stones, or solid mass. PELVIC ORGANS/BLADDER: Hysterectomy. PERITONEUM / RETROPERITONEUM: No ascites or free air. No retroperitoneallymphadenopathy. VESSELS: Scattered atherosclerotic calcifications throughout the aorta andits major branches. No aneurysm. GI TRACT: There is oral contrast through the transverse colon. There isextensive sigmoid diverticulosis with sequelae of chronic ileus withsuperimposed acute diverticulitis is not entirely excluded. There isappears to be a developing fistula to the left vaginal cuff. BONES AND SOFT TISSUES: Scattered degenerative changes seen throughout thebones. There are chronic vertebral body compression deformities. Scoliosiswith multilevel spinal stenosis and neural foraminal narrowing.Kyphoplasty changes at L2. Soft tissues are unremarkable. IMPRESSION: There is extensive sigmoid diverticulosis with sequelae of chronicdiverticulitis. There is appears to be a fistula to the left vaginal cuff(in this patient who is status post hysterectomy). -------- FINAL REPORT -------- Dictated By: Marla Aldana Dictated Date: 08/04/2025 11:43 ET Assigned Physician: Marla Aldana Reviewed and Electronically Signed By: Marla Aldana Signed Date: 08/04/2025 11:53 ET Workstation ID: [id number] Transcribed By: Self Edit Transcribed Date: 08/04/2025 11:43 ET Fabio Denson MD IM CT PROCEDURES Final Result * (ABNORMAL) Lipid panel with reflex to direct LDL (10/22/2024 10:22 AM EST) Cholesterol 170 0 - 200 mg/dL LAB CHEMISTRY METHOD 10/22/2024 1:59 PM EST [facility] Triglycerides 247(H) 0 - 150 mg/dL LAB CHEMISTRY METHOD 10/22/2024 1:59 PM EST [facility] HDL 47 >=40 mg/dL LAB CHEMISTRY METHOD 10/22/2024 1:59 PM EST [facility] LDL Calculated 74 0 - 100 mg/dL LAB CHEMISTRY METHOD 10/22/2024 1:59 PM EST [facility] VLDL Cholesterol Srini 49.4 mg/dL LAB CHEMISTRY METHOD 10/22/2024 1:59 PM EST [facility] Non HDL Chol. (LDL+VLDL) 123 <145 mg/dL LAB CHEMISTRY METHOD 10/22/2024 1:59 PM EST [facility] Chol/HDL Ratio 3.6 0.0 - 4.4 LAB CHEMISTRY METHOD 10/22/2024 1:59 PM EST [facility] Blood Venous blood specimen / Unknown Venipuncture / Unknown 10/22/2024 10:22 AM EST 10/22/2024 10:22 AM EST us [facility] LAB BLOOD ORDERABLES Final Re sult [facility] [address] [place] [address], * DXA BONE DENSITY STUDY 1+ SITS AXIAL SKEL (03/12/2022 2:27 PM EDT) Anatomical Region Laterality Modality Bone Densitometr y 10/31/2021 9:21 AM EST Narrative 03/13/2022 4:26 PM EDT Clinical history: other osteoporosis Scans of the lumbar spine and hips were performed on a [email or web address] fan beam bone densitometer. Bone mineral density [...] spine and hips were performed on a Virally/Fan[employer]fan beam bone densitometer. Bone mineral density measurements [...] Resu lt * Hepatitis C Screening (05/17/2013) [facility] Hepatitis C Screening Abstracted Historical Provider MD HEALTH MAINTENANCE Final Result from Last 3 Months or Most Recently Relevant to Health Maintenance Insurance [employer] Care Teams Customer Logistics Manager Relationship Specialty Start Date End Date Charlene Shaw MD [address] [place] [phone] PCP - General Internal Medicine 06/07/21
--- OUTSIDE RECORDS SUMMARY | 2025-08-15 11:29 | XMS_ITS | Encounter Summary ---
Author Organization [facility] Prior to 06/25/2024 Address [address] [place] [address] Care Team Providers Care Thread Checker Name Role Phone Penelope Lezama MD Primary Care Provider Rubi Weinberg, Anju DO Primary Care Pro vider Unavailable Penelope Lezama MD Primary Care Provider Rubi Weinberg, Anju DO Primary Care Pro vider Unavailable Penelope Lezama MD Primary Care Provider Unavamarkus Braxton Colasaradhao, Anju DO Primary Care Pro vider Unavailable Dariela Ojeda MD Primary Care Provider Unavailab Charlene Cisneros MD Primary Care Provider [phone] Reason for Visit * Reason Onset Date Comments refill request 03/30/2018 Encounter Details Date Type Department Care Team Description 03/30/2018 Refill Adult Medicine [address] [address] Penelope Lezama MD refill request Social History [...] encounter Miscellaneous Notes * Telephone Encounter - Nicole Villatoro M.A. - 03/30/2018 2:53 PM EDT Lab Results Component Value Date NA 146 12/13/2017 K 3.8 12/13/2017 CO2 30.0 12/13/2017 CL 101 12/13/2017 BUN 25 12/13/2017 CREAT 0.9 12/13/2017 GLU 96 12/13/2017 CA 9.4 12/13/2017 GFR > 60 12/13/2017 * Telephone Encounter - Kary Meier - 03/30/2018 1:29 PM EDT MAIL ORDER REFILL REQUEST When was the patients last visit with PCP?: 07/31/2017 When was the patients last visit in Medicine: 12/16/2017 Does the patient have a future appointment? Yes 04/20/2018 Is the doctor here today?: YES Is the med requested on the list?:Yes What mail order pharmacy does patient have?: [facility] Let the patient know that if their pharmacy is participating we will automatically route this mail order refill to them via their mail order pharmacy. Is the following the patients current home address: [address] [place] [address] yes If their mail order pharmacy is NOT a participating pharmacy we can:If this refill request was recieved via fax or e-prescribe the request will be faxed back to the pharmacy Is this the patients current medical insurance carrier? Payor: [facility] [employer] [facility] / Plan: POS [id number] / Product Type: POS [id number] YES documented in this encounter Plan of Treatment Not on file documented as of this encounter Visit Diagnoses Not on filedocumented in this encounter Care Teams Thread Checker Relationship Specialty Start Date End Date Penelope [...] Medicine 01/17/21 06/06/21 Charlene Shaw MD [address] [place] [phone] PCP - General Internal Medicine 06/07/21 documented as of this encounter
--- OUTSIDE RECORDS SUMMARY | 2025-08-15 11:29 | XMS_ITS | Clinical Summary ---
Author Organization [facility] Address [address] [place] [address] Care Team Providers Care Quality Assurance Coordinator Name Role Phone ClementLenard Anju Primary Care [...] Take 250 mg by mouth. 8 Active FA/MV,CA,IRON,AR N/LYCOPENE/LUT (MULTIVITAL ORAL) Take by mouth. Activ [...] to complete this topic Sigmoidoscopy Discontinued Insurance [facility] Care Teams Quality Assurance Coordinator Relationship Specialty Start Date End Date Anju Sotelo PCP - General Internal Medicine 05/23/20
--- OUTSIDE RECORDS SUMMARY | 2025-08-15 11:29 | XMS_ITS | Encounter Summary ---
Author Organization [facility] Prior to 06/25/2024 Address [address] [place] [address] Care Team Providers Care Auto Specialty Services Manager Name Role Phone Charlene Shaw MD Primary Care Provider [phone] Encounter Details Date Type Department Care Team Description 02/02/2024 [facility] [address] [place] [address] Mao Varghese, ROSE [address] [place] [address] [id number] Social History Tobacco Use Types Packs/Day Years [...] on filedocumented in this encounter Care Teams Auto Specialty Services Manager Relationship Specialty Start Date End Date Charlene Shaw MD [address] [place] [address] [phone] PCP - General Internal Medicine 06/07/21 documented as of this encounter
--- OUTSIDE RECORDS SUMMARY | 2025-08-15 11:29 | XMS_ITS | Encounter Summary ---
Author Organization [facility] Prior to 06/25/2024 Address [address] [place] [address] Care Team Providers Care Rug Scratcher Name Role Phone Essie Perkins MD Primary Care Provider Rubi Castrejono, Anju DO Primary Care Pro vider Unavailable Essie Perkins MD Primary Care Provider Unarolando Braxton Colasacco, Anju DO Primary Care Pro vider Unavailable Essie Perkins MD Primary Care Provider Unavai labisabel Braxton Colasacco, Anju DO Primary Care Pro vider Unavailable Dariela Ojeda MD Primary Care Provider Unavailab Charlene Cisneros MD Primary Care Provider [phone] Reason for Visit * Reason Onset Date Comments Sole Tacker Feedback 09/01/2018 neos Encounter Details Date Type Department Care Team Description 09/01/2018 Refill Adult Medicine [address] [address] Essie Perkins MD Sole Tacker Feedback (neos) Social History Tobacco Use Types Packs/Day Years [...] Miscellaneous Notes * Telephone Encounter - Nicole Sania - 09/01/2018 2:55 PM EST Correction patient is scheduled to see PETTY Salamanca and per MITZI Alanizsolange Roth is not a providerat their office. Told to bill under Dr Lynch. [facility] Trace #: [id number] Subscriber: DANICA YADAV Submitter : ESSIE PERKINS Submitter Type: Provider : 1945 Referral (#[id number]) Specialty Care Review Type: Initial Certification Status : Certified in total Service Type : Medical Care Place Of Service : Office Visits : 6 Service Date : 09/02/2018-09/02/2019 Service Providers Provider Name ID Provider Type MORALES BRANDONVER NPI : [id number] Service Provider * Telephone Encounter - Ashli Prasad - 09/01/2018 1:26 PM EST What insurance does the patient have today? [employer] Effective 05/25/09: BCBS will not retro [...] insurance must be obtained and registered in [facility] or their referral can not be processed. Is this a retro request? NO. If yes for what date of service do you need the retro referral? N/A Who is calling to request this referral? pt If the caller is not the patient, what is their name? N/A Ask the patient WHO referred them to this specialty: Patient self referred FIRST and LAST NAME of SPECIALIST PATIENT is seeing: CLAYTON ROTH [id number] What specialty is this? orthopedics DIAGNOSIS Patient is being seen for (Not a body part or a procedure): left shoulder pain injection Have you seen this SPECIALIST for this PROBLEM/DX before?YES If YES, when:2018 Have you checked REVIEW or the APPT DESK to see if this referral has already been done or has visits left? YES Is this visit:Follow Up Address of Specialist: [address]ki [address], [place] [address] Phone # of Specialist:[phone] Fax #: (if applicable):[phone] Does patient have an appointment scheduled?: YES Date of appointment- (including a retro-request): 09/02/2018 Is this appointment related to: Not MVA, WC or Surgery related documented in this encounter Plan of Treatment Not on file documented as of this encounter Visit Diagnoses Not on filedocumented in this encounter Care Teams Rug Scratcher Relationship Specialty Start Date End Date Essie Perkins MD PCP - General Internal Medicine 09/22/14 10/21/19 Anju Suggs DO PCP - General Internal Medicine 10/22/19 11/17/19 Essie Perkins MD PCP - General Internal Medicine 11/18/19 04/10/20 Anju Suggs DO PCP - General Internal Medicine 04/11/20 05/09/20 Essie Perkins MD PCP - General Internal Medicine 05/10/20 05/15/20 Anju Suggs DO PCP - General Internal Medicine 05/16/20 01/16/21 Dariela Ojeda MD PCP - General Internal Medicine 01/17/21 06/06/21 Charlene Shaw MD [address] [place] [id number] PCP - General Internal Medicine 06/07/21 documented as of this encounter
--- OUTSIDE RECORDS SUMMARY | 2025-08-15 11:29 | XMS_ITS | Encounter Summary ---
Author Organization [facility] Prior to 06/25/2024 Address [address] [place] [address] Care Team Providers Care Patient Care Provider Name Role Phone Charlene Shaw MD Primary Care Provider [phone] Reason for Visit * Reason Onset Date Comments Provider Call Back 06/21/2022 Encounter Details Date Type Department Care Team Description 06/21/2022 Telephone Adult Medicine [address] [phone] Charlene Shaw MD [address] [place] [address] [phone] Provider Call Back Social History Tobacco Use Types Packs/Day Years [...] suspected to have Coronavirus/COVID-19? No / Unsure 05/27/2022 10:44 AM EDT documented as of this encounter Miscellaneous Notes * Telephone Encounter - Charlene Shaw MD - 06/21/2022 1:46 PM EDT Noted; please update med list * Telephone Encounter - Shobha Garcia - 06/21/2022 1:30 PM EDT Caller requesting call back from provider: Is the caller the patient? YES If caller is not the patient, what is the callers name? N/A Callers relationship to patient? N/A If person calling is not the patient themselves, is there a verbal release in FYI or permanent comments for this person: NO Reason for call back: Patient would like to inform Dr Shaw that she is receiving this prescriptionfor her Neurologist Dr Roberth Watson, patient is taking this medication twice a day clonidine (CATAPRES) 0.1 MG tablet 02/14/2022 Sig - Route: Take 0.1 mg by mouth. - Oral Class: Historic Order: [id number] Date/Time Signed: 05/27/2022 10:51 AM Caller offered to speak with the nurse for assistance: YES Response: Patient offered to speak with nurse for assistance and patient agreed. Message forwarded to nurse. documented in this encounter Plan of Treatment Not on file documented as of this encounter Visit Diagnoses Not on filedocumented in this encounter Care Teams Patient Care Provider Relationship Specialty Start Date End Date Charlene Shaw MD [address] [place] [id number] PCP - General Internal Medicine 06/07/21 documented as of this encounter
--- OUTSIDE RECORDS SUMMARY | 2025-08-15 11:29 | XMS_ITS | Encounter Summary ---
Author Organization [facility] Prior to 06/25/2024 Address [address] [place] [address] Care Team Providers Care Technical Report Writer Name Role Phone Agustín Hudson MD Primary [...] Unavailab Charlene Cisneros MD Primary Care Provider [phone] Encounter Details Date Type Department Care Team Description 03/23/2013 Wire Rope Fabrication Supervisor Report Medical Records [address] [place] [id number] Lucian Graf Social History Tobacco Use Types [...] filedocumented in this encounter Care Teams Technical Report Writer Relationship Specialty Start Date End Date Agustín [...] Medicine 01/17/21 06/06/21 Charlene Shaw MD [address] [place] [id number] PCP - General Internal Medicine 06/07/21 documented as of this encounter
--- OUTSIDE RECORDS SUMMARY | 2025-08-15 11:29 | XMS_ITS | Encounter Summary ---
Author Organization [facility] Prior to 06/25/2024 Address [address] [place] [address] Care Team Providers Care Zinc Chloride Operator Name Role Phone Charlene Shaw MD Primary Care Provider [phone] Encounter Details Date Type Department Care Team Description 12/27/2021 Spare Parts Clerk Report Medical Records [address] [place] [address] [facility] Social History Tobacco Use Types Packs/Day Years [...] on filedocumented in this encounter Care Teams Zinc Chloride Operator Relationship Specialty Start Date End Date Charlene Shaw MD [address] [place] [address] PCP - General Internal Medicine 06/07/21 documented as of this encounter
--- OUTSIDE RECORDS SUMMARY | 2025-08-15 11:29 | XMS_ITS | Encounter Summary ---
Author Organization [facility] Prior to 06/25/2024 Address [address] [place] [address] Care Team Providers Care Hris Specialist Name Role Phone Agustín Hudson MD Primary [...] Unavailab Charlene Cisneros MD Primary Care Provider [phone] Encounter Details Date Type Department Care Team Description 12/23/2012 Autism Tutor Report Medical Records [address] [place] [address] Trae Guzman MD Social History Tobacco Use [...] on filedocumented in this encounter Care Teams Hris Specialist Relationship Specialty Start Date End Date Agustín [...] Medicine 01/17/21 06/06/21 Charlene Shaw MD [address] [place] [id number] PCP - General Internal Medicine 06/07/21 documented as of this encounter
--- OUTSIDE RECORDS SUMMARY | 2025-08-15 11:29 | XMS_ITS | Encounter Summary ---
Author Organization [employer] [facility] Prior to 06/25/2024 Address [address] [place] [address] Care Team Providers Care Nursing Service Director Name Role Phone Agustín Hudson MD Primary [...] Unavailab Charlene Cisneros MD Primary Care Provider [phone] Encounter Details Date Type Department Care Team Description 12/08/2013 Social Work Job Titles Report Medical Records [address] [place] [address] Social History Tobacco Use Types Packs/Day Years [...] filedocumented in this encounter Care Teams Nursing Service Director Relationship Specialty Start Date End Date Agustín [...] Internal Medicine 01/17/21 06/06/21 Charlene Shaw MD [address] [place] [address] PCP - General Internal Medicine 06/07/21 documented as of this encounter
--- OUTSIDE RECORDS SUMMARY | 2025-08-15 11:29 | XMS_ITS | Encounter Summary ---
Author Organization [employer] [facility] Prior to 06/25/2024 Address [address] [place] [address] Care Team Providers Care Wireless Sales Manager Name Role Phone Charlene Shaw MD Primary Care Provider [phone] Encounter Details Date Type Department Care Team Description 11/28/2022 Steam Conditioner Filling Report Medical Records [address] [place] [address] Roberth Jackson MD Social History Tobacco Use [...] on filedocumented in this encounter Care Teams Wireless Sales Manager Relationship Specialty Start Date End Date Charlene Shaw MD [address] [place] [address] [phone] PCP - General Internal Medicine 06/07/21 documented as of this encounter
--- OUTSIDE RECORDS SUMMARY | 2025-08-15 11:29 | XMS_ITS | Encounter Summary ---
Author Organization [facility] Prior to 06/25/2024 Address [address] [place] [address] Care Team Providers Care Refining Engineer Name Role Phone Penelope Lezama MD Primary Care Provider Rubi Weinberg, Anju DO Primary Care Pro vider Unavailable Penelope Lezama MD Primary Care Provider Rubi Weinberg, Anju DO Primary Care Pro vider Unavailable Penelope Lezama MD Primary Care Provider Rubi Weinberg, Anju DO Primary Care Pro vider Unavailable Dariela Ojeda MD Primary Care Provider Unavailab Charlene Cisneros MD Primary Care Provider [phone] Encounter Details Date Type Department Care Team Description 08/04/2017 PNO Controlled Substance Contract Medical Records [address] [place] [address] Abstract, Provider Social History Tobacco Use Types [...] on filedocumented in this encounter Care Teams Refining Engineer Relationship Specialty Start Date End Date [...] PCP - General Internal Medicine 05/16/20 01/16/21 Darilea Ojeda MD PCP - General Internal Medicine 01/17/21 06/06/21 Charlene Shaw MD [address] [place] [address] PCP - General Internal Medicine 06/07/21 documented as of this encounter
--- OUTSIDE RECORDS SUMMARY | 2025-08-15 11:29 | XMS_ITS | Encounter Summary ---
Author Organization [facility] [facility] Prior to 06/25/2024 Address [address] [place] [address] Care Team Providers Care Sander Wooden Pencils Name Role Phone Agustín Hudson MD Primary [...] Unavailab Charlene Cisneros MD Primary Care Provider [phone] Encounter Details Date Type Department Care Team Description 08/31/2010 Storage Engineer Report Medical Records [address] [place] [address] Mady Nicole MD Social History Tobacco Use Types Packs/Day Years Used Date Smoking Tobacco: Every Day Comments:5 cigs a week Alcohol Use Standard Drinks/Week Comments Yes 0 [...] on filedocumented in this encounter Care Teams Sander Wooden Pencils Relationship Specialty Start Date End Date Agustín [...] Medicine 01/17/21 06/06/21 Charlene Shaw MD [address] [place] [address] PCP - General Internal Medicine 06/07/21 documented as of this encounter
--- OUTSIDE RECORDS SUMMARY | 2025-08-15 11:29 | XMS_ITS | Encounter Summary ---
Author Organization [employer] [facility] Prior to 06/25/2024 Address [address] [place] [address] Care Team Providers Care Nursing Program Chair Name Role Phone Penelope Lezama MD Primary Care Provider Rubi Weinberg, Anju DO Primary Care Pro vider Unavailable Penelope Lezama MD Primary Care Provider Rubi Weinberg, Anju DO Primary Care Pro vider Unavailable Penelope Lezama MD Primary Care Provider Unavamarkus Braxton Colasaradhao, Anju DO Primary Care Pro vider Unavailable Dariela Ojeda MD Primary Care Provider Unavailab Charlene Cisneros MD Primary Care Provider [phone] Reason for Visit * Reason Onset Date Comments VNA Call 06/11/2018 Encounter Details Date Type Department Care Team Description 06/11/2018 Telephone Adult Medicine [address] [address] Penelope Lezama MD VNA Call Social History [...] VNA CALL Which VNA office is calling? [facility] Full name of caller: [place] The caller [...] filedocumented in this encounter Care Teams Nursing Program Chair Relationship Specialty Start Date End Date [...] Internal Medicine 01/17/21 06/06/21 Charlene Shaw MD [address] [place] [address] PCP - General Internal Medicine 06/07/21 documented as of this encounter
--- OUTSIDE RECORDS SUMMARY | 2025-08-15 11:29 | XMS_ITS | Encounter Summary ---
Author Organization [facility] [facility] Prior to 06/25/2024 Address [address] [place] [address] Care Team Providers Care Undercollar Maker Name Role Phone Penelope Lezama MD Primary Care Provider Rubi Weinberg, Anju DO Primary Care Pro vider Unavailable Penelope Lezama MD Primary Care Provider Rubi Weinberg, Anju DO Primary Care Pro vider Unavailable Penelope Lezama MD Primary Care Provider Unavamarkus Weinberg, Anju DO Primary Care Pro vider Unavailable Dariela Ojeda MD Primary Care Provider Unavailab Charlene Cisneros MD Primary Care Provider [phone] Encounter Details Date Type Department Care Team Description 04/15/2019 Hospital Medical Records [address] [place] [address] Alejandra Stanley MD Social History Tobacco Use [...] on filedocumented in this encounter Care Teams Undercollar Maker Relationship Specialty Start Date End Date [...] Medicine 01/17/21 06/06/21 Charlene Shaw MD [address] [place] [address] PCP - General Internal Medicine 06/07/21 documented as of this encounter
--- OUTSIDE RECORDS SUMMARY | 2025-08-15 11:29 | XMS_ITS | Encounter Summary ---
Author Organization [facility]en [employer] [facility] Prior to 06/25/2024 Address [address] [place] [address] Care Team Providers Care Cellar Pumper Name Role Phone Penelope Lezama MD Primary Care Provider Rubi Weinberg, Anju DO Primary Care Pro vider Unavailable Penelope Lezama MD Primary Care Provider Rubi Weinberg, Anju DO Primary Care Pro vider Unavailable Penelope Lezama MD Primary Care Provider Unavamarkus Braxton Colasaradhao, Anju DO Primary Care Pro vider Unavailable Dariela Ojeda MD Primary Care Provider Unavailab Charlene Cisneros MD Primary Care Provider Reason for Visit * Reason Onset Date Comments Faxed Order 08/05/2017 Encounter Details Date Type Department Care Team Description 08/05/2017 Telephone Adult Medicine [address] [address] Penelope Lezama MD Faxed Order Social History Tobacco Use Types [...] encounter Miscellaneous Notes * Telephone Encounter - Shellie GarciaoMaya - 08/05/2017 10:34 AM EST Faxed order requires pcp signature and placed in pcp mail bin. documented in this encounter Plan of Treatment Not on file documented as of this encounter Visit Diagnoses Not on filedocumented in this encounter Care Teams Cellar Pumper Relationship Specialty Start Date End Date Penelope [...] Internal Medicine 01/17/21 06/06/21 Charlene Shaw MD [address] [place] [address] PCP - General Internal Medicine 06/07/21 documented as of this encounter
--- OUTSIDE RECORDS SUMMARY | 2025-08-15 11:29 | XMS_ITS | Encounter Summary ---
Author Organization [employer] [facility] Prior to 06/25/2024 Address [address] [place] [address] Care Team Providers Care Polysomnograph Tech Name Role Phone Agustín Hudson MD Primary [...] Unavailab Charlene Cisneros MD Primary Care Provider [phone] Encounter Details Date Type Department Care Team Description 02/09/2013 Release of Information Medical Records [address] [place] [id number] Abstract, Provider Social History Tobacco Use Types [...] on filedocumented in this encounter Care Teams Polysomnograph Tech Relationship Specialty Start Date End Date Agustín [...] Internal Medicine 01/17/21 06/06/21 Charlene Shaw MD [address] [place] [phone] PCP - General Internal Medicine 06/07/21 documented as of this encounter
--- OUTSIDE RECORDS SUMMARY | 2025-08-15 11:29 | XMS_ITS | Encounter Summary ---
Author Organization [employer] [facility] Prior to 06/25/2024 Address [address] [place] [address] Care Team Providers Care Kinesiotherapist Name Role Phone Charlene Shaw MD Primary Care Provider [phone] Encounter Details Date Type Department Care Team Description 01/08/2022 Orders Only Medical Records [address] [place] [address] Chinyere Shay PA-C [address] [place] [address] Social History Tobacco Use Types Packs/Day Years [...] Name Priority Date/Time Associated Diagnosis Comments OUTSIDE SLEEP STUDY Routine 12/06/2021 documented in this encounter Results * OUTSIDE SLEEP STUDY (12/06/2021) Chinyere Shay PA-C PULMONOLOGY documented in this encounter Visit Diagnoses Not on filedocumented in this encounter Care Teams Kinesiotherapist Relationship Specialty Start Date End Date Charlene Shaw MD [address] [place] [address] [phone] PCP - General Internal Medicine 06/07/21 documented as of this encounter
--- OUTSIDE RECORDS SUMMARY | 2025-08-15 11:29 | XMS_ITS | Encounter Summary ---
Author Organization [employer] [facility] Prior to 06/25/2024 Address [address] [place] [address] Care Team Providers Care Head Well Puller Name Role Phone Charlene Shaw MD Primary Care Provider [phone] Reason for Visit * Reason Onset Date Comments Hair Weaver Feedback 04/03/2023 Lung cancer scre en Encounter Details Date Type Department Care Team Description 04/03/2023 Telephone Pulmonology - [place] [address] [address] Gayla [place] MD [address] [address] Hair Weaver Feedback (Lung cancer screen ) Social History Tobacco Use Types Packs/Day Years Used Date Smoking Tobacco: Every Day Cigarettes Passive Smoke Exposure: Past Smokeless Tobacco: Never [...] suspected to have Coronavirus/COVID-19? No / Unsure 03/14/2023 1:30 PM EDT documented as of this encounter Miscellaneous Notes * Telephone Encounter - Pattie Steele - 04/03/2023 10:33 AM EDT Images from the original note were not included. General 03/14/2023 ??4:05 PM EDT Entered by Aster Stinson Unfortunately, this patient's insurance will only cover lung cancer screenings between the ages of 50-80 who have at least a 20 pack year total and are still currently smoking or have quit within thelast 15 years. Patient is 77 and started smoking when she was 21, smoked 5 cigarettes per day for 56 years which equals a pack year total of 14. ?? Please do not hesitate to call us if you have any questions, . documented in this encounter Plan of Treatment Not on file documented as of this encounter Visit Diagnoses Not on filedocumented in this encounter Care Teams Head Well Puller Relationship Specialty Start Date End Date Charlene Shaw MD [address] [place] [address] PCP - General Internal Medicine 06/07/21 documented as of this encounter
--- OUTSIDE RECORDS SUMMARY | 2025-08-15 11:29 | XMS_ITS | Encounter Summary ---
Author Organization [employer] [facility] [employer] [facility] Prior to 06/25/2024 Address [address] [place] [address] Care Team Providers Care What Job Titles Mean Name Role Phone Penelope Lezama MD Primary Care Provider Rubi Weinberg, Anju DO Primary Care Pro vider Unavailable Penelope Lezama MD Primary Care Provider Rubi Weinberg, Anju DO Primary Care Pro vider Unavailable Penelope Lezama MD Primary Care Provider Unavamarkus Braxton Colasaradhao, Anju DO Primary Care Pro vider Unavailable Dariela Ojeda MD Primary Care Provider Unavailab Charlene Cisneros MD Primary Care Provider [phone] Encounter Details Date Type Department Care Team Description 11/27/2018 Metal Refiner Report Medical Records [address] [place] [address] Ruba Lambert MD Social History Tobacco Use [...] on filedocumented in this encounter Care Teams What Job Titles Mean Relationship Specialty Start Date End Date Penelope [...] Medicine 01/17/21 06/06/21 Charlene Shaw MD [address] [place] [address] PCP - General Internal Medicine 06/07/21 documented as of this encounter
--- OUTSIDE RECORDS SUMMARY | 2025-08-15 11:29 | XMS_ITS | Encounter Summary ---
Author Organization [employer] [facility] Prior to 06/25/2024 Address [address] [place] [address] Care Team Providers Care Automotive Collision Estimator Name Role Phone Penelope Lezama MD Primary Care Provider Rubi Weinberg, Anju DO Primary Care Pro vider Unavailable Penelope Lezama MD Primary Care Provider Rubi Weinberg, Anju DO Primary Care Pro vider Unavailable Penelope Lezama MD Primary Care Provider Unarolando Castrejono, Anju DO Primary Care Pro vider Unavailable Dariela Ojeda MD Primary Care Provider Unavailab Charlene Cisneros MD Primary Care Provider [phone] Encounter Details Date Type Department Care Team Description 10/07/2017 Media Assistant Report Medical Records [address] [place] [address] [place] [address] Social History Tobacco Use Types Packs/Day Years [...] on filedocumented in this encounter Care Teams Automotive Collision Estimator Relationship Specialty Start Date End Date Penelope [...] Medicine 01/17/21 06/06/21 Charlene Shaw MD [address] [place] [address] PCP - General Internal Medicine 06/07/21 documented as of this encounter
--- OUTSIDE RECORDS SUMMARY | 2025-08-15 11:29 | XMS_ITS | Encounter Summary ---
Author Organization [facility] [facility] Prior to 06/25/2024 Address [address] [place] [address] Care Team Providers Care Blocklayer Name Role Phone Penelope Lezama MD Primary Care Provider Rubi Weinberg, Anju DO Primary Care Pro vider Unavailable Penelope Lezama MD Primary Care Provider Rubi Weinberg, Anju DO Primary Care Pro vider Unavailable Penelope Lezama MD Primary Care Provider Unarolando Weinberg, Anju DO Primary Care Pro vider Unavailable Dariela Ojeda MD Primary Care Provider Unavailab Charlene Cisneros MD Primary Care Provider [phone] Encounter Details Date Type Department Care Team Description 11/02/2018 [facility] Medical Records [address] [place] [address] Abstract, Provider Social History Tobacco Use Types [...] on filedocumented in this encounter Care Teams Blocklayer Relationship Specialty Start Date End Date Penelope [...] Medicine 01/17/21 06/06/21 Charlene Shaw MD [address] [place] [address] PCP - General Internal Medicine 06/07/21 documented as of this encounter
--- OUTSIDE RECORDS SUMMARY | 2025-08-15 11:29 | XMS_ITS | Encounter Summary ---
Author Organization [employer] [facility] Prior to 06/25/2024 Address [address] [place] [address] Care Team Providers Care Commercial Property Administrator Name Role Phone Charlene Shaw MD Primary Care Provider [phone] Encounter Details Date Type Department Care Team Description 03/28/2022 Warp Spooler Report Medical Records [address] [place] [address] [facility] Social History Tobacco Use Types Packs/Day [...] filedocumented in this encounter Care Teams Commercial Property Administrator Relationship Specialty Start Date End Date Charlene Shaw MD [address] [place] [address] PCP - General Internal Medicine 06/07/21 documented as of this encounter
--- OUTSIDE RECORDS SUMMARY | 2025-08-15 11:29 | XMS_ITS | Encounter Summary ---
Author Organization [facility] Prior to 06/25/2024 Address [address] [place] [address] Care Team Providers Care Fuller Brush Worker Name Role Phone Penelope Lezama MD Primary Care Provider Rubi Weinberg, Anju DO Primary Care Pro vider Unavailable Penelope Lezama MD Primary Care Provider Rubi Weinberg, Anju DO Primary Care Pro vider Unavailable Penelope Lezama MD Primary Care Provider Unarolando Weinberg, Anju DO Primary Care Pro vider Unavailable Dariela Ojeda MD Primary Care Provider Unavailab Charlene Cisneros MD Primary Care Provider [phone] Encounter Details Date Type Department Care Team Description 08/15/2018 Release of Information Medical Records [address] [place] [address] Abstract, Provider Social History Tobacco Use Types [...] on filedocumented in this encounter Care Teams Fuller Brush Worker Relationship Specialty Start Date End Date Penelope [...] Medicine 01/17/21 06/06/21 Charlene Shaw MD [address] [place] [address] PCP - General Internal Medicine 06/07/21 documented as of this encounter
--- OUTSIDE RECORDS SUMMARY | 2025-08-15 11:30 | XMS_ITS | Encounter Summary ---
Author Organization [facility] Prior to 06/25/2024 Address [address] [place] [address] Care Team Providers Care Medical Office Receptionist Assistant Name Role Phone Agustín Hudson MD Primary [...] Unavailab Charlene Cisneros MD Primary Care Provider [phone] Encounter Details Date Type Department Care Team Description 07/10/2010 Hospital Medical Records [address] [place] [address] Agustín Casarez PA-C 175 [facility] [address] [place] [address] Social History Tobacco Use Types Packs/Day Years [...] filedocumented in this encounter Care Teams Medical Office Receptionist Assistant Relationship Specialty Start Date End Date Agustín [...] Medicine 01/17/21 06/06/21 Charlene Shaw MD [address] [place] [address] PCP - General Internal Medicine 06/07/21 documented as of this encounter
--- OUTSIDE RECORDS SUMMARY | 2025-08-15 11:30 | XMS_ITS | Encounter Summary ---
Author Organization [facility] [employer] [facility] Prior to 06/25/2024 Address [address] [place] [address] Care Team Providers Care Testing Consultant Name Role Phone Agustín Hudson MD Primary [...] Unavailab Charlene Cisneros MD Primary Care Provider [phone] Reason for Visit * Reason Onset Date Comments refill request 09/02/2014 Encounter Details Date Type Department Care Team Description 09/02/2014 Refill Adult Medicine [address] [address] Agustín Hudson MD refill request Social History [...] Telephone Encounter - Agustín Hudson MD - 09/02/2014 10:30 AM EST Please send this to her behavioral health doc.. Thank you * Telephone Encounter - Maria Mabry M.A. - 09/02/2014 10:17 AM EST Pt is contracted for 84 pills but has been getting 245?? * Telephone Encounter - Anna Connelly - 09/02/2014 10:11 AM EST Patient would like script to be: E-PRESCRIBED/FAXED TO PHARMACY WHEN WAS THE PATIENT'S LAST APPOINTMENT IN ADULT MEDICINE? 05/19/2014 WHEN WAS THE LAST TIME THE PATIENT SAW THEIR PCP? Same as above Does patient have an upcoming appointment? Yes 11/16/2014 (THE MEDICATION REQUESTED IS ON THE MED LIST ABOVE) All of the medications requested were on the CURRENT MEDS list Did you check the Pharmacy information above?: YES Patient wants: 90 -day supply Is this a mail order prescription request ? YES Patients current insurance carrier is: Payor: [employer] / Plan: POS $0 [place] [id number] /Product Type: POS [id number]-Sjwdtil documented in this encounter Plan of Treatment Not on file documented as of this encounter Visit Diagnoses Not on filedocumented in this encounter Care Teams Testing Consultant Relationship Specialty Start Date End Date Agustín [...] Medicine 01/17/21 06/06/21 Charlene Shaw MD [address] [place] [address] PCP - General Internal Medicine 06/07/21 documented as of this encounter
--- OUTSIDE RECORDS SUMMARY | 2025-08-15 11:30 | XMS_ITS | Encounter Summary ---
Author Organization [facility] Prior to 06/25/2024 Address [address] [place] [address] Care Team Providers Care Director Federal Name Role Phone Anju Suggs DO Primary Care Pro vider Unavailable Dariela Ojeda MD Primary Care Provider Unavailab Charlene Cisneros MD Primary Care Provider [phone] Encounter Details Date Type Department Care Team Description 12/06/2020 Core Setter Report Medical Records [address] [place] [address] Mayo Myers Social History Tobacco Use Types [...] on filedocumented in this encounter Care Teams Director Federal Relationship Specialty Start Date End Date Anju Suggs DO PCP - General Internal Medicine 05/16/20 01/16/21 Dariela Ojeda MD PCP - General Internal Medicine 01/17/21 06/06/21 Charlene Shaw MD [address] [place] [address] PCP - General Internal Medicine 06/07/21 documented as of this encounter
--- OUTSIDE RECORDS SUMMARY | 2025-08-15 11:30 | XMS_ITS | Encounter Summary ---
Author Organization [facility] Prior to 06/25/2024 Address [address] [place] [address] Care Team Providers Care Gravel Inspector Name Role Phone Anju Suggs DO Primary Care Pro vider Unavailable Dariela Ojeda MD Primary Care Provider Unavailab Charlene Cisneros MD Primary Care Provider Encounter Details Date Type Department Care Team Description 11/24/2020 Change Analyst Report Medical Records [address] [place] [address] Jolie Suggs Social History Tobacco Use Types [...] on filedocumented in this encounter Care Teams Gravel Inspector Relationship Specialty Start Date End Date Anju Suggs DO PCP - General Internal Medicine 05/16/20 01/16/21 Dariela Ojeda MD PCP - General Internal Medicine 01/17/21 06/06/21 Charlene Shaw MD [address] [place] [address] PCP - General Internal Medicine 06/07/21 documented as of this encounter
--- OUTSIDE RECORDS SUMMARY | 2025-08-15 11:30 | XMS_ITS | Encounter Summary ---
Author Organization [employer] [facility] Prior to 06/25/2024 Address [address] [place] [address] Care Team Providers Care Team Physician Name Role Phone Dariela Ojeda MD Primary Care Provider Unavail Charlene Cisneros MD Primary Care Provider [phone] Reason for Visit * Reason Onset Date Comments Pre-op Needed 03/20/2021 Encounter Details Date Type Department Care Team Description 03/20/2021 Telephone Pulmonology - [place] 175 [facility] [address] [place] [address] Shanice Isbell MD [address] [place] [id number] Pre-op Needed Social History Tobacco Use Types [...] your assistance. Umm Pre Op Scheduling P: [phone] F: [phone] * Telephone Encounter - Ramya Mendosa - [...] out in June. * Telephone Encounter - Vale Mendosa - 03/20/2021 2:58 PM EDT Date of surgery:03/26/21 What surgery is patient having (gall bladder, cataract, appendix, etc...)?: Back surgery Surgeon's name: Dr. Myers Office phone number of surgeon: [phone] Fax # for surgeons office: (Required) Where is surgery being performed? [facility] Diagnosis/problem for surgery: Back surgery Is an EKG required for the pre-op workup? NO PCP: Dariela Ojeda Did you verify that the insurance below is correct? YES Patients insurance: Payor: [employer] HEALTH PLAN / Plan: POS $0 [place] [id number] / Product Type: POS [id number]-[id number] documented in this encounter Plan of Treatment Not on file documented as of this encounter Visit Diagnoses Not on filedocumented in this encounter Care Teams Team Physician Relationship Specialty Start Date End Date Dariela Ojeda MD PCP - General Internal Medicine 01/17/21 06/06/21 Charlene Shaw MD [address] [place] [address] PCP - General Internal Medicine 06/07/21 documented as of this encounter
--- OUTSIDE RECORDS SUMMARY | 2025-08-15 11:30 | XMS_ITS | Encounter Summary ---
Author Organization [employer] [facility] Prior to 06/25/2024 Address [address] [place] [address] Care Team Providers Care Medical Insurance Clerk Name Role Phone Penelope Lezama MD Primary Care Provider Rubi Weinberg, Anju DO Primary Care Pro vider Unavailable Penelope Lezama MD Primary Care Provider Rubi Castrejono, Anju DO Primary Care Pro vider Unavailable Penelope Lezama MD Primary Care Provider Unavamarkus Braxton Colasaradhao, Anju DO Primary Care Pro vider Unavailable Dariela Ojeda MD Primary Care Provider Unavailab Charlene Cisneros MD Primary Care Provider [phone] Encounter Details Date Type Department Care Team Description 11/23/2014 Oil Filters Inspector Report Medical Records [address] [place] [phone] Social History Tobacco Use Types Packs/Day Years [...] filedocumented in this encounter Care Teams Medical Insurance Clerk Relationship Specialty Start Date End Date [...] Internal Medicine 01/17/21 06/06/21 Charlene Shaw MD [address] [place] [address] PCP - General Internal Medicine 06/07/21 documented as of this encounter
--- OUTSIDE RECORDS SUMMARY | 2025-08-15 11:30 | XMS_ITS | Encounter Summary ---
Author Organization [facility] Prior to 06/25/2024 Address [address] [place] [address] Care Team Providers Care Dry House Attendant Name Role Phone Christos Shaw MD Primary Care Provider [phone] Reason for Visit * Reason Onset Date Comments Radio Survey Worker Feedback 07/25/2021 JENNIFER ROTHMAN Encounter Details Date Type Department Care Team Description 07/25/2021 Telephone Adult Medicine [address] [id number] Christos Shaw MD [address] [place] [address] [phone] Radio Survey Worker Feedback (JENNIFER ROTHMAN) Social History Tobacco Use Types Packs/Day Years [...] encounter Miscellaneous Notes * Telephone Encounter - Angellara Randolph - 07/25/2021 2:09 PM EST [facility] Review Request Submission Status[ Save Response to Batch ] Request: [id number] [facility] Trace #: [id number] Subscriber: RON GLOVER : 1945 Submitter : CHRISTOS SHAW Submitter Type: Provider Referral (#[id number]) Specialty Care Review Type: Initial Certification Status : Certified in total Service Type : Medical Care Place Of Service : Office Visits : 6 Service Date : 10/02/2021-10/02/2022 Service Providers Provider Name ID Provider Type JENNIFER ROTHMAN NPI : [id number] Service Provider * Telephone Encounter - Lindsay Sotomayor - 07/25/2021 12:12 PM EST What insurance does the patient have today? Payor: [employer] HEALTH PLAN / Plan: POS $0 [place] 9195 / Product Type: POS [id number] Effective 05/25/09: BCBS will not retro referral [...] insurance must be obtained and registered in [facility] or their referral can not be processed. Is this a retro request? YES. If yes for what date of service do you need the retro referral? 07/24/2021 Who is calling to request this referral? Patient If the caller is not the patient, what is their name? N/A Ask the patient WHO referred them to this specialty: Not an initial visit; it is for follow up/continuation of care. Patients PCP is Christos Shaw FIRST and LAST NAME of SPECIALIST PATIENT is seeing: What specialty is this? Podiatry DIAGNOSIS Patient is being seen for (Not a body part or a procedure): bilateral Foot pain and nail care Have you seen this SPECIALIST for this PROBLEM/DX before?YES If YES, when: March 2021 Have you checked REVIEW or the APPT DESK to see if this referral has already been done or has visits left? YES Is this visit:Follow Up Address of Specialist: [address] [place] [address] Phone # of Specialist: [phone] Fax #: (if applicable): Does patient have an appointment scheduled?: YES Date of appointment- (including a retro-request): 10/02/2021 Is this appointment related to: Not MVA, WC or Surgery related documented in this encounter Plan of Treatment Not on file documented as of this encounter Visit Diagnoses Not on filedocumented in this encounter Care Teams Dry House Attendant Relationship Specialty Start Date End Date Christos Shaw MD [address] [place] [address] PCP - General Internal Medicine 06/07/21 documented as of this encounter
--- OUTSIDE RECORDS SUMMARY | 2025-08-15 11:30 | XMS_ITS | Encounter Summary ---
Author Organization [email or web address] [facility] Prior to 06/25/2024 Address [address] [place] [address] Care Team Providers Care Systems Analyst Engineer Name Role Phone Charlene Shaw MD Primary Care Provider [phone] Encounter Details Date Type Department Care Team Description 10/15/2021 Release of Information Medical Records [address] [place] [address] Abstract, Provider Social History Tobacco Use Types [...] on filedocumented in this encounter Care Teams Systems Analyst Engineer Relationship Specialty Start Date End Date Charlene Shaw MD [address] [place] [address] PCP - General Internal Medicine 06/07/21 documented as of this encounter
--- OUTSIDE RECORDS SUMMARY | 2025-08-15 11:30 | XMS_ITS | Encounter Summary ---
Author Organization [employer] [facility] Prior to 06/25/2024 Address [address] [place] [address] Care Team Providers Care Sharepoint Application Developer Name Role Phone Anju Suggs DO Primary Care Pro vider Unavailable Dariela Ojeda MD Primary Care Provider Unavailab Charlene iCsneros MD Primary Care Provider [phone] Encounter Details Date Type Department Care Team Description 11/09/2020 Telephone Adult [address] [address] Anju Suggs DO Social History Tobacco Use [...] BASIC METABOLIC PANEL (02/08/2021 11:16 AM EDT) GLUCOSE 84 70 - 100 mg/dL 02/08/2021 3:09 PM EDT [facility] Comment:Reference range appl icable to fasting specimens only Blood Urea Nitrogen 19 5 - 25 mg/dL 02/08/2021 3:09 PM EDT [facility] CREAT 0.86 0.5 - 1.1 mg/dL 02/08/2021 3:09 PM EDT [facility] GLOMERULAR FILTRATION RATE > 60 02/08/2021 3:09 PM EDT [facility] Comment: If patient is -Portuguese, multiply result by 1.21 Chronic Kidney Disease: [...] - 11 02/08/2021 3:09 PM EDT [facility] CALCIUM 9.6 8.5 - 10.5 mg/dL 02/08/2021 3:09 PM EDT [facility] 02/08/2021 11:1 6 AM EDT 02/08/2021 11:17 AM EDT Anju Weinberg DO LAB [facility] * THYROID PROFILE W/TSH (02/08/2021 11:16 AM EDT) Pathologist [facility] TSH CASCADE 3.56 0.40 - 4.00 uIU/ml 02/08/2021 3:21 PM EDT [facility] 02/08/2021 11:1 6 AM EDT 02/08/2021 11:17 AM EDT Anju Weinberg DO LAB [facility] * (ABNORMAL) UA WITH CULTURE IF INDICATED (02/08/2021 11:16 AM EDT) GLUCOSE, URINE (UA) NEGATIVE NEGATIVE mg/dL 02/08/2021 2:58 PM EDT [facility] BILIRUBIN URINE NEGATIVE NEGATIVE 02/08/2021 2:58 PM EDT [facility] KETONE, URINE TRACE(A) NEGATIVE mg/dL 02/08/2021 2:58 PM EDT [facility] SPECIFIC GRAVITY, URINE 1.020 1.003 - 1.030 02/08/2021 2:58 PM EDT [facility] BLOOD, URINE NEGATIVE NEGATIVE 02/08/2021 2:58 PM EDT [facility] PH, URINE 5.5 5.0 - 8.0 02/08/2021 2:58 PM EDT [facility] PROTEIN, URINE NEGATIVE <= TRACE mg/dl 02/08/2021 2:58 PM EDT [facility] UROBILINOGEN, URINE 0.2 0.2 - 1.0 E.U./dL 02/08/2021 2:58 PM EDT [facility] NITRITE,URINE POSITIVE(A) NEGATIVE 02/08/2021 2:58 PM EDT [facility] LEUKOCYTE ESTERASE, URINE MODERATE(A) NEGATIVE 02/08/2021 2:58 PM EDT [facility] RBC-Urine 4 0 - 4 /HPF 02/08/2021 3:01 PM EDT [facility] WBC, URINE 66(H) 0 - 4 /HPF 02/08/2021 3:01 PM EDT [facility] EPITH CELLS, URINE 73(H) 0 - 60 /LPF 02/08/2021 3:01 PM EDT [facility] BACTERIA, URINE HEAVY(A) NEGATIVE 02/08/2021 3:01 PM EDT [facility] HYALINE CAST, URINE 11(H) 0 - 3 /LPF 02/08/2021 3:01 PM EDT [facility] 02/08/2021 11:1 6 AM EDT 02/08/2021 11:16 AM EDT Anju Weinberg DO LAB [facility] documented in this encounter Visit Diagnoses Diagnosis Pyuria- Primary Other nonspecific finding on examination of urine Elevated TSH Other abnormal blood chemistry documented in this encounter Care Teams Sharepoint Application Developer Relationship Specialty Start Date End Date Anju Suggs DO PCP - General Internal Medicine 05/16/20 01/16/21 Dariela Ojeda MD PCP - General Internal Medicine 01/17/21 06/06/21 Charlene Shaw MD [address] [place] [address] PCP - General Internal Medicine 06/07/21 documented as of this encounter
--- OUTSIDE RECORDS SUMMARY | 2025-08-15 11:30 | XMS_ITS | Encounter Summary ---
Author Organization [facility] Prior to 06/25/2024 Address [address] [place] [address] Care Team Providers Care Packaging Coordinator Name Role Phone Agustín Hudson MD Primary [...] Unavailab Charlene Cisneros MD Primary Care Provider [phone] Encounter Details Date Type Department Care Team Description 02/16/2014 Loom Cleaner Report Medical Records [address] [place] [address] Jose Peña MD Social History Tobacco Use [...] on filedocumented in this encounter Care Teams Packaging Coordinator Relationship Specialty Start Date End Date Agustín [...] Medicine 01/17/21 06/06/21 Charlene Shaw MD [address] [place] [address] PCP - General Internal Medicine 06/07/21 documented as of this encounter
--- OUTSIDE RECORDS SUMMARY | 2025-08-15 11:30 | XMS_ITS | Encounter Summary ---
Author Organization [employer] [facility] Prior to 06/25/2024 Address [address] [place] [address] Care Team Providers Care Head Strength And Conditioning Coach Name Role Phone Agustín Hudson MD Primary [...] Date Type Department Care Team Description 01/12/2014 Instructor Kindergarten Report Medical Records [address] [place] [address] Jose Peña MD Social History Tobacco Use [...] filedocumented in this encounter Care Teams Head Strength And Conditioning Coach Relationship Specialty Start Date End Date Agustín [...] Medicine 01/17/21 06/06/21 Charlene Shaw MD [address] [place] [address] PCP - General Internal Medicine 06/07/21 documented as of this encounter
--- OUTSIDE RECORDS SUMMARY | 2025-08-15 11:30 | XMS_ITS | Encounter Summary ---
Author Organization [employer] [facility] Prior to 06/25/2024 Address [address] [place] [address] Care Team Providers Care Lumber Stacker Operator Name Role Phone Agustín Hudson MD [...] Unavailab Charlene Cisneros MD Primary Care Provider [phone] Encounter Details Date Type Department Care Team Description 07/23/2010 Project Manager Report Medical Records [address] [place] [address] Agustín Casarez PA-C [address] [facility] [address] [place] [address] Social History Tobacco Use Types Packs/Day Years [...] on filedocumented in this encounter Care Teams Lumber Stacker Operator Relationship Specialty Start Date End Date Agustín [...] Medicine 01/17/21 06/06/21 Charlene Shaw MD [address] [place] [address] PCP - General Internal Medicine 06/07/21 documented as of this encounter
--- OUTSIDE RECORDS SUMMARY | 2025-08-15 11:30 | XMS_ITS | Encounter Summary ---
Author Organization [employer] [facility] Prior to 06/25/2024 Address [address] [place] [address] Care Team Providers Care Welfare Eligibility Interviewer Name Role Phone Anju Suggs DO Primary Care Pro vider Unavailable Dariela Ojeda MD Primary Care Provider Unavailab Charlene Cisneros MD Primary Care Provider [phone] Encounter Details Date Type Department Care Team Description 11/15/2020 Group Leader Semiconductor Testing Report Medical Records [address] [place] [address] Mayo Myers Social History Tobacco Use Types [...] on filedocumented in this encounter Care Teams Welfare Eligibility Interviewer Relationship Specialty Start Date End Date Anju Suggs DO PCP - General Internal Medicine 05/16/20 01/16/21 Dariela Ojeda MD PCP - General Internal Medicine 01/17/21 06/06/21 Charlene Shaw MD [address] [place] [address] PCP - General Internal Medicine 06/07/21 documented as of this encounter
--- OUTSIDE RECORDS SUMMARY | 2025-08-15 11:30 | XMS_ITS | Encounter Summary ---
Author Organization [employer] [facility] Prior to 06/25/2024 Address [address] [place] [address] Care Team Providers Care Real Estate Specialist Name Role Phone Dariela Ojeda MD Primary Care Provider [facility] Charlene Cisneros MD Primary Care Provider [phone] Reason for Visit * Reason Onset Date Comments refill request 02/28/2021 Encounter Details Date Type Department Care Team Description 02/28/2021 Refill Adult Medicine [address] [address] Dariela Ojeda MD refill request Social History [...] N/A Patients current insurance carrier is: Payor: [employer] PLAN / Plan: POS $0 [place] 9195 /Product Type: POS [id number] documented in this encounter Plan of Treatment Scheduled Orders Name Type Priority Associated Diagnoses Orde r Schedule [facility] DRUG SCREENING CANNABINOIDS NATURAL Lab Routine Encounter for long-term (current) use of medications Expected: 03/01/2021, Expires: 03/01/2022 [facility] DRUG SCREENING COCAINE Lab Routine Encounter for long-term (current) use of medications Expected: 03/01/2021, Expires: 03/01/2022 [facility] DRUG SCREEN QUANT AMPHETAMINES 3 OR 4 Lab Routine Encounter for long-term (current) use of medications Expected: 03/01/2021, Expires: 03/01/2022 [facility] DRUG/SUBSTANCE DEFINITIVE QUAL/QUANT NOS 1-3 (BARBITUATES) Lab Routine Encounter for long-term (current) use of medications Expected: 03/01/2021, Expires: 03/01/2022 [facility] DRUG SCREENING BENZODIAZEPINES 1-12 Lab Routine Encounter for long-term (current) use of medications Expected: 03/01/2021, Expires: 03/01/2022 documented as of this encounter Results * OXYCODONE, URINE (03/08/2021 12:09 PM EDT) URINE OXYCODONE NONE DETECTED ND 03/08/2021 3:14 PM EDT [facility] Comment: Assay cutoff 100 ng/mL Semi-quantitative assay for screening purposes only. Unconfirmed screening result should not be used for non-medical purposes. *ALTERNATE METHOD CONFIRMATION DONE UPON REQUEST ONLY* 03/08/2021 12:0 9 PM EDT 03/08/2021 12:09 PM EDT Narrative [facility] - 03/08/2021 3:14 PM EDT Release to patient->Immediate Dariela Ojeda MD LAB [facility] * DRUG OF ABUSE SCREEN (03/08/2021 12:09 PM EDT) BENZODIAZEPINE, URINE NONE DETECTED ND 03/08/2021 3:14 PM EDT [facility] [employer] Comment: Assay cutoff 200 ng/mL Semi-quantitative assay for screening purposes only. Unconfirmed screening result should not be used for non-medical purposes. *ALTERNATE METHOD CONFIRMATION DONE UPON REQUEST ONLY* OPIATES, URINE NONE DETECTED ND 03/08/2021 3:14 PM EDT [facility] [employer] Comment: Assay cutoff 300 ng/mL Semi-quantitative assay for screening purposes only. Unconfirmed screening result should not be used for non-medical purposes. *ALTERNATE METHOD CONFIRMATION DONE UPON REQUEST ONLY* BARBITURATES, URINE NONE DETECTED ND 03/08/2021 3:14 PM EDT [facility] [employer] Comment: Assay cutoff 200 ng/mL Semi-quantitative assay for screening purposes only. Unconfirmed screening result should not be used for non-medical purposes. *ALTERNATE METHOD CONFIRMATION DONE UPON REQUEST ONLY* PAIN AMPHETAMINES NONE DETECTED ND 03/08/2021 3:14 PM EDT [facility] [employer] Comment: Assay cutoff 1000 ng/mL Semi-quantitative assay for screening purposes only. Unconfirmed screening result should not be used for non-medical purposes. *POSITIVE RESULTS ARE AUTOMATICALLY SENT FOR ALTERNATE METHOD CONFIRMATION* PAIN COCAINE NONE DETECTED ND 03/08/2021 3:14 PM EDT [facility] Comment: Assay cutoff 300 ng/mL Semi-quantitative assay for screening purposes only. Unconfirmed screening result should not be used for non-medical purposes. *POSITIVE RESULTS ARE AUTOMATICALLY SENT FOR ALTERNATE METHOD CONFIRMATION* PAIN CANNABINOID NONE DETECTED ND 03/08/2021 3:14 PM EDT [facility] Comment: Assay cutoff 50 ng/mL Semi-quantitative assay for screening purposes only. Unconfirmed screening result should not be used for non-medical purposes. *POSITIVE RESULTS ARE AUTOMATICALLY SENT FOR ALTERNATE METHOD CONFIRMATION* 03/08/2021 12:0 9 PM EDT 03/08/2021 12:09 PM EDT Narrative [facility] - 03/08/2021 3:14 PM EDT Release to patient->Immediate Dariela Ojeda MD LAB [facility] * (ABNORMAL) CHG DRUG SCREENING OPIATES 1 [...] developed and the performance characteristics determined by [facility]. This confirmation testing has not been cleared or approved by the FDA. The laboratory is regulated under CLIA as qualified to perform high-complexity testing. This test is used for patient testing purposes. It should not be regarded as investigational or for research. Test performed at [facility], [address] [place] [address] Osei Cantu MD - Merchandising Coordinator Oxycodone GCMS Negative ng/mL 03/13/2021 8:44 AM EDT [facility] Oxymorphone GCMS Negative ng/mL 03/13/20 8:44 AM EDT [facility] 03/08/2021 12:0 9 PM EDT 03/08/2021 12:09 PM EDT Narrative [facility] - 03/13/2021 8:44 AM EDT Release to patient->Immediate Dariela Ojeda MD LAB [facility] documented in this encounter Visit Diagnoses Diagnosis Encounter for long-term (current) use of medications- Primary Encounter for long-term (current) use of other medications documented in this encounter Care Teams Real Estate Specialist Relationship Specialty Start Date End Date Dariela Ojeda MD PCP - General Internal Medicine 01/17/21 06/06/21 Charlene Shaw MD [address] [place] [address] PCP - General Internal Medicine 06/07/21 documented as of this encounter
--- OUTSIDE RECORDS SUMMARY | 2025-08-15 11:30 | XMS_ITS | Encounter Summary ---
Author Organization [employer] [facility] Prior to 06/25/2024 Address [address] [place] [address] Care Team Providers Care Microfilm Processor Name Role Phone Charlene Shaw MD Primary Care Provider [phone] Encounter Details Date Type Department Care Team Description 08/01/2021 Orders Only Adult Medicine [address] [phone] Wendy Hammer PA-C [address] [place] [address] [phone] Encounter for FIT (fecal immunochemical test) screening Social History Tobacco Use Types Packs/Day Years [...] Procedure Name Priority Date/Time Associated Diagnosis Comments CHG BLOOD OCCULT FECAL HGB DETER IA QUAL FECES 1-3 Routine 07/09/2021 11:17 AM EST Encounter for FIT (fecal immunochemical test) screening documented in this encounter Results * BLOOD OCCULT QUAL FECAL HEMGLBN (07/09/2021 11:17 AM EST) OCCULT BLOOD, STOOL neg INTERNAL CONTROL VALID yes Stool 07/09/2021 11:1 7 AM EST Wendy Harman [facility] documented in this encounter Visit Diagnoses Diagnosis Encounter for FIT (fecal immunochemical test) screening documented in this encounter Care Teams Microfilm Processor Relationship Specialty Start Date End Date Charlene Shaw MD [address] [place] [address] PCP - General Internal Medicine 06/07/21 documented as of this encounter
--- OUTSIDE RECORDS SUMMARY | 2025-08-15 11:30 | XMS_ITS | Encounter Summary ---
Author Organization [employer] [facility] Prior to 06/25/2024 Address [address] [place] [address] Care Team Providers Care Hematology Nurse Educator Name Role Phone Agustín Hudson MD Primary [...] Unavailab Charlene Cisneros MD Primary Care Provider [phone] Encounter Details Date Type Department Care Team Description 06/01/2010 Satellite Tv Technician Report Medical Records [address] [place] [address] Mady Nicole MD Social History Tobacco Use Types Packs/Day Years Used Date Smoking Tobacco: Every Day Comments:5 cigs a day Alcohol Use Standard Drinks/Week Comments Yes 0 [...] on filedocumented in this encounter Care Teams Hematology Nurse Educator Relationship Specialty Start Date End Date Agustín [...] Medicine 01/17/21 06/06/21 Charlene Shaw MD [address] [place] [address] PCP - General Internal Medicine 06/07/21 documented as of this encounter
--- OUTSIDE RECORDS SUMMARY | 2025-08-15 11:30 | XMS_ITS | Encounter Summary ---
Author Organization [employer] [facility] Prior to 06/25/2024 Address [address] [place] [address] Care Team Providers Care Flavor Maker Name Role Phone Penelope Lezama MD Primary Care Provider Rubi Weinberg, Anju DO Primary Care Pro vider Unavailable Penelope Lezama MD Primary Care Provider Rubi Stuartasacco, Anju DO Primary Care Pro vider Unavailable Penelope Lezama MD Primary Care Provider Unavamarkus Braxton Colasacco, Anju DO Primary Care Pro vider Unavailable Dariela Ojeda MD Primary Care Provider Unavailab Charlene Cisneros MD Primary Care Provider [phone] Encounter Details Date Type Department Care Team Description 04/23/2017 Process Artist Report Medical Records [address] [place] [address] Segun Swift NP Social History Tobacco Use [...] on filedocumented in this encounter Care Teams Flavor Maker Relationship Specialty Start Date End Date [...] Medicine 01/17/21 06/06/21 Charlene Shaw MD [address] [place] [address] PCP - General Internal Medicine 06/07/21 documented as of this encounter
--- OUTSIDE RECORDS SUMMARY | 2025-08-15 11:30 | XMS_ITS | Encounter Summary ---
Author Organization [employer] [facility] Prior to 06/25/2024 Address [address] [place] [address] Care Team Providers Care Chopper Gun Operator Name Role Phone Charlene Shaw MD Primary Care Provider [phone] Encounter Details Date Type Department Care Team Description 09/27/2021 Telegraph Office Manager Report Medical Records [address] [place] [address] [facility] Social History Tobacco Use Types Packs/Day [...] on filedocumented in this encounter Care Teams Chopper Gun Operator Relationship Specialty Start Date End Date Charlene Shaw MD [address] [place], [place] [phone] PCP - General Internal Medicine 06/07/21 documented as of this encounter
--- OUTSIDE RECORDS SUMMARY | 2025-08-15 11:30 | XMS_ITS | Encounter Summary ---
Author Organization [employer] [facility] Prior to 06/25/2024 Address [address] [place] [address] Care Team Providers Care Respiratory Care Program Director Name Role Phone Agustín Hudson MD [...] Unavailab Charlene Cisneros MD Primary Care Provider [phone] Encounter Details Date Type Department Care Team Description 01/03/2014 Oncology Rn Report Medical Records [address] [place] [address] Social History Tobacco Use Types Packs/Day Years [...] on filedocumented in this encounter Care Teams Respiratory Care Program Director Relationship Specialty Start Date End Date [...] Medicine 01/17/21 06/06/21 Charlene Shaw MD [address] [place] [address] PCP - General Internal Medicine 06/07/21 documented as of this encounter
== END 2025-08-15 10:42 | disposition home or self-care (01) ==
LOC: HO.HPODS 09:47
PROVIDERS: PCP Internal Medicine; Visit Provider Student in an Organized Health Care Education/Training Program
DX: S93.402A Sprain of unspecified ligament of left ankle, initial encounter (principal); S86.112A Strain of other muscle(s) and tendon(s) of posterior muscle group at lower leg level, left leg, initial encounter; M19.072 Primary osteoarthritis, left ankle and foot; M21.372 Foot drop, left foot; L60.2 Onychogryphosis; I63.89 Other cerebral infarction; G80.8 Other cerebral palsy
CPT/HCPCS: 11721; 99204

== ENCOUNTER 2025-08-15 09:46 | Outpatient (REF) | payer OTHER, MEDICARE, SELFPAY ==
--- NOTE | ~2025-08-15 | XR_ITS ---
EXAMINATION: XR FOOT 3 OR MORE VIEWS LEFT HISTORY: M79.672 - Pain in left foot COMPARISON: There are no prior studies available for comparison. FINDINGS: Three views of the left foot are submitted. The bones are markedly osteopenic. There is a fracture of the lateral aspect of the base of the proximal phalanx of the 3rd toe. There is a probable old healed fracture of the base of the 5th metatarsal. There is moderate hallux valgus deformity and degenerative change of the 1st MTP joint. Evaluation of the PIP and DIP joints is limited by flexion of the toes. The soft tissues are unremarkable. XR/XR foot LT min 3V IMPRESSION: Marked osteopenia. Fracture of the lateral aspect of the base of the proximal phalanx of the 3rd toe. Electronically signed by: Mayo Vaughan MD 08/15/2025 01:30 PM [facility]
== END 2025-08-15 09:47 | disposition home or self-care (01) ==
LOC: HO.HMGCX 09:46
PROVIDERS: PCP Internal Medicine; Visit Provider Student in an Organized Health Care Education/Training Program
DX: S93.402A Sprain of unspecified ligament of left ankle, initial encounter (principal); S86.112A Strain of other muscle(s) and tendon(s) of posterior muscle group at lower leg level, left leg, initial encounter; M19.072 Primary osteoarthritis, left ankle and foot; M21.372 Foot drop, left foot; L60.2 Onychogryphosis; I63.89 Other cerebral infarction; G80.8 Other cerebral palsy; W07.XXXA Fall from chair, initial encounter; Y92.9 Unspecified place or not applicable; Y93.F2 Activity, caregiving, lifting; Y99.9 Unspecified external cause status
CPT/HCPCS: 11721; 73630; 99202

== ENCOUNTER → 2025-08-15 11:22 | Outpatient (BNV) | payer OTHER, MEDICARE, SELFPAY | PROVIDERS: PCP Internal Medicine; Visit Provider Radiology Diagnostic Radiology | DX: S92.512A Displaced fracture of proximal phalanx of left lesser toe(s), initial encounter for closed fracture (principal); M85.872 Other specified disorders of bone density and structure, left ankle and foot | CPT/HCPCS: 73630 ==